=== PATIENT | male | born 1955 | race Caucasian/White ===

== ENCOUNTER 2021-06-04 14:53 | Inpatient (IN) | payer OTHER, SELFPAY ==
[2021-06-04] VITALS (8 sets, daily range): BP systolic 119–149; BP diastolic 90–111; PULSE 93–132; RESP 16–20; O2SAT 96–98; BMI 31.2
--- NOTE | ~2021-06-04 | US_ITS ---
EXAMINATION: US RETROPERITONEAL LIMITED (RENAL ONLY) CLINICAL INFORMATION: CT scan of the chest done without contrast earlier today showed 1.4 cm low-density mass at the superior pole of the left kidney.. COMPARISON: CT of the chest done on 06/04/2021. TECHNIQUE: Real-time imaging of the kidneys. There FINDINGS: RIGHT KIDNEY: 10.7 x 4.9 x 5.6 cm (SAG x AP x TRV). The kidney is normal in size, contour, and echogenicity. Renal cortical thickness is normal. No calculi or focal parenchymal lesions. No hydronephrosis. LEFT KIDNEY: 9.9 x 5.4 x 4.9 cm (SAG x AP x TRV). The kidney is normal in size, contour, and echogenicity. Renal cortical thickness is normal. No calculi . No hydronephrosis. At the midpole, there is an exophytic 1.5 x 1.4 x 1.4 cm simple appearing cyst is seen. At the superior pole, septated avascular hypoechogenicity is present, measures 1.5 x 1.6 x 1.3 cm, most consistent with minimally complicated cyst. US/US renal BI IMPRESSION: 1. Bilateral normal size kidneys. 2. At the superior pole of the left kidney, 1.6 cm maximum dimension septated avascular hypoechogenicity is present, most consistent with minimally complicated cyst.. Follow-up imaging to document stability is recommended. 3. At the midpole of the left kidney, simple appearing 1.5 cm exophytic cyst is noted.
--- NOTE | ~2021-06-04 | CT_ITS ---
EXAMINATION: CT CHEST WITHOUT CONTRAST CLINICAL INFORMATION: Evaluate for mass COMPARISON: Previous chest x-ray and chest CT May 2021 TECHNIQUE: Multidetector volumetric CT imaging of the chest was done. Axial MIP volume rendering provided. Sagittal and coronal reformatted images were obtained. This CT examination was performed using dose optimization techniques as appropriate, variously including the following: *Automated exposure control *Adjustment of mA and/or kV according to patient size (this includes techniques or standardized protocols for targeted exams where dose is matched to indication/reason for exam; i.e. extremities or head) *Use of iterative reconstruction technique DLP: 265 mGy-cm FINDINGS: LUNGS: There is compressive atelectasis of the medial segment of the right middle lobe and right lower lobe. No mass is seen. There is subsegmental atelectasis in the left lower lobe. The lungs are otherwise clear. No endobronchial or endotracheal lesion is seen in MEDIASTINUM: There are small mediastinal lymph nodes. No enlarged lymph nodes are seen. The heart is enlarged. There is severe coronary artery calcification. There is no pericardial effusion. The thoracic aorta is normal in caliber. PLEURA: There is a large right pleural effusion. This does not appear appreciably changed from 06/04/2021 exam. There is a small left pleural effusion. This is slightly decreased in size from recent exam. AXILLA: No lymphadenopathy. UPPER ABDOMEN: There is interval decrease in ascites seen in the upper abdomen. There are 2 low-attenuation left renal lesions that are stable. OSSEOUS STRUCTURES: There are degenerative changes of the spine. CT/CT chest wo con IMPRESSION: Large right pleural effusion which is unchanged. Small left pleural effusion which is decreased in size from recent exam. Compressive atelectasis of the medial segment of the right middle lobe and right lower lobe. Subsegmental atelectasis of the left lower lobe. No mass. Severe coronary artery calcification. Interval decrease in ascites.
--- NOTE | ~2021-06-04 | CT_ITS ---
EXAMINATION: CT CHEST WITHOUT CONTRAST CLINICAL INFORMATION: Evaluate pneumonia. Left-sided consolidation. COMPARISON: Chest x-ray dated 06/04/2021. TECHNIQUE: Multidetector volumetric CT imaging of the chest was obtained noncontrast. Sagittal and coronal reformations were obtained. This CT examination was performed using dose optimization techniques as appropriate, variously including the following: *Automated exposure control *Adjustment of mA and/or kV according to patient size (this includes techniques or standardized protocols for targeted exams where dose is matched to indication/reason for exam; i.e. extremities or head) *Use of iterative reconstruction technique DLP: 484 mGy-cm. FINDINGS: LUNGS: Bilateral posteriorly layering simple fluid attenuation pleural effusions are seen, large on the right side, extending to the lung apex and small on the left side, extending to the level of the aortic arch. No definite pleural thickening or nodularity is appreciated on noncontrast study. There is subjacent volume loss and mild partial atelectasis in the right middle lobe and left lower lobe and near complete atelectasis in the right lower lobe with some aeration remaining in the anterobasal segment of the right lower lobe. There is complete cut off of the right lower lobe bronchus after the takeoff of the anterobasal segment airway, though no definite central mass is appreciated on noncontrast study, the consolidated/atelectatic lung parenchyma. LYMPHOVASCULAR STRUCTURES: Aortic and heart size normal. Severe coronary artery calcifications seen. No pericardial effusion. No mediastinal, hilar or axillary adenopathy or free fluid collection. THYROID GLAND: Diffusely atrophic and otherwise unremarkable. UPPER ABDOMEN: Small volume ascites seen in the abdomen. Included portions of pancreas appear atrophic. Incompletely characterized upper pole left renal approximately 1.4 cm diameter low density mass is seen, possibly an incidental cyst. Additional incompletely included exophytic mid left renal 1 cm mass seen. A few scattered colonic diverticula are included in the left upper quadrant. There is some fullness at the GE junction, likely representing a small hiatal hernia. BONES: Multilevel mild vertebral spondylosis in the cervical, thoracic and upper lumbar spine. No suspicious focal findings. CT/CT chest wo con IMPRESSION: 1. Large right and small left pleural effusion is seen, appearing simple on noncontrast study with subjacent areas of atelectasis and volume loss, most severe in the right lower lobe, where subtotal collapse of the right lower lobe is seen. There is associated complete cut off of the right lower lobe bronchus beyond the takeoff of the anterobasal segment airway, though no definite central mass is appreciated on noncontrast exam. Bronchoscopic evaluation could be considered with CT scan follow-up as clinically appropriate. 2. No adenopathy. 3. Severe coronary artery calcifications. 4. Incompletely characterized left renal masses, possibly cysts. Recommend nonemergent renal ultrasound assessment of the kidneys to exclude solid lesions.
--- NOTE | ~2021-06-04 | XR_ITS ---
EXAMINATION: XR CHEST CLINICAL INFORMATION: Dyspnea COMPARISON: None TECHNIQUE: Frontal view of the chest was obtained. FINDINGS: The lungs are slightly hypoexpanded. There is dense consolidation at the base of the right lung, likely a combination of consolidated lung in a small adjacent effusion. The left lung appears clear. No pneumothorax. XR/XR chest 1V IMPRESSION: Dense consolidation at the base of the right lung concerning for pneumonia and a small adjacent effusion.
--- NOTE | 2021-06-04 15:22 | ECG_ITS ---
Test Reason : DIZZYNESS Blood Pressure : / mmHG Vent. Rate : 117 BPM Atrial Rate : 115 BPM P-R Int : 000 ms QRS Dur : 088 ms QT Int : 388 ms P-R-T Axes : 000 078 -33 degrees QTc Int : 541 ms Atrial fibrillation with rapid ventricular response Nonspecific T wave abnormality Abnormal ECG When compared with ECG of 30-MAY-2008 09:25, Significant changes have occurred Referred By: Stephany Nichols Electronically Signed By:SAMPSON GOOD
--- NOTE | 2021-06-04 15:37 | ED_ITS ---
HPI - SOB/Dyspnea General Chief Complaint: Dizziness Stated Complaint: OFF BALANCE Time Seen by Provider: 06/04/21 15:22 Source: patient and family Mode of arrival: ambulatory Limitations: no limitations History of Present Illness HPI Narrative: 66 yo male with hx of afib on dilt and blood thinners, HTN, depression here with 1 month of worsening edema and shortness of breath, he is not compliant with his medications because he doesn't feel like taking them per his , he denies cp, notes a cough, came today because he wouldn't stop complaining about his breathing. MD elicited complaint: shortness of breath and cough Pertinent past history: other (afib just started on lasix 20mg daily by PCP on 05/26 but he hasn't started it due to pharmacy issues) Onset (ago): week(s) (4) Context: occurred during exertion and medication noncompliance Timing: constant Severity: moderate Exacerbating factors: lying flat, exertion and movement Relieving factors: rest Associated symptoms: cough, orthopnea and other (edema) Treatment prior to arrival: none Related Data Allergies Allergy/AdvReac Type Severity Reaction Status Date / Time No Known Allergies Allergy Verified 06/04/21 15:00 Review of Systems Review of Systems: Constitutional : No Fever, No Chills ENT/Mouth : No sore throat, No Rhinorrhea, No Swallowing Difficulty Eyes: No Eye Pain, No Swelling, No Redness Cardiovascular : No Chest Pain, positive SOB, pos Orthopnea, positive Edema Respiratory : pos Cough, No Sputum, No Wheezing, positive dyspnea Gastrointestinal : No Nausea, No Vomiting, No Diarrhea, No abdominal Pain, No Hematochezia, No Melena Genitourinary : No Dysuria, No Urinary Frequency, No Hematuria Musculoskeletal : No joint pain, No Myalgias Skin : No Skin Lesions, No rash Neuro : No Weakness, No Numbness, No Dizziness, No Headache Psych : No Anxiety/Panic, No Depression Heme/Lymph: No Bruising, No Lymphadenopathy Endocrine : No Polyuria, No Polydipsia All other systems reviewed and are negative [facility] Past Medical History Attestation statement: The following information was validated with the patient. Medical History Afib Diabetes HTN (hypertension) Social History Social History (Updated 06/04/21 @ 16:25 by Stephany Nichols DO) Patient Tobacco Use Status: Never used Tobacco Use of substances other than those prescribed or required for medical reasons: No Advance Directives: No Advance Directives Information Provided: No Physical Exam Vital Signs: Vital Signs: Last Vital Signs Pulse 127 H 06/04/21 17:30 Resp 18 06/04/21 14:55 BP 127/95 H 06/04/21 17:30 Pulse Ox 97 06/04/21 14:55 Body Mass Index 31.2 Appearance: Alert. Oriented X3. No acute distress. Eyes: Pupils equal, round and reactive to light. ENT: Pharynx normal. Neck: Normal inspection. Neck supple. CVS: tachycardic irregular heart rate and rhythm. Pulses normal. Respiratory: No respiratory distress. Breath sounds decreased bases L>R Abdomen: Soft and nontender. Skin: Skin warm and dry. Normal skin color. Normal skin turgor. Extremities: pitting 2+ symmetric lower extremity edema. No calf ttp Neuro: Oriented X 3. No motor deficit. No sensory deficit. Course Course Course Narrative: dense consolidation seen may need CT scan - IV ceftriaxone for possible CAP ordered CT scan looks like fluid - ordered IV diuresis MDM - SOB/Dyspnea MDM Narrative Medical decision making narrative: 66 yo male with DM, HTN, afib not compliant regularly with his home medications comes in c/o dyspnea - he is in rapid afib on arrival will need labs, CXR< IV dilt, IV lasix, likely admission for CHF/ possible pneumonia vs mass Lab Data Result diagrams: 06/04/21 15:58 06/04/21 15:58 Labs: Lab Results 06/04/21 06/04/21 06/04/21 Range/Units 15:58 15:58 15:58 WBC 5.7 (4.8-10.8) X10*3/uL RBC 5.48 (4.60-5.80) X10*6/uL Hgb 15.0 (14.0-18.0) g/dl Hct 46.2 (42-52) % MCV 84.3 (80-98) fL MCH 27.4 (27.0-33.0) pg MCHC 32.5 (31.0-36.0) g/dl RDW 15.3 (11.0-16.0) % Plt Count 230 (160-400) X10*3/uL MPV 10.3 (9.4-12.4) fL Immature Gran % (Auto) 0.4 (0.0-0.4) % Neut % (Auto) 70.8 (45-73) % Lymph % (Auto) 20.2 (20-40) % [place] % (Auto) 7.0 (2-11) % Eos % (Auto) 1.2 (0-4) % Baso % (Auto) 0.4 (0-2) % Lymph # (Auto) 1.2 (1.2-4.9) X10*3/uL [place] # (Auto) 0.4 (0.1-1.2) X10*3/uL Eos # (Auto) 0.1 (0.0-0.4) X10*3/uL Baso # (Auto) 0.0 (0.0-0.2) X10*3/uL Abs Immat Gran (auto) 0.02 (0.00-0.03) X10*3/uL Absolute Neuts (auto) 4.0 (2.0-8.3) X10*3/uL Absolute Nucleated RBC 0.000 (0.0-0.012) X10*3/uL Nucleated RBC % (auto) 0.0 (0.0-0.2) /100WBC PT (9.9-13.0) SEC INR (0.9-1.1) APTT (24.1-38.0) SEC Sodium 136 (135-145) mmol/L Potassium 4.6 (3.3-5.1) mmol/L Chloride 102 (96-108) mmol/L Carbon Dioxide 22 (22-29) mmol/L Anion Gap 17 (12-20) BUN 23 H (9-16) mg/dL Creatinine 1.47 H (0.5-1.4) mg/dL Estim Creat Clear Calc 68.0 Estimated GFR 48 Random Glucose 135 H (60-115) mg/dL Lactic Acid (0.5-2.0) mmol/L Calcium 9.3 (8.4-10.2) mg/dL Magnesium (1.6-2.6) mg/dL Total Bilirubin (0.0-1.0) mg/dL Direct Bilirubin (0.0-0.5) mg/dL AST (5-37) U/L ALT (0-40) U/L Alkaline Phosphatase (39-117) U/L Troponin I High Sens (<3.5-35.0) ng/L B-Natriuretic Peptide 1248 H (<100) pg/mL Total Protein (6.5-8.0) g/dL Albumin (3.5-5.0) g/dL Lipase (8-78) U/L TSH (0.32-4.0) uIU/mL COVID-19 (KARL) (Negative) COVID-19 Clin Com 06/04/21 06/04/21 06/04/21 Range/Units 15:58 15:58 15:59 WBC (4.8-10.8) X10*3/uL RBC (4.60-5.80) X10*6/uL Hgb (14.0-18.0) g/dl Hct (42-52) % MCV (80-98) fL MCH (27.0-33.0) pg MCHC (31.0-36.0) g/dl RDW (11.0-16.0) % Plt Count (160-400) X10*3/uL MPV (9.4-12.4) fL Immature Gran % (Auto) (0.0-0.4) % Neut % (Auto) (45-73) % Lymph % (Auto) (20-40) % [place] % (Auto) (2-11) % Eos % (Auto) (0-4) % Baso % (Auto) (0-2) % Lymph # (Auto) (1.2-4.9) X10*3/uL [place] # (Auto) (0.1-1.2) X10*3/uL Eos # (Auto) (0.0-0.4) X10*3/uL Baso # (Auto) (0.0-0.2) X10*3/uL Abs Immat Gran (auto) (0.00-0.03) X10*3/uL Absolute Neuts (auto) (2.0-8.3) X10*3/uL Absolute Nucleated RBC (0.0-0.012) X10*3/uL Nucleated RBC % (auto) (0.0-0.2) /100WBC PT 15.4 H (9.9-13.0) SEC INR 1.3 H (0.9-1.1) APTT 33.4 (24.1-38.0) SEC Sodium (135-145) mmol/L Potassium (3.3-5.1) mmol/L Chloride (96-108) mmol/L Carbon Dioxide (22-29) mmol/L Anion Gap (12-20) BUN (9-16) mg/dL Creatinine (0.5-1.4) mg/dL Estim Creat Clear Calc Estimated GFR Random Glucose (60-115) mg/dL Lactic Acid (0.5-2.0) mmol/L Calcium (8.4-10.2) mg/dL Magnesium 1.8 (1.6-2.6) mg/dL Total Bilirubin 1.2 H (0.0-1.0) mg/dL Direct Bilirubin 0.6 H (0.0-0.5) mg/dL AST 34 (5-37) U/L ALT 29 (0-40) U/L Alkaline Phosphatase 108 (39-117) U/L Troponin I High Sens (<3.5-35.0) ng/L B-Natriuretic Peptide (<100) pg/mL Total Protein 6.6 (6.5-8.0) g/dL Albumin 3.6 (3.5-5.0) g/dL Lipase 7 L (8-78) U/L TSH 2.43 (0.32-4.0) uIU/mL COVID-19 (KARL) Negative (Negative) COVID-19 Clin Com See Note 06/04/21 06/04/21 Range/Units 15:59 16:37 WBC (4.8-10.8) X10*3/uL RBC (4.60-5.80) X10*6/uL Hgb (14.0-18.0) g/dl Hct (42-52) % MCV (80-98) fL MCH (27.0-33.0) pg MCHC (31.0-36.0) g/dl RDW (11.0-16.0) % Plt Count (160-400) X10*3/uL MPV (9.4-12.4) fL Immature Gran % (Auto) (0.0-0.4) % Neut % (Auto) (45-73) % Lymph % (Auto) (20-40) % [place] % (Auto) (2-11) % Eos % (Auto) (0-4) % Baso % (Auto) (0-2) % Lymph # (Auto) (1.2-4.9) X10*3/uL [place] # (Auto) (0.1-1.2) X10*3/uL Eos # (Auto) (0.0-0.4) X10*3/uL Baso # (Auto) (0.0-0.2) X10*3/uL Abs Immat Gran (auto) (0.00-0.03) X10*3/uL Absolute Neuts (auto) (2.0-8.3) X10*3/uL Absolute Nucleated RBC (0.0-0.012) X10*3/uL Nucleated RBC % (auto) (0.0-0.2) /100WBC PT (9.9-13.0) SEC INR (0.9-1.1) APTT (24.1-38.0) SEC Sodium (135-145) mmol/L Potassium (3.3-5.1) mmol/L Chloride (96-108) mmol/L Carbon Dioxide (22-29) mmol/L Anion Gap (12-20) BUN (9-16) mg/dL Creatinine (0.5-1.4) mg/dL Estim Creat Clear Calc Estimated GFR Random Glucose (60-115) mg/dL Lactic Acid 1.8 (0.5-2.0) mmol/L Calcium (8.4-10.2) mg/dL Magnesium (1.6-2.6) mg/dL Total Bilirubin (0.0-1.0) mg/dL Direct Bilirubin (0.0-0.5) mg/dL AST (5-37) U/L ALT (0-40) U/L Alkaline Phosphatase (39-117) U/L Troponin I High Sens 21.2 (<3.5-35.0) ng/L B-Natriuretic Peptide (<100) pg/mL Total Protein (6.5-8.0) g/dL Albumin (3.5-5.0) g/dL Lipase (8-78) U/L TSH (0.32-4.0) uIU/mL COVID-19 (KAR[facility]) (Negative) COVID-19 Clin Com ECG Data Attestation: I personally reviewed and interpreted this ECG as follows: ECG interpretation date: 06/04/21 ECG interpretation time: 16:30 Interpretation: Rate: 117 Rhythm: afib with RVR [place]:rightwards decreased QRS complex. ST T wave : no FREDDY, nonspecific qTC: prolonged prior studies: changed but no acute ischemia The study has been interpreted contemporaneously by me. . Critical Care Time Critical Care Time Critical Care Time: Yes Total Critical Care Time: 35 Attestation: IVF dilt x 2, IV lasix x 2, tele, CT chest. I attest to this time spent taking care of the patient Discharge Plan Discharge Clinical Impression: Noncompliance with medications Atrial fibrillation Qualifiers: Atrial fibrillation type: longstanding persistent Qualified Code(s): I48.11 - Longstanding persistent atrial fibrillation CHF (congestive heart failure) Qualifiers: Heart failure type: systolic Heart failure chronicity: acute on chronic Qualified Code(s): I50.23 - Acute on chronic systolic (congestive) heart failure Patient Disposition: Admitted As Inpatient
[2021-06-04 16:03] LABS: MANUAL DIFF FLAG NO
[2021-06-04 16:05] LABS: Basophils Percent Auto 0.4 % (0-2); Eosinophils Absolute Auto 0.1 X10*3/uL (0.0-0.4); Eosinophils Percent Auto 1.2 % (0-4); Hematocrit 46.2 % (42-52); Imm Gran Abs Auto 0.02 X10*3/uL (0.00-0.03); Imm Gran Pct Auto 0.4 % (0.0-0.4); Lymphocytes Absolute Auto 1.2 X10*3/uL (1.2-4.9); Lymphocytes Percent Auto 20.2 % (20-40); Mean Corpuscular HGB Conc 32.5 g/dl (31.0-36.0); Mean Corpuscular Hemoglobin 27.4 pg (27.0-33.0); Mean Corpuscular Volume 84.3 fL (80-98); Mean Platelet Volume 10.3 fL (9.4-12.4); Monocytes Absolute Auto 0.4 X10*3/uL (0.1-1.2); Neutrophils Percent Auto 70.8 % (45-73); Platelet Count 230 X10*3/uL (160-400); Red Blood Count 5.48 X10*6/uL (4.60-5.80); Red Cell Distribution Width 15.3 % (11.0-16.0); White Blood Count 5.7 X10*3/uL (4.8-10.8)
[2021-06-04] MEDS: dilTIAZem HCL 50 MG/10 ML VIAL 10 MG IVPUSH (16:05)
[2021-06-04] MEDS: Furosemide 20 MG/2 ML VIAL IVPUSH ×2 (16:06→18:13)
[2021-06-04 16:17] LABS: INTERNATIONAL NORM RATIO 1.3 (0.9-1.1); Prothrombin Time 15.4 SEC (9.9-13.0)
[2021-06-04 16:20] LABS: Partial Thromboplastin Time 33.4 SEC (24.1-38.0)
[2021-06-04 16:24] LABS: Anion Gap 17 (12-20); Blood Urea Nitrogen 23 mg/dL (9-16); Calcium 9.3 mg/dL (8.4-10.2); Carbon Dioxide 22 mmol/L (22-29); Chloride 102 mmol/L (96-108); Estimated Glomerular Filt Rate 48; Glucose Random 135 mg/dL (60-115); Potassium 4.6 mmol/L (3.3-5.1); Sodium 136 mmol/L (135-145)
[2021-06-04 16:25] LABS: COVID-19 Test Negative (Negative); IDNOW Serial# 9DD0AD1C
[2021-06-04 16:27] LABS: Alanine Aminotransferase 29 U/L (0-40); Albumin Level 3.6 g/dL (3.5-5.0); Alkaline Phosphatase 108 U/L (39-117); Aspartate Amino Transferase 34 U/L (5-37); Bilirubin Direct 0.6 mg/dL (0.0-0.5); Bilirubin Total 1.2 mg/dL (0.0-1.0); Lipase 7 U/L (8-78); Magnesium 1.8 mg/dL (1.6-2.6); Total Protein 6.6 g/dL (6.5-8.0)
[2021-06-04 16:30] LABS: B Type Natriuretic Peptide 1248 pg/mL (<100)
[2021-06-04 16:30] LABS: Troponin-I High Sensitivity 21.2 ng/L (<3.5-35.0)
[2021-06-04 16:47] LABS: TSH reflex Free T4 2.43 uIU/mL (0.32-4.0)
[2021-06-04 16:58] LABS: Lactic Acid 1.8 mmol/L (0.5-2.0)
[2021-06-04] MEDS: dilTIAZem HCL 50 MG/10 ML VIAL IVPUSH (17:30)
[2021-06-04] MEDS: cefTRIAXone sodium 1 GM in 0.9 % Sodium Chloride 50 ML IV (17:31)
[2021-06-04 18:08] LABS: Glucose Urine UA NEG (NEG); Leukocyte Esterase Urine NEG (NEG); Nitrite Urine NEG (NEG); Urine Blood NEG (NEG); Urine Ketones NEG (NEG); Urine Protein NEG (NEG-TRACE)
--- NOTE | 2021-06-04 18:15 | P.HPHOSP_ITS ---
History of Present Illness Date of Service: 06/04/21 <Althea Handley NP - Last Filed: 06/04/21 18:40> Chief Complaint: shortness of breath <Althea Handley NP - Last Filed: 06/04/21 18:40> 66-year-old man presented to the ER with complaints of worsening shortness of breath over the last month with increasing edema to his lower extremities. Patient does have a history of diabetes, congestive heart failure, atrial fibrillation however his reports that he has not been compliant with taking his medications every day. Patient reports that he does however he did also say that he felt little more confused more recently. He denied chest pain, nausea, vomiting, diarrhea but reported increased abdominal bloating, shortness of breath especially with activity, belching and flatus. Creatinine was noted to be elevated 1.27, BNP 1248. He was noted to be tachycardic with started on diltiazem drip for atrial fibrillation with rapid ventricular response, blood pressures been stable and he has not been hypoxic. He was also given a dose of Rocephin, Lasix. He will be admitted for further management treatment of acute congestive heart failure, atrial fibrillation with rapid ventricular response and pleural effusion. <Althea Handley NP - Last Filed: 06/04/21 18:40> Review of Systems Review of Systems: Denies any recent fever chills or decrease in appetite respiratory see HPI cardiovascular see HPI gastrointestinal denies any dysphagia abdominal pain nausea vomiting or diarrhea genitourinary denies any dysuria frequency or hematuria musculoskeletal denies any joint pain or swelling neuropsych denies any weakness or seizures all other systems reviewed are negative <Althea Handley NP - Last Filed: 06/04/21 18:40> [facility] Medical History: Medical History (Updated 06/05/21 @ 11:29 by Paxton Polanco MD) Afib CHF (congestive heart failure) Diabetes HTN (hypertension) <Althea Handley NP - Last Filed: 06/04/21 18:40> Family History: Family History (Updated 06/05/21 @ 11:20 by Paxton Polanco MD) Father CAD (coronary artery disease) <Althea Handley NP - Last Filed: 06/04/21 18:40> Pertinent family history: no cardiac disease <Althea Handley NP - Last Filed: 06/04/21 18:40> Social History: Social History (Updated 06/04/21 @ 16:25 by Stephany Nichols DO) Household Members: Spouse Housing: House Alcohol intake: never Patient Tobacco Use Status: Never used Tobacco Current occupational status: employed <Althea Handley NP - Last Filed: 06/04/21 18:40> Meds Allergies/Adverse reactions: Allergies Allergy/AdvReac Type Severity Reaction Status Date / Time No Known Allergies Allergy Verified 06/04/21 15:00 <Althea Handley NP - Last Filed: 06/04/21 18:40> Active Medications: Current Medications Generic Name Dose Route Start Last Admin Trade Name Freq PRN Reason Stop Dose Admin Diltiazem HCl 125 mg/ Sodium 125 mls @ 0 mls/hr 06/04/21 18:00 Chloride IVCONT .Q0M PALMER Protocol Per Protocol <Althea Handley NP - Last Filed: 06/04/21 18:40> Home medications: Home Medications Medication Instructions Recorded Confirmed Last Taken Type allopurinol 1 tab PO DAILY 06/04/21 06/04/21 06/04/21 History apixaban [Eliquis] 1 tab PO BID 06/04/21 06/04/21 06/04/21 History atorvastatin 1 tab PO DAILY 06/04/21 06/04/21 06/04/21 History bupropion HCl 1 tab PO QAM 06/04/21 06/04/21 06/04/21 History diltiazem HCl 1 cap PO DAILY 06/04/21 06/04/21 06/04/21 History escitalopram oxalate 1 tab PO DAILY 06/04/21 06/04/21 06/04/21 History furosemide 1 tab PO DAILY 06/04/21 06/04/21 06/04/21 History glipizide 2 tab PO DAILY 06/04/21 06/04/21 06/04/21 History hydrochlorothiazide 1 tab PO DAILY 06/04/21 06/04/21 06/04/21 History lisinopril 1 tab PO DAILY 06/04/21 06/04/21 06/04/21 History metformin 2 tab PO DAILY 06/04/21 06/04/21 06/04/21 History metoprolol succinate 1 tab PO DAILY 06/04/21 06/04/21 06/04/21 History <Althea Handely NP - Last Filed: 06/04/21 18:40> Physical Exam Vital Signs and Narrative: Vital Signs: Last Vital Signs Pulse 98 06/04/21 17:44 Resp 20 06/04/21 17:44 BP 119/98 H 06/04/21 17:44 Pulse Ox 97 06/04/21 17:44 Body Mass Index 31.2 <Althea Handley NP - Last Filed: 06/04/21 18:40> Appearing in no acute distress head is normocephalic atraumatic eyes pupils are PERRLA sclera is anicteric mouth throat mucous membranes are intact and moist neck is supple no lymphadenopathy, no JVD noted lung sounds diminished heart regular rate rhythm, clear S1, S2 positive bowel sounds, abdomen is soft, nontender, obese neuro patient is alert x3, no focal deficits <Althea Handley NP - Last Filed: 06/04/21 18:40> Results Labs CBC and Chem 7: : 06/05/21 05:53 06/05/21 05:53 <Althea Handley NP - Last Filed: 06/04/21 18:40> Labs: Laboratory Results - last 24 hr 06/04/21 06/04/21 06/04/21 15:58 15:58 15:58 MCV 84.3 MCH 27.4 MCHC 32.5 RDW 15.3 Plt Count 230 MPV 10.3 Immature Gran % (Auto) 0.4 Neut % (Auto) 70.8 Lymph % (Auto) 20.2 [place] % (Auto) 7.0 Eos % (Auto) 1.2 Baso % (Auto) 0.4 Lymph # (Auto) 1.2 [place] # (Auto) 0.4 Eos # (Auto) 0.1 Baso # (Auto) 0.0 Abs Immat Gran (auto) 0.02 Absolute Neuts (auto) 4.0 Absolute Nucleated RBC 0.000 Nucleated RBC % (auto) 0.0 PT INR APTT Anion Gap 17 Estim Creat Clear Calc 68.0 Estimated GFR 48 Random Glucose 135 H Lactic Acid Calcium 9.3 Magnesium Total Bilirubin Direct Bilirubin AST ALT Alkaline Phosphatase Troponin I High Sens B-Natriuretic Peptide 1248 H Total Protein Albumin Lipase TSH COVID-19 ([facility]) COVID-19 Clin Com 06/04/21 06/04/21 06/04/21 15:58 15:58 15:59 MCV MCH MCHC RDW Plt Count MPV Immature Gran % (Auto) Neut % (Auto) Lymph % (Auto) [place] % (Auto) Eos % (Auto) Baso % (Auto) Lymph # (Auto) [place] # (Auto) Eos # (Auto) Baso # (Auto) Abs Immat Gran (auto) Absolute Neuts (auto) Absolute Nucleated RBC Nucleated RBC % (auto) PT 15.4 H INR 1.3 H APTT 33.4 Anion Gap Estim Creat Clear Calc Estimated GFR Random Glucose Lactic Acid Calcium Magnesium 1.8 Total Bilirubin 1.2 H Direct Bilirubin 0.6 H AST 34 ALT 29 Alkaline Phosphatase 108 Troponin I High Sens B-Natriuretic Peptide Total Protein 6.6 Albumin 3.6 Lipase 7 L TSH 2.43 COVID-19 ([facility]) Negative COVID-19 Clin Com See Note 06/04/21 06/04/21 15:59 16:37 MCV MCH MCHC RDW Plt Count MPV Immature Gran % (Auto) Neut % (Auto) Lymph % (Auto) [place] % (Auto) Eos % (Auto) Baso % (Auto) Lymph # (Auto) [place] # (Auto) Eos # (Auto) Baso # (Auto) Abs Immat Gran (auto) Absolute Neuts (auto) Absolute Nucleated RBC Nucleated RBC % (auto) PT INR APTT Anion Gap Estim Creat Clear Calc Estimated GFR Random Glucose Lactic Acid 1.8 Calcium Magnesium Total Bilirubin Direct Bilirubin AST ALT Alkaline Phosphatase Troponin I High Sens 21.2 B-Natriuretic Peptide Total Protein Albumin Lipase TSH COVID-19 (KARL) COVID-19 Clin Com <Althea Handley NP - Last Filed: 06/04/21 18:40> Imaging Radiologist's Impressions: Impressions Chest X-Ray 06/04/21 15:23 IMPRESSION: Dense consolidation at the base of the right lung concerning for pneumonia and a small adjacent effusion. Chest CT 06/04/21 16:46 IMPRESSION: 1. Large right and small left pleural effusion is seen, appearing simple on noncontrast study with subjacent areas of atelectasis and volume loss, most severe in the right lower lobe, where subtotal collapse of the right lower lobe is seen. There is associated complete cut off of the right lower lobe bronchus beyond the takeoff of the anterobasal segment airway, though no definite central mass is appreciated on noncontrast exam. Bronchoscopic evaluation could be considered with CT scan follow-up as clinically appropriate. 2. No adenopathy. 3. Severe coronary artery calcifications. 4. Incompletely characterized left renal masses, possibly cysts. Recommend nonemergent renal ultrasound assessment of the kidneys to exclude solid lesions. <Althea Handley NP - Last Filed: 06/04/21 18:40> Assessment and Plan (1) Atrial fibrillation: Qualifiers: Atrial fibrillation type: longstanding persistent Qualified Code(s): I48.11 - Longstanding persistent atrial fibrillation <Althea Handley NP - Last Filed: 06/04/21 18:40> Status: Acute <Althea Handley NP - Last Filed: 06/04/21 18:40> (2) CHF (congestive heart failure): Qualifiers: Heart failure chronicity: acute on chronic Heart failure type: systolic Qualified Code(s): I50.23 - Acute on chronic systolic (congestive) heart failure <Althea Handley NP - Last Filed: 06/04/21 18:40> Status: Acute <Althea Handley NP - Last Filed: 06/04/21 18:40> 66-year-old man admitted with acute on chronic congestive heart failure unknown type, no recent echocardiogram in the medical record, records requested from [facility]. According to the patient's he has not been compliant with taking his medications as prescribed and may miss doses on a regular basis. Acute on chronic congestive heart failure. On Lasix at home. Likely secondary to noncompliance with medication. BNP 1248 no hypoxia IV Lasix Echocardiogram cardiology consultation Daily weights, monitor intake and output closely WILMER. Likely cardiorenal secondary to acute congestive heart failure Diurese Follow BMP closely, if no improvement consider nephrology consultation Hyperbilirubinemia. Likely secondary to congestive secondary to CHF Diurese Follow LFTs Atrial fibrillation with rapid ventricular response. Likely secondary to heart failure, noncompliance with medication IV Cardizem drip Cardiology following Continue Eliquis Pleural effusion, abnormal CT scan mass vs pulmonary edema Pulmonary consultation, may need bronchoscopy to rule out mass Possible left renal mass Renal ultrasound Hypertension. Stable blood pressure Hold lisinopril and hydrochlorothiazide due to WIMLER Diabetes mellitus Sliding scale, ADA diet Hold metformin due to WILMER Obesity. BMI 31.2 Discussed the importance of weight loss as this may contribute to worsening of other comorbidities. DVT prophylaxis with Sebastian Attending Dr. Magaña Full code <Althea Handley NP - Last Filed: 06/04/21 18:40> Quality Stroke Does the patient have a stroke diagnosis?: No <Althea Handley NP - Last Filed: 06/04/21 18:40> VTE Prior VTE?: No <Althea Handley NP - Last Filed: 06/04/21 18:40> VTE Risk Level:: Medical - moderate - high <Althea Handley NP - Last Filed: 06/04/21 18:40> VTE Device Contraindication: Treatment Not Indicated <Althea Handley NP - Last Filed: 06/04/21 18:40> VTE Drug Contraindication: N/A - Med Ordered <Althea Handley NP - Last Filed: 06/04/21 18:40>
[2021-06-04] MEDS: dilTIAZem HCL 125 MG in 0.9 % Sodium Chloride 100 ML 10 MG IVCONT (18:16)
[2021-06-04 18:23] LABS: Appearance Urine CLEAR; Color Urine YELLOW
--- NOTE | 2021-06-04 23:42 | PC.NURSE ---
pt cardizem drip remains unchanged, hr controlled in the 90's afib.
[2021-06-05] VITALS (12 sets, daily range): BP systolic 128–151; BP diastolic 78–118; PULSE 80–119; RESP 14–20; TEMP 36.1–36.6; O2SAT 92–98
[2021-06-05] MEDS: Furosemide 40 MG/4 ML VIAL IVPUSH ×2 (05:23→18:17)
[2021-06-05 05:59] LABS: MANUAL DIFF FLAG NO
[2021-06-05 06:04] LABS: Basophils Percent Auto 0.4 % (0-2); Eosinophils Absolute Auto 0.1 X10*3/uL (0.0-0.4); Eosinophils Percent Auto 2.3 % (0-4); Hematocrit 44.5 % (42-52); Hemoglobin 14.4 g/dl (14.0-18.0); Imm Gran Abs Auto 0.02 X10*3/uL (0.00-0.03); Imm Gran Pct Auto 0.4 % (0.0-0.4); Lymphocytes Absolute Auto 1.3 X10*3/uL (1.2-4.9); Lymphocytes Percent Auto 24.4 % (20-40); Mean Corpuscular HGB Conc 32.4 g/dl (31.0-36.0); Mean Corpuscular Hemoglobin 27.3 pg (27.0-33.0); Mean Corpuscular Volume 84.4 fL (80-98); Mean Platelet Volume 10.1 fL (9.4-12.4); Monocytes Absolute Auto 0.5 X10*3/uL (0.1-1.2); Monocytes Percent Auto 8.8 % (2-11); Neutrophils Absolute Auto 3.4 X10*3/uL (2.0-8.3); Neutrophils Percent Auto 63.7 % (45-73); Platelet Count 217 X10*3/uL (160-400); Red Blood Count 5.27 X10*6/uL (4.60-5.80); Red Cell Distribution Width 15.2 % (11.0-16.0); White Blood Count 5.3 X10*3/uL (4.8-10.8)
[2021-06-05 06:22] LABS: Anion Gap 15 (12-20); Blood Urea Nitrogen 24 mg/dL (9-16); Calcium 9.6 mg/dL (8.4-10.2); Carbon Dioxide 25 mmol/L (22-29); Chloride 102 mmol/L (96-108); Creatinine Clr Calc Pharmacy 70.4; Estimated Glomerular Filt Rate 50; Glucose Random 127 mg/dL (60-115); Potassium 4.3 mmol/L (3.3-5.1); Sodium 138 mmol/L (135-145)
[2021-06-05] MEDS: dilTIAZem HCL 125 MG in 0.9 % Sodium Chloride 100 ML 10 MG IVCONT (06:30)
[2021-06-05] MEDS: 0.9 % Sodium Chloride Flush 3 ML SYRINGE IVFLUSH (07:35)
--- NOTE | 2021-06-05 08:38 | PM.IMPN ---
Subjective Subjective Date of Service: 06/06/21 Interval History: Follow up sob No sob this morning resting in bed Physical Exam Vital Signs: Vital Signs: Last Vital Signs Temp 97.8 F 06/05/21 05:16 Pulse 108 H 06/05/21 07:25 Resp 16 06/05/21 07:25 BP 129/96 H 06/05/21 07:25 Pulse Ox 94 06/05/21 07:25 Body Mass Index 31.2 Appearing in no acute distress lung sounds are clear to auscultation heart regular rate rhythm, clear S1, S2 positive bowel sounds, abdomen is soft, nontender neuro patient is alert x3, no focal deficits Objective Data Current Medications Generic Name Dose Route Start Last Admin Trade Name Freq PRN Reason Stop Dose Admin Acetaminophen 650 mg 06/04/21 18:13 Acetaminophen 325 Mg Tablet PO Q6H PRN Pain, Mild (Pain Scale 1-3) Furosemide 40 mg 06/05/21 06:00 06/05/21 05:23 Furosemide 40 Mg/4 Ml Vial IVPUSH 40 mg Q12H PALMER Administration Protocol Diltiazem HCl 125 mg/ Sodium 125 mls @ 0 mls/hr 06/04/21 18:00 06/05/21 06:30 Chloride IVCONT 10 mg/hr .Q0M PALMER 10 mls/hr Administration Protocol Per Protocol Ondansetron HCl 4 mg 06/04/21 18:13 Ondansetron Hcl 4 Mg/2 Ml Vial IVPUSH Q8H PRN Nausea and Vomiting Sodium Chloride 3 ml 06/05/21 00:00 06/05/21 07:35 0.9 % Sodium Chloride Flush 3 Ml Syringe IVFLUSH 3 ml QSHIFT [facility] Administration Labs CBC & Chem 7: 06/05/21 05:53 06/06/21 04:19 Labs: Laboratory Results - last 24 hr 06/04/21 06/04/21 06/04/21 15:58 15:58 15:58 MCV 84.3 MCH 27.4 MCHC 32.5 RDW 15.3 Plt Count 230 MPV 10.3 Immature Gran % (Auto) 0.4 Neut % (Auto) 70.8 Lymph % (Auto) 20.2 [place] % (Auto) 7.0 Eos % (Auto) 1.2 Baso % (Auto) 0.4 Lymph # (Auto) 1.2 [place] # (Auto) 0.4 Eos # (Auto) 0.1 Baso # (Auto) 0.0 Abs Immat Gran (auto) 0.02 Absolute Neuts (auto) 4.0 Absolute Nucleated RBC 0.000 Nucleated RBC % (auto) 0.0 PT INR APTT Anion Gap 17 Creatinine 1.47 H Estim Creat Clear Calc 68.0 Estimated GFR 48 Random Glucose 135 H Lactic Acid Calcium 9.3 Magnesium Total Bilirubin Direct Bilirubin AST ALT Alkaline Phosphatase Troponin I High Sens B-Natriuretic Peptide 1248 H Total Protein Albumin Lipase TSH Urine Color Urine Appearance Urine pH Ur Specific [place] Urine Protein Urine Glucose (UA) Urine Ketones Urine Blood Urine Nitrite Ur Leukocyte Esterase COVID-19 (KARL) COVID-19 [facility]Mosa 06/04/21 06/04/21 06/04/21 15:58 15:58 15:59 MCV MCH MCHC RDW Plt Count MPV Immature Gran % (Auto) Neut % (Auto) Lymph % (Auto) [place] % (Auto) Eos % (Auto) Baso % (Auto) Lymph # (Auto) [place] # (Auto) Eos # (Auto) Baso # (Auto) Abs Immat Gran (auto) Absolute Neuts (auto) Absolute Nucleated RBC Nucleated RBC % (auto) PT 15.4 H INR 1.3 H APTT 33.4 Anion Gap Creatinine Estim Creat Clear Calc Estimated GFR Random Glucose Lactic Acid Calcium Magnesium 1.8 Total Bilirubin 1.2 H Direct Bilirubin 0.6 H AST 34 ALT 29 Alkaline Phosphatase 108 Troponin I High Sens B-Natriuretic Peptide Total Protein 6.6 Albumin 3.6 Lipase 7 L TSH 2.43 Urine Color Urine Appearance Urine pH Ur Specific [place] Urine Protein Urine Glucose (UA) Urine Ketones Urine Blood Urine Nitrite Ur Leukocyte Esterase COVID-19 (KARL) Negative COVID-19 [employer] Com See Note 06/04/21 06/04/21 06/04/21 15:59 16:37 17:55 MCV MCH MCHC RDW Plt Count MPV Immature Gran % (Auto) Neut % (Auto) Lymph % (Auto) [place] % (Auto) Eos % (Auto) Baso % (Auto) Lymph # (Auto) [place] # (Auto) Eos # (Auto) Baso # (Auto) Abs Immat Gran (auto) Absolute Neuts (auto) Absolute Nucleated RBC Nucleated RBC % (auto) PT INR APTT Anion Gap Creatinine Estim Creat Clear Calc Estimated GFR Random Glucose Lactic Acid 1.8 Calcium Magnesium Total Bilirubin Direct Bilirubin AST ALT Alkaline Phosphatase Troponin I High Sens 21.2 B-Natriuretic Peptide Total Protein Albumin Lipase TSH Urine Color YELLOW Urine Appearance CLEAR Urine pH 6.0 Ur Specific [place] 1.010 Urine Protein NEG Urine Glucose (UA) NEG Urine Ketones NEG Urine Blood NEG Urine Nitrite NEG Ur Leukocyte Esterase NEG COVID-19 (KARL) COVID-19 Clin Com 06/05/21 06/05/21 05:53 05:53 MCV 84.4 MCH 27.3 MCHC 32.4 RDW 15.2 Plt Count 217 MPV 10.1 Immature Gran % (Auto) 0.4 Neut % (Auto) 63.7 Lymph % (Auto) 24.4 [place] % (Auto) 8.8 Eos % (Auto) 2.3 Baso % (Auto) 0.4 Lymph # (Auto) 1.3 [place] # (Auto) 0.5 Eos # (Auto) 0.1 Baso # (Auto) 0.0 Abs Immat Gran (auto) 0.02 Absolute Neuts (auto) 3.4 Absolute Nucleated RBC 0.000 Nucleated RBC % (auto) 0.0 PT INR APTT Anion Gap 15 Creatinine 1.42 H Estim Creat Clear Calc 70.4 Estimated GFR 50 Random Glucose 127 H Lactic Acid Calcium 9.6 Magnesium Total Bilirubin Direct Bilirubin AST ALT Alkaline Phosphatase Troponin I High Sens B-Natriuretic Peptide Total Protein Albumin Lipase TSH Urine Color Urine Appearance Urine pH Ur Specific [place] Urine Protein Urine Glucose (UA) Urine Ketones Urine Blood Urine Nitrite Ur Leukocyte Esterase COVID-19 (KARL) COVID-19 Clin Com Progress Note: A&P (1) Atrial fibrillation: Status: Acute (2) CHF (congestive heart failure): Status: Acute Assessment and Plan: 66-year-old man admitted with acute on chronic congestive heart failure unknown type, no recent echocardiogram in the medical record, records requested from [facility]. According to the patient's he has not been compliant with taking his medications as prescribed and may miss doses on a regular basis. Atrial fibrillation with rapid ventricular response. Likely secondary to heart failure, noncompliance with medication cardizem drip Cardiology following Continue Eliquis Will likely need EDWINA cardioversion Acute on chronic congestive heart failure. On Lasix at home. Likely secondary to noncompliance with medication. BNP 1248 no hypoxia continue IV Lasix Echocardiogram pending cardiology following Daily weights, monitor intake and output closely Pleural effusion, abnormal CT scan mass vs pulmonary edema Seen and evaluated by pulmonology with recommendation to repeat CT chest after diuresis WILMER. Likely cardiorenal secondary to acute congestive heart failure, has remained the same. Diurese Follow BMP closely, if no improvement consider nephrology consultation Hyperbilirubinemia. Likely secondary to congestive secondary to CHF Diurese Follow LFTs Possible left renal mass renal us showed no mass, simple cyst o/p f/u with pcp Hypertension. Stable blood pressure Hold lisinopril and hydrochlorothiazide due to WILMER Diabetes mellitus Sliding scale, ADA diet Hold metformin due to WILMER Obesity. BMI 31.2 Discussed the importance of weight loss as this may contribute to worsening of other comorbidities. DVT prophylaxis with [facility] Attending Dr. gill Full code Quality Stroke Does the patient have a stroke diagnosis?: No VTE Prior VTE?: No VTE Risk Level:: Medical - moderate - high VTE Device Contraindication: Treatment Not Indicated VTE Drug Contraindication: N/A - Med Ordered
[2021-06-05 09:12] LABS: B Type Natriuretic Peptide 831 pg/mL (<100)
--- NOTE | 2021-06-05 09:39 | PC.NURSE ---
pt a/o x 3 no sob/betzaida noted skin pink warm dry speaks in full sentences. denies any chest pain/dizziness. 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 pt aware of plan of care for admission to hosp.
--- NOTE | 2021-06-05 09:42 | PC.NURSE ---
ble 2+ pitting edema noted. aware.
--- NOTE | 2021-06-05 10:48 | PC.NURSE ---
DR. GOOD (CARDOIOLOGIST) AT BEDSIDE, PT AWARE OF PLAN OF CARE.
--- NOTE | 2021-06-05 11:19 | PM.CNCAR ---
History of Present Illness History of Present Illness Date of Service: 06/05/21 Consult reason: congestive heart failure Chief complaint: CHF Narrative: This is a cardiology consultation regarding congestive heart failure. Patient goes to [facility] but does not know any other nurse practical. It seems that he might be getting treated for atrial fibrillation and congestive heart failure but he does not know much of details. He states that he does miss doses of medications and does not taken regularly as he is advised. For the last few days, he has been having increasing shortness of breath with activity now also increasing leg swelling which led to the ER presentation. He is being treated for acute heart failure and atrial fibrillation with rapid rate. We do not have records from his prior nurse practical for review and will need to request these. Review of Systems Review of Systems: Yes all other systems are reviewed and are negative Cardiovascular: Cardiovascular: Reports as per HPI, Reports no additional cardiovascular complaints, Denies acrocyanosis, Denies cool extremities, Denies painful fingertips, Denies chest pain, Denies chest pain at rest, Denies diaphoresis, Denies syncope, Denies irregular heart rhythm, Denies claudication, Reports leg edema, Denies lightheadedness, Denies palpitations and Reports dyspnea Respiratory: Respiratory: Reports dyspnea Neurologic: Denies syncope Endocrine: Endocrine: Denies palpitations [facility] Past Medical History Medical History (Updated 06/05/21 @ 11:29 by Paxton Polanco MD) Afib CHF (congestive heart failure) Diabetes HTN (hypertension) Family History Family History (Updated 06/05/21 @ 11:20 by Paxton Polanco MD) Father CAD (coronary artery disease) Social History Social History (Updated 06/04/21 @ 16:25 by Stephany Nichols DO) Alcohol intake: never Patient Tobacco Use Status: Never used Tobacco Use of substances other than those prescribed or required for medical reasons: No Advance Directives: No Advance Directives Information Provided: No Meds Allergies Allergy/AdvReac Type Severity Reaction Status Date / Time No Known Allergies Allergy Verified 06/04/21 15:00 Active Medications: Current Medications Generic Name Dose Route Start Last Admin Trade Name Freq PRN Reason Stop Dose Admin Acetaminophen 650 mg 06/04/21 18:13 Acetaminophen 325 Mg Tablet PO Q6H PRN Pain, Mild (Pain Scale 1-3) Furosemide 40 mg 06/05/21 06:00 07/11/21 05:23 Furosemide 40 Mg/4 Ml Vial IVPUSH 40 mg Q12H PALMER Administration Protocol Diltiazem HCl 125 mg/ Sodium 125 mls @ 0 mls/hr 06/04/21 18:00 06/05/21 06:30 Chloride IVCONT 10 mg/hr .Q0M PALMER 10 mls/hr Administration Protocol Per Protocol Ondansetron HCl 4 mg 06/04/21 18:13 Ondansetron Hcl 4 Mg/2 Ml Vial IVPUSH Q8H PRN Nausea and Vomiting Sodium Chloride 3 ml 06/05/21 00:00 06/05/21 07:35 0.9 % Sodium Chloride Flush 3 Ml Syringe IVFLUSH 3 ml QSHIFT [facility] Administration Home Medications Medication Instructions Recorded Confirmed Last Taken Type allopurinol 1 tab PO DAILY 06/04/21 06/04/21 06/04/21 History apixaban [Eliquis] 1 tab PO BID 06/04/21 06/04/21 06/04/21 History atorvastatin 1 tab PO DAILY 06/04/21 06/04/21 06/04/21 History bupropion HCl 1 tab PO QAM 06/04/21 06/04/21 06/04/21 History diltiazem HCl 1 cap PO DAILY 06/04/21 06/04/21 06/04/21 History escitalopram oxalate 1 tab PO DAILY 06/04/21 06/04/21 06/04/21 History furosemide 1 tab PO DAILY 06/04/21 06/04/21 06/04/21 History glipizide 2 tab PO DAILY 06/04/21 06/04/21 06/04/21 History hydrochlorothiazide 1 tab PO DAILY 06/04/21 06/04/21 06/04/21 History lisinopril 1 tab PO DAILY 06/04/21 06/04/21 06/04/21 History metformin 2 tab PO DAILY 06/04/21 06/04/21 06/04/21 History metoprolol succinate 1 tab PO DAILY 06/04/21 06/04/21 06/04/21 History Physical Exam Vital Signs: Vital Signs: Last Vital Signs Temp 97.7 F 06/05/21 09:40 Pulse 103 H 06/05/21 09:40 Resp 19 06/05/21 09:40 BP 139/85 07/11/21 09:40 Pulse Ox 95 06/05/21 09:40 Body Mass Index 31.2 Const: General: cooperative and no acute distress HENMT: Other: Unremarkable Neck: Neck: Yes normal visual inspection Chest: Chest palpation & inspection: normal inspection of the chest Resp: Auscultation: bronchial breath sounds on the right Cardio: Jugular venous distension: no JVD Palpation: normal PMI Heart sounds: S1 normal heart sound present, S2 normal heart sound present, no gallops, no murmurs and no rubs GI: Palpation (GI): Soft to palpation Back/Spine/Pelvis: Other: unremarkable Skin: General skin exam: no rashes or lesions noted Neuro: Cranial nerves: Yes Other cranial nerve findings present Extrem: General: Yes pedal edema (2+) Psych: Mental Status: other Results Labs and Meds Result diagrams: 06/05/21 05:53 06/05/21 05:53 Lab results: Laboratory Results - last 24 hr 06/04/21 06/04/21 06/04/21 15:58 15:58 15:58 WBC 5.7 RBC 5.48 Hgb 15.0 Hct 46.2 MCV 84.3 MCH 27.4 MCHC 32.5 RDW 15.3 Plt Count 230 MPV 10.3 Immature Gran % (Auto) 0.4 Neut % (Auto) 70.8 Lymph % (Auto) 20.2 [place] % (Auto) 7.0 Eos % (Auto) 1.2 Baso % (Auto) 0.4 Lymph # (Auto) 1.2 [place] # (Auto) 0.4 Eos # (Auto) 0.1 Baso # (Auto) 0.0 Abs Immat Gran (auto) 0.02 Absolute Neuts (auto) 4.0 Absolute Nucleated RBC 0.000 Nucleated RBC % (auto) 0.0 PT INR APTT Sodium 136 Potassium 4.6 Chloride 102 Carbon Dioxide 22 Anion Gap 17 BUN 23 H Creatinine 1.47 H Estim Creat Clear Calc 68.0 Estimated GFR 48 Random Glucose 135 H Lactic Acid Calcium 9.3 Magnesium Total Bilirubin Direct Bilirubin AST ALT Alkaline Phosphatase Troponin I High Sens B-Natriuretic Peptide 1248 H Total Protein Albumin Lipase TSH Urine Color Urine Appearance Urine pH Ur Specific [place] Urine Protein Urine Glucose (UA) Urine Ketones Urine Blood Urine Nitrite Ur Leukocyte Esterase COVID-19 (KARL) COVID-19 Clin Com 06/04/21 06/04/21 06/04/21 15:58 15:58 15:59 WBC RBC Hgb Hct MCV MCH MCHC RDW Plt Count MPV Immature Gran % (Auto) Neut % (Auto) Lymph % (Auto) [place] % (Auto) Eos % (Auto) Baso % (Auto) Lymph # (Auto) [place] # (Auto) Eos # (Auto) Baso # (Auto) Abs Immat Gran (auto) Absolute Neuts (auto) Absolute Nucleated RBC Nucleated RBC % (auto) PT 15.4 H INR 1.3 H APTT 33.4 Sodium Potassium Chloride Carbon Dioxide Anion Gap BUN Creatinine Estim Creat Clear Calc Estimated GFR Random Glucose Lactic Acid Calcium Magnesium 1.8 Total Bilirubin 1.2 H Direct Bilirubin 0.6 H AST 34 ALT 29 Alkaline Phosphatase 108 Troponin I High Sens B-Natriuretic Peptide Total Protein 6.6 Albumin 3.6 Lipase 7 L TSH 2.43 Urine Color Urine Appearance Urine pH Ur Specific [place] Urine Protein Urine Glucose (UA) Urine Ketones Urine Blood Urine Nitrite Ur Leukocyte Esterase COVID-19 (KARL) Negative COVID-19 [employer] Com See Note 06/04/21 06/04/21 06/04/21 15:59 16:37 17:55 WBC RBC Hgb Hct MCV MCH MCHC RDW Plt Count MPV Immature Gran % (Auto) Neut % (Auto) Lymph % (Auto) [place] % (Auto) Eos % (Auto) Baso % (Auto) Lymph # (Auto) [place] # (Auto) Eos # (Auto) Baso # (Auto) Abs Immat Gran (auto) Absolute Neuts (auto) Absolute Nucleated RBC Nucleated RBC % (auto) PT INR APTT Sodium Potassium Chloride Carbon Dioxide Anion Gap BUN Creatinine Estim Creat Clear Calc Estimated GFR Random Glucose Lactic Acid 1.8 Calcium Magnesium Total Bilirubin Direct Bilirubin AST ALT Alkaline Phosphatase Troponin I High Sens 21.2 B-Natriuretic Peptide Total Protein Albumin Lipase TSH Urine Color YELLOW Urine Appearance CLEAR Urine pH 6.0 Ur Specific [place] 1.010 Urine Protein NEG Urine Glucose (UA) NEG Urine Ketones NEG Urine Blood NEG Urine Nitrite NEG Ur Leukocyte Esterase NEG COVID-19 (KARL) COVID-19 Clin Com 06/05/21 06/05/21 06/05/21 05:53 05:53 05:53 WBC 5.3 RBC 5.27 Hgb 14.4 Hct 44.5 MCV 84.4 MCH 27.3 MCHC 32.4 RDW 15.2 Plt Count 217 MPV 10.1 Immature Gran % (Auto) 0.4 Neut % (Auto) 63.7 Lymph % (Auto) 24.4 [place] % (Auto) 8.8 Eos % (Auto) 2.3 Baso % (Auto) 0.4 Lymph # (Auto) 1.3 [place] # (Auto) 0.5 Eos # (Auto) 0.1 Baso # (Auto) 0.0 Abs Immat Gran (auto) 0.02 Absolute Neuts (auto) 3.4 Absolute Nucleated RBC 0.000 Nucleated RBC % (auto) 0.0 PT INR APTT Sodium 138 Potassium 4.3 Chloride 102 Carbon Dioxide 25 Anion Gap 15 BUN 24 H Creatinine 1.42 H Estim Creat Clear Calc 70.4 Estimated GFR 50 Random Glucose 127 H Lactic Acid Calcium 9.6 Magnesium Total Bilirubin Direct Bilirubin AST ALT Alkaline Phosphatase Troponin I High Sens B-Natriuretic Peptide 831 H Total Protein Albumin Lipase TSH Urine Color Urine Appearance Urine pH Ur Specific [place] Urine Protein Urine Glucose (UA) Urine Ketones Urine Blood Urine Nitrite Ur Leukocyte Esterase COVID-19 (KARL) COVID-19 Clin Com ECG Attestation: I personally reviewed and interpreted this ECG as follows: Interpretation: EKG with atrial fibrillation at a rate of 117/Min with nonspecific ST-T changes. Imaging Radiologist's impression: Impressions Chest X-Ray 06/04/21 15:23 IMPRESSION: Dense consolidation at the base of the right lung concerning for pneumonia and a small adjacent effusion. Chest CT 06/04/21 16:46 IMPRESSION: 1. Large right and small left pleural effusion is seen, appearing simple on noncontrast study with subjacent areas of atelectasis and volume loss, most severe in the right lower lobe, where subtotal collapse of the right lower lobe is seen. There is associated complete cut off of the right lower lobe bronchus beyond the takeoff of the anterobasal segment airway, though no definite central mass is appreciated on noncontrast exam. Bronchoscopic evaluation could be considered with CT scan follow-up as clinically appropriate. 2. No adenopathy. 3. Severe coronary artery calcifications. 4. Incompletely characterized left renal masses, possibly cysts. Recommend nonemergent renal ultrasound assessment of the kidneys to exclude solid lesions. Renal Ultrasound 06/04/21 18:47 IMPRESSION: 1. Bilateral normal size kidneys. 2. At the superior pole of the left kidney, 1.6 cm maximum dimension septated avascular hypoechogenicity is present, most consistent with minimally complicated cyst.. Follow-up imaging to document stability is recommended. 3. At the midpole of the left kidney, simple appearing 1.5 cm exophytic cyst is noted. Assessment and Plan (1) Atrial fibrillation with rapid ventricular response: Status: Acute (2) Acute congestive heart failure: Qualifiers: Heart failure type: unspecified Qualified Code(s): I50.9 - Heart failure, unspecified Status: Acute Without information about his prior cardiac status, difficult to assess. Will need to contact his nurse practical tomorrow to obtain information about chronicity of atrial fibrillation, prior attempts at restoring sinus rhythm, cardiac function, ischemia workup among others. For now, keep on IV Cardizem drip. Diuresis. Echocardiogram tomorrow. Anticoagulation. Consider pulmonary workup for the CT findings. Labs reviewed. Creatinine is 1.42. BUN is 24. Cardiac BNP 1248 and 831. High sensitivity troponins 21. CT chest findings noted. That also indicates severe coronary artery calcification. Will need to get old records for ischemia workup. Procedures Date of Service Date of Service: 06/05/21
--- NOTE | 2021-06-05 11:57 | PC.NURSE ---
Report given to shayan SANCHES.
[2021-06-05] MEDS: buPROPion HCl XL 300 MG TAB.ER.24H PO (12:33)
--- NOTE | 2021-06-05 13:28 | MHC.CM.PN ---
CM MET WITH PT WHO REPORTS HE LIVES AT HOME WITH HIS AND IS INDEPENDENT WITH SELF CARE AND MOBILITY. PT DENIES USING ANY DME OR SERVICES. PT CONFIRMS HIS PCP IS S[facility]OVAL BE FROM [facility] IN [place]. PT REPORTS HE HAS A HCP COMPLETED NAMING HIS , THELMA, HIS AGENT. CURRENT DC PLAN IS HOME WITH NO SERVICES. TO TRANSPORT
[2021-06-05] MEDS: Apixaban 5 MG TABLET PO (20:33)
[2021-06-05] MEDS: dilTIAZem HCL 125 MG in 0.9 % Sodium Chloride 100 ML IVCONT (20:33)
[2021-06-06] VITALS (9 sets, daily range): BP systolic 128–159; BP diastolic 71–113; PULSE 83–102; RESP 15–18; TEMP 36.4–36.8; O2SAT 93–98
--- NOTE | 2021-06-06 03:31 | PC.NURSE ---
cardizem gtt momentarily paused. IV infiltrated in right AC, attempting to place new IV in left arm
[2021-06-06 05:22] LABS: Anion Gap 16 (12-20); Blood Urea Nitrogen 22 mg/dL (9-16); Calcium 9.7 mg/dL (8.4-10.2); Carbon Dioxide 28 mmol/L (22-29); Chloride 98 mmol/L (96-108); Estimated Glomerular Filt Rate 49; Glucose Random 153 mg/dL (60-115); Potassium 3.9 mmol/L (3.3-5.1); Sodium 138 mmol/L (135-145)
[2021-06-06 05:26] LABS: B Type Natriuretic Peptide 468 pg/mL (<100)
[2021-06-06] MEDS: Furosemide 40 MG/4 ML VIAL IVPUSH ×2 (05:41→18:03)
--- NOTE | 2021-06-06 07:30 | CA_ITS ---
Transthoracic Echocardiogram Patient (Last, First, Middle): Terrence Causey V Gender: Male Date of : 1955 Age: 66 Procedure Date: 06/06/2021 Procedure Type: Transthoracic Echocardiogram Location: [facility] [place] Height: 187.96 cm Weight: 113.4 kg BSA: 2.39 m2 Heart Rate: bpm BP: 159 / 113 mmHg Political Theory Professor: CARLOS ALBERTO Referring MD: Althea Handley NP Symptoms: chf Study Quality: Good Conclusions: - The left ventricular systolic function is severely decreased. The visually estimated ejection fraction is between 15-20%. - There is mild to moderately decreased right ventricular systolic function. - The left atrium is severely dilated. - The right atrium is mildly dilated. - There is moderate mitral valve regurgitation. - There is moderate tricuspid valve regurgitation. Findings Left Ventricle Normal left ventricular cavity size. There is mildly increased left ventricular wall thickness. The left ventricular systolic function is severely decreased. The visually estimated ejection fraction is between 15 20%. There is severe global hypokinesis. Diastolic function is indeterminate on the basis of available data. Right Ventricle Normal right ventricular cavity size. There is mild to moderately decreased right ventricular systolic function. Atria The left atrium is severely dilated. The right atrium is mildly dilated. Aortic Valve There is a normal trileaflet aortic valve. There is no aortic valve stenosis. There is no aortic valve regurgitation. Mitral Valve The mitral valve appears normal. There is moderate mitral valve regurgitation. There is no mitral valve stenosis. Pulmonic Valve Normal pulmonic valve structure and function. There is trace pulmonic valve regurgitation. Tricuspid Valve Normal tricuspid valve structure. There is moderate tricuspid valve regurgitation. Mildly elevated right atrial pressure. There is no evidence of pulmonary hypertension. Great Vessels The pulmonary artery was not well visualized. There is mild dilatation of the ascending aorta. Venous The inferior vena cava is normal in size and collapses less than 50% with inspiration. Pericardium/Pleural There is no evidence of pericardial effusion. Prior Study Comparison No prior study available for comparison. Measurements 2D Linear Measurements IVSd: 1.15 0.6-0.9/0.6-1.0 cm LVIDd: 4.44 3.9-5.3/4.2-5.9 cm LVIDs: 3.68 2.0-3.6 cm LVPWd: 1.13 0.7-1.1 cm Ao Root: 3.68 2.1-3.5 cm LV Mass: 224.31 67-162/88-224 g LVOT Diam: 2.07 3.0+(-)1.3 cm Mitral Valve MR VTI: 1.45 Aortic Valve AoV Pk Radu: 0.92 AoV Mn Radu: 0.68 AoV VTI: 0.14 AoV Pk Grad: 3.36 Aov Mn Grad: 1.97 LVOT LVOT Pk Radu: 0.57 LVOT Mn Radu: 0.42 LVOT VTI: 0.09 LVOT Pk Grad: 1.30 LVOT Mn Grad: 0.78 LVOT Diam: 2.07 LVOT Area: 3.37 Tricuspid Valve TR Pk Radu: 2.66 TR Pk Grad: 28.37 RA Press: 3.00 RVSP: 36.00 Great Vessels Aorta Ao Root-2D: 3.68 2.0-3.7 cm Ao Asc: 3.71 2.1-3.4 cm Ao Arch: 2.82 Updated in Other Vendor System with Status of Final Fritz Kinney MD electronically signed on 06/06/2021 12:09:10 PM with status of Final
[2021-06-06] MEDS: Atorvastatin Calcium 80 MG TABLET PO (08:35)
[2021-06-06] MEDS: buPROPion HCl XL 300 MG TAB.ER.24H PO (08:35)
[2021-06-06] MEDS: Apixaban 5 MG TABLET PO ×2 (08:35→21:17)
[2021-06-06] MEDS: Escitalopram Oxalate 20 MG TABLET PO (08:36)
[2021-06-06] MEDS: 0.9 % Sodium Chloride Flush 3 ML SYRINGE IVFLUSH ×3 (08:36→21:20)
[2021-06-06] MEDS: Metoprolol Succinate ER 25 MG TAB.ER.24H PO (08:36)
[2021-06-06] MEDS: allopurinoL 300 MG TABLET PO (08:36)
--- NOTE | 2021-06-06 09:52 | PM.CNPUL ---
History of Present Illness History of Present Illness Consult date: 06/06/21 Requesting physician: Althea Handley Reason for consult: pleural effusion and abnormal CXR/CT Chief complaint: CHF Narrative: 66-year-old gentleman, nonsmoker, with underlying history of AFib on anticoagulation, CHF, diabetes mellitus, hypertension hospitalized on 06/04/2021 with 1 months history of progressive dyspnea associated with orthopnea and lower extremity edema. Patient has been started on diuretic with significant improvement in his dyspnea. CT chest was obtained and demonstrated bilateral right greater than left pleural effusions with complete atelectasis of right lower lobe. Pulmonary evaluation has been requested. Review of Systems Constitutional: Constitutional: Denies daytime sleepiness, Denies excessive sweating, Denies fatigue, Denies fever(s), Denies lethargy, Denies malaise, Denies night sweats, Denies snoring and Denies weight loss Eyes: Eyes: Denies blurry vision and Denies itchy eyes ENT: Denies nasal congestion, Denies post nasal drip, Denies sinus pain, Denies sinus pressure and Denies other ( Thrush) Cardiovascular: Cardiovascular: Denies chest pain, Reports pedal edema, Reports dyspnea, Reports orthopnea and Denies paroxysmal nocturnal dyspnea Respiratory: Respiratory: Denies cough, Denies hemoptysis, Denies excessive phlegm production, Reports dyspnea, Denies snoring and Denies wheezing Gastrointestinal: Gastrointestinal: Denies abdominal pain and Denies heartburn Musculoskeletal: Musculoskeletal: Denies myalgias, Denies arthralgias and Denies joint swelling Integumentary/Breasts: Skin/Breast: Denies rash Neurologic: Denies memory loss and Denies seizure-like activity Psychiatric: Psychiatric: Denies abnormal sleep pattern, Denies anxiety and Denies memory loss Endocrine: Endocrine: Denies excessive sweating, Denies fatigue and Denies heat intolerance Hematologic/Lymphatic: Hematologic/Lymphatic: Denies easy bruising Allergic/Immunologic: Allergic/Immunologic: Denies itchy eyes, Denies seasonal rhinorrhea and Denies wheezing PMFSH Past Medical History Medical History (Updated 06/06/21 @ 09:55 by Misha Robles MD) Afib CHF (congestive heart failure) Diabetes HTN (hypertension) Family History Family History (Updated 06/05/21 @ 11:20 by Paxton Polanco MD) Father CAD (coronary artery disease) Social History Social History (Updated 06/04/21 @ 16:25 by Stephany Nichols DO) Household Members: Spouse Housing: House Alcohol intake: never Patient Tobacco Use Status: Never used Tobacco Current occupational status: employed Meds Allergies Allergy/AdvReac Type Severity Reaction Status Date / Time No Known Allergies Allergy Verified 06/04/21 15:00 Active Medications: Current Medications Generic Name Dose Route Start Last Admin Trade Name Freq PRN Reason Stop Dose Admin Acetaminophen 650 mg 06/04/21 18:13 Acetaminophen 325 Mg Tablet PO Q6H PRN Pain, Mild (Pain Scale 1-3) Allopurinol 300 mg 06/06/21 09:00 06/06/21 08:36 Allopurinol 300 Mg Tablet PO 300 mg DAILY PALMER Administration Apixaban 5 mg 06/05/21 21:00 06/06/21 08:35 Apixaban 5 Mg Tablet PO 5 mg BID PALMER Administration Atorvastatin Calcium 80 mg 06/06/21 09:00 06/06/21 08:35 Atorvastatin Calcium 80 Mg Tablet PO 80 mg DAILY PALMER Administration Bupropion HCl 300 mg 06/05/21 12:15 06/06/21 08:35 Bupropion Hcl Xl 300 Mg Tab.Er.24h PO 300 mg DAILY PALMER Administration Escitalopram Oxalate 20 mg 06/06/21 09:00 06/06/21 08:36 Escitalopram Oxalate 20 Mg Tablet PO 20 mg DAILY PALMER Administration Furosemide 40 mg 06/05/21 06:00 06/06/21 05:41 Furosemide 40 Mg/4 Ml Vial IVPUSH 40 mg Q12H PALMER Administration Protocol Diltiazem HCl 125 mg/ Sodium 125 mls @ 0 mls/hr 06/04/21 18:00 06/06/21 04:07 Chloride IVCONT 5 mg/hr .Q0M PALMER 5 mls/hr Titration Protocol Per Protocol Insulin Human Lispro 0 unit 06/06/21 11:30 Insulin Lispro 100 Unit/Ml 3 Ml Vial SUBCUT QIDACHS [facility] Protocol Metoprolol Succinate 25 mg 06/06/21 09:00 06/06/21 08:36 Metoprolol Succinate Er 25 Mg Tab.Er.24h PO 25 mg DAILY PALMER Administration Protocol Ondansetron HCl 4 mg 06/04/21 18:13 Ondansetron Hcl 4 Mg/2 Ml Vial IVPUSH Q8H PRN Nausea and Vomiting Sodium Chloride 3 ml 06/05/21 00:00 06/06/21 08:36 0.9 % Sodium Chloride Flush 3 Ml Syringe [facility] Administration Home Medications Medication Instructions Recorded Confirmed Last Taken Type allopurinol 1 tab PO DAILY 06/04/21 06/04/21 06/04/21 History apixaban [Eliquis] 1 tab PO BID 06/04/21 06/04/21 06/04/21 History atorvastatin 1 tab PO DAILY 06/04/21 06/04/21 06/04/21 History bupropion HCl 1 tab PO QAM 06/04/21 06/04/21 06/04/21 History diltiazem HCl 1 cap PO DAILY 06/04/21 06/04/21 06/04/21 History escitalopram oxalate 1 tab PO DAILY 06/04/21 06/04/21 06/04/21 History furosemide 1 tab PO DAILY 06/04/21 06/04/21 06/04/21 History glipizide 2 tab PO DAILY 06/04/21 06/04/21 06/04/21 History hydrochlorothiazide 1 tab PO DAILY 06/04/21 06/04/21 06/04/21 History lisinopril 1 tab PO DAILY 06/04/21 06/04/21 06/04/21 History metformin 2 tab PO DAILY 06/04/21 06/04/21 06/04/21 History metoprolol succinate 1 tab PO DAILY 06/04/21 06/04/21 06/04/21 History Physical Exam Vital Signs: Vital Signs: Last Vital Signs Temp 97.7 F 06/06/21 07:56 Pulse 95 06/06/21 08:36 Resp 18 06/06/21 07:56 BP 151/95 H 06/06/21 08:36 Pulse Ox 96 06/06/21 07:56 Body Mass Index 31.2 Const: General: no acute distress, alert and awake Eyes: Sclerae: sclerae normal EOM: EOMs intact bilaterally Neck: Neck: Yes no lymphadenopathy, Yes trachea midline and Yes supple Resp: Effort & Inspection: normal respiratory effort and no respiratory distress Auscultation: clear to auscultation bilaterally Cardio: Rate: regular rate Rhythm: regular rhythm Heart sounds: no gallops, no murmurs and no rubs GI: Palpation (GI): Soft to palpation and Other GI palpation findings present ( Nontender) Auscultation: normal bowel sounds Extrem: General: No clubbing, No cyanosis and Yes pedal edema (2+ bilateral) Results Laboratory Findings CBC and BMP: 06/05/21 05:53 06/06/21 04:19 ABG, PT/INR, D-dimer: PT/INR, D-dimer PT 15.4 SEC (9.9-13.0) H 06/04/21 15:58 INR 1.3 (0.9-1.1) H 06/04/21 15:58 Abnormal lab findings: Abnormal Labs 06/04/21 06/04/21 06/04/21 15:58 15:58 15:58 PT 15.4 H INR 1.3 H BUN 23 H Creatinine 1.47 H Random Glucose 135 H Total Bilirubin Direct Bilirubin B-Natriuretic Peptide 1248 H Lipase 06/04/21 06/05/21 06/05/21 15:58 05:53 05:53 PT INR BUN 24 H Creatinine 1.42 H Random Glucose 127 H Total Bilirubin 1.2 H Direct Bilirubin 0.6 H B-Natriuretic Peptide 831 H Lipase 7 L 06/06/21 06/06/21 04:19 04:19 PT INR BUN 22 H Creatinine 1.45 H Random Glucose 153 H Total Bilirubin Direct Bilirubin B-Natriuretic Peptide 468 H Lipase Microbiology: Microbiology 06/04/21 17:42 Blood - Venous Blood Culture - Preliminary No growth after 24 hours. 06/04/21 17:27 Blood - Venous Blood Culture - Preliminary No growth after 24 hours. Assessment and Plan (1) Acute congestive heart failure: Qualifiers: Heart failure type: unspecified Qualified Code(s): I50.9 - Heart failure, unspecified Status: Acute Impression: 66-year-old gentleman admitted with acute on chronic congestive heart failure exacerbation and bilateral pleural effusions right greater than left. His pleural effusions are likely related to his underlying heart failure, and atelectasis is most likely related to large right-sided pleural effusion. Recommendation: Agree with aggressive diuresis and repeating CT chest for re-assessment of lung parenchyma after diuresis in 2-3 days. (2) Pleural effusion: Status: Acute (3) Atelectasis of right lung: Status: Acute Procedures Date of Service Date of Service: 06/06/21
[2021-06-06 11:23] LABS: Glucose, Whole Blood 180 mg/dL (60-115)
--- NOTE | 2021-06-06 12:12 | P.PNCA_ITS ---
Subjective Subjective Date of Service: 06/06/21 Interval history: Admitted with congestive heart failure. On IV diuretics on Cardizem drip. Feeling somewhat better than before. Records received from [facility]. He follows up with Dr. Coles. He was last seen in January 2021 when he was noticed to be in atrial fibrillation but denied any symptoms. His Cardizem was increased to 120 mg twice a day and he was continued on his Eliquis as before. His blood pressure was elevated in the office. Subsequent to that he had Holter monitor done which showed an average heart rate of 126 beats per minute in atrial fibrillation. Echocardiography in September 2020 showed normal biventricular function with moderately dilated left atrium. Physical Exam Vital Signs: Last Vital Signs Temp 98.3 F 06/06/21 11:59 Pulse 83 06/06/21 11:59 Resp 18 06/06/21 11:59 BP 130/71 06/06/21 11:59 Pulse Ox 98 06/06/21 11:59 Body Mass Index 31.2 GENERAL APPEARANCE: in no acute distress, pleasant. NECK: no carotid bruit, + jugular venous distention. SKIN: no suspicious lesions, warm and dry. HEART: no murmurs, irregular rate and rhythm. LUNGS: Few crackles at bases. ABDOMEN: soft, nontender. EXTREMITIES: Mild edema. PERIPHERAL PULSES: equal. NEUROLOGIC: No gross deficits, AAO X 3 Results Labs and Meds Result diagrams: 06/05/21 05:53 06/06/21 04:19 Lab results: Laboratory Results - last 24 hr 06/06/21 06/06/21 06/06/21 04:19 04:19 11:19 Sodium 138 Potassium 3.9 Chloride 98 Carbon Dioxide 28 Anion Gap 16 BUN 22 H Creatinine 1.45 H Estim Creat Clear Calc 69.0 Estimated GFR 49 POC Glucose 180 H Random Glucose 153 H Calcium 9.7 B-Natriuretic Peptide 468 H Progress Note: A&P Assessment and plan (1) Acute congestive heart failure: Status: Acute (2) Atrial fibrillation with rapid ventricular response: Status: Acute Assessment and Plan: Pleasant 66 gentleman who is presenting with new onset congestive heart failure. Clinically still volume overloaded. Continue the diuretics. He is on Cardizem drip. His echocardiography is showing severely reduced ejection fraction with EF of 15-20% and right ventricular dysfunction. I think the Cardizem should be discontinued. Please did load him with digoxin 0.25 mg x2. Continue the Toprol-XL at the same dose for now. I think he will need EDWINA cardioversion as he improves further. Continue the Eliquis as before. He is saying that he has missed some doses and with low EF I think we have to do EDWINA cardioversion on him. Changing his lisinopril to losartan 25 mg once a day. As outpatient he should be changed to Entresto. Entresto has interaction with Aleksander inhibitors and can lead to angioedema so would not continue lisinopril. Thank you for allowing me to participate in the care of your patient. Please feel free to contact me if you have any questions. Fall Risk Details Current Medications: Current Medications Generic Name Dose Route Start Last Admin Trade Name Freq PRN Reason Stop Dose Admin Acetaminophen 650 mg 06/04/21 18:13 Acetaminophen 325 Mg Tablet PO Q6H PRN Pain, Mild (Pain Scale 1-3) Allopurinol 300 mg 06/06/21 09:00 06/06/21 08:36 Allopurinol 300 Mg Tablet PO 300 mg DAILY PALMER Administration Apixaban 5 mg 06/05/21 21:00 06/06/21 08:35 Apixaban 5 Mg Tablet PO 5 mg BID PALMER Administration Atorvastatin Calcium 80 mg 06/06/21 09:00 06/06/21 08:35 Atorvastatin Calcium 80 Mg Tablet PO 80 mg DAILY PALMER Administration Bupropion HCl 300 mg 06/05/21 12:15 06/06/21 08:35 Bupropion Hcl Xl 300 Mg Tab.Er.24h PO 300 mg DAILY PALMER Administration Escitalopram Oxalate 20 mg 06/06/21 09:00 06/06/21 08:36 Escitalopram Oxalate 20 Mg Tablet PO 20 mg DAILY PALMER Administration Furosemide 40 mg 06/05/21 06:00 06/06/21 05:41 Furosemide 40 Mg/4 Ml Vial IVPUSH 40 mg Q12H PALMER Administration Protocol Insulin Human Lispro 0 unit 06/06/21 11:30 Insulin Lispro 100 Unit/Ml 3 Ml Vial SUBCUT QIDACHS [facility] Protocol Losartan Potassium 25 mg 06/06/21 12:15 Losartan Potassium 25 Mg Tablet PO DAILY PALMER Protocol Metoprolol Succinate 25 mg 06/06/21 09:00 06/06/21 08:36 Metoprolol Succinate Er 25 Mg Tab.Er.24h PO 25 mg DAILY PALMER Administration Protocol Ondansetron HCl 4 mg 06/04/21 18:13 Ondansetron Hcl 4 Mg/2 Ml Vial IVPUSH Q8H PRN Nausea and Vomiting Sodium Chloride 3 ml 06/05/21 00:00 06/06/21 08:36 0.9 % Sodium Chloride Flush 3 Ml Syringe IVFLUSH 3 ml QSHIFT [facility]MER Administration Time Spent With Patient Time: Total time spent is greater than 50% in coordination of care (as documented) at patient's floor/unit and/or counseling patient: Time with patient: 25 - 35 minutes Progress Note: Quality Stroke Does the patient have a stroke diagnosis?: No Procedures Date of Service Date of Service: 06/06/21
[2021-06-06] MEDS: Digoxin 0.5 MG/2 ML AMPUL 0.25 MG IVPUSH ×2 (12:48→21:18)
[2021-06-06] MEDS: Losartan Potassium 25 MG TABLET PO (12:48)
[2021-06-06] MEDS: Insulin Lispro 100 UNIT/ML 3 ML VIAL SUBCUT ×2 (12:49→21:19)
[2021-06-06 16:06] LABS: Glucose, Whole Blood 143 mg/dL (60-115)
--- NOTE | 2021-06-06 16:20 | P.PNIM_ITS ---
Subjective Subjective Date of Service: 06/06/21 Interval History: Follow up CHF no sob feels better today Physical Exam Vital Signs: Vital Signs: Last Vital Signs Temp 97.8 F 06/06/21 15:18 Pulse 95 06/06/21 15:18 Resp 15 06/06/21 15:18 BP 128/90 H 06/06/21 15:18 Pulse Ox 95 06/06/21 15:18 Body Mass Index 31.2 Appearing in no acute distress lung sounds are clear to auscultation heart regular rate rhythm, clear S1, S2 positive bowel sounds, abdomen is soft, nontender neuro patient is alert x3, no focal deficits Objective Data Current Medications Generic Name Dose Route Start Last Admin Trade Name Freq PRN Reason Stop Dose Admin Acetaminophen 650 mg 06/04/21 18:13 Acetaminophen 325 Mg Tablet PO Q6H PRN Pain, Mild (Pain Scale 1-3) Allopurinol 300 mg 06/06/21 09:00 06/06/21 08:36 Allopurinol 300 Mg Tablet PO 300 mg DAILY PALMER Administration Apixaban 5 mg 06/05/21 21:00 06/06/21 08:35 Apixaban 5 Mg Tablet PO 5 mg BID PALMER Administration Atorvastatin Calcium 80 mg 06/06/21 09:00 06/06/21 08:35 Atorvastatin Calcium 80 Mg Tablet PO 80 mg DAILY PALMER Administration Bupropion HCl 300 mg 06/05/21 12:15 06/06/21 08:35 Bupropion Hcl Xl 300 Mg Tab.Er.24h PO 300 mg DAILY PALMER Administration Digoxin 0.25 mg 06/06/21 13:00 06/06/21 12:48 Digoxin 0.5 Mg/2 Ml Ampul IVPUSH 06/07/21 01:01 0.25 mg Q6H PALMER Administration Escitalopram Oxalate 20 mg 06/06/21 09:00 06/06/21 08:36 Escitalopram Oxalate 20 Mg Tablet PO 20 mg DAILY PALMER Administration Furosemide 40 mg 06/05/21 06:00 06/06/21 05:41 Furosemide 40 Mg/4 Ml Vial IVPUSH 40 mg Q12H PALMER Administration Protocol Insulin Human Lispro 0 unit 06/06/21 11:30 06/06/21 12:49 Insulin Lispro 100 Unit/Ml 3 Ml Vial SUBCUT 2 unit QIDACHS [facility] Administration Protocol Losartan Potassium 25 mg 06/06/21 12:15 06/06/21 12:48 Losartan Potassium 25 Mg Tablet PO 25 mg DAILY [facility] Administration Protocol Metoprolol Succinate 25 mg 06/06/21 09:00 06/06/21 08:36 Metoprolol Succinate Er 25 Mg Tab.Er.24h PO 25 mg DAILY PALMER Administration Protocol Ondansetron HCl 4 mg 06/04/21 18:13 Ondansetron Hcl 4 Mg/2 Ml Vial IVPUSH Q8H PRN Nausea and Vomiting Sodium Chloride 3 ml 06/05/21 00:00 06/06/21 08:36 0.9 % Sodium Chloride Flush 3 Ml Syringe IVFLUSH 3 ml QSHIFT [facility] Administration Labs CBC & Chem 7: 06/05/21 05:53 06/06/21 04:19 Labs: Laboratory Results - last 24 hr 06/06/21 06/06/21 06/06/21 04:19 04:19 11:19 Anion Gap 16 Estim Creat Clear Calc 69.0 Estimated GFR 49 POC Glucose 180 H Random Glucose 153 H Calcium 9.7 B-Natriuretic Peptide 468 H 06/06/21 15:59 Anion Gap Estim Creat Clear Calc Estimated GFR POC Glucose 143 H Random Glucose Calcium B-Natriuretic Peptide Microbiology Microbiology Results: Microbiology 06/04/21 17:42 Blood - Venous Blood Culture - Preliminary No growth after 24 hours. 06/04/21 17:27 Blood - Venous Blood Culture - Preliminary No growth after 24 hours. Progress Note: A&P (1) Pleural effusion: Status: Acute (2) Acute congestive heart failure: Status: Acute Assessment and Plan: 66-year-old man admitted with acute on chronic congestive heart failure unknown type, no recent echocardiogram in the medical record, records [facility] from [facility]. According to the patient's he has not been compliant with taking his medications as prescribed and may miss doses on a regular basis. Atrial fibrillation with rapid ventricular response. Likely secondary to heart failure, noncompliance with medication Stop Cardizem drip, digoxin load Cardiology following Continue Eliquis Heart failure with reduced ejection fraction. On Lasix at home. Likely secondary to noncompliance with medication. BNP 1248 no hypoxia continue IV Lasix cardiology following Daily weights, monitor intake and output closely EDWINA cardioversion shows EF of 15-20%, severely decreased systolic function, severe global hypokinesis will need Entresto as outpatient Pleural effusion, abnormal CT scan mass vs pulmonary edema Seen and evaluated by pulmonology with recommendation to repeat CT chest after diuresis WILMER. Likely cardiorenal secondary to acute congestive heart failure, has remained the same. Diurese Follow BMP closely, if no improvement consider nephrology consultation Hyperbilirubinemia. Likely secondary to congestive secondary to CHF Diurese Follow LFTs Possible left renal mass renal us showed no mass, simple cyst o/p f/u with pcp Hypertension. Stable blood pressure Hold lisinopril and hydrochlorothiazide due to WILMER change lisinopril to losartan Diabetes mellitus Sliding scale, ADA diet Hold metformin due to WILMER Obesity. BMI 31.2 Discussed the importance of weight loss as this may contribute to worsening of other comorbidities. DVT prophylaxis with Sebastian Attending Dr. gill Full code Quality Stroke Does the patient have a stroke diagnosis?: No VTE Prior VTE?: No VTE Risk Level:: Medical - moderate - high VTE Device Contraindication: Treatment Not Indicated VTE Drug Contraindication: N/A - Med Ordered
[2021-06-06 21:10] LABS: Glucose, Whole Blood 159 mg/dL (60-115)
[2021-06-07] VITALS (10 sets, daily range): BP systolic 137–149; BP diastolic 75–92; PULSE 85–109; RESP 18–20; TEMP 36.2–36.8; O2SAT 92–98
[2021-06-07] MEDS: Digoxin 0.5 MG/2 ML AMPUL 0.25 MG IVPUSH (00:41)
[2021-06-07 04:46] LABS: Hematocrit 41.8 % (42-52); Hemoglobin 13.7 g/dl (14.0-18.0); Mean Corpuscular HGB Conc 32.8 g/dl (31.0-36.0); Mean Corpuscular Hemoglobin 27.5 pg (27.0-33.0); Mean Corpuscular Volume 83.8 fL (80-98); Mean Platelet Volume 10.2 fL (9.4-12.4); Platelet Count 201 X10*3/uL (160-400); Red Blood Count 4.99 X10*6/uL (4.60-5.80); Red Cell Distribution Width 14.9 % (11.0-16.0); White Blood Count 5.1 X10*3/uL (4.8-10.8)
[2021-06-07 05:12] LABS: Anion Gap 15 (12-20); Blood Urea Nitrogen 20 mg/dL (9-16); Calcium 9.5 mg/dL (8.4-10.2); Carbon Dioxide 29 mmol/L (22-29); Chloride 98 mmol/L (96-108); Creatinine Clr Calc Pharmacy 80.6; Estimated Glomerular Filt Rate 59; Glucose Random 103 mg/dL (60-115); Potassium 3.6 mmol/L (3.3-5.1); Sodium 138 mmol/L (135-145)
[2021-06-07] MEDS: Furosemide 40 MG/4 ML VIAL IVPUSH (06:25)
[2021-06-07 07:23] LABS: Glucose, Whole Blood 99 mg/dL (60-115)
[2021-06-07] MEDS: Losartan Potassium 25 MG TABLET PO (09:53)
[2021-06-07] MEDS: 0.9 % Sodium Chloride Flush 3 ML SYRINGE IVFLUSH ×3 (09:53→20:47)
[2021-06-07] MEDS: Escitalopram Oxalate 20 MG TABLET PO (09:53)
[2021-06-07] MEDS: Atorvastatin Calcium 80 MG TABLET PO (09:53)
[2021-06-07] MEDS: buPROPion HCl XL 300 MG TAB.ER.24H PO (09:53)
[2021-06-07] MEDS: allopurinoL 300 MG TABLET PO (09:53)
[2021-06-07] MEDS: Apixaban 5 MG TABLET PO ×2 (09:54→20:45)
[2021-06-07] MEDS: Metoprolol Succinate ER 25 MG TAB.ER.24H PO ×2 (09:54→12:18)
[2021-06-07 11:32] LABS: Glucose, Whole Blood 276 mg/dL (60-115)
--- NOTE | 2021-06-07 11:42 | P.PNCA_ITS ---
Subjective Subjective Date of Service: 06/07/21 Interval history: He is saying he is feeling better. Echocardiography showed severely reduced ejection fraction. Echo discussed in detail with the patient. Physical Exam Vital Signs: Last Vital Signs Temp 97.8 F 06/07/21 11:00 Pulse 109 H 06/07/21 11:00 Resp 19 06/07/21 11:00 BP 149/90 H 06/07/21 11:00 Pulse Ox 98 06/07/21 11:00 Body Mass Index 31.2 GENERAL APPEARANCE: in no acute distress, pleasant. NECK: no carotid bruit, no jugular venous distention. SKIN: no suspicious lesions, warm and dry. HEART: no murmurs, irregular rate and rhythm. LUNGS: Few crackles at bases. ABDOMEN: soft, nontender. EXTREMITIES: Mild edema. PERIPHERAL PULSES: equal. NEUROLOGIC: No gross deficits, AAO X 3 Results Labs and Meds Result diagrams: 06/07/21 04:21 06/07/21 04:21 Lab results: Laboratory Results - last 24 hr 06/06/21 06/06/21 06/07/21 15:59 21:05 04:21 WBC 5.1 RBC 4.99 Hgb 13.7 L Hct 41.8 L MCV 83.8 MCH 27.5 MCHC 32.8 RDW 14.9 Plt Count 201 MPV 10.2 Absolute Nucleated RBC 0.000 Nucleated RBC % (auto) 0.0 Sodium Potassium Chloride Carbon Dioxide Anion Gap BUN Creatinine Estim Creat Clear Calc Estimated GFR POC Glucose 143 H 159 H Random Glucose Calcium 06/07/21 06/07/21 06/07/21 04:21 07:19 11:29 WBC RBC Hgb Hct MCV MCH MCHC RDW Plt Count MPV Absolute Nucleated RBC Nucleated RBC % (auto) Sodium 138 Potassium 3.6 Chloride 98 Carbon Dioxide 29 Anion Gap 15 BUN 20 H Creatinine 1.24 Estim Creat Clear Calc 80.6 Estimated GFR 59 POC Glucose 99 276 H Random Glucose 103 Calcium 9.5 Progress Note: A&P Assessment and plan (1) Acute congestive heart failure: Status: Acute (2) Atrial fibrillation: Status: Acute Assessment and Plan: [age] gentleman presenting for history of heart failure. He has AFib with RVR. Echocardiography has shown biventricular failure with EF of 15 20% as well as [id number] RV dysfunction. He was loaded with digoxin and Cardizem was stopped. Heart rate is reasonably controlled. I think the Toprol-XL can be increased to 50 mg once a day. I think we can change him to oral 40 mg p.o. b.i.d. Lasix. I discussed with him about doing EDWINA cardioversion tomorrow and he is agreeable. We will arrange it tomorrow morning. Keep NPO after midnight. Thank you for allowing me to participate in the care of your patient. Please feel free to contact me if you have any questions. Fall Risk Details Current Medications: Current Medications Generic Name Dose Route Start Last Admin Trade Name Freq PRN Reason Stop Dose Admin Acetaminophen 650 mg 06/04/21 18:13 Acetaminophen 325 Mg Tablet PO Q6H PRN Pain, Mild (Pain Scale 1-3) Allopurinol 300 mg 06/06/21 09:00 06/07/21 09:53 Allopurinol 300 Mg Tablet PO 300 mg DAILY [facility] Administration Apixaban 5 mg 06/05/21 21:00 06/07/21 09:54 Apixaban 5 Mg Tablet PO 5 mg BID [facility] Administration Atorvastatin Calcium 80 mg 06/06/21 09:00 06/07/21 09:53 Atorvastatin Calcium 80 Mg Tablet PO 80 mg DAILY [facility] Administration Bupropion HCl 300 mg 06/05/21 12:15 06/07/21 09:53 Bupropion Hcl Xl 300 Mg Tab.Er.24h PO 300 mg DAILY [facility]MER Administration Escitalopram Oxalate 20 mg 06/06/21 09:00 06/07/21 09:53 Escitalopram Oxalate 20 Mg Tablet PO 20 mg DAILY [facility] Administration Furosemide 40 mg 06/05/21 06:00 06/07/21 06:25 Furosemide 40 Mg/4 Ml Vial IVPUSH 40 mg Q12H [facility] Administration Protocol Insulin Human Lispro 0 unit 06/06/21 11:30 06/07/21 09:23 Insulin Lispro 100 Unit/Ml 3 Ml Vial SUBCUT Not Given QIDACHS [facility] Protocol Losartan Potassium 25 mg 06/06/21 12:15 06/07/21 09:53 Losartan Potassium 25 Mg Tablet PO 25 mg DAILY [facility] Administration Protocol Metoprolol Succinate 50 mg 06/08/21 09:00 Metoprolol Succinate Er 50 Mg Tab.Er.24h PO DAILY [facility] Protocol Metoprolol Succinate 25 mg 06/07/21 11:41 Metoprolol Succinate Er 25 Mg Tab.Er.24h PO 06/07/21 11:42 DAILY ONE Protocol Ondansetron HCl 4 mg 06/04/21 18:13 Ondansetron Hcl 4 Mg/2 Ml Vial IVPUSH Q8H PRN Nausea and Vomiting Sodium Chloride 3 ml 06/05/21 00:00 06/07/21 09:53 0.9 % Sodium Chloride Flush 3 Ml Syringe IVFLUSH 3 ml QSHIFT [facility] Administration Time Spent With Patient Time: Total time spent is greater than 50% in coordination of care (as documented) at patient's floor/unit and/or counseling patient: Time with patient: 25 - 35 minutes Progress Note: Quality Stroke Does the patient have a stroke diagnosis?: No Procedures Date of Service Date of Service: 06/07/21
[2021-06-07] MEDS: Insulin Lispro 100 UNIT/ML 3 ML VIAL SUBCUT ×2 (12:17→20:45)
--- NOTE | 2021-06-07 13:01 | PC.NURSE ---
Skin/Wound assessment completed today. Patient has a scabbed abrasion on his left dorsal foot. No other skin issues noted.
--- NOTE | 2021-06-07 14:15 | P.PNIM_ITS ---
Subjective Subjective Date of Service: 06/07/21 Interval History: follow-up heart failure with reduced ejection fraction, atrial fibrillation feeling better, no shortness of breath or chest pain Physical Exam Vital Signs: Vital Signs: Last Vital Signs Temp 97.8 F 06/07/21 11:00 Pulse 109 H 06/07/21 12:18 Resp 19 06/07/21 11:00 BP 149/90 H 06/07/21 12:18 Pulse Ox 98 06/07/21 11:00 Body Mass Index 31.2 Appearing in no acute distress lung sounds are clear to auscultation heart regular rate rhythm, clear S1, S2 positive bowel sounds, abdomen is soft, nontender neuro patient is alert x3, no focal deficits Objective Data Current Medications Generic Name Dose Route Start Last Admin Trade Name Freq PRN Reason Stop Dose Admin Acetaminophen 650 mg 06/04/21 18:13 Acetaminophen 325 Mg Tablet PO Q6H PRN Pain, Mild (Pain Scale 1-3) Allopurinol 300 mg 06/06/21 09:00 06/07/21 09:53 Allopurinol 300 Mg Tablet PO 300 mg DAILY PALMER Administration Apixaban 5 mg 06/05/21 21:00 06/07/21 09:54 Apixaban 5 Mg Tablet PO 5 mg BID [facility] Administration Atorvastatin Calcium 80 mg 06/06/21 09:00 06/07/21 09:53 Atorvastatin Calcium 80 Mg Tablet PO 80 mg DAILY PALMER Administration Bupropion HCl 300 mg 06/05/21 12:15 06/07/21 09:53 Bupropion Hcl Xl 300 Mg Tab.Er.24h PO 300 mg DAILY PALMER Administration Escitalopram Oxalate 20 mg 06/06/21 09:00 06/07/21 09:53 Escitalopram Oxalate 20 Mg Tablet PO 20 mg DAILY PALMER Administration Furosemide 40 mg 06/07/21 18:00 Furosemide 40 Mg Tablet PO BID@0900,1800 [facility] Protocol Insulin Human Lispro 0 unit 06/06/21 11:30 06/07/21 12:17 Insulin Lispro 100 Unit/Ml 3 Ml Vial SUBCUT 6 unit QIDACHS [facility] Administration Protocol Losartan Potassium 25 mg 06/06/21 12:15 06/07/21 09:53 Losartan Potassium 25 Mg Tablet PO 25 mg DAILY [facility]MER Administration Protocol Metoprolol Succinate 50 mg 06/08/21 09:00 Metoprolol Succinate Er 50 Mg Tab.Er.24h PO DAILY [facility] Protocol Ondansetron HCl 4 mg 06/04/21 18:13 Ondansetron Hcl 4 Mg/2 Ml Vial IVPUSH Q8H PRN Nausea and Vomiting Sodium Chloride 3 ml 06/05/21 00:00 06/07/21 09:53 0.9 % Sodium Chloride Flush 3 Ml Syringe IVFLUSH 3 ml QSHIFT [facility] Administration Labs CBC & Chem 7: 06/07/21 04:21 06/07/21 04:21 Labs: Laboratory Results - last 24 hr 06/06/21 06/06/21 06/07/21 15:59 21:05 04:21 MCV 83.8 MCH 27.5 MCHC 32.8 RDW 14.9 Plt Count 201 MPV 10.2 Absolute Nucleated RBC 0.000 Nucleated RBC % (auto) 0.0 Anion Gap Estim Creat Clear Calc Estimated GFR POC Glucose 143 H 159 H Random Glucose Calcium 06/07/21 06/07/21 06/07/21 04:21 07:19 11:29 MCV MCH MCHC RDW Plt Count MPV Absolute Nucleated RBC Nucleated RBC % (auto) Anion Gap 15 Estim Creat Clear Calc 80.6 Estimated GFR 59 POC Glucose 99 276 H Random Glucose 103 Calcium 9.5 Microbiology Microbiology Results: Microbiology 06/04/21 17:42 Blood - Venous Blood Culture - Preliminary No growth after 48 hours. 06/04/21 17:27 Blood - Venous Blood Culture - Preliminary No growth after 48 hours. Progress Note: A&P (1) Acute congestive heart failure: Status: Acute Assessment and Plan: 66-year-old man admitted with acute on chronic congestive heart failure unknown type, no recent echocardiogram in the medical record, records requested from [facility]. According to the patient's he has not been compliant with taking his medications as prescribed and may miss doses on a regular basis. Atrial fibrillation with rapid ventricular response. Likely secondary to heart failure, noncompliance with medication Cardizem drip stopped, digoxin load, increase Toprol to 50 mg daily, continue Eliquis Cardiology following EDWINA cardioversion tomorrow, NPO after midnight Heart failure with reduced ejection fraction. On Lasix at home. Likely secondary to noncompliance with medication. BNP 1248 EF of 15-20%, severely decreased systolic function, severe global hypokinesis no hypoxia Change IV Lasix to Lasix 40 mg b.i.d. Daily weights, monitor intake and output closely will need Entresto as outpatient Pleural effusion, abnormal CT scan mass vs pulmonary edema Seen and evaluated by pulmonology with recommendation to repeat CT chest after diuresis WILMER. Baseline now. Likely cardiorenal secondary to acute congestive heart failure, has remained the same. Diurese Follow BMP closely, if no improvement consider nephrology consultation Hyperbilirubinemia. Likely secondary to congestive secondary to CHF Diurese Follow LFTs Possible left renal mass renal us showed no mass, simple cyst o/p f/u with pcp Hypertension. Stable blood pressure Hold lisinopril and hydrochlorothiazide due to WILMER change lisinopril to losartan Diabetes mellitus Sliding scale, ADA diet Hold metformin due to WILMER Obesity. BMI 31.2 Discussed the importance of weight loss as this may contribute to worsening of other comorbidities. DVT prophylaxis with [facility] Attending Dr. Celestin Full code Quality Stroke Does the patient have a stroke diagnosis?: No VTE Prior VTE?: No VTE Risk Level:: Medical - moderate - high VTE Device Contraindication: Treatment Not Indicated VTE Drug Contraindication: N/A - Med Ordered
[2021-06-07 16:03] LABS: Glucose, Whole Blood 74 mg/dL (60-115)
[2021-06-07 17:20] LABS: Glucose, Whole Blood 181 mg/dL (60-115)
[2021-06-07] MEDS: Furosemide 40 MG TABLET PO (18:17)
[2021-06-07 20:30] LABS: Glucose, Whole Blood 193 mg/dL (60-115)
[2021-06-08] VITALS (14 sets, daily range): BP systolic 101–160; BP diastolic 68–112; PULSE 66–126; RESP 16–20; TEMP 36.4–37; O2SAT 94–98
[2021-06-08 06:57] LABS: Hematocrit 43.5 % (42-52); Hemoglobin 13.8 g/dl (14.0-18.0); Mean Corpuscular HGB Conc 31.7 g/dl (31.0-36.0); Mean Corpuscular Hemoglobin 26.5 pg (27.0-33.0); Mean Corpuscular Volume 83.7 fL (80-98); Mean Platelet Volume 10.6 fL (9.4-12.4); Platelet Count 224 X10*3/uL (160-400); Red Cell Distribution Width 14.7 % (11.0-16.0); White Blood Count 5.7 X10*3/uL (4.8-10.8)
[2021-06-08 07:22] LABS: Anion Gap 14 (12-20); Blood Urea Nitrogen 15 mg/dL (9-16); Calcium 9.2 mg/dL (8.4-10.2); Carbon Dioxide 31 mmol/L (22-29); Chloride 96 mmol/L (96-108); Creatinine Clr Calc Pharmacy 89.3; Estimated Glomerular Filt Rate > 60; Glucose Random 119 mg/dL (60-115); Potassium 3.6 mmol/L (3.3-5.1); Sodium 137 mmol/L (135-145)
[2021-06-08 07:29] LABS: Glucose, Whole Blood 129 mg/dL (60-115)
[2021-06-08] MEDS: 0.9 % Sodium Chloride Flush 3 ML SYRINGE IVFLUSH ×3 (07:39→21:35)
--- NOTE | 2021-06-08 09:21 | PM.PNCARD ---
Subjective Subjective Date of Service: 06/08/21 Interval history: Feeling good For EDWINA cardioversion today Physical Exam Vital Signs: Last Vital Signs Temp 98 F 06/08/21 07:02 Pulse 98 06/08/21 07:02 Resp 19 06/08/21 07:02 BP 160/90 H 06/08/21 07:02 Pulse Ox 96 06/08/21 07:02 Body Mass Index 31.2 GENERAL APPEARANCE: in no acute distress, pleasant. NECK: no carotid bruit, no jugular venous distention. SKIN: no suspicious lesions, warm and dry. HEART: no murmurs, irregular rate and rhythm. LUNGS: Clear to auscultation. ABDOMEN: soft, nontender. EXTREMITIES: Mild edema. PERIPHERAL PULSES: equal. NEUROLOGIC: No gross deficits, AAO X 3 Results Labs and Meds Result diagrams: 06/08/21 05:20 06/08/21 05:20 Lab results: Laboratory Results - last 24 hr 06/07/21 06/07/21 06/07/21 11:29 15:56 17:16 WBC RBC Hgb Hct MCV MCH MCHC RDW Plt Count MPV Absolute Nucleated RBC Nucleated RBC % (auto) Sodium Potassium Chloride Carbon Dioxide Anion Gap BUN Creatinine Estim Creat Clear Calc Estimated GFR POC Glucose 276 H 74 181 H Random Glucose Calcium 06/07/21 06/08/21 06/08/21 20:26 05:20 05:20 WBC 5.7 RBC 5.20 Hgb 13.8 L Hct 43.5 MCV 83.7 MCH 26.5 L MCHC 31.7 RDW 14.7 Plt Count 224 MPV 10.6 Absolute Nucleated RBC 0.000 Nucleated RBC % (auto) 0.0 Sodium 137 Potassium 3.6 Chloride 96 Carbon Dioxide 31 H Anion Gap 14 BUN 15 Creatinine 1.12 Estim Creat Clear Calc 89.3 Estimated GFR > 60 POC Glucose 193 H Random Glucose 119 H Calcium 9.2 06/08/21 06:59 WBC RBC Hgb Hct MCV MCH MCHC RDW Plt Count MPV Absolute Nucleated RBC Nucleated RBC % (auto) Sodium Potassium Chloride Carbon Dioxide Anion Gap BUN Creatinine Estim Creat Clear Calc Estimated GFR POC Glucose 129 H Random Glucose Calcium Progress Note: A&P Assessment and plan (1) Acute congestive heart failure: Status: Acute (2) Atrial fibrillation with rapid ventricular response: Status: Acute Assessment and Plan: [age] gentleman with AFib with RVR and cardiomyopathy. Clinically euvolemic. Plan is to do EDWINA cardioversion today. Continue the Eliquis as before. If it is successful then I will start him on amiodarone and repeat echocardiography in 2-[address] Coles. Plan discussed with the patient and his in great detail at bedside. Thank you for allowing me to participate in the care of your patient. Please feel free to contact me if you have any questions. Fall Risk Details Current Medications: Current Medications Generic Name Dose Route Start Last Admin Trade Name Freq PRN Reason Stop Dose Admin Acetaminophen 650 mg 06/04/21 18:13 Acetaminophen 325 Mg Tablet PO Q6H PRN Pain, Mild (Pain Scale 1-3) Allopurinol 300 mg 06/06/21 09:00 06/07/21 09:53 Allopurinol 300 Mg Tablet PO 300 mg DAILY PALMER Administration Apixaban 5 mg 06/05/21 21:00 06/07/21 20:45 Apixaban 5 Mg Tablet PO 5 mg BID [facility]MER Administration Atorvastatin Calcium 80 mg 06/06/21 09:00 06/07/21 09:53 Atorvastatin Calcium 80 Mg Tablet PO 80 mg DAILY PALMER Administration Bupropion HCl 300 mg 06/05/21 12:15 06/07/21 09:53 Bupropion Hcl Xl 300 Mg Tab.Er.24h PO 300 mg DAILY PALMER Administration Escitalopram Oxalate 20 mg 06/06/21 09:00 06/07/21 09:53 Escitalopram Oxalate 20 Mg Tablet PO 20 mg DAILY PALMER Administration Furosemide 40 mg 06/07/21 18:00 06/07/21 18:17 Furosemide 40 Mg Tablet PO 40 mg BID@0900,1800 PALMER Administration Protocol Insulin Human Lispro 0 unit 06/06/21 11:30 06/08/21 07:30 Insulin Lispro 100 Unit/Ml 3 Ml Vial SUBCUT Not Given QIDACHS [facility] Protocol Losartan Potassium 25 mg 06/06/21 12:15 06/07/21 09:53 Losartan Potassium 25 Mg Tablet PO 25 mg DAILY PALMER Administration Protocol Metoprolol Succinate 50 mg 06/08/21 09:00 Metoprolol Succinate Er 50 Mg Tab.Er.24h PO DAILY PALMER Protocol Ondansetron HCl 4 mg 06/04/21 18:13 Ondansetron Hcl 4 Mg/2 Ml Vial IVPUSH Q8H PRN Nausea and Vomiting Sodium Chloride 3 ml 06/05/21 00:00 06/08/21 07:39 0.9 % Sodium Chloride Flush 3 Ml Syringe IVFLUSH 3 ml QSHIFT PALMER Administration Time Spent With Patient Time: Total time spent is greater than 50% in coordination of care (as documented) at patient's floor/unit and/or counseling patient: Time with patient: 25 - 35 minutes Progress Note: Quality Stroke Does the patient have a stroke diagnosis?: No Procedures Date of Service Date of Service: 06/08/21
[2021-06-08 09:44] LABS: Glucose, Whole Blood 117 mg/dL (60-115)
[2021-06-08] MEDS: Lactated Ringers 1,000 ML 50 ML IVCONT ×2 (09:50→11:42)
--- NOTE | 2021-06-08 09:51 | P.CONAN_ITS ---
FORMERLY [facility], LATER [facility] Active Problems Active Problems: All Active Problems (Updated 06/06/21 @ 09:55 by Misha Robles MD) Atelectasis of right lung (Acute) Pleural effusion (Acute) Acute congestive heart failure (Acute) Atrial fibrillation with rapid ventricular response (Acute) Atrial fibrillation (Acute) CHF (congestive heart failure) (Acute) Noncompliance with medications (Acute) Past Medical History Medical History Afib CHF (congestive heart failure) Diabetes HTN (hypertension) Family History Family History Father CAD (coronary artery disease) Social History Social History Household Members: Spouse Housing: House Alcohol intake: never Patient Tobacco Use Status: Never used Tobacco Current occupational status: employed Meds Allergies Allergy/AdvReac Type Severity Reaction Status Date / Time colchicine Allergy Rash Verified 06/08/21 09:35 Active Medications: Current Medications Generic Name Dose Route Start Last Admin Trade Name Freq PRN Reason Stop Dose Admin Acetaminophen 650 mg 06/04/21 18:13 Acetaminophen 325 Mg Tablet PO Q6H PRN Pain, Mild (Pain Scale 1-3) Allopurinol 300 mg 06/06/21 09:00 06/07/21 09:53 Allopurinol 300 Mg Tablet PO 300 mg DAILY PALMER Administration Apixaban 5 mg 06/05/21 21:00 06/07/21 20:45 Apixaban 5 Mg Tablet PO 5 mg BID PALMER Administration Atorvastatin Calcium 80 mg 06/06/21 09:00 06/07/21 09:53 Atorvastatin Calcium 80 Mg Tablet PO 80 mg DAILY [facility]MER Administration Bupropion HCl 300 mg 06/05/21 12:15 06/07/21 09:53 Bupropion Hcl Xl 300 Mg Tab.Er.24h PO 300 mg DAILY PALMER Administration Escitalopram Oxalate 20 mg 06/06/21 09:00 06/07/21 09:53 Escitalopram Oxalate 20 Mg Tablet PO 20 mg DAILY PALMER Administration Furosemide 40 mg 06/07/21 18:00 06/07/21 18:17 Furosemide 40 Mg Tablet PO 40 mg BID@0900,1800 PALMER Administration Protocol Insulin Human Lispro 0 unit 06/06/21 11:30 06/08/21 07:30 Insulin Lispro 100 Unit/Ml 3 Ml Vial SUBCUT Not Given QIDACHS [facility] Protocol Losartan Potassium 25 mg 06/06/21 12:15 06/07/21 09:53 Losartan Potassium 25 Mg Tablet PO 25 mg DAILY [facility] Administration Protocol Metoprolol Succinate 50 mg 06/08/21 09:00 Metoprolol Succinate Er 50 Mg Tab.Er.24h PO DAILY [facility] Protocol Ondansetron HCl 4 mg 06/04/21 18:13 Ondansetron Hcl 4 Mg/2 Ml Vial IVPUSH Q8H PRN Nausea and Vomiting Sodium Chloride 3 ml 06/05/21 00:00 06/08/21 07:39 0.9 % Sodium Chloride Flush 3 Ml Syringe IVFLUSH 3 ml QSHIFT [facility] Administration Home Medications Medication Instructions Recorded Confirmed Last Taken Type allopurinol 1 tab PO DAILY 06/04/21 06/04/21 06/04/21 History apixaban [Eliquis] 1 tab PO BID 06/04/21 06/04/21 06/04/21 History atorvastatin 1 tab PO DAILY 06/04/21 06/04/21 06/04/21 History bupropion HCl 1 tab PO QAM 06/04/21 06/04/21 06/04/21 History diltiazem HCl 1 cap PO DAILY 06/04/21 06/04/21 06/04/21 History escitalopram oxalate 1 tab PO DAILY 06/04/21 06/04/21 06/04/21 History furosemide 1 tab PO DAILY 06/04/21 06/04/21 06/04/21 History glipizide 2 tab PO DAILY 06/04/21 06/04/21 06/04/21 History hydrochlorothiazide 1 tab PO DAILY 06/04/21 06/04/21 06/04/21 History lisinopril 1 tab PO DAILY 06/04/21 06/04/21 06/04/21 History metformin 2 tab PO DAILY 06/04/21 06/04/21 06/04/21 History metoprolol succinate 1 tab PO DAILY 06/04/21 06/04/21 06/04/21 History Exam Exam Date and Time: June 08, 2021 0951 Height,Weight and Vital Signs: Height 6 ft 3 in Weight 113.398 kg Last Vital Signs Temp 97.9 F 06/08/21 09:48 Pulse 90 06/08/21 09:48 Resp 16 06/08/21 09:48 BP 154/112 H 06/08/21 09:48 Pulse Ox 95 06/08/21 09:48 Pertinent Lab Results Pertinent Lab Results: Laboratory Tests 06/04/21 06/04/21 06/04/21 15:58 15:58 15:58 WBC 5.7 RBC 5.48 Hgb 15.0 Hct 46.2 MCV 84.3 MCH 27.4 MCHC 32.5 RDW 15.3 Plt Count 230 MPV 10.3 Immature Gran % (Auto) 0.4 Neut % (Auto) 70.8 Lymph % (Auto) 20.2 [place] % (Auto) 7.0 Eos % (Auto) 1.2 Baso % (Auto) 0.4 Lymph # (Auto) 1.2 [place] # (Auto) 0.4 Eos # (Auto) 0.1 Baso # (Auto) 0.0 Abs Immat Gran (auto) 0.02 Absolute Neuts (auto) 4.0 Absolute Nucleated RBC 0.000 Nucleated RBC % (auto) 0.0 PT INR APTT Sodium 136 Potassium 4.6 Chloride 102 Carbon Dioxide 22 Anion Gap 17 BUN 23 H Creatinine 1.47 H Estim Creat Clear Calc 68.0 Estimated GFR 48 POC Glucose Random Glucose 135 H Lactic Acid Calcium 9.3 Magnesium Total Bilirubin Direct Bilirubin AST ALT Alkaline Phosphatase Troponin I High Sens B-Natriuretic Peptide 1248 H Total Protein Albumin Lipase TSH Urine Color Urine Appearance Urine pH Ur Specific [place] Urine Protein Urine Glucose (UA) Urine Ketones Urine Blood Urine Nitrite Ur Leukocyte Esterase COVID-19 ([facility]) COVID-19 Clin Com 06/04/21 06/04/21 06/04/21 15:58 15:58 15:59 WBC RBC Hgb Hct MCV MCH MCHC RDW Plt Count MPV Immature Gran % (Auto) Neut % (Auto) Lymph % (Auto) [place] % (Auto) Eos % (Auto) Baso % (Auto) Lymph # (Auto) [place] # (Auto) Eos # (Auto) Baso # (Auto) Abs Immat Gran (auto) Absolute Neuts (auto) Absolute Nucleated RBC Nucleated RBC % (auto) PT 15.4 H INR 1.3 H APTT 33.4 Sodium Potassium Chloride Carbon Dioxide Anion Gap BUN Creatinine Estim Creat Clear Calc Estimated GFR POC Glucose Random Glucose Lactic Acid Calcium Magnesium 1.8 Total Bilirubin 1.2 H Direct Bilirubin 0.6 H AST 34 ALT 29 Alkaline Phosphatase 108 Troponin I High Sens B-Natriuretic Peptide Total Protein 6.6 Albumin 3.6 Lipase 7 L TSH 2.43 Urine Color Urine Appearance Urine pH Ur Specific [place] Urine Protein Urine Glucose (UA) Urine Ketones Urine Blood Urine Nitrite Ur Leukocyte Esterase COVID-19 ([facility]) Negative COVID-19 Clin Com See Note 06/04/21 06/04/21 06/04/21 15:59 16:37 17:55 WBC RBC Hgb Hct MCV MCH MCHC RDW Plt Count MPV Immature Gran % (Auto) Neut % (Auto) Lymph % (Auto) [place] % (Auto) Eos % (Auto) Baso % (Auto) Lymph # (Auto) [place] # (Auto) Eos # (Auto) Baso # (Auto) Abs Immat Gran (auto) Absolute Neuts (auto) Absolute Nucleated RBC Nucleated RBC % (auto) PT INR APTT Sodium Potassium Chloride Carbon Dioxide Anion Gap BUN Creatinine Estim Creat Clear Calc Estimated GFR POC Glucose Random Glucose Lactic Acid 1.8 Calcium Magnesium Total Bilirubin Direct Bilirubin AST ALT Alkaline Phosphatase Troponin I High Sens 21.2 B-Natriuretic Peptide Total Protein Albumin Lipase TSH Urine Color YELLOW Urine Appearance CLEAR Urine pH 6.0 Ur Specific [place] 1.010 Urine Protein NEG Urine Glucose (UA) NEG Urine Ketones NEG Urine Blood NEG Urine Nitrite NEG Ur Leukocyte Esterase NEG COVID-19 ([facility]) COVID-19 Clin Com 06/05/21 06/05/21 06/05/21 05:53 05:53 05:53 WBC 5.3 RBC 5.27 Hgb 14.4 Hct 44.5 MCV 84.4 MCH 27.3 MCHC 32.4 RDW 15.2 Plt Count 217 MPV 10.1 Immature Gran % (Auto) 0.4 Neut % (Auto) 63.7 Lymph % (Auto) 24.4 [place] % (Auto) 8.8 Eos % (Auto) 2.3 Baso % (Auto) 0.4 Lymph # (Auto) 1.3 [place] # (Auto) 0.5 Eos # (Auto) 0.1 Baso # (Auto) 0.0 Abs Immat Gran (auto) 0.02 Absolute Neuts (auto) 3.4 Absolute Nucleated RBC 0.000 Nucleated RBC % (auto) 0.0 PT INR APTT Sodium 138 Potassium 4.3 Chloride 102 Carbon Dioxide 25 Anion Gap 15 BUN 24 H Creatinine 1.42 H Estim Creat Clear Calc 70.4 Estimated GFR 50 POC Glucose Random Glucose 127 H Lactic Acid Calcium 9.6 Magnesium Total Bilirubin Direct Bilirubin AST ALT Alkaline Phosphatase Troponin I High Sens B-Natriuretic Peptide 831 H Total Protein Albumin Lipase TSH Urine Color Urine Appearance Urine pH Ur Specific [place] Urine Protein Urine Glucose (UA) Urine Ketones Urine Blood Urine Nitrite Ur Leukocyte Esterase COVID-19 ([facility]) COVID-19 Clin Com 06/06/21 06/06/21 06/06/21 04:19 04:19 11:19 WBC RBC Hgb Hct MCV MCH MCHC RDW Plt Count MPV Immature Gran % (Auto) Neut % (Auto) Lymph % (Auto) [place] % (Auto) Eos % (Auto) Baso % (Auto) Lymph # (Auto) [place] # (Auto) Eos # (Auto) Baso # (Auto) Abs Immat Gran (auto) Absolute Neuts (auto) Absolute Nucleated RBC Nucleated RBC % (auto) PT INR APTT Sodium 138 Potassium 3.9 Chloride 98 Carbon Dioxide 28 Anion Gap 16 BUN 22 H Creatinine 1.45 H Estim Creat Clear Calc 69.0 Estimated GFR 49 POC Glucose 180 H Random Glucose 153 H Lactic Acid Calcium 9.7 Magnesium Total Bilirubin Direct Bilirubin AST ALT Alkaline Phosphatase Troponin I High Sens B-Natriuretic Peptide 468 H Total Protein Albumin Lipase TSH Urine Color Urine Appearance Urine pH Ur Specific [place] Urine Protein Urine Glucose (UA) Urine Ketones Urine Blood Urine Nitrite Ur Leukocyte Esterase COVID-19 ([facility]) COVID-19 Clin Com 06/06/21 06/06/21 06/07/21 15:59 21:05 04:21 WBC 5.1 RBC 4.99 Hgb 13.7 L Hct 41.8 L MCV 83.8 MCH 27.5 MCHC 32.8 RDW 14.9 Plt Count 201 MPV 10.2 Immature Gran % (Auto) Neut % (Auto) Lymph % (Auto) [place] % (Auto) Eos % (Auto) Baso % (Auto) Lymph # (Auto) [place] # (Auto) Eos # (Auto) Baso # (Auto) Abs Immat Gran (auto) Absolute Neuts (auto) Absolute Nucleated RBC 0.000 Nucleated RBC % (auto) 0.0 PT INR APTT Sodium Potassium Chloride Carbon Dioxide Anion Gap BUN Creatinine Estim Creat Clear Calc Estimated GFR POC Glucose 143 H 159 H Random Glucose Lactic Acid Calcium Magnesium Total Bilirubin Direct Bilirubin AST ALT Alkaline Phosphatase Troponin I High Sens B-Natriuretic Peptide Total Protein Albumin Lipase TSH Urine Color Urine Appearance Urine pH Ur Specific [place] Urine Protein Urine Glucose (UA) Urine Ketones Urine Blood Urine Nitrite Ur Leukocyte Esterase COVID-19 ([facility]ARL) COVID-19 [employer] Com 06/07/21 06/07/21 06/07/21 04:21 07:19 11:29 WBC RBC Hgb Hct MCV MCH MCHC RDW Plt Count MPV Immature Gran % (Auto) Neut % (Auto) Lymph % (Auto) [place] % (Auto) Eos % (Auto) Baso % (Auto) Lymph # (Auto) [place] # (Auto) Eos # (Auto) Baso # (Auto) Abs Immat Gran (auto) Absolute Neuts (auto) Absolute Nucleated RBC Nucleated RBC % (auto) PT INR APTT Sodium 138 Potassium 3.6 Chloride 98 Carbon Dioxide 29 Anion Gap 15 BUN 20 H Creatinine 1.24 Estim Creat Clear Calc 80.6 Estimated GFR 59 POC Glucose 99 276 H Random Glucose 103 Lactic Acid Calcium 9.5 Magnesium Total Bilirubin Direct Bilirubin AST ALT Alkaline Phosphatase Troponin I High Sens B-Natriuretic Peptide Total Protein Albumin Lipase TSH Urine Color Urine Appearance Urine pH Ur Specific [place] Urine Protein Urine Glucose (UA) Urine Ketones Urine Blood Urine Nitrite Ur Leukocyte Esterase COVID-19 (KAR[facility]) COVID-19 [employer] Com 06/07/21 06/07/21 06/07/21 15:56 17:16 20:26 WBC RBC Hgb Hct MCV MCH MCHC RDW Plt Count MPV Immature Gran % (Auto) Neut % (Auto) Lymph % (Auto) [place] % (Auto) Eos % (Auto) Baso % (Auto) Lymph # (Auto) [place] # (Auto) Eos # (Auto) Baso # (Auto) Abs Immat Gran (auto) Absolute Neuts (auto) Absolute Nucleated RBC Nucleated RBC % (auto) PT INR APTT Sodium Potassium Chloride Carbon Dioxide Anion Gap BUN Creatinine Estim Creat Clear Calc Estimated GFR POC Glucose 74 181 H 193 H Random Glucose Lactic Acid Calcium Magnesium Total Bilirubin Direct Bilirubin AST ALT Alkaline Phosphatase Troponin I High Sens B-Natriuretic Peptide Total Protein Albumin Lipase TSH Urine Color Urine Appearance Urine pH Ur Specific [place] Urine Protein Urine Glucose (UA) Urine Ketones Urine Blood Urine Nitrite Ur Leukocyte Esterase COVID-19 ([facility]ARL) COVID-19 [employer] Com 06/08/21 06/08/21 06/08/21 05:20 05:20 06:59 WBC 5.7 RBC 5.20 Hgb 13.8 L Hct 43.5 MCV 83.7 MCH 26.5 L MCHC 31.7 RDW 14.7 Plt Count 224 MPV 10.6 Immature Gran % (Auto) Neut % (Auto) Lymph % (Auto) [place] % (Auto) Eos % (Auto) Baso % (Auto) Lymph # (Auto) [place] # (Auto) Eos # (Auto) Baso # (Auto) Abs Immat Gran (auto) Absolute Neuts (auto) Absolute Nucleated RBC 0.000 Nucleated RBC % (auto) 0.0 PT INR APTT Sodium 137 Potassium 3.6 Chloride 96 Carbon Dioxide 31 H Anion Gap 14 BUN 15 Creatinine 1.12 Estim Creat Clear Calc 89.3 Estimated GFR > 60 POC Glucose 129 H Random Glucose 119 H Lactic Acid Calcium 9.2 Magnesium Total Bilirubin Direct Bilirubin AST ALT Alkaline Phosphatase Troponin I High Sens B-Natriuretic Peptide Total Protein Albumin Lipase TSH Urine Color Urine Appearance Urine pH Ur Specific [place] Urine Protein Urine Glucose (UA) Urine Ketones Urine Blood Urine Nitrite Ur Leukocyte Esterase COVID-19 ([facility]ARL) [employer] 06/08/21 09:40 WBC RBC Hgb Hct MCV MCH MCHC RDW Plt Count MPV Immature Gran % (Auto) Neut % (Auto) Lymph % (Auto) [place] % (Auto) Eos % (Auto) Baso % (Auto) Lymph # (Auto) [place] # (Auto) Eos # (Auto) Baso # (Auto) Abs Immat Gran (auto) Absolute Neuts (auto) Absolute Nucleated RBC Nucleated RBC % (auto) PT INR APTT Sodium Potassium Chloride Carbon Dioxide Anion Gap BUN Creatinine Estim Creat Clear Calc Estimated GFR POC Glucose 117 H Random Glucose Lactic Acid Calcium Magnesium Total Bilirubin Direct Bilirubin AST ALT Alkaline Phosphatase Troponin I High Sens B-Natriuretic Peptide Total Protein Albumin Lipase TSH Urine Color Urine Appearance Urine pH Ur Specific [place] Urine Protein Urine Glucose (UA) Urine Ketones Urine Blood Urine Nitrite Ur Leukocyte Esterase COVID-19 (KARL) [employer] Airway Mallampati Class: III TM Dist: >3cm Neck ROM: Full Loose/Missing/Broken Teeth: No Heart: RRR Lungs: TA Assessment and Plan Assessment Anesthesia Assessment: Anesthesia Plan Discussed and Chart Reviewed Final Anesthetic Review NPO: Yes ASA Class: IV Final Preanesthetic Review: Meds/Allgs Chart Reviewed, Consent Obtained/Reviewed and Anes Risks/Benef Reviewed Patient Risk: High Procedure Risk: Intermediate Anesthetic Plan Anesthetic Plan: MAC: Disposition: Standard PACU
--- NOTE | 2021-06-08 09:59 | MHC.SHP ---
Pre-Procedural Eval Section A Date of Service: 06/08/21 The patient is an INPATIENT: Yes Section B Chief Complaint: CHF Allergies: Allergies Allergy/AdvReac Type Severity Reaction Status Date / Time colchicine Allergy Rash Verified 06/08/21 09:35 Plan Diagnosis/Plan: Unchanged I have reviewed the history and physical and performed a pertinent physical examination on my patient. No changes have occurred unless specified.
--- NOTE | 2021-06-08 10:00 | CA_ITS ---
Transesophageal Echocardiogram Patient (Last, First, Middle): Terrence Causey V Gender: Male Date of : 1955 Age: 66 Procedure Date: 06/08/2021 Procedure Type: Transesophageal Echocardiogram Location: OP Height: 182.88 cm Weight: kg Rating Officer: LAWRENCE Referring MD: Fritz Kinney MD Symptoms: Afib with RVR Conclusion: ??? Normal left ventricular cavity size. The left ventricular systolic function is moderately decreased. The visually estimated ejection fraction is between 30-35%. ??? There is no evidence of a thrombus in the left atrial appendage. Findings Procedure Information Consent was obtained prior to the procedure. The probe was passed with no difficulty. This was a technically good study. Left Ventricle Normal left ventricular cavity size. The left ventricular systolic function is moderately decreased. The visually estimated ejection fraction is between 30-35%. Right Ventricle Normal right ventricular cavity size. There is mildly decreased right ventricular systolic function. Atria There is no evidence of a thrombus in the left atrial appendage. Aortic Valve There is a normal trileaflet aortic valve. Mitral Valve Normal mitral valve structure and function. There is mild mitral valve regurgitation. Pulmonic Valve The pulmonic valve was not well visualized. Tricuspid Valve Normal tricuspid valve structure and function. There is mild tricuspid valve regurgitation. Tricuspid regurgitation envelope is inadequate for calculation of right ventricular systolic pressure. Great Vessels All visible segments of the aorta are normal in size. Pericardium/Pleural There is no evidence of pericardial effusion. Updated by Fritz Kinney on 07:34 PM with Status of Final Fritz Kinney MD electronically signed on 06/11/2021 7:34:39 PM with status of Final
[2021-06-08] MEDS: Apixaban 5 MG TABLET PO ×2 (10:06→21:30)
--- NOTE | 2021-06-08 10:10 | PC.NURSE ---
Patient arrived to pre op. Per JAN, pt did not receive any of his 0900 medications from the floor. This nurse verified with [facility] nurse Yoli over the phone that no 0900 medications were given. BP and pulse elevated in preop, 154/112 and 99. Patient in Afib. Anesthesia Dr. Melchor and Dr. Kinney notified and aware of what 0900 meds were not given yet. Dr. Kinney placed order for one time dose of Eliquis 5mg PO. Per him, other 0900 medications can wait until patient back up on floor. Eliquis administered in preop. Yoli RN from [facility] aware that Eliquis was given in [facility].
--- NOTE | 2021-06-08 11:24 | P.PNCAR_ITS ---
Cardioversion Procedure Note Cardioversion Date of Procedure: 06/08/21 Ordering Provider: Fritz Kinney Performing Provider: Fritz Kinney Indication for Procedure: Afib Pre-Op Diagnosis: Afib Post-Op Diagnosis: Afib Performed with Transesophageal Echo: Yes EDWINA findings (if EDWINA Performed): No DOMITILA clot Consent: Verbal and Written consent was obtained from the patient before starting. The patient was made aware of the risk of stroke. Procedure: After consent obtained, defib pads were attached and the patient was sedated by the anesthesia team. Once adequate sedation achieved, patient was given 3 shocks of 200 J each. He broke out of Afib every time but went back into Afib. Complications: None. Recommendations: Would load him with amiodarone and he will need repeat attempt a cardioversion by his cook short order Dr. Coles at [facility].
[2021-06-08] MEDS: allopurinoL 300 MG TABLET PO (11:35)
[2021-06-08] MEDS: Escitalopram Oxalate 20 MG TABLET PO (11:35)
[2021-06-08] MEDS: Losartan Potassium 25 MG TABLET PO (11:36)
[2021-06-08] MEDS: Atorvastatin Calcium 80 MG TABLET PO (11:37)
[2021-06-08] MEDS: Furosemide 40 MG TABLET PO ×2 (11:37→17:18)
[2021-06-08] MEDS: buPROPion HCl XL 300 MG TAB.ER.24H PO (11:38)
[2021-06-08] MEDS: Metoprolol Succinate ER 50 MG TAB.ER.24H PO (11:38)
--- NOTE | 2021-06-08 12:22 | MHC.CM.PN ---
per multi dis rounds pt will need a vna when dcd ,which is expected in 1 to 2 days
[2021-06-08] MEDS: Insulin Lispro 100 UNIT/ML 3 ML VIAL SUBCUT ×2 (12:31→16:37)
[2021-06-08 12:32] LABS: Glucose, Whole Blood 207 mg/dL (60-115)
[2021-06-08] MEDS: Amiodarone HCL 200 MG TABLET 400 MG PO ×2 (12:32→21:30)
--- NOTE | 2021-06-08 13:42 | HO.PM.IMPN ---
Subjective Subjective Date of Service: 06/08/21 Interval History: seen and examined this afternoon EDWINA cardioversion, which was unsuccessful pt reports hunger, but otherwise no complaints breathing overall improved bedside, updates given ROS General - no fevers or chills Cardiovascular - no chest pain Respiratory - no shortness of breath or cough Abdominal- no abdominal pain, nausea, vomiting, diarrhea Physical Exam Vital Signs: Vital Signs: Last Vital Signs Temp 98.5 F 06/08/21 11:15 Pulse 115 H 06/08/21 12:32 Resp 18 06/08/21 11:15 BP 147/105 H 06/08/21 12:32 Pulse Ox 96 06/08/21 11:15 Body Mass Index 31.2 Const: Other: General - no acute distress, appears comfortable Cardiovascular - IRR Lungs - normal respiratory effort, clear to auscultation bilaterally, no wheezing Abdomen - soft, nontender, no rebound or guarding Extremities - no edema bilaterally Neuro - awake and alert, no focal deficits Objective Data Current Medications Generic Name Dose Route Start Last Admin Trade Name Teraq PRN Reason Stop Dose Admin Acetaminophen 650 mg 06/04/21 18:13 Acetaminophen 325 Mg Tablet PO Q6H PRN Pain, Mild (Pain Scale 1-3) Allopurinol 300 mg 06/06/21 09:00 06/08/21 11:35 Allopurinol 300 Mg Tablet PO 300 mg DAILY [facility] Administration Amiodarone HCl 400 mg 06/08/21 12:00 06/08/21 12:32 Amiodarone Hcl 200 Mg Tablet PO 400 mg BID PALMER Administration Apixaban 5 mg 06/05/21 21:00 06/08/21 10:09 Apixaban 5 Mg Tablet PO Not Given BID PALMER Atorvastatin Calcium 80 mg 06/06/21 09:00 06/08/21 11:37 Atorvastatin Calcium 80 Mg Tablet PO 80 mg DAILY [facility] Administration Bupropion HCl 300 mg 06/05/21 12:15 06/08/21 11:38 Bupropion Hcl Xl 300 Mg Tab.Er.24h PO 300 mg DAILY [facility]MER Administration Escitalopram Oxalate 20 mg 06/06/21 09:00 06/08/21 11:35 Escitalopram Oxalate 20 Mg Tablet PO 20 mg DAILY [facility] Administration Furosemide 40 mg 06/07/21 18:00 06/08/21 11:37 Furosemide 40 Mg Tablet PO 40 mg BID@0900,1800 PALMER Administration Protocol Lactated Ringer's 1,000 mls @ 50 mls/hr 06/08/21 10:30 06/08/21 12:50 Lr IVCONT 0 mls/hr .Q20H PALMER Infusion Insulin Human Lispro 0 unit 06/06/21 11:30 06/08/21 12:31 Insulin Lispro 100 Unit/Ml 3 Ml Vial SUBCUT 4 unit QIDACHS [facility] Administration Protocol Losartan Potassium 25 mg 06/06/21 12:15 06/08/21 11:36 Losartan Potassium 25 Mg Tablet PO 25 mg DAILY [facility] Administration Protocol Metoprolol Succinate 50 mg 06/08/21 09:00 06/08/21 11:38 Metoprolol Succinate Er 50 Mg Tab.Er.24h PO 50 mg DAILY [facility] Administration Protocol Ondansetron HCl 4 mg 06/04/21 18:13 Ondansetron Hcl 4 Mg/2 Ml Vial IVPUSH Q8H PRN Nausea and Vomiting Sodium Chloride 3 ml 06/05/21 00:00 06/08/21 07:39 0.9 % Sodium Chloride Flush 3 Ml Syringe IVFLUSH 3 ml QSHIFT [facility] Administration Labs CBC & Chem 7: 06/08/21 05:20 06/08/21 05:20 Labs: Laboratory Results - last 24 hr 06/07/21 06/07/21 06/07/21 15:56 17:16 20:26 WBC RBC Hgb Hct MCV MCH MCHC RDW Plt Count MPV Absolute Nucleated RBC Nucleated RBC % (auto) Sodium Potassium Chloride Carbon Dioxide Anion Gap BUN Creatinine Estim Creat Clear Calc Estimated GFR POC Glucose 74 181 H 193 H Random Glucose Calcium 06/08/21 06/08/21 06/08/21 05:20 05:20 06:59 WBC 5.7 RBC 5.20 Hgb 13.8 L Hct 43.5 MCV 83.7 MCH 26.5 L MCHC 31.7 RDW 14.7 Plt Count 224 MPV 10.6 Absolute Nucleated RBC 0.000 Nucleated RBC % (auto) 0.0 Sodium 137 Potassium 3.6 Chloride 96 Carbon Dioxide 31 H Anion Gap 14 BUN 15 Creatinine 1.12 Estim Creat Clear Calc 89.3 Estimated GFR > 60 POC Glucose 129 H Random Glucose 119 H Calcium 9.2 06/08/21 06/08/21 09:40 12:27 WBC RBC Hgb Hct MCV MCH MCHC RDW Plt Count MPV Absolute Nucleated RBC Nucleated RBC % (auto) Sodium Potassium Chloride Carbon Dioxide Anion Gap BUN Creatinine Estim Creat Clear Calc Estimated GFR POC Glucose 117 H 207 H Random Glucose Calcium Quality Stroke Does the patient have a stroke diagnosis?: No VTE Prior VTE?: No VTE Risk Level:: Medical - moderate - high VTE Device Contraindication: Treatment Not Indicated VTE Drug Contraindication: N/A - Med Ordered Assessment and Plan (1) Acute congestive heart failure: Status: Acute Assessment and Plan: 66-year-old man admitted with acute on chronic congestive heart failure unknown type, no recent echocardiogram in the medical record, records requested from [facility]. According to the patient's he has not been compliant with taking his medications as prescribed and may miss doses on a regular basis. Atrial fibrillation with rapid ventricular response likely due to non-compliance with meds s/p failed EDWINA cardioversion -- started on amio load @ 400mg bid; will outpatient f/u with this primary venetian blind assembler for attempted cardioversion continue eliquis continue current regime Acute (new-onset) HFrEF Echo with LVEF severely reduced @ 15-20% s/p IV diuretics and on PO lasix today -- will see his urine output on oral lasix Pleural effusion, abnormal CT scan mass vs pulmonary edema will repeat CT scan this afternoon as per pulm recs WILMER baseline unknown, but SCr improved with diuresis -- suggestive of cardiorenal syndrome Possible left renal mass renal us showed no mass, simple cyst o/p f/u with pcp Hypertension metoprolol + lasix + losartan (Changed from his home medS) Diabetes mellitus Sliding scale, ADA diet Hold metformin due to WILMER Obesity. BMI 31.2 Discussed the importance of weight loss as this may contribute to worsening of other comorbidities. Full Code DVT pptx, Eliquis dispo: anticipate d/c home tomorrow if continues to remain stable
[2021-06-08 16:08] LABS: Glucose, Whole Blood 263 mg/dL (60-115)
[2021-06-08 20:10] LABS: Glucose, Whole Blood 107 mg/dL (60-115)
--- NOTE | 2021-06-09 | ECG_ITS ---
Test Reason : CHECK QTC Blood Pressure : / mmHG Vent. Rate : 093 BPM Atrial Rate : 300 BPM P-R Int : 000 ms QRS Dur : 096 ms QT Int : 392 ms P-R-T Axes : 000 059 159 degrees QTc Int : 487 ms Atrial fibrillation Nonspecific T wave abnormality Abnormal ECG When compared with ECG of 04-JUN-2021 16:28, No significant changes seen Referred By: Ambrose Celestin Electronically Signed By:Fritz Kinney
[2021-06-09 03:00] VITALS: BP 128/72; PULSE 95; RESP 18; TEMP 36.8; O2SAT 94
[2021-06-09 07:00] VITALS: BP 148/98; PULSE 84; RESP 20; TEMP 36.4; O2SAT 95
[2021-06-09 07:26] LABS: Glucose, Whole Blood 103 mg/dL (60-115)
[2021-06-09] MEDS: 0.9 % Sodium Chloride Flush 3 ML SYRINGE IVFLUSH (07:49)
[2021-06-09 07:50] VITALS: BP 148/98; PULSE 84
[2021-06-09] MEDS: Escitalopram Oxalate 20 MG TABLET PO (07:50)
[2021-06-09] MEDS: Amiodarone HCL 200 MG TABLET 400 MG PO (07:50)
[2021-06-09] MEDS: Atorvastatin Calcium 80 MG TABLET PO (07:50)
[2021-06-09] MEDS: Losartan Potassium 25 MG TABLET PO (07:50)
[2021-06-09] MEDS: Furosemide 40 MG TABLET PO (07:50)
[2021-06-09 07:51] VITALS: BP 148/98; PULSE 84
[2021-06-09] MEDS: allopurinoL 300 MG TABLET PO (07:51)
[2021-06-09] MEDS: Apixaban 5 MG TABLET PO (07:51)
[2021-06-09] MEDS: Metoprolol Succinate ER 50 MG TAB.ER.24H PO (07:51)
[2021-06-09] MEDS: buPROPion HCl XL 300 MG TAB.ER.24H PO (07:51)
[2021-06-09 11:21] LABS: Glucose, Whole Blood 179 mg/dL (60-115)
--- NOTE | 2021-06-09 11:24 | MHC.CM.PN ---
Addendum entered by Azul Villa 06/09/21 11:31: updated IMM delivered. Pt reports he will self arrange transport Original Note: pt cleared for DC home today with [facility] for CHF management/teaching.
--- NOTE | 2021-06-09 11:34 | PM.DS ---
DS: Providers Provider Date of Service: 06/09/21 Date of admission: 06/04/21 18:10 Primary care physician: Taz Malik MD Consults: 06/04/21 18:13 Consult to Cardiology Routine Consulting Provider: Paxton Polanco Reason for consultation: chf Has provider been notified: No 06/04/21 18:27 Consult to Pulmonology Routine Consulting Provider: Lan Handley Reason for consultation: pleural effusion, ? mass, rll subtotal collapse Has provider been notified: No DS: Diagnosis Discharge Diagnosis (1) Acute HFrEF (heart failure with reduced ejection fraction): Status: Acute (2) Atrial fibrillation with rapid ventricular response: Status: Acute (3) Pleural effusion: Status: Acute (4) WILMER (acute kidney injury): Status: Acute (5) HTN (hypertension): Status: Acute (6) Diabetes: Status: Acute DS: Medications Discharge Medications Home Medications: Home Medications Medication Instructions Recorded Confirmed Eliquis 1 tab PO BID 06/04/21 06/04/21 allopurinol 1 tab PO DAILY 06/04/21 06/04/21 atorvastatin 1 tab PO DAILY 06/04/21 06/04/21 bupropion HCl 1 tab PO QAM 06/04/21 06/04/21 escitalopram oxalate 1 tab PO DAILY 06/04/21 06/04/21 glipizide 2 tab PO DAILY 06/04/21 06/04/21 metformin 2 tab PO DAILY 06/04/21 06/04/21 Previous Rx's Medication Instructions Recorded amiodarone See Rx Instructions .ROUTE 06/09/21 .COMPLEX #90 tab furosemide 40 mg PO BID@0900,1800 #60 tab 06/09/21 losartan 25 mg PO DAILY #30 tab 06/09/21 metoprolol succinate 50 mg PO DAILY #30 tab 06/09/21 DS: Summary Hospital Course Hospital Course: Discharge diagnosis 1. Acute heart failure with reduced ejection fraction exacerbation 2. Atrial fibrillation with rapid ventricular response 3. Wilmer 4. Pleural effusion 5. Hypertension 6. diabetes Patient presented to the hospital with signs and symptoms suggestive of acute heart failure exacerbation along with atrial fibrillation with rapid ventricular response. His heart rate was initially controlled with IV Cardizem drip. He was started on IV diuresis with Lasix. He underwent a 2D echo which showed significantly reduced ejection fraction at 15-20%. As his heart failure improved, the patient underwent EDWINA cardioversion which was unsuccessful. He was subsequently started on amiodarone 400 mg twice daily for total 14 days followed by 200 mg daily. He will be discharged home with follow-up with his outpatient assisted living administrator for a repeat attempt at cardioversion after amiodarone loading. In regards to his rate control drugs, Cardizem was discontinued in light of reduced ejection fraction and his home dose of metoprolol was increased from 25mg to 50mg Patient's hospital course was further complicated by pleural effusion on the right with possibility of an underlying mass. Post diuresis a repeat CT scan showed persistence of his effusion. Pulmonary was involved and he will have a follow-up appointment with Pulmonary on 06/15/2020 at 15:00 at which point further workup will be pursued. Additionally, there was a concern for a possible left renal mass but an ultrasound revealed a minimally complicated cyst. This can be followed up outpatient with his primary care doctor with repeat imaging to ensure stability. Time Spent with Patient Time attestation: Total time spent providing and/or coordinating discharge services: Discharge coordination time: Greater than 30 minutes Quality: Stroke Does the patient have a stroke diagnosis?: No Physical Exam Vital Signs: Vital Signs: Last Vital Signs Temp 97.6 F 06/09/21 07:00 Pulse 84 06/09/21 07:51 Resp 20 06/09/21 07:00 BP 148/98 H 06/09/21 07:51 Pulse Ox 95 06/09/21 07:00 Body Mass Index 31.2 Const: Other: General - no acute distress, appears comfortable Cardiovascular - IRR, trace pedal edema Lungs - no rales, no distress Abdomen - soft, nontender, no rebound or guarding Extremities - trace edema Neuro - awake and alert, no focal deficits DS: Data Data Completed and Pending Labs on day of discharge: Laboratory Results - last 24 hr 06/08/21 06/08/21 06/08/21 12:27 16:05 20:07 POC Glucose 207 H 263 H 107 06/09/21 06/09/21 07:23 11:18 POC Glucose 103 179 H Preliminary micro results at discharge 06/04/21 17:42 Blood Culture - Preliminary Blood - Venous No growth after 48 hours. 06/04/21 17:27 Blood Culture - Preliminary Blood - Venous No growth after 48 hours. Discharge Plan Discharge Patient Disposition: Home Health Service Discharge Diagnosis: CHF, A. Fib Referrals: Dary GROSS [Outside] - 1 Week Taz Malik MD [Primary Care Provider] - 1 Week Misha Robles MD [Physician] - 06/15/21 3:00 pm Discharge Medications: New furosemide 40 mg Tablet 40 mg PO BID@0900,1800 Qty: 60 RF: 0 metoprolol succinate 50 mg Tablet Extended Release 24 Hr 50 mg PO DAILY Qty: 30 RF: 0 losartan 25 mg Tablet 25 mg PO DAILY Qty: 30 RF: 0 amiodarone 200 mg tablet See Rx Instructions .ROUTE .COMPLEX Qty: 90 RF: 0 Continued atorvastatin 80 mg tablet 1 tab PO DAILY RF: 0 glipizide 5 mg tablet extended release 24hr 2 tab PO DAILY RF: 0 allopurinol 300 mg tablet 1 tab PO DAILY RF: 0 metformin 500 mg tablet extended release 24 hr 2 tab PO DAILY RF: 0 escitalopram oxalate 20 mg tablet 1 tab PO DAILY RF: 0 bupropion HCl 300 mg tablet extended release 24 hr 1 tab PO QAM RF: 0 Eliquis 5 mg tablet 1 tab PO BID RF: 0 Discontinued lisinopril 20 mg tablet 1 tab PO DAILY RF: 0 diltiazem HCl 120 mg capsule,extended release 24 hr 1 cap PO DAILY RF: 0 furosemide 20 mg tablet 1 tab PO DAILY RF: 0 metoprolol succinate 25 mg tablet extended release 24 hr 1 tab PO DAILY RF: 0 hydrochlorothiazide 12.5 mg tablet 1 tab PO DAILY RF: 0 Discharge Orders: Discharge Order (Routine); Ordered 06/09/21 Ordered By: Ambrose Celestin Diet: advance to usual diet Activity on Discharge: As tolerated Stand Alone Forms: Patient Portal Discharge page Care Plan Goals: To stay healthy and out of the hospital. Health Concerns: A. Fib CHF Pleural Effusion Plan of Treatment: Please take amiodarone 400 mg twice a day for 14 total days followed by 200 mg daily thereafter. Take your Eliquis and metoprolol. Discontinue Cardizem. Please follow-up with your assisted living administrator for further management Four year pleural effusion, you have a follow-up appointment next Sunday on June [address] Robles at [place] [facility] [place] [facility]. For your CHF your Lasix has been increased to 40 mg twice daily. Please eat a low-salt diet. Assessment: 66 yo M admitted for A. fib and CHF. ALso noted pleural effusion for which he will need f/u next week in pulm clinic.
--- NOTE | 2021-06-09 12:18 | PM.PNCARD ---
Subjective Subjective Date of Service: 06/09/21 Interval history: Doing well. We tried to cardiovert him yesterday but he broke briefly and went back to atrial fibrillation. Physical Exam Vital Signs: Last Vital Signs Temp 97.6 F 06/09/21 07:00 Pulse 84 06/09/21 07:51 Resp 20 06/09/21 07:00 BP 148/98 H 06/09/21 07:51 Pulse Ox 95 06/09/21 07:00 Body Mass Index 31.2 GENERAL APPEARANCE: in no acute distress, pleasant. NECK: no carotid bruit, no jugular venous distention. SKIN: no suspicious lesions, warm and dry. HEART: no murmurs, irregular rate and rhythm. LUNGS: Clear to auscultation. ABDOMEN: soft, nontender. EXTREMITIES: Mild edema. PERIPHERAL PULSES: equal. NEUROLOGIC: No gross deficits, AAO X 3 Results Labs and Meds Result diagrams: 06/08/21 05:20 06/08/21 05:20 Lab results: Laboratory Results - last 24 hr 06/08/21 06/08/21 06/08/21 12:27 16:05 20:07 POC Glucose 207 H 263 H 107 06/09/21 06/09/21 07:23 11:18 POC Glucose 103 179 H Imaging Radiologist's impression: Impressions Chest CT 06/08/21 13:48 IMPRESSION: Large right pleural effusion which is unchanged. Small left pleural effusion which is decreased in size from recent exam. Compressive atelectasis of the medial segment of the right middle lobe and right lower lobe. Subsegmental atelectasis of the left lower lobe. No mass. Severe coronary artery calcification. Interval decrease in ascites. Progress Note: A&P Assessment and plan (1) Acute HFrEF (heart failure with reduced ejection fraction): Status: Acute (2) Atrial fibrillation with rapid ventricular response: Status: Acute Assessment and Plan: 66-year-old gentleman with AFib with RVR and tachycardia induced cardiomyopathy. We attempted cardioversion after EDWINA yesterday. He converted to sinus rhythm for few seconds but then went back into atrial fibrillation. We decided to load him with amiodarone and re-attempt this in few weeks time. Clinically he has has been doing well. He is going to go home and follow up with Dr. Coles at [facility]. He should continue the amiodarone 400 mg twice a day for 10 days and then go to 200 mg once a day. His losartan should be stopped as outpatient and he should be changed to Entresto. Thank you for allowing me to participate in the care of your patient. Please feel free to contact me if you have any questions. Fall Risk Details Current Medications: Current Medications Generic Name Dose Route Start Last Admin Trade Name Maykel PRN Reason Stop Dose Admin Acetaminophen 650 mg 06/04/21 18:13 Acetaminophen 325 Mg Tablet PO Q6H PRN Pain, Mild (Pain Scale 1-3) Allopurinol 300 mg 06/06/21 09:00 06/09/21 07:51 Allopurinol 300 Mg Tablet PO 300 mg DAILY PALMER Administration Amiodarone HCl 400 mg 06/08/21 12:00 06/09/21 07:50 Amiodarone Hcl 200 Mg Tablet PO 400 mg BID PALMER Administration Apixaban 5 mg 06/05/21 21:00 06/09/21 07:51 Apixaban 5 Mg Tablet PO 5 mg BID PALMER Administration Atorvastatin Calcium 80 mg 06/06/21 09:00 06/09/21 07:50 Atorvastatin Calcium 80 Mg Tablet PO 80 mg DAILY PALMER Administration Bupropion HCl 300 mg 06/05/21 12:15 06/09/21 07:51 Bupropion Hcl Xl 300 Mg Tab.Er.24h PO 300 mg DAILY PALMER Administration Escitalopram Oxalate 20 mg 06/06/21 09:00 06/09/21 07:50 Escitalopram Oxalate 20 Mg Tablet PO 20 mg DAILY PALMER Administration Furosemide 40 mg 06/07/21 18:00 06/09/21 07:50 Furosemide 40 Mg Tablet PO 40 mg BID@0900,1800 PALMER Administration Protocol Insulin Human Lispro 0 unit 06/06/21 11:30 06/09/21 07:36 Insulin Lispro 100 Unit/Ml 3 Ml Vial SUBCUT Not Given QIDACHS PALMER Protocol Losartan Potassium 25 mg 06/06/21 12:15 06/09/21 07:50 Losartan Potassium 25 Mg Tablet PO 25 mg DAILY PALMER Administration Protocol Metoprolol Succinate 50 mg 06/08/21 09:00 06/09/21 07:51 Metoprolol Succinate Er 50 Mg Tab.Er.24h PO 50 mg DAILY PAMLER Administration Protocol Ondansetron HCl 4 mg 06/04/21 18:13 Ondansetron Hcl 4 Mg/2 Ml Vial IVPUSH Q8H PRN Nausea and Vomiting Sodium Chloride 3 ml 06/05/21 00:00 06/09/21 07:49 0.9 % Sodium Chloride Flush 3 Ml Syringe IVFLUSH 3 ml QSHIFT PALMER Administration Time Spent With Patient Time: Total time spent is greater than 50% in coordination of care (as documented) at patient's floor/unit and/or counseling patient: Time with patient: 15 - 24 minutes Progress Note: Quality Stroke Does the patient have a stroke diagnosis?: No Procedures Date of Service Date of Service: 06/09/21
[2021-06-09] MEDS: Insulin Lispro 100 UNIT/ML 3 ML VIAL SUBCUT (12:44)
--- NOTE | 2021-06-09 14:11 | HO.POSTANES ---
Post Anesthesia Evaluation Post Anesthesia Evaluation Vital Signs: Vital Signs Temp Pulse Resp BP Pulse Ox 06/09/21 07:51 84 148/98 H 06/09/21 07:50 84 148/98 H 06/09/21 07:00 97.6 F 84 20 148/98 H 95 06/09/21 03:00 98.3 F 95 18 128/72 94 Anesthesia: Monitored Mental Status: Awake Pain Control: Satisfactory Nausea/Vomiting: None Hydration: Adequate Anesthesia-Related Issues: No Anes. Related Issues
--- NOTE | 2021-06-10 08:08 | W.MHC.F2F ---
Service Date Service Date: 06/10/21 Encounter Date of encounter: 06/09/21 Encounter: CHF education Reasons for Services Reason for senior living: medication management and teach disease management MD Overseeing Care: Taz Malik Homebound: Leaving the home is medically contraindicated at this time without the asist of a device and/or another person due th the listed conditions above and below. Reason homebound: weakness related to hospital stay Certification: Based on the above findings, I certify that this patient is confined to the home and needs intermittent senior living care, physical therapy and/or speech therapy, or continues to need occupational therapy. The patient is under my care, and I have initiated the establishment of the plan of care. The patient will be followed by a physician who will periodically review the plan of care.
== END 2021-06-09 13:30 | disposition home health service (06) | DRG 201 ==
LOC: HO.ED 17:12 → HO.EDOVER 18:26 → HO.IMC 06-05 11:34
PROVIDERS: Internal Medicine Cardiovascular Disease; Admitting Provider Nurse Practitioner Acute Care; Emergency Provider Emergency Medicine; PCP Internal Medicine; Visit Provider Family Medicine
PROC: 5A2204Z Restoration of Cardiac Rhythm, Single (ICD-10-PCS; principal; 2021-06-08 10:00)
DX: I48.11 Longstanding persistent atrial fibrillation (principal); I50.21 Acute systolic (congestive) heart failure; N17.9 Acute kidney failure, unspecified; E66.9 Obesity, unspecified; K76.89 Other specified diseases of liver; J98.11 Atelectasis; Z68.31 Body mass index [BMI] 31.0-31.9, adult; E11.9 Type 2 diabetes mellitus without complications; Z91.14 Patient's other noncompliance with medication regimen; Z20.822 Contact with and (suspected) exposure to COVID-19; Z79.01 Long term (current) use of anticoagulants; Z79.84 Long term (current) use of oral hypoglycemic drugs; Z79.899 Other long term (current) drug therapy
CPT/HCPCS: 36415; 71045; 71250; 76775; 80048; 80076; 81003; 82947; 83605; 83690; 83735; 83880; 84443; 84484; 85025; 85027; 85610; 85730; 87040; 87635; 92960; 93005; 93306; 93312; 99285; J0696; J1160; J1940

== ENCOUNTER 2021-06-15 14:45 | Outpatient (REF) | payer MEDICARE, SELFPAY ==
--- NOTE | ~2021-06-15 | XR_ITS ---
EXAMINATION: XR CHEST CLINICAL INFORMATION: Pleural effusion COMPARISON: Previous chest x-ray 06/04/[address] scans most recent 06/08/2021 TECHNIQUE: 2 views of the chest were obtained. FINDINGS: The cardiac and mediastinal contours are stable. There is a moderate size right pleural effusion. This is similar to 06/04/2021 chest x-ray. There may be adjacent atelectasis at the right lung base. The left lung is clear. There is no left pleural effusion. There are degenerative changes of the spine. XR/XR chest 2V IMPRESSION: Moderate-size right pleural effusion similar to previous chest x-ray.
== END 2021-06-15 14:46 | disposition home or self-care (01) ==
LOC: HO.XRAY 14:45
PROVIDERS: PCP Internal Medicine; Visit Provider Internal Medicine Pulmonary Disease
DX: J90 Pleural effusion, not elsewhere classified (principal)
CPT/HCPCS: 71046

== ENCOUNTER 2021-06-21 05:46 | Inpatient (IN) | payer MEDICARE, SELFPAY ==
[2021-06-21] VITALS (11 sets, daily range): BP systolic 135–173; BP diastolic 72–119; PULSE 60–94; RESP 14–18; TEMP 36.6–36.9; O2SAT 94–98; BMI 28.1
--- NOTE | ~2021-06-21 | XR_ITS ---
EXAMINATION: XR CHEST CLINICAL INFORMATION: Follow up effusion COMPARISON: June 22, 2021 and June 21, 2021 TECHNIQUE: 2 views of the chest were obtained. FINDINGS: There are small bilateral pleural effusions with mild increase in haziness right base compared to previous post thoracentesis study from yesterday. No large effusion is identified. Heart normal size. No evidence of pulmonary edema. No pneumothorax. XR/XR chest 2V IMPRESSION: Small bilateral pleural effusions with slight increase in size of right effusion.
--- NOTE | ~2021-06-21 | CT_ITS ---
EXAMINATION: CT HEAD WITHOUT CONTRAST CLINICAL INFORMATION: Dizziness, unsteady gait and fall COMPARISON: Previous head CT May 2018 TECHNIQUE: Contiguous axial imaging was performed from the skull base to vertex without intravenous administration of contrast. This CT examination was performed using dose optimization techniques as appropriate, variously including the following: *Automated exposure control *Adjustment of mA and/or kV according to patient size (this includes techniques or standardized protocols for targeted exams where dose is matched to indication/reason for exam; i.e. extremities or head) *Use of iterative reconstruction technique DLP: 708 mGy-cm FINDINGS: There is no evidence of an extra-axial collection. There is no evidence of intra-axial or extra-axial hemorrhage. The ventricles and extra-axial CSF spaces are slightly prominent suggestive of mild generalized atrophy. There is nonspecific periventricular white matter disease. No mass, mass effect or infarct is seen. There is evidence of atherosclerotic disease. Review of bone windows is normal. No skull fracture is seen. Visualized paranasal sinuses, mastoid air cells and middle ears are clear. CT/CT head/brain wo con IMPRESSION: No acute findings. Mild generalized atrophy and nonspecific periventricular white matter disease.
--- NOTE | ~2021-06-21 | XR_ITS ---
EXAMINATION: XR CHEST CLINICAL INFORMATION: Post right thoracentesis. COMPARISON: Chest x-ray 06/21/2021. TECHNIQUE: Frontal view of the chest was obtained. FINDINGS: Post right thoracentesis there is decrease in the right pleural effusion with adjacent of the lower lobe. There is some residual pleural effusion seen at the lung base but no evidence of pneumothorax. The left lung is expanded and clear. The heart size is borderline enlarged. Pulmonary vascularity is normal. No gross bony abnormality seen. XR/XR chest 1V IMPRESSION: Status post right thoracentesis there is decrease in right pleural effusion with slight expansion of the right lower lobe. No pneumothorax seen.
--- NOTE | ~2021-06-21 | MR_ITS ---
EXAMINATION: MRI OF THE BRAIN WITHOUT CONTRAST CLINICAL INFORMATION: Dizziness and falls. Off blood thinners. COMPARISON: CT scan of the head earlier 06/21/2021. TECHNIQUE: MRI of the brain was obtained using routine sequences without contrast. FINDINGS: No diffusion abnormalities are identified to suggest an acute or subacute infarct. No mass effect or midline shift is seen. There is commensurate prominence of the ventricles and sulci consistent with [id number] diffuse volume loss. There are extensive areas of increased T2 and FLAIR signal in the periventricular and in the subcortical white matter bilaterally, and in the adarsh most consistent with chronic microvascular ischemic changes. There are bilateral basal ganglia lacunar infarcts. No extra-axial fluid collections are seen. The cerebellum appears normal. The cerebellar tonsils have normal position and contour. There are degenerative changes in the cervical spine. No pathologic magnetic susceptibility artifact is identified on the gradient refocused acquisition. The craniovertebral junction, marrow signal, and midline structures are normal; there is a partially empty sella. The major intracranial flow-voids at the level of the [place] are preserved. The supraclinoid right internal carotid artery appears slightly ectatic. No discrete aneurysm is demonstrated. The dural venous sinus flow-voids are maintained. There is trace fluid at the left mastoid tips and there is minimal mucoperiosteal thickening in the inferior maxillary sinuses. MR/MR head/brain wo con IMPRESSION: 1. There are no acute bleeds or territorial infarcts. No masses are demonstrated. 2. There are extensive chronic microvascular ischemic changes and there are lacunar infarcts in the basal ganglia. There is diffuse volume loss. 3. 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
--- NOTE | ~2021-06-21 | US_ITS ---
EXAMINATION: RIGHT THORACENTESIS, ULTRASOUND-GUIDED CLINICAL INFORMATION: Right pleural effusion COMPARISON: X-ray of June 21, 2021 TECHNIQUE: Ultrasound-guided right thoracentesis FINDINGS: Informed consent was obtained from the patient prior to the procedure. During this process, the procedure and potential alternatives were explained, along with the intended outcome and benefits. The risks of the procedure, as well as the risk of not doing the procedure, were discussed. The patient was given the opportunity to ask questions regarding the procedure and appeared competent to make medical decisions. A signed consent form which documents this discussion was placed in the medical record. Using ultrasound guidance and sterile technique a 5 Hebrew Yueh needle was placed from a posterolateral approach into the right pleural space. A total of 1.4 L of clear yellow fluid was then removed. Patient tolerated procedure without difficulty. US/US thoracentesis IMPRESSION: Status post right thoracentesis with removal 1.4 L of clear yellow fluid.
--- NOTE | ~2021-06-21 | XR_ITS ---
EXAMINATION: XR CHEST CLINICAL INFORMATION: Dizziness and fall. COMPARISON: Previous chest x-ray most recent 06/15/[address] 06/08/2021 TECHNIQUE: 2 views of the chest were obtained. FINDINGS: The cardiac silhouette may be slightly enlarged but stable. Hilar and mediastinal contours are unremarkable. There is a moderate to large right pleural effusion. This does not appear appreciably changed from recent exams. There is a adjacent atelectasis or consolidation of the right middle and right lower lobes. Left lung is clear. There is a small left pleural effusion. Bony structures are unremarkable. XR/XR chest 2V IMPRESSION: Enlarged slightly enlarged cardiac silhouette. Moderate to large right pleural effusion and compressive atelectasis or consolidation of the adjacent right lung. Small left pleural effusion. Findings are similar to recent exams.
--- NOTE | 2021-06-21 09:06 | ECG_ITS ---
Test Reason : FALL Blood Pressure : / mmHG Vent. Rate : 060 BPM Atrial Rate : 060 BPM P-R Int : 156 ms QRS Dur : 100 ms QT Int : 494 ms P-R-T Axes : 055 072 112 degrees QTc Int : 494 ms Normal sinus rhythm Nonspecific T wave abnormality Prolonged QT Abnormal ECG When compared with ECG of 09-JUN-2021 11:19, Rhythm change Referred By: Zahra Green Electronically Signed By:SAMPSON GOOD
--- NOTE | 2021-06-21 09:48 | ED_ITS ---
HPI - General Adult General Chief complaint: Fall Stated complaint: disoriented, constantly falling Time Seen by Provider: 06/21/21 08:54 Source: patient and family ( at bedside) Mode of arrival: ambulatory Limitations: other (Patient is a poor historian) History of Present Illness HPI narrative: 66-year-old male with a past medical history of atrial fibrillation on diltiazem and Eliquis, congestive heart failure, diabetes and hypertension presenting to the ED with his at bedside with complaints of increased dizziness over the past 3 days, unsteady on his feet and multiple falls. He reports his recent fall was yesterday where he was on the ground for approximately 1 hour while his was at work. Then his neighbors were able to help him up from the ground. He reports that over the past 3 days when he stands up he feels very dizzy and unsteady on his feet. Patient was recently admitted here on 06/04/2021 and discharged on 06/09/2020 4 acute exacerbation of CHF with reduced ejection fracture; atrial fibrillation with rapid ventricular response; a KI; hypertension and diabetes. believes that it started after he was discharged here from the hospital. also states that the patient has had hallucinations where he is having full-blown conversations with someone who is not there. Patient admits to this he reports he remembers this. 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 Patient has been off of his Eliquis since Sunday due to he had a procedure scheduled today with Cardiology. Patient denies any fevers, headaches, changes in vision, ringing in the ears, nausea/vomiting, paresthesias, chest pain, shortness of breath, dyspnea on exertion, orthopnea, palpitations, abdominal pain, diarrhea, black or bloody stools, dysuria, hematuria or any other symptoms complaints or concerns at this time. MD complaint: Dizziness, unsteady on feet, multiple falls and hallucinations Related Data Home Medications Medication Instructions Recorded Confirmed Eliquis 1 tab PO BID 06/04/21 06/21/21 allopurinol 1 tab PO DAILY 06/04/21 06/21/21 atorvastatin 80 mg PO BEDTIME 06/04/21 06/21/21 bupropion HCl 1 tab PO QAM 06/04/21 06/21/21 escitalopram oxalate 1 tab PO DAILY 06/04/21 06/21/21 glipizide 2 tab PO DAILY 06/04/21 06/21/21 metformin 2 tab PO DAILY 06/04/21 06/21/21 Previous Rx's Medication Instructions Recorded amiodarone See Rx Instructions .ROUTE 06/09/21 .COMPLEX #90 tab furosemide 40 mg PO BID@0900,1800 #60 tab 06/09/21 losartan 25 mg PO DAILY #30 tab 06/09/21 metoprolol succinate 50 mg PO DAILY #30 tab 06/09/21 Allergies Allergy/AdvReac Type Severity Reaction Status Date / Time colchicine Allergy Rash Verified 06/15/21 14:47 Review of Systems Review of Systems: Constitutional : No Weight loss, No Fever, No Chills, No Night Sweats, No Fatigue, No Malaise ENT/Mouth : No Hearing loss, No Ear Pain, No Nasal Congestion, No Sinus Pain, No Hoarseness, No sore throat, No Rhinorrhea, No Swallowing Difficulty Eyes: No Eye Pain, No Swelling, No Redness, No Foreign Body, No Discharge, No Vision Changes Cardiovascular : No Chest Pain, No SOB, No Dyspnea on Exertion, No Orthopnea, No Edema, No Palpitations Respiratory : No Cough, No Sputum, No Wheezing, No Smoke Exposure, No Dyspnea Gastrointestinal : No Nausea, No Vomiting, No Diarrhea, No Constipation, No abdominal Pain, No Hematochezia, No Melena Genitourinary : no irregular bleeding, No Dysuria, No Urinary Frequency, No Hematuria, No Urinary Incontinence, No Urgency, No Flank Pain, No Urinary Flow Changes, No Hesitancy Musculoskeletal : No joint pain, No Myalgias, No Joint Swelling Skin : No Skin Lesions, No rash Neuro : Positive general weakness, Positive dizziness, Positive falls, No Focal Weakness, No Numbness, No Paresthesias, No Loss of Consciousness, No Headache Psych : No Anxiety/Panic, No Depression, No SI/HI/AH/VH, No Social Issues, Heme/Lymph: No Bruising, No Bleeding,No Lymphadenopathy Endocrine : No Polyuria, No Polydipsia, No Temperature Intolerance Yes all other systems are reviewed and are negative [facility] Past Medical History Attestation statement: The following information was validated with the patient. Medical History Afib Atrial fibrillation CHF (congestive heart failure) CHF (congestive heart failure) Diabetes HTN (hypertension) Noncompliance with medications Family History Family History Father CAD (coronary artery disease) Social History Social History Household Members: Spouse Housing: House Alcohol intake: never Patient Tobacco Use Status: Former Tobacco user Use of substances other than those prescribed or required for medical reasons: No Advance Directives: No Advance Directives Information Provided: Yes Current occupational status: employed Physical Exam Vital Signs: Vital Signs: Last Vital Signs Temp 98.1 F 06/21/21 14:47 Pulse 64 06/21/21 14:47 Resp 14 06/21/21 14:47 BP 146/89 H 06/21/21 14:47 Pulse Ox 96 06/21/21 14:47 Body Mass Index 28.1 Vital signs have been reviewed as normal and appeared to be correct. Blood pressure hypertensive 163/72. Heart rate normal. Respiration rate normal. Temperature normal. Oxygen saturation normal. Appearance: Alert. Oriented X3. No acute distress. Head: Normal external exam. Normocephalic. Atraumatic. Able to rotate head bilaterally. Eyes: PERRLA. EOMI. No nystagmus noted. Conjunctiva and sclera normal. Eyelids normal. Corneal reflex normal. ENT: EAC normal. TM's Normal. Hearing normal. Pharynx normal. Uvula midline. tongue midline. Moist mucous membranes. No trismus noted. No drooling noted. No muffled voice noted. No nystagmus noted. Neck: Normal inspection. Neck supple. FROM. No adenopathy. Trachea midline. Thyroid Normal. No meningeal signs. No neck mass noted. CVS: Normal heart rate and rhythm. Heart sound normal. No murmurs noted. Pulses normal throughout. Respiratory: No respiratory distress. Painless inspiration. Breath sounds normal. No wheezes/rales/rhonchi noted. Chest nontender. No accessory muscle usage noted or decreased air movement noted. Abdomen: Soft and nontender. Bowel sounds normal in all 4 quadrants. No distention noted. No organomegaly noted. No visible injury noted. Back: No CVA tenderness. Full range of motion noted. Skin: Skin warm and dry. Normal skin color. Normal skin turgor. No rashes/lesions/lacerations noted. Extremities: No lower extremity edema. Extremities exhibit normal range of motion. Extremities nontender. Able to shrug shoulders bilaterally and keep up against resistance. Neuro: Oriented X 3. No motor deficit. No sensory deficit. Reflexes normal. Moving all extremities. No focal motor deficits. Cranial nerves II-XI intact bilaterally. Facial strength normal. Normal cognition. Speech normal. Strength 5/5 throughout. No pronator drift. No tremor noted. No fasciculations noted. No rigidity noted. Muscle tone normal throughout. No asterixis noted. [id number] test normal. Heel to solis test normal. When I test the patient's gait he has a wide gait is very unsteady on his feet almost falls right over therefore I had him sit back down. Hand drop from overhead Misses face. NIHSS score 2. NIH Stroke Scale Internal: Initial- Upon Arrival Time: 09:06 Level of Consciousness: Alert Level of Consciousness Questions: Answers both questions correctly Level of Consciousness Commands: Performs both tasks correctly Best Gaze: Normal Visual: No visual loss Facial Palsy: Normal Motor Arm (Right): No drift Motor Arm (Left): No drift Motor Leg (Right): No drift Motor Leg (Left): No drift Limb Ataxia: Present in two limbs Sensory: Normal Best Language: No aphasia Dysarthia: Normal Extinction and Inattention: No abnormality Score: 2 Course Course Course Narrative: 9:06am - 66-year-old male presenting to the ED with his at bedside with complaints of increased dizziness over the past 3 days, unsteady on his feet with multiple falls. Patient also noted to have hallucinations. Denies any additional compla ints or concerns at this time. Patient has been off of his Eliquis since Sunday due to he had a procedure scheduled today with Cardiology. On exam patient is alert and oriented x3. Not in any acute distress. Mildly hypertensive otherwise all other vitals are within normal limits. NIH SS score 2 due patient does not have a steady gait. Although patient not a tPA candidate as patient is on blood thinners and his symptoms started approximately 3 days ago. Plan: Labs, CT scan of brain, chest x-ray, orthostatic vitals, EKG, COVID swab and re-evaluate. Reevaluation(s) Reevaluation #1: - labs reviewed and patient with WILMER with a BUN/creatinine of 21/1.74. Random glucose 127. Magnesium 1.5. BNP 1998. Troponin 14.2. - CT scan of brain revealed chronic changes no acute processes were noted. - chest x-ray revealed enlarged slightly enlarged cardiac silhouette with moderate to large right pleural effusion and compressive atelectasis or consolidation of the adjacent right lung. Small left pleural effusion similar compared to prior exams. No acute processes. - therefore at this time patient will receive 60 mg of Lasix and will be admitted for WILMER with acute CHF exacerbation. We cannot explain the nonspecific dizziness with multiple falls therefore will obtain an MRI prior to admission and if MRI is within normal limits Dr. Celestin will admit. Patient and family at bedside understand and agreed this plan. Time: 12:06 Reevaluation #2: - brain MRI revealed chronic changes no acute processes were noted therefore patient will be admitted here with Dr. Celestin as discussed above. Time: 15:10 Medical Decision Making Lab Data Result diagrams: 06/21/21 10:10 06/21/21 10:10 Labs: Lab Results 06/21/21 06/21/21 06/21/21 Range/Units 10:10 10:10 10:10 WBC 7.8 (4.8-10.8) X10*3/uL RBC 5.10 (4.60-5.80) X10*6/uL Hgb 13.7 L (14.0-18.0) g/dl Hct 43.0 (42-52) % MCV 84.3 (80-98) fL MCH 26.9 L (27.0-33.0) pg MCHC 31.9 (31.0-36.0) g/dl RDW 15.3 (11.0-16.0) % Plt Count 225 (160-400) X10*3/uL MPV 10.7 (9.4-12.4) fL Immature Gran % (Auto) 0.3 (0.0-0.4) % Neut % (Auto) 79.3 H (45-73) % Lymph % (Auto) 13.3 L (20-40) % Dare % (Auto) 6.3 (2-11) % Eos % (Auto) 0.5 (0-4) % Baso % (Auto) 0.3 (0-2) % Lymph # (Auto) 1.0 L (1.2-4.9) X10*3/uL Dare # (Auto) 0.5 (0.1-1.2) X10*3/uL Eos # (Auto) 0.0 (0.0-0.4) X10*3/uL Baso # (Auto) 0.0 (0.0-0.2) X10*3/uL Abs Immat Gran (auto) 0.02 (0.00-0.03) X10*3/uL Absolute Neuts (auto) 6.2 (2.0-8.3) X10*3/uL Absolute Nucleated RBC 0.000 (0.0-0.012) X10*3/uL Nucleated RBC % (auto) 0.0 (0.0-0.2) /100WBC PT 13.6 H (9.9-13.0) SEC INR 1.2 H (0.9-1.1) Sodium 139 (135-145) mmol/L Potassium 4.1 (3.3-5.1) mmol/L Chloride 101 (96-108) mmol/L Carbon Dioxide 27 (22-29) mmol/L Anion Gap 15 (12-20) BUN 21 H (9-16) mg/dL Creatinine 1.74 H (0.5-1.4) mg/dL Estim Creat Clear Calc 54.7 Estimated GFR 40 Random Glucose 127 H (60-115) mg/dL Calcium 9.4 (8.4-10.2) mg/dL Magnesium 1.5 L (1.6-2.6) mg/dL Total Bilirubin 1.0 (0.0-1.0) mg/dL AST 24 (5-37) U/L ALT 20 (0-40) U/L Alkaline Phosphatase 113 (39-117) U/L Total Creatine Kinase 172 (38-174) U/L Troponin I High Sens (<3.5-35.0) ng/L B-Natriuretic Peptide (<100) pg/mL Total Protein 6.9 (6.5-8.0) g/dL Albumin 4.1 (3.5-5.0) g/dL Urine Color Urine Appearance Urine pH (5.0-8.0) Ur Specific [place] (1.005-1.025) Urine Protein (NEG-TRACE) MG/DL Urine Glucose (UA) (NEG) MG/DL Urine Ketones (NEG) MG/DL Urine Blood (NEG) Urine Nitrite (NEG) Ur Leukocyte Esterase (NEG) COVID-19 (KARL) (Negative) COVID-19 Clin Com 06/21/21 06/21/21 06/21/21 Range/Units 10:10 10:10 10:34 WBC (4.8-10.8) X10*3/uL RBC (4.60-5.80) X10*6/uL Hgb (14.0-18.0) g/dl Hct (42-52) % MCV (80-98) fL MCH (27.0-33.0) pg MCHC (31.0-36.0) g/dl RDW (11.0-16.0) % Plt Count (160-400) X10*3/uL MPV (9.4-12.4) fL Immature Gran % (Auto) (0.0-0.4) % Neut % (Auto) (45-73) % Lymph % (Auto) (20-40) % Dare % (Auto) (2-11) % Eos % (Auto) (0-4) % Baso % (Auto) (0-2) % Lymph # (Auto) (1.2-4.9) X10*3/uL Dare # (Auto) (0.1-1.2) X10*3/uL Eos # (Auto) (0.0-0.4) X10*3/uL Baso # (Auto) (0.0-0.2) X10*3/uL Abs Immat Gran (auto) (0.00-0.03) X10*3/uL Absolute Neuts (auto) (2.0-8.3) X10*3/uL Absolute Nucleated RBC (0.0-0.012) X10*3/uL Nucleated RBC % (auto) (0.0-0.2) /100WBC PT (9.9-13.0) SEC INR (0.9-1.1) Sodium (135-145) mmol/L Potassium (3.3-5.1) mmol/L Chloride (96-108) mmol/L Carbon Dioxide (22-29) mmol/L Anion Gap (12-20) BUN (9-16) mg/dL Creatinine (0.5-1.4) mg/dL Estim Creat Clear Calc Estimated GFR Random Glucose (60-115) mg/dL Calcium (8.4-10.2) mg/dL Magnesium (1.6-2.6) mg/dL Total Bilirubin (0.0-1.0) mg/dL AST (5-37) U/L ALT (0-40) U/L Alkaline Phosphatase (39-117) U/L Total Creatine Kinase (38-174) U/L Troponin I High Sens 14.2 (<3.5-35.0) ng/L B-Natriuretic Peptide 1998 H (<100) pg/mL Total Protein (6.5-8.0) g/dL Albumin (3.5-5.0) g/dL Urine Color Urine Appearance Urine pH (5.0-8.0) Ur Specific [place] (1.005-1.025) Urine Protein (NEG-TRACE) MG/DL Urine Glucose (UA) (NEG) MG/DL Urine Ketones (NEG) MG/DL Urine Blood (NEG) Urine Nitrite (NEG) Ur Leukocyte Esterase (NEG) COVID-19 (KARL) Negative (Negative) COVID-19 Clin Com See Note 06/21/21 06/21/21 Range/Units 14:10 14:11 WBC (4.8-10.8) X10*3/uL RBC (4.60-5.80) X10*6/uL Hgb (14.0-18.0) g/dl Hct (42-52) % MCV (80-98) fL MCH (27.0-33.0) pg MCHC (31.0-36.0) g/dl RDW (11.0-16.0) % Plt Count (160-400) X10*3/uL MPV (9.4-12.4) fL Immature Gran % (Auto) (0.0-0.4) % Neut % (Auto) (45-73) % Lymph % (Auto) (20-40) % Dare % (Auto) (2-11) % Eos % (Auto) (0-4) % Baso % (Auto) (0-2) % Lymph # (Auto) (1.2-4.9) X10*3/uL Dare # (Auto) (0.1-1.2) X10*3/uL Eos # (Auto) (0.0-0.4) X10*3/uL Baso # (Auto) (0.0-0.2) X10*3/uL Abs Immat Gran (auto) (0.00-0.03) X10*3/uL Absolute Neuts (auto) (2.0-8.3) X10*3/uL Absolute Nucleated RBC (0.0-0.012) X10*3/uL Nucleated RBC % (auto) (0.0-0.2) /100WBC PT (9.9-13.0) SEC INR (0.9-1.1) Sodium (135-145) mmol/L Potassium (3.3-5.1) mmol/L Chloride (96-108) mmol/L Carbon Dioxide (22-29) mmol/L Anion Gap (12-20) BUN (9-16) mg/dL Creatinine (0.5-1.4) mg/dL Estim Creat Clear Calc Estimated GFR Random Glucose (60-115) mg/dL Calcium (8.4-10.2) mg/dL Magnesium (1.6-2.6) mg/dL Total Bilirubin (0.0-1.0) mg/dL AST (5-37) U/L ALT (0-40) U/L Alkaline Phosphatase (39-117) U/L Total Creatine Kinase (38-174) U/L Troponin I High Sens 11.3 (<3.5-35.0) ng/L B-Natriuretic Peptide (<100) pg/mL Total Protein (6.5-8.0) g/dL Albumin (3.5-5.0) g/dL Urine Color YELLOW Urine Appearance CLEAR Urine pH 6.0 (5.0-8.0) Ur Specific [place] 1.015 (1.005-1.025) Urine Protein TRACE (NEG-TRACE) MG/DL Urine Glucose (UA) NEG (NEG) MG/DL Urine Ketones NEG (NEG) MG/DL Urine Blood NEG (NEG) Urine Nitrite NEG (NEG) Ur Leukocyte Esterase NEG (NEG) COVID-19 (KARL) (Negative) COVID-19 Clin Com Imaging Data CT scan of brain: Attestation: I personally reviewed and interpreted this imaging study as follows: Radiologist's impression: FINDINGS: There is no evidence of an extra-axial collection. There is no evidence of intra-axial or extra-axial hemorrhage. The ventricles and extra-axial CSF spaces are slightly prominent suggestive of mild generalized atrophy. There is nonspecific periventricular white matter disease. No mass, mass effect or infarct is seen. There is evidence of atherosclerotic disease. Review of bone windows is normal. No skull fracture is seen. Visualized paranasal sinuses, mastoid air cells and middle ears are clear. CT/CT head/brain wo con IMPRESSION: No acute findings. Mild generalized atrophy and nonspecific periventricular white matter disease. Chest x-ray: Attestation: I personally reviewed and interpreted this imaging study as follows: Radiologist's impression: FINDINGS: The cardiac silhouette may be slightly enlarged but stable. Hilar and mediastinal contours are unremarkable. There is a moderate to large right pleural effusion. This does not appear appreciably changed from recent exams. There is a adjacent atelectasis or consolidation of the right middle and right lower lobes. Left lung is clear. There is a small left pleural effusion. Bony structures are unremarkable. XR/XR chest 2V IMPRESSION: Enlarged slightly enlarged cardiac silhouette. Moderate to large right pleural effusion and compressive atelectasis or consolidation of the adjacent right lung. Small left pleural effusion. Findings are similar to recent exams. ECG Data Attestation: I personally reviewed and interpreted this ECG as follows: Interpretation: Normal sinus rhythm with ventricular rate of 60 with nonspecific T-wave abnormalities with the T-waves are mainly flat and prolonged QT at 494 milliseconds otherwise no acute ischemic changes are noted. Critical Care Time Critical Care Time Critical Care Time: Yes Total Critical Care Time: 60 Attestation: I personally attest to this time spent taking care of the patient Discharge Plan Discharge Clinical Impression: WILMER (acute kidney injury), Acute exacerbation of CHF (congestive heart failure), Dizziness, Multiple falls Patient Disposition: Admitted As Inpatient
[2021-06-21 10:17] LABS: MANUAL DIFF FLAG NO
[2021-06-21 10:19] LABS: Basophils Percent Auto 0.3 % (0-2); Eosinophils Percent Auto 0.5 % (0-4); Hemoglobin 13.7 g/dl (14.0-18.0); Imm Gran Abs Auto 0.02 X10*3/uL (0.00-0.03); Imm Gran Pct Auto 0.3 % (0.0-0.4); Lymphocytes Percent Auto 13.3 % (20-40); Mean Corpuscular HGB Conc 31.9 g/dl (31.0-36.0); Mean Corpuscular Hemoglobin 26.9 pg (27.0-33.0); Mean Corpuscular Volume 84.3 fL (80-98); Mean Platelet Volume 10.7 fL (9.4-12.4); Monocytes Absolute Auto 0.5 X10*3/uL (0.1-1.2); Monocytes Percent Auto 6.3 % (2-11); Neutrophils Absolute Auto 6.2 X10*3/uL (2.0-8.3); Neutrophils Percent Auto 79.3 % (45-73); Platelet Count 225 X10*3/uL (160-400); Red Cell Distribution Width 15.3 % (11.0-16.0); White Blood Count 7.8 X10*3/uL (4.8-10.8)
--- NOTE | 2021-06-21 10:20 | PC.NURSE ---
pt alert and oriented, skin pwd, respirations even and unlabored. pt states that for the last month having difficulty ambulating/feels dizzzy-swaing like motion,feels disoriented while he ambulates and sometimes experiences double vision, having multiple falls a day, ambulation gotten worse in the last three days. also reports pt having visual hallucinations- pt does admit to seeing people and thinking that there are there but they are not.
[2021-06-21 10:27] LABS: INTERNATIONAL NORM RATIO 1.2 (0.9-1.1); Prothrombin Time 13.6 SEC (9.9-13.0)
[2021-06-21 10:46] LABS: Alanine Aminotransferase 20 U/L (0-40); Albumin Level 4.1 g/dL (3.5-5.0); Alkaline Phosphatase 113 U/L (39-117); Anion Gap 15 (12-20); Aspartate Amino Transferase 24 U/L (5-37); Blood Urea Nitrogen 21 mg/dL (9-16); Calcium 9.4 mg/dL (8.4-10.2); Carbon Dioxide 27 mmol/L (22-29); Chloride 101 mmol/L (96-108); Creatinine Clr Calc Pharmacy 54.7; Estimated Glomerular Filt Rate 40; Glucose Random 127 mg/dL (60-115); Magnesium 1.5 mg/dL (1.6-2.6); Potassium 4.1 mmol/L (3.3-5.1); Sodium 139 mmol/L (135-145); Total Protein 6.9 g/dL (6.5-8.0)
[2021-06-21 10:49] LABS: Troponin-I High Sensitivity 14.2 ng/L (<3.5-35.0)
[2021-06-21 10:50] LABS: B Type Natriuretic Peptide 1998 pg/mL (<100)
[2021-06-21 10:54] LABS: COVID-19 Test Negative (Negative); IDNOW Serial# 9DD0AD1C
[2021-06-21] MEDS: Furosemide 100 MG/10 ML VIAL 60 MG IVPUSH (12:28)
[2021-06-21] MEDS: Magnesium Sulfate/H2O 2 GM/50 ML PIGGYBACK IV (12:29)
--- NOTE | 2021-06-21 12:32 | PC.NURSE ---
pt reports like his cat is rubbing against his legs while laying in the stretcher
--- NOTE | 2021-06-21 12:37 | PHA.MEDREC ---
Pharmacy Consult ? Medication Reconciliation Pharmacy has completed the medication reconciliation. Patient has only been getting Amiodarone 200mg BID instead of the 400mg BID for the loading dose
--- NOTE | 2021-06-21 13:18 | PC.NURSE ---
pt of to mri
[2021-06-21 14:26] LABS: Glucose Urine UA NEG (NEG); Leukocyte Esterase Urine NEG (NEG); Nitrite Urine NEG (NEG); Specific Gravity - Urine 1.015 (1.005-1.025); Urine Blood NEG (NEG); Urine Ketones NEG (NEG); Urine Protein TRACE MG/DL (NEG-TRACE)
[2021-06-21 14:29] LABS: Appearance Urine CLEAR; Color Urine YELLOW
[2021-06-21 14:53] LABS: Troponin-I High Sensitivity 11.3 ng/L (<3.5-35.0)
--- NOTE | 2021-06-21 15:15 | P.HPHOSP_ITS ---
History of Present Illness Date of Service: 06/21/21 Chief Complaint: Dizziness, falling This is a 66-year-old male with a past medical history of heart failure with reduced ejection fraction, EF between 15 and 20% on echocardiogram earlier this month, atrial fibrillation, diabetes, hypertension. History is obtained from ED providers and other ancillary staff as the patient is not the greatest of historians. Of note, the patient was admitted from 06/04-06/09 for acute exacerbation of CHF as well as rapid atrial fibrillation. during that admission he failed attempted cardioversion x3 and subsequently was discharged on amiodarone with plans for follow-up with his foreign policy officer. Additionally during that admission he had a moderate sized right-sided pleural effusion for which he was referred to Pulmonary. Patient is seen and examined in the emergency room. He reports that he has had increased dizziness over the last several days and has fell a total of 3 times. Reportedly, the patient had a fall yesterday and was unable to get up until his came back from work and helped him up. The patient denies any chest pain or shortness of breath. He denies any swelling. He endorses being compliant with his medications. Per reports from the ED provider as well as pharmacist who completed the patient's med rec, the patient has been off of his Eliquis since Sunday due to some planned procedure. Additionally the the pharmacy was able to discover that the patient was taking 200 mg of amiodarone twice daily instead of 400 as prescribed. In the emergency room patient's workup revealed a chest x-ray which showed a moderate to large right-sided pleural effusion with compressive atelectasis and /or consolidation. There was a left-sided pleural effusion as well. Patient's BNP which during the last hospitalization was 468 has now increased to 1998. an attempt dose made to ambulate the patient, however he had a significant gait abnormality and an MRI was completed to rule out acute cerebral infarct in light of him being off of Eliquis for few days was negative. He was given IV diuretics but still had persistant symptoms and so admission was requested. Review of Systems Review of Systems: General - denies fevers or chills, +dizziness HEENT -denies blurred vision, denies headache, denies sore throat Cardiovascular - denies chest pain or palpitations, denies edema Respiratory - denies shortness of breath, coughing, wheezing Gastrointestinal - denies abdominal pain, nausea, vomiting, diarrhea - denies flank pain, denies dysuria, denies frequency or urgency Musculoskeletal - denies back pain, denies hip pain, denies knee pain, denies shoulder pain Neurological - denies any focal weakness or numbness Skin, denies any bruising or redness Psychiatric - denies any suicidal ideation, hallucinations, homicidal ideation Endocrinology - denies intolerance to hot / cold temperatures [facility] Medical History Afib Atrial fibrillation CHF (congestive heart failure) CHF (congestive heart failure) Diabetes HTN (hypertension) Noncompliance with medications Family History Father CAD (coronary artery disease) Social History Household Members: Spouse Housing: House Alcohol intake: never Patient Tobacco Use Status: Former Tobacco user Use of substances other than those prescribed or required for medical reasons: No Advance Directives: No Advance Directives Information Provided: Yes Current occupational status: employed Meds Allergies Allergy/AdvReac Type Severity Reaction Status Date / Time colchicine Allergy Rash Verified 06/15/21 14:47 Active Medications: Current Medications Generic Name Dose Route Start Last Admin Trade Name Maykel PRN Reason Stop Dose Admin Acetaminophen 650 mg 06/21/21 15:09 Acetaminophen 325 Mg Tablet PO Q6H PRN Pain, Mild (Pain Scale 1-3) Pharmacy Consult 1 each 06/21/21 11:45 Consult Rx Perform Med Rec MISCELLANE ONCE PRN Consult order Sodium Chloride 3 ml 06/21/21 16:00 0.9 % Sodium Chloride Flush 3 Ml Syringe [facility] Medications Medication Instructions Recorded Confirmed Last Taken Type Eliquis 1 tab PO BID 06/04/21 06/21/21 06/17/21 History allopurinol 1 tab PO DAILY 06/04/21 06/21/21 06/20/21 History atorvastatin 80 mg PO BEDTIME 06/04/21 06/21/21 06/20/21 History bupropion HCl 1 tab PO QAM 06/04/21 06/21/21 06/20/21 History escitalopram oxalate 1 tab PO DAILY 06/04/21 06/21/21 06/20/21 History glipizide 2 tab PO DAILY 06/04/21 06/21/21 06/20/21 History metformin 2 tab PO DAILY 06/04/21 06/21/21 06/20/21 History Physical Exam Vital Signs and Narrative: Vital Signs: Last Vital Signs Temp 98.1 F 06/21/21 14:47 Pulse 64 06/21/21 14:47 Resp 14 06/21/21 14:47 BP 146/89 H 06/21/21 14:47 Pulse Ox 96 06/21/21 14:47 Body Mass Index 28.1 Const: Other: Constitutional - Awake and Alert, No apparent distress Eyes - PERRLA, EOMI Cardiovascular - S1S2, RRR, 2+ pitting edema; +JVD Respiratory - Diminished sounds R>L; mild distress with conversation Gastrointestinal - NT / ND; +BS; No rebound or guarding - No CVA tenderness Extremities - no calf tenderness bilaterally, no swelling Musculoskeletal - Normal inspection, normal ROM Skin - Warm/Dry Neurological - Alert & oriented x3, No focal deficit Psychological - Appropriate affect Results Labs CBC and Chem 7: 06/21/21 10:10 06/21/21 10:10 Labs: Laboratory Results - last 24 hr 06/21/21 06/21/21 06/21/21 10:10 10:10 10:10 MCV 84.3 MCH 26.9 L MCHC 31.9 RDW 15.3 Plt Count 225 MPV 10.7 Immature Gran % (Auto) 0.3 Neut % (Auto) 79.3 H Lymph % (Auto) 13.3 L Stephenson % (Auto) 6.3 Eos % (Auto) 0.5 Baso % (Auto) 0.3 Lymph # (Auto) 1.0 L Stephenson # (Auto) 0.5 Eos # (Auto) 0.0 Baso # (Auto) 0.0 Abs Immat Gran (auto) 0.02 Absolute Neuts (auto) 6.2 Absolute Nucleated RBC 0.000 Nucleated RBC % (auto) 0.0 PT 13.6 H INR 1.2 H Anion Gap 15 Estim Creat Clear Calc 54.7 Estimated GFR 40 Random Glucose 127 H Calcium 9.4 Magnesium 1.5 L Total Bilirubin 1.0 AST 24 ALT 20 Alkaline Phosphatase 113 Total Creatine Kinase 172 Troponin I High Sens B-Natriuretic Peptide Total Protein 6.9 Albumin 4.1 Urine Color Urine Appearance Urine pH Ur Specific Olla Urine Protein Urine Glucose (UA) Urine Ketones Urine Blood Urine Nitrite Ur Leukocyte Esterase COVID-19 ([facility]) COVID-19 Clin Com 06/21/21 06/21/21 06/21/21 10:10 10:10 10:34 MCV MCH MCHC RDW Plt Count MPV Immature Gran % (Auto) Neut % (Auto) Lymph % (Auto) Stephenson % (Auto) Eos % (Auto) Baso % (Auto) Lymph # (Auto) Stephenson # (Auto) Eos # (Auto) Baso # (Auto) Abs Immat Gran (auto) Absolute Neuts (auto) Absolute Nucleated RBC Nucleated RBC % (auto) PT INR Anion Gap Estim Creat Clear Calc Estimated GFR Random Glucose Calcium Magnesium Total Bilirubin AST ALT Alkaline Phosphatase Total Creatine Kinase Troponin I High Sens 14.2 B-Natriuretic Peptide 1998 H Total Protein Albumin Urine Color Urine Appearance Urine pH Ur Specific Olla Urine Protein Urine Glucose (UA) Urine Ketones Urine Blood Urine Nitrite Ur Leukocyte Esterase COVID-19 ([facility]) Negative COVID-19 Clin Com See Note 06/21/21 06/21/21 14:10 14:11 MCV MCH MCHC RDW Plt Count MPV Immature Gran % (Auto) Neut % (Auto) Lymph % (Auto) Stephenson % (Auto) Eos % (Auto) Baso % (Auto) Lymph # (Auto) Stephenson # (Auto) Eos # (Auto) Baso # (Auto) Abs Immat Gran (auto) Absolute Neuts (auto) Absolute Nucleated RBC Nucleated RBC % (auto) PT INR Anion Gap Estim Creat Clear Calc Estimated GFR Random Glucose Calcium Magnesium Total Bilirubin AST ALT Alkaline Phosphatase Total Creatine Kinase Troponin I High Sens 11.3 B-Natriuretic Peptide Total Protein Albumin Urine Color YELLOW Urine Appearance CLEAR Urine pH 6.0 Ur Specific Olla 1.015 Urine Protein TRACE Urine Glucose (UA) NEG Urine Ketones NEG Urine Blood NEG Urine Nitrite NEG Ur Leukocyte Esterase NEG COVID-19 ([facility]) COVID-19 Clin Com Imaging Radiologist's Impressions: Impressions Chest X-Ray 06/21/21 09:14 IMPRESSION: Enlarged slightly enlarged cardiac silhouette. Moderate to large right pleural effusion and compressive atelectasis or consolidation of the adjacent right lung. Small left pleural effusion. Findings are similar to recent exams. Head CT 06/21/21 09:14 IMPRESSION: No acute findings. Mild generalized atrophy and nonspecific periventricular white matter disease. Brain MRI 06/21/21 12:48 IMPRESSION: 1. There are no acute bleeds or territorial infarcts. No masses are demonstrated. 2. There are extensive chronic microvascular ischemic changes and there are lacunar infarcts in the basal ganglia. There is diffuse volume loss. 3. 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 Assessment and Plan (1) Acute exacerbation of CHF (congestive heart failure): Status: Acute This is a 66 yo M who presents to the hospital with complaints of dizziness resulting in falls. His work up in the emergency room is consistent with probable acute CHF exacerbation. Additionally, he has a persistent moderate / L pleural effusion. The cause of his dizziness is not entirely clear this time, but he has been ruled out for a posterior circulation stroke with a negative MRI. 1. Acute HFrEF exacerbation patient has JVD, elevated BNP, effusion on CXR (R effusion is persistent, but L sided is new) will continue IV lasix -- 40mg BID I/O, daily weights Cardiology input 2. Dizziness unclear if the patient has been in Rapid A. Fib or not. EKG upon admission shows Sinus rhythm. Will need to monitor on tele for arrhythmias. Will get PT eval prior to d/c -- he may benefit from a SNF stay. 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 A. Fib, ? paroxysmal in sinus on EKG per reports from family -- patient off Eliquis since Sunday for planned procedure. Not clear what this was. continue amiodarone and BB 4. Persistent R pleural effusion initially felt secondary to CHF. He was diursed last admission and outpatient cxr still showed persistant R effusion. Will schedule for thoracentesis for tomorrow AM. d/w the patients -- she reports that he was scheduled for this tomorrow. 5. Mild WILMER ? cardio-renal will diuresis and re-eval 6. DM hold orals sliding scale Full COde DVT pptx, Mechanical today in prep for thoracentesis tomorrow Quality Stroke Does the patient have a stroke diagnosis?: No VTE Prior VTE?: No VTE Risk Level:: Medical - moderate - high VTE Device Contraindication: N/A - Device Ordered VTE Drug Contraindication: N/A - Med Ordered
--- NOTE | 2021-06-21 15:16 | PC.NURSE ---
pt voided about 800cc of yellow urine resting comfortably at this time, denies pain, vs stable
[2021-06-21] MEDS: buPROPion HCl XL 300 MG TAB.ER.24H PO (16:17)
[2021-06-21] MEDS: Amiodarone HCL 200 MG TABLET PO (16:17)
[2021-06-21] MEDS: 0.9 % Sodium Chloride Flush 3 ML SYRINGE IVFLUSH (16:17)
[2021-06-21 18:12] LABS: Glucose, Whole Blood 144 mg/dL (60-115)
[2021-06-21] MEDS: Furosemide 40 MG/4 ML VIAL IVPUSH (18:47)
--- NOTE | 2021-06-21 19:00 | PC.NURSE ---
REPORT TAKEN FROM NIKIA SANCHES, FIRST CONTACT WITH PT. SITTING UP IN BED A&Ox2 SPEAKING FULL SENTENCES, SKIN PWD RESPIRATIONS EVEN UNLABORED. 1600ML EMPTIED FROM BEDSIDE URINALS. RED SOCKS AND HIGH FALL RISK IDENTIFIERS PLACED ON PATIENT AND ROOM ENTRANCE, LOADER OPERATOR/GROUND LEADER APPLIED. SINUS ARRHYTHMIA ON MONITOR. PT OFFERS NO COMPLAINTS AT THIS TIME. AWAITING BED ASSIGNMENT FOR ADMISSION. AWARE OF PLAN OF CARE.
[2021-06-21 20:44] LABS: Glucose, Whole Blood 139 mg/dL (60-115)
[2021-06-21] MEDS: Atorvastatin Calcium 80 MG TABLET PO (21:16)
--- NOTE | 2021-06-21 22:18 | MHC.CM.PN ---
CM met with admitted very pleasant gentleman, whose bed assignment is pending. IMM reviewed and signed per protocol 06/21/21@5564.Pt is A&Ox3, but is somewhat forgetful with his history.Cannot remember PCP, VNA service and if he has a HCP. Pt requests his , Shira Causey ([phone]) be his HCP. Pt is very concerned about his falling and inability to ambulate well, stating it's getting worse. Pt also has tremors to hands and states having difficulty writing his name. Pt asks that CM speak with his . CM spoke with pt , who confirms that HCP needs to be completed. Also would like to complete a MOLST. CM explained that the hospitalist can complete that with her and her when pt is admitted to the floor. Shira also verifies that [facility] has been providing correction. Shira re-affirms her husbands concerns about his falling, difficulty ambulating and tremors. Also tells CM her has had periods of disorientation and hallucinations. requests STR facilities in [facility], but requests CM not refer to [facility] in [place]. [facility] with 6 facilities left at pt bedside for to review. HCP reviewed and completed per protocol. Copies left at bedside. PCP is Dr. Muir at [facility] in [place]. NA notified in [employer] of pt admission. Pt did have J&J vaccine in February. D/C is pending PT recommendations, probable STR. Transportation, if home by . CM will follow for d/c needs.
[2021-06-22] VITALS (10 sets, daily range): BP systolic 134–172; BP diastolic 74–108; PULSE 72–110; RESP 16–20; TEMP 36–36.9; O2SAT 92–96; BMI 27.0
[2021-06-22] MEDS: 0.9 % Sodium Chloride Flush 3 ML SYRINGE IVFLUSH ×4 (00:21→20:12)
[2021-06-22 07:23] LABS: Hematocrit 39.5 % (42-52); Hemoglobin 13.1 g/dl (14.0-18.0); Mean Corpuscular HGB Conc 33.2 g/dl (31.0-36.0); Mean Corpuscular Hemoglobin 27.2 pg (27.0-33.0); Mean Platelet Volume 10.7 fL (9.4-12.4); Platelet Count 198 X10*3/uL (160-400); Red Blood Count 4.82 X10*6/uL (4.60-5.80); Red Cell Distribution Width 15.3 % (11.0-16.0); White Blood Count 6.7 X10*3/uL (4.8-10.8)
[2021-06-22 07:24] LABS: Glucose, Whole Blood 116 mg/dL (60-115)
[2021-06-22 07:46] LABS: Anion Gap 16 (12-20); Blood Urea Nitrogen 20 mg/dL (9-16); Calcium 9.4 mg/dL (8.4-10.2); Carbon Dioxide 28 mmol/L (22-29); Chloride 97 mmol/L (96-108); Creatinine Clr Calc Pharmacy 63.3; Estimated Glomerular Filt Rate 51; Glucose Random 104 mg/dL (60-115); Potassium 3.4 mmol/L (3.3-5.1); Sodium 138 mmol/L (135-145)
[2021-06-22 07:48] LABS: B Type Natriuretic Peptide 1883 pg/mL (<100)
[2021-06-22 08:01] LABS: Albumin Level 3.8 g/dL (3.5-5.0); Lactate Dehydrogenase 305 U/L (118-273); Magnesium 1.4 mg/dL (1.6-2.6); Total Protein 6.6 g/dL (6.5-8.0)
[2021-06-22] MEDS: Potassium Chloride Packet 20 MEQ PACKET 40 MEQ PO (09:06)
[2021-06-22] MEDS: Amiodarone HCL 200 MG TABLET PO (09:07)
[2021-06-22] MEDS: Escitalopram Oxalate 20 MG TABLET PO (09:07)
[2021-06-22] MEDS: Furosemide 40 MG/4 ML VIAL IVPUSH (09:07)
[2021-06-22] MEDS: Metoprolol Succinate ER 50 MG TAB.ER.24H PO (09:07)
[2021-06-22] MEDS: Magnesium Sulfate/H2O 2 GM/50 ML PIGGYBACK IV (09:08)
[2021-06-22] MEDS: buPROPion HCl XL 300 MG TAB.ER.24H PO (09:08)
--- NOTE | 2021-06-22 09:08 | P.PNIM_ITS ---
Subjective Subjective Date of Service: 06/22/21 Interval History: feels better today denies cp or dizziness at rest Review of Systems General - no fevers or chills Cardiovascular - no chest pain Respiratory - no shortness of breath or cough Abdominal- no abdominal pain, nausea, vomiting, diarrhea Physical Exam Vital Signs: Vital Signs: Last Vital Signs Temp 97 F 06/22/21 07:15 Pulse 83 06/22/21 07:15 Resp 20 06/22/21 07:15 BP 172/90 H 06/22/21 07:15 Pulse Ox 95 06/22/21 07:15 Body Mass Index 27.0 Const: Other: Constitutional - Awake and Alert, No apparent distress Eyes - PERRLA, EOMI Cardiovascular - S1S2, RRR, 1+ pitting edema Respiratory - Dim rounds on R Gastrointestinal - NT / ND; +BS; No rebound or guarding - No CVA tenderness Extremities - no calf tenderness bilaterally, no swelling Musculoskeletal - Normal inspection, normal ROM Skin - Warm/Dry Neurological - Alert & oriented x3, No focal deficit Psychological - Appropriate affect Objective Data Current Medications Generic Name Dose Route Start Last Admin Trade Name Maykel PRN Reason Stop Dose Admin Acetaminophen 650 mg 06/21/21 15:09 Acetaminophen 325 Mg Tablet PO Q6H PRN Pain, Mild (Pain Scale 1-3) Amiodarone HCl 200 mg 06/21/21 16:00 06/21/21 16:17 Amiodarone Hcl 200 Mg Tablet PO 200 mg DAILY [facility] Administration Atorvastatin Calcium 80 mg 06/21/21 21:00 06/21/21 21:16 Atorvastatin Calcium 80 Mg Tablet PO 80 mg BEDTIME [facility] Administration Bupropion HCl 300 mg 06/21/21 15:45 06/21/21 16:17 Bupropion Hcl Xl 300 Mg Tab.Er.24h PO 300 mg DAILY [facility] Administration Escitalopram Oxalate 20 mg 06/22/21 09:00 Escitalopram Oxalate 20 Mg Tablet PO DAILY [facility] Furosemide 40 mg 06/21/21 18:00 06/21/21 18:47 Furosemide 40 Mg/4 Ml Vial IVPUSH 40 mg BID@0900,1800 [facility] Administration Protocol Magnesium Sulfate 2 gm in 50 mls @ 25 mls/hr 06/22/21 08:30 Magnesium Sulfate/H2o IV 06/22/21 10:29 ONCE ONE Insulin Human Lispro 0 unit 06/21/21 16:30 06/22/21 07:29 Insulin Lispro 100 Unit/Ml 3 Ml Vial SUBCUT Not Given QIDACHS [facility] Protocol Metoprolol Succinate 50 mg 06/22/21 09:00 Metoprolol Succinate Er 50 Mg Tab.Er.24h PO DAILY [facility] Protocol Pharmacy Consult 1 each 06/21/21 11:45 Consult Rx Perform Med Rec MISCELLANE ONCE PRN Consult order Sodium Chloride 3 ml 06/21/21 16:00 06/22/21 00:21 0.9 % Sodium Chloride Flush 3 Ml Syringe IVFLUSH 3 ml QSHIFT [facility] Administration Labs CBC & Chem 7: 06/22/21 05:50 06/22/21 05:50 Labs: Laboratory Results - last 24 hr 06/21/21 06/21/21 06/21/21 10:10 10:10 10:10 WBC 7.8 RBC 5.10 Hgb 13.7 L Hct 43.0 MCV 84.3 MCH 26.9 L MCHC 31.9 RDW 15.3 Plt Count 225 MPV 10.7 Immature Gran % (Auto) 0.3 Neut % (Auto) 79.3 H Lymph % (Auto) 13.3 L [place] % (Auto) 6.3 Eos % (Auto) 0.5 Baso % (Auto) 0.3 Lymph # (Auto) 1.0 L [place] # (Auto) 0.5 Eos # (Auto) 0.0 Baso # (Auto) 0.0 Abs Immat Gran (auto) 0.02 Absolute Neuts (auto) 6.2 Absolute Nucleated RBC 0.000 Nucleated RBC % (auto) 0.0 PT 13.6 H INR 1.2 H Sodium 139 Potassium 4.1 Chloride 101 Carbon Dioxide 27 Anion Gap 15 BUN 21 H Creatinine 1.74 H Estim Creat Clear Calc 54.7 Estimated GFR 40 POC Glucose Random Glucose 127 H Calcium 9.4 Magnesium 1.5 L Total Bilirubin 1.0 AST 24 ALT 20 Alkaline Phosphatase 113 Lactate Dehydrogenase Total Creatine Kinase 172 Troponin I High Sens B-Natriuretic Peptide Total Protein 6.9 Albumin 4.1 Urine Color Urine Appearance Urine pH Ur Specific [place] Urine Protein Urine Glucose (UA) Urine Ketones Urine Blood Urine Nitrite Ur Leukocyte Esterase COVID-19 ([facility]) COVID-19 Clin Com 06/21/21 06/21/21 06/21/21 10:10 10:10 10:34 WBC RBC Hgb Hct MCV MCH MCHC RDW Plt Count MPV Immature Gran % (Auto) Neut % (Auto) Lymph % (Auto) [place] % (Auto) Eos % (Auto) Baso % (Auto) Lymph # (Auto) [place] # (Auto) Eos # (Auto) Baso # (Auto) Abs Immat Gran (auto) Absolute Neuts (auto) Absolute Nucleated RBC Nucleated RBC % (auto) PT INR Sodium Potassium Chloride Carbon Dioxide Anion Gap BUN Creatinine Estim Creat Clear Calc Estimated GFR POC Glucose Random Glucose Calcium Magnesium Total Bilirubin AST ALT Alkaline Phosphatase Lactate Dehydrogenase Total Creatine Kinase Troponin I High Sens 14.2 B-Natriuretic Peptide 1998 H Total Protein Albumin Urine Color Urine Appearance Urine pH Ur Specific [place] Urine Protein Urine Glucose (UA) Urine Ketones Urine Blood Urine Nitrite Ur Leukocyte Esterase COVID-19 ([facility]) Negative COVID-19 [employer] Com See Note 06/21/21 06/21/21 06/21/21 14:10 14:11 18:08 WBC RBC Hgb Hct MCV MCH MCHC RDW Plt Count MPV Immature Gran % (Auto) Neut % (Auto) Lymph % (Auto) [place] % (Auto) Eos % (Auto) Baso % (Auto) Lymph # (Auto) [place] # (Auto) Eos # (Auto) Baso # (Auto) Abs Immat Gran (auto) Absolute Neuts (auto) Absolute Nucleated RBC Nucleated RBC % (auto) PT INR Sodium Potassium Chloride Carbon Dioxide Anion Gap BUN Creatinine Estim Creat Clear Calc Estimated GFR POC Glucose 144 H Random Glucose Calcium Magnesium Total Bilirubin AST ALT Alkaline Phosphatase Lactate Dehydrogenase Total Creatine Kinase Troponin I High Sens 11.3 B-Natriuretic Peptide Total Protein Albumin Urine Color YELLOW Urine Appearance CLEAR Urine pH 6.0 Ur Specific [place] 1.015 Urine Protein TRACE Urine Glucose (UA) NEG Urine Ketones NEG Urine Blood NEG Urine Nitrite NEG Ur Leukocyte Esterase NEG COVID-19 ([facility]) COVID-19 [employer] 06/21/21 06/22/21 06/22/21 20:40 05:50 05:50 WBC 6.7 RBC 4.82 Hgb 13.1 L Hct 39.5 L MCV 82.0 MCH 27.2 MCHC 33.2 RDW 15.3 Plt Count 198 MPV 10.7 Immature Gran % (Auto) Neut % (Auto) Lymph % (Auto) [place] % (Auto) Eos % (Auto) Baso % (Auto) Lymph # (Auto) [place] # (Auto) Eos # (Auto) Baso # (Auto) Abs Immat Gran (auto) Absolute Neuts (auto) Absolute Nucleated RBC 0.000 Nucleated RBC % (auto) 0.0 PT INR Sodium 138 Potassium 3.4 Chloride 97 Carbon Dioxide 28 Anion Gap 16 BUN 20 H Creatinine 1.39 Estim Creat Clear Calc 63.3 Estimated GFR 51 POC Glucose 139 H Random Glucose 104 Calcium 9.4 Magnesium Total Bilirubin AST ALT Alkaline Phosphatase Lactate Dehydrogenase Total Creatine Kinase Troponin I High Sens B-Natriuretic Peptide Total Protein Albumin Urine Color Urine Appearance Urine pH Ur Specific [place] Urine Protein Urine Glucose (UA) Urine Ketones Urine Blood Urine Nitrite Ur Leukocyte Esterase COVID-19 ([facility]) COVID-19 [employer] 06/22/21 06/22/21 06/22/21 05:50 05:50 07:15 WBC RBC Hgb Hct MCV MCH MCHC RDW Plt Count MPV Immature Gran % (Auto) Neut % (Auto) Lymph % (Auto) [place] % (Auto) Eos % (Auto) Baso % (Auto) Lymph # (Auto) [place] # (Auto) Eos # (Auto) Baso # (Auto) Abs Immat Gran (auto) Absolute Neuts (auto) Absolute Nucleated RBC Nucleated RBC % (auto) PT INR Sodium Potassium Chloride Carbon Dioxide Anion Gap BUN Creatinine Estim Creat Clear Calc Estimated GFR POC Glucose 116 H Random Glucose Calcium Magnesium 1.4 L* Total Bilirubin AST ALT Alkaline Phosphatase Lactate Dehydrogenase 305 H Total Creatine Kinase Troponin I High Sens B-Natriuretic Peptide 1883 H Total Protein 6.6 Albumin 3.8 Urine Color Urine Appearance Urine pH Ur Specific [place] Urine Protein Urine Glucose (UA) Urine Ketones Urine Blood Urine Nitrite Ur Leukocyte Esterase COVID-19 ([facility]) COVID-19 [employer] Assessment and Plan (1) Acute exacerbation of CHF (congestive heart failure): Status: Acute Assessment and Plan: This is a 66 yo M who presents to the hospital with complaints of dizziness resulting in falls. His work up in the emergency room is consistent with probable acute CHF exacerbation. Additionally, he has a persistent moderate / L pleural effusion. The cause of his dizziness is not entirely clear this time, but he has been ruled out for a posterior circulation stroke with a negative MRI. 1. Acute HFrEF exacerbation slowly improving, negative 3L fluid balance continue IV lasix today cardiology evaluation 2. Dizziness no specific cause identified as of yet will get PT eval prior to d/c 3. PAF was in sinus while in the ED (Per EKG) now back in A. Fib -- controlled this AM off eliquis since Sunday 06/17 for planned outpatient thoracentesis continue Amio (d/w patients , she mistakingly gave him 200mg BID instead of the 400mg BID loading dose he was d/c on) 4. Persistent R pleural effusion initially felt secondary to CHF. He was diursed last admission and outpatient cxr still showed persistant R effusion. Thoracentesis today 5. Mild WILMER suspected cardiorenal improved with diuresis 6. DM hold orals sliding scale Full COde DVT pptx, Mechanical due to planned thoracentesis today Quality Stroke Does the patient have a stroke diagnosis?: No VTE Prior VTE?: No VTE Risk Level:: Medical - moderate - high VTE Device Contraindication: N/A - Device Ordered VTE Drug Contraindication: N/A - Med Ordered
--- NOTE | 2021-06-22 10:13 | MHC.CM.PN ---
met with pt who lives with and is mactive with [facility] cm will follow for possible placement pending pt eval
[2021-06-22 11:13] LABS: Glucose, Whole Blood 133 mg/dL (60-115)
--- NOTE | 2021-06-22 12:06 | PM.CNCAR ---
History of Present Illness History of Present Illness Date of Service: 06/22/21 Consult reason: congestive heart failure Chief complaint: Dizziness Narrative: Patient was recently seen in the hospital for congestive heart failure. He underwent EDWINA and cardioversion but remained in atrial fibrillation and was sent home on amiodarone. It appears that the current admission is for actually dizziness and falls. Patient states that he has been randomly dizzy recently. He also fell a few times. However, from the heart failure standpoint he actually states he really does not have any shortness of breath or leg swelling or angina or in fact any cardiac symptoms at all. From that end, he feels okay. Review of Systems Review of Systems: Yes all other systems are reviewed and are negative Cardiovascular: Cardiovascular: Reports as per HPI, Reports no additional cardiovascular complaints, Denies acrocyanosis, Denies cool extremities, Denies painful fingertips, Denies chest pain, Denies chest pain at rest, Denies diaphoresis, Denies syncope, Denies irregular heart rhythm, Denies claudication, Denies leg edema, Reports lightheadedness, Denies palpitations and Denies dyspnea Respiratory: Respiratory: Denies dyspnea Neurologic: Denies syncope Endocrine: Endocrine: Denies palpitations PMF Past Medical History Medical History Afib Atrial fibrillation CHF (congestive heart failure) CHF (congestive heart failure) Diabetes HTN (hypertension) Noncompliance with medications Family History Family History Father CAD (coronary artery disease) Social History Social History Household Members: Spouse and Other Household Members Other:: and son Housing: House Do you presently have visiting nurse or other home services: Yes Alcohol intake: never Patient Tobacco Use Status: Former Tobacco user Second Hand Smoke Exposure: No Use of substances other than those prescribed or required for medical reasons: No Currently Displaying Signs/Symptoms of Drug Intoxication Withdrawal: No Any prior treatment program specific to substance use: No Have you been hit, kicked, punched, or otherwise hurt by someone within the past year? If so, by whom?: No Do you feel safe in your current relationship?: No Is there a partner from a previous relationship who is making you feel unsafe now?: No Are you made to feel afraid or neglected: No Spiritual Healthcare Practices: none Mosque Healthcare Practices: none Cultural Healthcare Practices: none Advance Directives: No Advance Directives Information Provided: Yes Do you have thoughts of harming others: None Do you have a plan to hurt others: No Plan Recently lost weight without trying: No Nutrition Risks: No Nutritional Risk service: No Current occupational status: retired Meds Allergies Allergy/AdvReac Type Severity Reaction Status Date / Time colchicine Allergy Rash Verified 06/15/21 14:47 Active Medications: Current Medications Generic Name Dose Route Start Last Admin Trade Name Freq PRN Reason Stop Dose Admin Acetaminophen 650 mg 06/21/21 15:09 Acetaminophen 325 Mg Tablet PO Q6H PRN Pain, Mild (Pain Scale 1-3) Amiodarone HCl 200 mg 06/21/21 16:00 06/22/21 09:07 Amiodarone Hcl 200 Mg Tablet PO 200 mg DAILY [facility] Administration Atorvastatin Calcium 80 mg 06/21/21 21:00 06/21/21 21:16 Atorvastatin Calcium 80 Mg Tablet PO 80 mg BEDTIME [facility] Administration Bupropion HCl 300 mg 06/21/21 15:45 06/22/21 09:08 Bupropion Hcl Xl 300 Mg Tab.Er.24h PO 300 mg DAILY [facility] Administration Escitalopram Oxalate 20 mg 06/22/21 09:00 06/22/21 09:07 Escitalopram Oxalate 20 Mg Tablet PO 20 mg DAILY [facility] Administration Furosemide 40 mg 06/21/21 18:00 06/22/21 09:07 Furosemide 40 Mg/4 Ml Vial IVPUSH 40 mg BID@0900,1800 [facility] Administration Protocol Insulin Human Lispro 0 unit 06/21/21 16:30 06/22/21 11:19 Insulin Lispro 100 Unit/Ml 3 Ml Vial SUBCUT Not Given QIDACHS [facility] Protocol Metoprolol Succinate 50 mg 06/22/21 09:00 06/22/21 09:07 Metoprolol Succinate Er 50 Mg Tab.Er.24h PO 50 mg DAILY [facility] Administration Protocol Pharmacy Consult 1 each 06/21/21 11:45 Consult Rx Perform Med Rec MISCELLANE ONCE PRN Consult order Sodium Chloride 3 ml 06/21/21 16:00 06/22/21 09:08 0.9 % Sodium Chloride Flush 3 Ml Syringe IVFLUSH 3 ml QSHIFT [facility] Administration Home Medications Medication Instructions Recorded Confirmed Last Taken Type allopurinol 300 mg tablet 1 tab PO DAILY 06/04/21 06/21/21 06/20/21 History apixaban 5 mg tablet (Eliquis) 1 tab PO BID 06/04/21 06/21/21 06/17/21 History atorvastatin 80 mg tablet 80 mg PO BEDTIME 06/04/21 06/21/21 06/20/21 History bupropion HCl 300 mg 24 hr tablet, 1 tab PO QAM 06/04/21 06/21/21 06/20/21 History extended release escitalopram oxalate 20 mg tablet 1 tab PO DAILY 06/04/21 06/21/21 06/20/21 History glipizide 5 mg tablet, extended 2 tab PO DAILY 06/04/21 06/21/21 06/20/21 History release 24 hr metformin 500 mg tablet,extended 2 tab PO DAILY 06/04/21 06/21/21 06/20/21 History release 24 hr Physical Exam Vital Signs: Vital Signs: Last Vital Signs Temp 97.9 F 06/22/21 10:57 Pulse 72 06/22/21 10:57 Resp 20 06/22/21 10:57 BP 148/74 H 06/22/21 10:57 Pulse Ox 96 06/22/21 10:57 Body Mass Index 27.0 Const: General: cooperative and no acute distress HENMT: Other: Unremarkable Neck: Neck: Yes normal visual inspection Chest: Chest palpation & inspection: normal inspection of the chest Resp: Auscultation: clear to auscultation bilaterally, no crackles and no wheezes Cardio: Jugular venous distension: no JVD Palpation: normal PMI Heart sounds: S1 normal heart sound present, S2 normal heart sound present, no gallops, no murmurs and no rubs GI: Palpation (GI): Soft to palpation Back/Spine/Pelvis: Other: unremarkable Skin: General skin exam: no rashes or lesions noted Neuro: Cranial nerves: Yes Other cranial nerve findings present Extrem: General: Yes no clubbing, cyanosis or edema Psych: Mental Status: other Results Labs and Meds Result diagrams: 06/22/21 05:50 06/22/21 05:50 Lab results: Laboratory Results - last 24 hr 06/21/21 06/21/21 06/21/21 14:10 14:11 18:08 WBC RBC Hgb Hct MCV MCH MCHC RDW Plt Count MPV Absolute Nucleated RBC Nucleated RBC % (auto) Sodium Potassium Chloride Carbon Dioxide Anion Gap BUN Creatinine Estim Creat Clear Calc Estimated GFR POC Glucose 144 H Random Glucose Calcium Magnesium Lactate Dehydrogenase Troponin I High Sens 11.3 B-Natriuretic Peptide Total Protein Albumin Urine Color YELLOW Urine Appearance CLEAR Urine pH 6.0 Ur Specific [place] 1.015 Urine Protein TRACE Urine Glucose (UA) NEG Urine Ketones NEG Urine Blood NEG Urine Nitrite NEG Ur Leukocyte Esterase NEG 06/21/21 06/22/21 06/22/21 20:40 05:50 05:50 WBC 6.7 RBC 4.82 Hgb 13.1 L Hct 39.5 L MCV 82.0 MCH 27.2 MCHC 33.2 RDW 15.3 Plt Count 198 MPV 10.7 Absolute Nucleated RBC 0.000 Nucleated RBC % (auto) 0.0 Sodium 138 Potassium 3.4 Chloride 97 Carbon Dioxide 28 Anion Gap 16 BUN 20 H Creatinine 1.39 Estim Creat Clear Calc 63.3 Estimated GFR 51 POC Glucose 139 H Random Glucose 104 Calcium 9.4 Magnesium Lactate Dehydrogenase Troponin I High Sens B-Natriuretic Peptide Total Protein Albumin Urine Color Urine Appearance Urine pH Ur Specific [place] Urine Protein Urine Glucose (UA) Urine Ketones Urine Blood Urine Nitrite Ur Leukocyte Esterase 06/22/21 06/22/21 06/22/21 05:50 05:50 07:15 WBC RBC Hgb Hct MCV MCH MCHC RDW Plt Count MPV Absolute Nucleated RBC Nucleated RBC % (auto) Sodium Potassium Chloride Carbon Dioxide Anion Gap BUN Creatinine Estim Creat Clear Calc Estimated GFR POC Glucose 116 H Random Glucose Calcium Magnesium 1.4 L* Lactate Dehydrogenase 305 H Troponin I High Sens B-Natriuretic Peptide 1883 H Total Protein 6.6 Albumin 3.8 Urine Color Urine Appearance Urine pH Ur Specific [place] Urine Protein Urine Glucose (UA) Urine Ketones Urine Blood Urine Nitrite Ur Leukocyte Esterase 06/22/21 10:56 WBC RBC Hgb Hct MCV MCH MCHC RDW Plt Count MPV Absolute Nucleated RBC Nucleated RBC % (auto) Sodium Potassium Chloride Carbon Dioxide Anion Gap BUN Creatinine Estim Creat Clear Calc Estimated GFR POC Glucose 133 H Random Glucose Calcium Magnesium Lactate Dehydrogenase Troponin I High Sens B-Natriuretic Peptide Total Protein Albumin Urine Color Urine Appearance Urine pH Ur Specific [place] Urine Protein Urine Glucose (UA) Urine Ketones Urine Blood Urine Nitrite Ur Leukocyte Esterase ECG Interpretation: Admission EKG with sinus rhythm at 60/Min but currently he is in atrial fibrillation. Imaging Radiologist's impression: Impressions Brain MRI 06/21/21 12:48 IMPRESSION: 1. There are no acute bleeds or territorial infarcts. No masses are demonstrated. 2. There are extensive chronic microvascular ischemic changes and there are lacunar infarcts in the basal ganglia. There is diffuse volume loss. 3. 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 Assessment and Plan (1) Acute on chronic systolic (congestive) heart failure: Status: Acute (2) Pleural effusion: Status: Acute (3) Multiple falls: Status: Acute (4) Dizziness: Status: Acute (5) PAF (paroxysmal atrial fibrillation): Status: Acute Data reviewed. Chest x-ray shows moderate to large right pleural effusion and compressive atelectasis of right lung. Small left effusion. Thought to be similar to prior exams. Brain MRI with no acute bleeds or infarcts. Extensive chronic microvascular ischemic changes noted. There were also lacunar infarcts in the basal ganglia. Diffuse volume loss. Labs with hemoglobin 13.1. White cells 6.7. Platelets are 198. Potassium is 3.4. Creatinine is 1.39. Cardiac BNP at 1883. High sensitivity troponins 11.3. Admission EKG with sinus rhythm but telemetry rather shows atrial fibrillation. Clinically, he really does not look volume overloaded at all. No need for aggressive diuresis. Continue beta-blockers and amiodarone. May keep on oral diuretics. Will need oral anticoagulation due to recent cardioversion. Reason for falls not clear. Will follow. Procedures Date of Service Date of Service: 06/22/21
[2021-06-22] MEDS: Lidocaine HCl 1 % MPF 5 ML VIAL 10 ML SUBCUT (14:09)
[2021-06-22 16:31] LABS: Glucose, Whole Blood 102 mg/dL (60-115)
--- NOTE | 2021-06-22 16:50 | PM.NEUROCN ---
History of Present Illness Data of Consult Service Date: 06/22/21 Primary Care Provider: Unknown Physician 66 years old man who was admitted hospital for cardiac issues also complained of being dizzy. This consultation was requested for that. Dizziness for him was in fact unsteadiness and falling and losing balance. This was going on for many months or maybe longer. There was no recent trauma. [facility] Past Medical History Medical History Afib Atrial fibrillation CHF (congestive heart failure) CHF (congestive heart failure) Diabetes HTN (hypertension) Noncompliance with medications Family History Family History Father CAD (coronary artery disease) Social History Social History Household Members: Spouse and Other Household Members Other:: and son Housing: House Do you presently have visiting nurse or other home services: Yes Alcohol intake: never Patient Tobacco Use Status: Former Tobacco user Second Hand Smoke Exposure: No Use of substances other than those prescribed or required for medical reasons: No Currently Displaying Signs/Symptoms of Drug Intoxication Withdrawal: No Any prior treatment program specific to substance use: No Have you been hit, kicked, punched, or otherwise hurt by someone within the past year? If so, by whom?: No Do you feel safe in your current relationship?: No Is there a partner from a previous relationship who is making you feel unsafe now?: No Are you made to feel afraid or neglected: No Spiritual Healthcare Practices: none Orthodox Healthcare Practices: none Cultural Healthcare Practices: none Advance Directives: No Advance Directives Information Provided: Yes Do you have thoughts of harming others: None Do you have a plan to hurt others: No Plan Recently lost weight without trying: No Nutrition Risks: No Nutritional Risk service: No Current occupational status: retired Meds Allergies Allergy/AdvReac Type Severity Reaction Status Date / Time colchicine Allergy Rash Verified 06/15/21 14:47 Active Medications: Current Medications Generic Name Dose Route Start Last Admin Trade Name Freq PRN Reason Stop Dose Admin Acetaminophen 650 mg 06/21/21 15:09 Acetaminophen 325 Mg Tablet PO Q6H PRN Pain, Mild (Pain Scale 1-3) Amiodarone HCl 200 mg 06/21/21 16:00 06/22/21 09:07 Amiodarone Hcl 200 Mg Tablet PO 200 mg DAILY [facility] Administration Atorvastatin Calcium 80 mg 06/21/21 21:00 06/21/21 21:16 Atorvastatin Calcium 80 Mg Tablet PO 80 mg BEDTIME [facility] Administration Bupropion HCl 300 mg 06/21/21 15:45 06/22/21 09:08 Bupropion Hcl Xl 300 Mg Tab.Er.24h PO 300 mg DAILY [facility] Administration Escitalopram Oxalate 20 mg 06/22/21 09:00 06/22/21 09:07 Escitalopram Oxalate 20 Mg Tablet PO 20 mg DAILY [facility] Administration Furosemide 40 mg 06/23/21 09:00 Furosemide 40 Mg Tablet PO BID@0900,1800 [facility] Protocol Insulin Human Lispro 0 unit 06/21/21 16:30 06/22/21 16:34 Insulin Lispro 100 Unit/Ml 3 Ml Vial SUBCUT Not Given QIDACHS [facility] Protocol Metoprolol Succinate 50 mg 06/22/21 09:00 06/22/21 09:07 Metoprolol Succinate Er 50 Mg Tab.Er.24h PO 50 mg DAILY [facility] Administration Protocol Pharmacy Consult 1 each 06/21/21 11:45 Consult Rx Perform Med Rec MISCELLANE ONCE PRN Consult order Sodium Chloride 3 ml 06/21/21 16:00 06/22/21 09:08 0.9 % Sodium Chloride Flush 3 Ml Syringe IVFLUSH 3 ml QSHIFT [facility] Administration Home Medications Medication Instructions Recorded Confirmed Last Taken Type allopurinol 300 mg tablet 1 tab PO DAILY 06/04/21 06/21/21 06/20/21 History apixaban 5 mg tablet (Eliquis) 1 tab PO BID 06/04/21 06/21/21 06/17/21 History atorvastatin 80 mg tablet 80 mg PO BEDTIME 06/04/21 06/21/21 06/20/21 History bupropion HCl 300 mg 24 hr tablet, 1 tab PO QAM 06/04/21 06/21/21 06/20/21 History extended release escitalopram oxalate 20 mg tablet 1 tab PO DAILY 06/04/21 06/21/21 06/20/21 History glipizide 5 mg tablet, extended 2 tab PO DAILY 06/04/21 06/21/21 06/20/21 History release 24 hr metformin 500 mg tablet,extended 2 tab PO DAILY 06/04/21 06/21/2106/20/21 History release 24 hr Physical Exam Vital Signs: Vital Signs: Last Vital Signs Temp 97.2 F 06/22/21 15:08 Pulse 87 06/22/21 15:08 Resp 18 06/22/21 15:08 BP 163/104 H 06/22/21 15:08 Pulse Ox 96 06/22/21 15:08 Body Mass Index 27.0 He was alert and awake with normal spontaneity of speech fluency comprehension and affect. Pupils were round. Visual ramírez are full. Face was symmetrical. There was no pronator drift. Jawdeb-[id number] testing revealed mild ataxia. There was moderate edema in ankles. Hyper flexion deformity of toes and arches was noted in feet. Diffuse muscle atrophy was noted in for legs. Deep tendon reflexes were absent with equivocal plantars. Joint position sensation was absent in toes. Speech was normal. Results Labs CBC & Chem 7: 06/22/21 05:50 06/22/21 05:50 Labs: Short CBC 06/22/21 Range/Units 05:50 WBC 6.7 (4.8-10.8) X10*3/uL Hgb 13.1 L (14.0-18.0) g/dl Hct 39.5 L (42-52) % Plt Count 198 (160-400) X10*3/uL BMP 06/22/21 05:50 Sodium 138 Potassium 3.4 Chloride 97 Carbon Dioxide 28 BUN 20 H Creatinine 1.39 Calcium 9.4 Liver Function 06/22/21 Range/Units 05:50 Albumin 3.8 (3.5-5.0) g/dL His noncontrast MRI of brain revealed mild diffuse cerebral atrophy moderate to severe diffuse chronic microvascular ischemic changes and dolichoectasia of intracranial vasculature Assessment and Plan (1) Multifactorial gait disorder: Status: Acute 66 years old man who has multiple reasons to be unsteady. His fall risk was significantly high. His examination suggested that he had an underlying genetic neuropathy and then on top of that diabetic neuropathy. Precise definition of neuropathy can only be done with EMG nerve conduction study, which can be arranged as an outpatient. It is difficult to say at this time if he has any treatable component to neuropathy or not without EMG nerve conduction study. He also has significant vascular disease that contributed to dizziness and unsteadiness. 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 None of these conditions had significant treatment for improvement. My recommendation is PT OT consultation and recommendations for regular use of a walker. EMG nerve conduction study of legs can be arranged as an outpatient. 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
[2021-06-22 20:03] LABS: Glucose, Whole Blood 304 mg/dL (60-115)
[2021-06-22] MEDS: Insulin Lispro 100 UNIT/ML 3 ML VIAL SUBCUT (20:11)
[2021-06-22] MEDS: Atorvastatin Calcium 80 MG TABLET PO (20:11)
[2021-06-23] VITALS (10 sets, daily range): BP systolic 142–163; BP diastolic 74–100; PULSE 65–107; RESP 16–19; TEMP 36.2–36.9; O2SAT 93–96
--- NOTE | 2021-06-23 02:54 | PC.NURSE ---
Pt 2 assist oob, unsteady on feet. Pt confused at times, trying to get up without assistance. Pt stated I know how to turn off the bed alarm. Pt educated on the need for high fall risk interventions. Encouraged pt to use call lam for assistance. Telesitter in place, bed alarm on. Camera room made aware.
[2021-06-23 07:18] LABS: Glucose, Whole Blood 148 mg/dL (60-115)
[2021-06-23 08:14] LABS: Albumin Pleural Fluid 1.9; Total Protein Pleural Fluid 2.8
[2021-06-23 08:15] LABS: LDH Pleural Fluid 77
[2021-06-23] MEDS: Metoprolol Succinate ER 100 MG TAB.ER.24H PO (08:38)
[2021-06-23] MEDS: Furosemide 40 MG TABLET PO ×2 (08:38→17:16)
[2021-06-23] MEDS: buPROPion HCl XL 300 MG TAB.ER.24H PO (08:38)
[2021-06-23] MEDS: Escitalopram Oxalate 20 MG TABLET PO (08:39)
[2021-06-23] MEDS: Amiodarone HCL 200 MG TABLET PO (08:39)
[2021-06-23] MEDS: 0.9 % Sodium Chloride Flush 3 ML SYRINGE IVFLUSH ×3 (08:39→20:13)
[2021-06-23 09:29] LABS: Anion Gap 16 (12-20); Blood Urea Nitrogen 22 mg/dL (9-16); Calcium 9.8 mg/dL (8.4-10.2); Carbon Dioxide 32 mmol/L (22-29); Chloride 94 mmol/L (96-108); Creatinine Clr Calc Pharmacy 63.3; Estimated Glomerular Filt Rate 51; Glucose Random 163 mg/dL (60-115); Potassium 3.5 mmol/L (3.3-5.1); Sodium 138 mmol/L (135-145)
[2021-06-23 10:20] LABS: MN% 70.8 %; PMN% 29.2 %; WBC Pleural Fluid 0.191 X10*3/uL
[2021-06-23 10:27] LABS: RBC Pleural Fluid < 0.002 X10*3/uL
[2021-06-23 10:46] LABS: BF Shift QC OK YES; Lymphocytes Pleural Fluid 23 %; Monocytes Pleural Fluid 18 %; Neutrophils Pleural Fluid 26 %; Other Cells Plerual Fl 33 %
--- NOTE | 2021-06-23 10:48 | P.PNCA_ITS ---
Subjective Subjective Date of Service: 06/23/21 Interval history: Still weak and 'dizzy'. Review of Systems Review of Systems Yes all other systems are reviewed and are negative Cardiovascular: Reports as per HPI, Reports no additional cardiovascular complaints, Denies acrocyanosis, Denies cool extremities, Denies painful fingertips, Denies chest pain, Denies chest pain at rest, Denies diaphoresis, Denies syncope, Denies irregular heart rhythm, Denies claudication, Denies leg edema, Reports lightheadedness, Denies palpitations and Denies dyspnea Respiratory: Denies dyspnea Denies syncope Endocrine: Denies palpitations Physical Exam Vital Signs: Last Vital Signs Temp 97.1 F 06/23/21 06:54 Pulse 107 H 06/23/21 08:39 Resp 18 06/23/21 06:54 BP 163/100 H 06/23/21 08:39 Pulse Ox 93 06/23/21 06:54 Body Mass Index 27.0 Const General: cooperative and no acute distress HENOH Other: Unremarkable Neck Neck: Yes normal visual inspection Chest Chest palpation & inspection: normal inspection of the chest Resp Auscultation: clear to auscultation bilaterally, no crackles and no wheezes Cardio Jugular venous distension: no JVD Palpation: normal PMI Heart sounds: S1 normal heart sound present, S2 normal heart sound present, no gallops, no murmurs and no rubs GI Palpation (GI): Soft to palpation Back/Spine/Pelvis Other: unremarkable Skin General skin exam: no rashes or lesions noted Neuro Cranial nerves: Yes Other cranial nerve findings present Extrem General: Yes no clubbing, cyanosis or edema Psych Mental Status: other Results Labs and Meds Result diagrams: 06/22/21 05:50 06/23/21 08:41 Lab results: Laboratory Results - last 24 hr 06/22/21 06/22/21 06/22/21 10:56 13:35 16:19 Sodium Potassium Chloride Carbon Dioxide Anion Gap BUN Creatinine Estim Creat Clear Calc Estimated GFR POC Glucose 133 H 102 Random Glucose Calcium Pleural WBC Pleural RBC Pleural Neutrophils Pleural Lymphocytes Pleural Monocytes Pleural Other Cells Pleural Total Protein 2.8 Pleural Albumin 1.9 Pleural LDH 77 06/22/21 06/23/21 06/23/21 19:54 07:15 08:41 Sodium 138 Potassium 3.5 Chloride 94 L Carbon Dioxide 32 H Anion Gap 16 BUN 22 H Creatinine 1.39 Estim Creat Clear Calc 63.3 Estimated GFR 51 POC Glucose 304 H 148 H Random Glucose 163 H D Calcium 9.8 Pleural WBC Pleural RBC Pleural Neutrophils Pleural Lymphocytes Pleural Monocytes Pleural Other Cells Pleural Total Protein Pleural Albumin Pleural LDH 06/23/21 13:35 Sodium Potassium Chloride Carbon Dioxide Anion Gap BUN Creatinine Estim Creat Clear Calc Estimated GFR POC Glucose Random Glucose Calcium Pleural WBC 0.191 Pleural RBC < 0.002 Pleural Neutrophils 26 Pleural Lymphocytes 23 Pleural Monocytes 18 Pleural Other Cells 33 Pleural Total Protein Pleural Albumin Pleural LDH Imaging Radiologist's impression: Impressions Thoracentesis Ultrasound 06/22/21 13:50 IMPRESSION: Status post right thoracentesis with removal 1.4 L of clear yellow fluid. Chest X-Ray 06/22/21 14:35 IMPRESSION: Status post right thoracentesis there is decrease in right pleural effusion with slight expansion of the right lower lobe. No pneumothorax seen. Chest X-Ray 06/23/21 08:00 IMPRESSION: Small bilateral pleural effusions with slight increase in size of right effusion. Progress Note: A&P Assessment and plan (1) Acute on chronic systolic (congestive) heart failure: Status: Acute (2) Pleural effusion: Status: Acute (3) Multiple falls: Status: Acute (4) Dizziness: Status: Acute (5) PAF (paroxysmal atrial fibrillation): Status: Acute Assessment and Plan: Data reviewed. Chest x-ray shows moderate to large right pleural effusion and compressive atelectasis of right lung. Small left effusion. Thought to be similar to prior exams. Brain MRI with no acute bleeds or infarcts. Extensive chronic microvascular ischemic changes noted. There were also lacunar infarcts in the basal ganglia. Diffuse volume loss. Labs with hemoglobin 13.1. White cells 6.7. Platelets are 198. Potassium is 3.4. Creatinine is 1.39. Cardiac BNP at 1883. High sensitivity troponins 11.3. Admission EKG with sinus rhythm but telemetry rather shows atrial fibrillation. Today, back in SR. Clinically, he really does not look volume overloaded at all. No need for aggressive diuresis. Continue beta-blockers and amiodarone. May keep on oral diuretics. Will need oral anticoagulation due to recent cardioversion. BP management. Reason for falls most likely gait related. Doubt cardiac etiology. Thank you. Fall Risk Details Current Medications: Current Medications Generic Name Dose Route Start Last Admin Trade Name Freq PRN Reason Stop Dose Admin Acetaminophen 650 mg 06/21/21 15:09 Acetaminophen 325 Mg Tablet PO Q6H PRN Pain, Mild (Pain Scale 1-3) Amiodarone HCl 200 mg 06/21/21 16:00 06/23/21 08:39 Amiodarone Hcl 200 Mg Tablet PO 200 mg DAILY [facility] Administration Atorvastatin Calcium 80 mg 06/21/21 21:00 06/22/21 20:11 Atorvastatin Calcium 80 Mg Tablet PO 80 mg BEDTIME [facility] Administration Bupropion HCl 300 mg 06/21/21 15:45 06/23/21 08:38 Bupropion Hcl Xl 300 Mg Tab.Er.24h PO 300 mg DAILY [facility] Administration Escitalopram Oxalate 20 mg 06/22/21 09:00 06/23/21 08:39 Escitalopram Oxalate 20 Mg Tablet PO 20 mg DAILY [facility] Administration Furosemide 40 mg 06/23/21 09:00 06/23/21 08:38 Furosemide 40 Mg Tablet PO 40 mg BID@0900,1800 [facility] Administration Protocol Insulin Human Lispro 0 unit 06/21/21 16:30 06/23/21 07:21 Insulin Lispro 100 Unit/Ml 3 Ml Vial SUBCUT Not Given QIDACHS [facility] Protocol Metoprolol Succinate 100 mg 06/23/21 09:00 06/23/21 08:38 Metoprolol Succinate Er 100 Mg Tab.Er.24h PO 100 mg DAILY [facility] Administration Protocol Pharmacy Consult 1 each 06/21/21 11:45 Consult Rx Perform Med Rec MISCELLANE ONCE PRN Consult order Sodium Chloride 3 ml 06/21/21 16:00 06/23/21 08:39 0.9 % Sodium Chloride Flush 3 Ml Syringe IVFLUSH 3 ml QSHIFT [facility] Administration Time Spent With Patient Time: Total time spent is greater than 50% in coordination of care (as documented) at patient's floor/unit and/or counseling patient: Time with patient: less than 15 minutes Progress Note: Quality Stroke Does the patient have a stroke diagnosis?: No Procedures Date of Service Date of Service: 06/23/21
[2021-06-23 11:16] LABS: Glucose, Whole Blood 267 mg/dL (60-115)
[2021-06-23] MEDS: Insulin Lispro 100 UNIT/ML 3 ML VIAL SUBCUT (11:54)
[2021-06-23] MEDS: Losartan Potassium 25 MG TABLET PO (11:55)
--- NOTE | 2021-06-23 12:11 | HO.PM.IMPN ---
Subjective Subjective Date of Service: 06/23/21 Interval History: Seen and examined this morning No specific complaints at this time Reports improvement of dizziness. Denies shortness of breath Review of Systems Review of Systems: Yes all other systems are reviewed and are negative Constitutional Constitutional: Denies chills and Denies fever(s) Cardiovascular Cardiovascular: Denies chest pain Respiratory Respiratory: Denies cough Gastrointestinal Gastrointestinal: Denies abdominal pain Physical Exam Vital Signs: Vital Signs: Last Vital Signs Temp 97.6 F 06/23/21 10:58 Pulse 67 06/23/21 11:55 Resp 18 06/23/21 10:58 BP 147/95 H 06/23/21 11:55 Pulse Ox 94 06/23/21 10:58 Body Mass Index 27.0 Const: General: alert and awake Nutritional Appearance: well nourished HENMT: Head: Yes normocephalic and Yes atraumatic Eyes: Sclerae: sclerae normal Resp: Effort & Inspection: normal respiratory effort and no respiratory distress Cardio: Rate: regular rate Rhythm: regular rhythm GI: Palpation (GI): Soft to palpation and nontender Neuro: Cranial nerves: Yes CN's II-XII intact bilaterally and Yes Bilaterally intact EOM present Objective Data Current Medications Generic Name Dose Route Start Last Admin Trade Name Freq PRN Reason Stop Dose Admin Acetaminophen 650 mg 06/21/21 15:09 Acetaminophen 325 Mg Tablet PO Q6H PRN Pain, Mild (Pain Scale 1-3) Amiodarone HCl 200 mg 06/21/21 16:00 06/23/21 08:39 Amiodarone Hcl 200 Mg Tablet PO 200 mg DAILY [facility] Administration Atorvastatin Calcium 80 mg 06/21/21 21:00 06/22/21 20:11 Atorvastatin Calcium 80 Mg Tablet PO 80 mg BEDTIME [facility] Administration Bupropion HCl 300 mg 06/21/21 15:45 06/23/21 08:38 Bupropion Hcl Xl 300 Mg Tab.Er.24h PO 300 mg DAILY [facility] Administration Escitalopram Oxalate 20 mg 06/22/21 09:00 06/23/21 08:39 Escitalopram Oxalate 20 Mg Tablet PO 20 mg DAILY [facility] Administration Furosemide 40 mg 06/23/21 09:00 06/23/21 08:38 Furosemide 40 Mg Tablet PO 40 mg BID@0900,1800 [facility] Administration Protocol Insulin Human Lispro 0 unit 06/21/21 16:30 06/23/21 11:54 Insulin Lispro 100 Unit/Ml 3 Ml Vial SUBCUT 6 unit QIDACHS [facility] Administration Protocol Losartan Potassium 25 mg 06/23/21 11:20 06/23/21 11:55 Losartan Potassium 25 Mg Tablet PO 25 mg DAILY [facility] Administration Protocol Metoprolol Succinate 100 mg 06/23/21 09:00 06/23/21 08:38 Metoprolol Succinate Er 100 Mg Tab.Er.24h PO 100 mg DAILY [facility] Administration Protocol Pharmacy Consult 1 each 06/21/21 11:45 Consult Rx Perform Med Rec MISCELLANE ONCE PRN Consult order Sodium Chloride 3 ml 06/21/21 16:00 06/23/21 08:39 0.9 % Sodium Chloride Flush 3 Ml Syringe IVFLUSH 3 ml QSHIFT [facility] Administration Labs CBC & Chem 7: 06/22/21 05:50 06/23/21 08:41 Labs: Laboratory Results - last 24 hr 06/22/21 06/22/21 06/22/21 13:35 16:19 19:54 Anion Gap Estim Creat Clear Calc Estimated GFR POC Glucose 102 304 H Random Glucose Calcium Pleural WBC Pleural RBC Pleural Neutrophils Pleural Lymphocytes Pleural Monocytes Pleural Other Cells Pleural Total Protein 2.8 Pleural Albumin 1.9 Pleural LDH 77 06/23/21 06/23/21 06/23/21 07:15 08:41 11:13 Anion Gap 16 Estim Creat Clear Calc 63.3 Estimated GFR 51 POC Glucose 148 H 267 H Random Glucose 163 H D Calcium 9.8 Pleural WBC Pleural RBC Pleural Neutrophils Pleural Lymphocytes Pleural Monocytes Pleural Other Cells Pleural Total Protein Pleural Albumin Pleural LDH 06/23/21 13:35 Anion Gap Estim Creat Clear Calc Estimated GFR POC Glucose Random Glucose Calcium Pleural WBC 0.191 Pleural RBC < 0.002 Pleural Neutrophils 26 Pleural Lymphocytes 23 Pleural Monocytes 18 Pleural Other Cells 33 Pleural Total Protein Pleural Albumin Pleural LDH Microbiology Microbiology Results: Microbiology 06/22/21 13:35 Gram Stain - Final Pleural Fluid Routine Culture - Preliminary No growth to date. Anaerobic Culture - Preliminary No growth to date. Assessment and Plan (1) Afib: Status: Acute (2) Dizziness: Status: Acute (3) Acute on chronic systolic (congestive) heart failure: Status: Acute Assessment and Plan: This is a 66 yo M who presents to the hospital with complaints of dizziness resulting in falls. His work up in the emergency room is consistent with probable acute CHF exacerbation. Additionally, he has a persistent moderate / L pleural effusion. The cause of his dizziness is not entirely clear this time, but he has been ruled out for a posterior circulation stroke with a negative MRI. 1. Acute HFrEF exacerbation Improved. Transition to oral Lasix seen by cardiology 2. Dizziness unsteady gait Related to underlying neuropathy and significant vascular disease Seen by Neurology, can consider outpatient EMG nerve conduction study of legs -PT evaluation 3. PAF was in sinus while in the ED (Per EKG) now back in A. Fib -- controlled this AM off eliquis since Sunday 06/17 for planned outpatient thoracentesis continue Amio (d/w patients , she mistakingly gave him 200mg BID instead of the 400mg BID loading dose he was d/c on) -continue amiodarone, metoprolol -can resume Eliquis 48 hours after thoracentesis 4. Persistent R pleural effusion initially felt secondary to CHF. He was diursed last admission and outpatient cxr still showed persistant R effusion. s/p Thoracentesis 06/23, 1.4 L removed - transudative -follow up cytology 5. Mild WILMER suspected cardiorenal improved with diuresis 6. DM hold orals sliding scale Hyperlipidemia Continue statin Mood Continue bupropion Hypertension Continue losartan, metoprolol Full COde DVT pptx, Mechanical; can resume Eliquis 48 hours after thoracentesis attending: Dr. Celestin Quality Stroke Does the patient have a stroke diagnosis?: No VTE Prior VTE?: No VTE Risk Level:: Medical - moderate - high VTE Device Contraindication: N/A - Device Ordered VTE Drug Contraindication: N/A - Med Ordered
[2021-06-23 14:46] LABS: Magnesium 1.4 mg/dL (1.6-2.6)
--- NOTE | 2021-06-23 15:13 | MHC.CM.PN ---
PT IS BEING OFFERED A BED AT [facility] PENDING INSURANCE AUTH. AUTH HAS BEEN REQUESTED. PT WILL DC TO [facility] PENDING INSURANCE AUTH BLS TO TRANSPORT
[2021-06-23] MEDS: Magnesium Sulfate/H2O 2 GM/50 ML PIGGYBACK IV (15:33)
[2021-06-23 16:10] LABS: Glucose, Whole Blood 85 mg/dL (60-115)
--- NOTE | 2021-06-23 17:00 | PC.NURSE ---
Skin assessment completed today. Patient has a stage 1 pressure injury to coccyx which was present on admission. Epc cream is being applied along with repositioning every 2 hours. Surgical incision on midback, c/d/i.
[2021-06-23 19:57] LABS: Glucose, Whole Blood 144 mg/dL (60-115)
[2021-06-23] MEDS: Atorvastatin Calcium 80 MG TABLET PO (20:09)
[2021-06-23] MEDS: traZODone HCL 25 MG HALFTAB PO (22:52)
[2021-06-24 03:46] VITALS: BP 140/68; PULSE 66; RESP 19; TEMP 37; O2SAT 92
[2021-06-24 07:12] VITALS: BP 159/97; PULSE 59; RESP 18; TEMP 36.2; O2SAT 94
[2021-06-24 07:35] LABS: Glucose, Whole Blood 145 mg/dL (60-115)
[2021-06-24 08:31] VITALS: BP 159/97; PULSE 59
[2021-06-24] MEDS: buPROPion HCl XL 300 MG TAB.ER.24H PO (08:31)
[2021-06-24] MEDS: Amiodarone HCL 200 MG TABLET PO (08:31)
[2021-06-24 08:32] VITALS: BP 159/97; PULSE 62
[2021-06-24] MEDS: 0.9 % Sodium Chloride Flush 3 ML SYRINGE IVFLUSH (08:32)
[2021-06-24] MEDS: Escitalopram Oxalate 20 MG TABLET PO (08:32)
[2021-06-24] MEDS: Furosemide 40 MG TABLET PO (08:32)
[2021-06-24] MEDS: Losartan Potassium 25 MG TABLET PO (08:32)
[2021-06-24] MEDS: Metoprolol Succinate ER 100 MG TAB.ER.24H PO (08:32)
--- NOTE | 2021-06-24 09:24 | PM.DS ---
DS: Providers Provider Date of Service: 06/24/21 Date of admission: 06/21/21 15:10 Primary care physician: Unknown Physician Consults: 06/21/21 15:11 Consult to Cardiology Routine Consulting Provider[place] [facility] [facility] Reason for consultation: Acute CHF 06/22/21 13:24 Consult to Neurology Routine Consulting Provider: Herberth Antoine Reason for consultation: dizziness DS: Diagnosis Discharge Diagnosis (1) Afib: Status: Acute (2) Dizziness: Status: Acute (3) Acute on chronic systolic (congestive) heart failure: Status: Acute DS: Medications Discharge Medications Home Medications: Home Medications Medication Instructions Recorded Confirmed allopurinol 300 mg tablet 1 tab PO DAILY 06/04/21 06/21/21 apixaban 5 mg tablet (Eliquis) 1 tab PO BID 06/04/21 06/21/21 atorvastatin 80 mg tablet 80 mg PO BEDTIME 06/04/21 06/21/21 bupropion HCl 300 mg 24 hr tablet, 1 tab PO QAM 06/04/21 06/21/21 extended release escitalopram oxalate 20 mg tablet 1 tab PO DAILY 06/04/21 06/21/21 glipizide 5 mg tablet, extended 2 tab PO DAILY 06/04/21 06/21/21 release 24 hr metformin 500 mg tablet,extended 2 tab PO DAILY 06/04/21 06/21/21 release 24 hr Previous Rx's Medication Instructions Recorded amiodarone 200 mg tablet See Rx Instructions .ROUTE 06/09/21 .COMPLEX #90 tab furosemide 40 mg tablet 40 mg PO BID@0900,1800 #60 tab 06/09/21 losartan 25 mg tablet 25 mg PO DAILY #30 tab 06/09/21 magnesium oxide 500 mg capsule 500 mg PO DAILY #30 cap 06/24/21 metoprolol succinate 100 mg 100 mg PO DAILY 30 Days #30 tab 06/24/21 tablet,extended release 24 hr DS: Summary Hospital Course Hospital Course: From H&P on day of admission This is a 66-year-old male with a past medical history of heart failure with reduced ejection fraction, EF between 15 and 20% on echocardiogram earlier this month, atrial fibrillation, diabetes, hypertension.? History is obtained from ED providers and other ancillary staff as the patient is not the greatest of historians.? Of note, the patient was admitted from 06/04-06/09? for acute exacerbation of ? CHF as well as rapid atrial fibrillation. 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 Additionally during that admission he had a moderate sized right-sided pleural effusion for which he was referred to Pulmonary. Patient is seen and examined in the emergency room.? He reports that he has had increased dizziness over the last several days and has fell a total of 3 times.? Reportedly, the patient had a fall yesterday and was unable to get up until his came back from work and helped him up.? The patient denies any chest pain or shortness of breath.? He denies any swelling.? He endorses being compliant with his medications.? Per reports from the ED provider as well as pharmacist who? completed the patient's med rec, the patient has been off of his Eliquis since Sunday due to some planned procedure.? Additionally the the pharmacy was able to discover that the patient was taking 200 mg of amiodarone twice daily instead of 400 as prescribed. In the emergency room patient's workup revealed a chest x-ray which showed a moderate to large right-sided pleural effusion with compressive atelectasis and/or consolidation.? There was a left-sided pleural effusion as well.? Patient's BNP which during the last hospitalization was 468 has now increased to 1998. an attempt dose made to ambulate the patient, however he had a significant gait abnormality and an MRI was completed to rule out acute cerebral infarct in light of him being off of Eliquis for few days was negative.? He was given IV diuretics but still had persistent symptoms and so admission was requested. Acute HFrEF exacerbation. patient was diuresed with IV lasix. Leg edema improved, he was transitioned back to oral Lasix He was evaluated by cardiology. Persistent R pleural effusion. He was diursed last admission and outpatient cxr still showed persistant R effusion. He underwent Thoracentesis 06/23, 1.4 L removed. Fluid was transudative and likely related to underlying CHF. Cytology is pending at the time of discharge. PAF. Heart rate remained controlled. Dose of metoprolol was increased due to elevated blood pressure. Amiodarone dose has been changed to 200 mg daily. His Eliquis was held for thoracentesis and has been on hold since. It should be resumed this afternoon. Hypertension. Blood pressure was uncontrolled his dose of metoprolol was increased and his blood pressure has improved. Dizziness/unsteady gait. Brain MRI showed extensive chronic microvascular ischemic changes, lacunar infarcts, diffuse volume loss. No acute bleed or infarct. Patient was evaluated by Neurology who felt that symptoms are likely related to underlying neuropathy and significant vascular disease. Can consider outpatient EMG nerve conduction study of legs. Patient was evaluated by Physical therapy who recommended short-term rehab. Anticipate less than 30 day stay at SNF. Time Spent with Patient Time attestation: Total time spent providing and/or coordinating discharge services: Discharge coordination time: Greater than 30 minutes Quality: Stroke Does the patient have a stroke diagnosis?: No Physical Exam Vital Signs: Vital Signs: Last Vital Signs Temp 97.2 F 06/24/21 07:12 Pulse 62 06/24/21 08:32 Resp 18 06/24/21 07:12 BP 159/97 H 06/24/21 08:32 Pulse Ox 94 06/24/21 07:12 Body Mass Index 27.0 Const: Other: Constitutional - Awake and Alert, No apparent distress Eyes - PERRLA, EOMI Cardiovascular - S1S2, RRR Respiratory - clear to auscultation Gastrointestinal - NT / ND; +BS; No rebound or guarding - No CVA tenderness Extremities - no calf tenderness bilaterally, no swelling Musculoskeletal - Normal inspection, normal ROM Skin - Warm/Dry Neurological - Alert & oriented x3, No focal deficit Psychological - Appropriate affect DS: Data Data Completed and Pending Completed studies during hospitalization [Text1]: Pending at discharge 06/22/21 15:07 Cytology [PTH] Routine Procedures Advent of Cardiac Rhythm, Single (06/04/21) Labs on day of discharge: Laboratory Results - last 24 hr 06/23/21 06/23/21 06/23/21 08:41 11:13 13:35 Sodium 138 Potassium 3.5 Chloride 94 L Carbon Dioxide 32 H Anion Gap 16 BUN 22 H Creatinine 1.39 Estim Creat Clear Calc 63.3 Estimated GFR 51 POC Glucose 267 H Random Glucose 163 H D Calcium 9.8 Magnesium 1.4 L* Pleural WBC 0.191 Pleural RBC < 0.002 Pleural Neutrophils 26 Pleural Lymphocytes 23 Pleural Monocytes 18 Pleural Other Cells 33 06/23/21 06/23/21 06/24/21 15:55 19:52 07:11 Sodium Potassium Chloride Carbon Dioxide Anion Gap BUN Creatinine Estim Creat Clear Calc Estimated GFR POC Glucose 85 144 H 145 H Random Glucose Calcium Magnesium Pleural WBC Pleural RBC Pleural Neutrophils Pleural Lymphocytes Pleural Monocytes Pleural Other Cells Preliminary micro results at discharge 06/22/21 13:35 Routine Culture - Preliminary Pleural Fluid No growth to date. Anaerobic Culture - Preliminary No growth to date. Discharge Plan Discharge Patient Disposition: [facility] Discharge Diagnosis: Acute HFrEF exacerbation Right pleural effusion Dizziness/unsteady gait Paroxysmal atrial fibrillation Hypomagnesemia Referrals: vishal quesada [Other] - 1 Week Physician,Unknown [Primary Care Provider] - 1 Week Discharge Medications: New magnesium oxide 500 mg capsule 500 mg PO DAILY Qty: 30 RF: 0 metoprolol succinate 100 mg Tablet Extended Release 24 Hr 100 mg PO DAILY 30 Days Qty: 30 RF: 0 amiodarone 200 mg tablet 200 mg PO DAILY Qty: 30 RF: 0 Continued atorvastatin 80 mg tablet 80 mg PO BEDTIME RF: 0 glipizide 5 mg tablet extended release 24hr 2 tab PO DAILY RF: 0 allopurinol 300 mg tablet 1 tab PO DAILY RF: 0 metformin 500 mg tablet extended release 24 hr 2 tab PO DAILY RF: 0 escitalopram oxalate 20 mg tablet 1 tab PO DAILY RF: 0 bupropion HCl 300 mg tablet extended release 24 hr 1 tab PO QAM RF: 0 Eliquis 5 mg tablet 1 tab PO BID RF: 0 furosemide 40 mg Tablet 40 mg PO BID@0900,1800 Qty: 60 RF: 0 losartan 25 mg Tablet 25 mg PO DAILY Qty: 30 RF: 0 Discontinued metoprolol succinate 50 mg Tablet Extended Release 24 Hr 50 mg PO DAILY Qty: 30 RF: 0 amiodarone 200 mg tablet See Rx Instructions .ROUTE .COMPLEX Qty: 90 RF: 0 Discharge Orders: Discharge Order (Routine); Ordered 06/24/21 Ordered By: Anna Chaudhary Diet: diabetic diet and low salt diet Activity on Discharge: As tolerated Stand Alone Forms: Patient Portal Discharge page Care Plan Goals: see below Health Concerns: Dizziness/unsteady gait pleural effusion HFrEF Atrial fibrillation Plan of Treatment: Pleural effusion- underwent thoracentesis with removal of 1.4 L of fluid. Likely related to underlying CHF. Cytology pending at time of discharge. Unsteady gait. Discharged to short-term rehab for physical therapy Heart failure. Continue low-sodium diet, monitor weight daily. Outpatient follow-up with Cardiology Atrial fibrillation. Dose of metoprolol was increased. Eliquis has been on hold since thoracentesis, it can be resumed for this afternoon Hypomagnesemia. you have been started on magnesium supplementation Assessment: see discharge summary
--- NOTE | 2021-06-24 09:45 | MHC.CM.PN ---
pt to be dcd to [facility] today at 12:30 via [facility] less than 30 day requeated by
--- NOTE | 2021-06-24 09:49 | MHC.CM.PN ---
pts notified of randall longoria [phone]
[2021-06-24 10:52] LABS: Glucose, Whole Blood 246 mg/dL (60-115)
[2021-06-24] MEDS: Insulin Lispro 100 UNIT/ML 3 ML VIAL SUBCUT (11:32)
[2021-06-24 11:33] VITALS: BP 145/92; PULSE 57; RESP 18; TEMP 36.6; O2SAT 97
[2021-06-24 13:35] LABS: COVID-19 Test Negative (Negative)
== END 2021-06-24 13:54 | disposition skilled nursing facility (03) | DRG 292 ==
LOC: HO.ED 12:06 → HO.EDOVER 15:19 → HO.IMC 23:30
PROVIDERS: Physician Assistant Medical; Radiology Diagnostic Radiology; Admitting Provider Family Medicine; Emergency Provider Emergency Medicine Emergency Medical Services; PCP Internal Medicine; Visit Provider Family Medicine
PROC: 0W993ZZ Drainage of Right Pleural Cavity, Percutaneous Approach (ICD-10-PCS; principal; 2021-06-22 13:00)
DX: I11.0 Hypertensive heart disease with heart failure (principal); N17.9 Acute kidney failure, unspecified; Q74.3 Arthrogryposis multiplex congenita; G45.0 Vertebro-basilar artery syndrome; I50.23 Acute on chronic systolic (congestive) heart failure; Z20.822 Contact with and (suspected) exposure to COVID-19; R29.6 Repeated falls; E11.42 Type 2 diabetes mellitus with diabetic polyneuropathy; I48.0 Paroxysmal atrial fibrillation; Z91.81 History of falling; Z87.891 Personal history of nicotine dependence; Z79.01 Long term (current) use of anticoagulants; Z79.84 Long term (current) use of oral hypoglycemic drugs; Z79.899 Other long term (current) drug therapy
CPT/HCPCS: 32555; 36415; 70450; 70551; 71045; 71046; 80048; 80053; 81003; 82040; 82042; 82550; 82947; 83615; 83735; 83880; 84155; 84157; 84484; 85025; 85027; 85610; 87071; 87073; 87205; 87635; 88112; 89051; 93005; 97163; 99285; J1940; J3475

== ENCOUNTER 2021-07-20 15:45 | Inpatient (IN) | payer MEDICARE, SELFPAY ==
[2021-07-20] VITALS (7 sets, daily range): BP systolic 88–155; BP diastolic 38–79; PULSE 56–66; RESP 16–18; TEMP 36.1–36.7; O2SAT 98–99; BMI 25.0
--- NOTE | ~2021-07-20 | XR_ITS ---
EXAMINATION: XR HIP, LEFT CLINICAL INFORMATION: Fall, pain COMPARISON: None TECHNIQUE: Two views of the left hip. FINDINGS: Negative for acute fracture or dislocation. XR/XR hip LT w [id number] IMPRESSION: No acute fracture or dislocation left hip
--- NOTE | ~2021-07-20 | XR_ITS ---
EXAMINATION: XR CHEST CLINICAL INFORMATION: Syncope COMPARISON: 06/23/2021 TECHNIQUE: Frontal view of the chest was obtained. FINDINGS: No acute finding. No obvious failure or infiltrate. There is no effusion. The lung ramírez are grossly clear. The cardiac contour is comparable to previous. XR/XR chest 1V IMPRESSION: No acute process.
--- NOTE | ~2021-07-20 | CT_ITS ---
EXAMINATION: CT ABDOMEN AND PELVIS WITHOUT CONTRAST CLINICAL INFORMATION: Anemia COMPARISON: None TECHNIQUE: Multidetector volumetric imaging was performed from the superior aspect of the liver through the pubic symphysis. Sagittal and coronal reformatted images were obtained on the technologist's workstation. This CT examination was performed using dose optimization techniques as appropriate, variously including the following: *Automated exposure control *Adjustment of mA and/or kV according to patient size (this includes techniques or standardized protocols for targeted exams where dose is matched to indication/reason for exam; i.e. extremities or head) *Use of iterative reconstruction technique DLP: 660 mGy-cm FINDINGS: LUNG BASES: Coronary calcifications are noted LIVER, GALLBLADDER, AND BILIARY TREE: The liver is normal in size, shape, and attenuation. No focal hepatic lesion or biliary ductal dilatation is present. The gallbladder is unremarkable with no evidence of radiopaque gallstones, gallbladder wall thickening, or obvious pericholecystic inflammatory changes. PANCREAS: Some calcifications associated with the pancreas of uncertain etiology. SPLEEN: Unremarkable. ADRENAL GLANDS: Mildly full appearing adrenal glands. Difficult to exclude some mild nodularity in the right KIDNEYS AND URETERS: No hydronephrosis or stone. Some low-density structures midpole left kidney could represent evolving cysts. Consider ultrasound to confirm BLADDER: Unremarkable. GASTROINTESTINAL TRACT: Mild to moderate rectal stool but there is soft tissue stranding around the area including the presacral region uncertain etiology. Could be inflammatory. Otherwise overall nonobstructing bowel pattern. The appendix is within normal limits. ABDOMINAL WALL: No significant hernia is appreciated. LYMPH NODES: There is no bulky adenopathy felt to be present. VASCULAR: Cannot exclude some aneurysmal change of the internal iliac on the left. PELVIC VISCERA: As described above OSSEOUS STRUCTURES: Unremarkable. CT/CT abdomen pelvis wo con IMPRESSION: The rectum is mild to moderately stool-filled and there is perirectal soft tissue stranding and some layering of density ventral to the sacrum. This could reflect proctitis or colitis. Given history of anemia cannot exclude a small amount of blood here but this is not a large amount. The spleen is normal in size Otherwise there is no suspicious free fluid. Other findings as noted above
--- NOTE | ~2021-07-20 | CT_ITS ---
EXAMINATION: CT HEAD WITHOUT CONTRAST CLINICAL INFORMATION: Trauma COMPARISON: Previous dated 06/21/2021 TECHNIQUE: Contiguous axial imaging was performed from the skull base to vertex without intravenous administration of contrast. This CT examination was performed using dose optimization techniques as appropriate, variously including the following: *Automated exposure control *Adjustment of mA and/or kV according to patient size (this includes techniques or standardized protocols for targeted exams where dose is matched to indication/reason for exam; i.e. extremities or head) *Use of iterative reconstruction technique DLP: 715 mGy-cm FINDINGS: No midline shift. No mass effect. No hemorrhage. The basilar cisterns appear patent. The posterior fossa is grossly within normal limits. There is no extra-axial collection. Vascular calcifications are noted. Moderate to marked white matter skinny change is noted. Partially visualized sinuses are patent. No fracture is seen on the bone windows. CT/CT head/brain wo con IMPRESSION: No acute finding. Moderate to marked white matter ischemic changes noted. No midline shift. No mass effect. No hemorrhage.
--- NOTE | 2021-07-20 16:00 | ECG_ITS ---
Test Reason : DIZINESS Blood Pressure : / mmHG Vent. Rate : 056 BPM Atrial Rate : 056 BPM P-R Int : 150 ms QRS Dur : 098 ms QT Int : 604 ms P-R-T Axes : 032 041 081 degrees QTc Int : 582 ms Sinus bradycardia Prolonged QT Abnormal ECG When compared with ECG of 21-JUN-2021 09:54, Non-specific change in ST segment in Lateral leads Nonspecific T wave abnormality no longer evident in Inferior leads Nonspecific T wave abnormality no longer evident in Lateral leads QT has lengthened Referred By: Generic ED Physician Electronically Signed By:NOY GILMORE
--- NOTE | 2021-07-20 16:52 | ED.GENADULT ---
HPI - General Adult General Chief complaint: Fall Stated complaint: blood pressure low possible broken hip Time Seen by Provider: 07/20/21 16:52 Source: patient Mode of arrival: ambulatory Limitations: no limitations History of Present Illness HPI narrative: 66-year-old male with past medical history of gait disorder, PAF, acute on chronic systolic heart failure, history of multiple falls, diabetes, hypertension, WILMER, pleural effusion is here today for low blood pressure and frequent falls. Patient reports that he went outside today and felt dizzy, denies falling however he reports that he fell yesterday. Denies hitting head. Patient is on Eliquis for PAF. Patient has been cardioverted on June 08. Patient denies any palpitation, irregular heart rate, chest pain, SOB with or without exertion, PND. Reports syncope. Patient denies any other symptoms Related Data Home Medications Medication Instructions Recorded Confirmed allopurinol 300 mg tablet 300 mg PO DAILY 06/04/21 07/20/21 apixaban 5 mg tablet (Eliquis) 5 mg PO BID 06/04/21 07/20/21 atorvastatin 80 mg tablet 80 mg PO BEDTIME 06/04/21 07/20/21 bupropion HCl 300 mg 24 hr tablet, 1 tab PO DAILY 06/04/21 07/20/21 extended release escitalopram oxalate 20 mg tablet 20 mg PO DAILY 06/04/21 07/20/21 hydrochlorothiazide 12.5 mg tablet 12.5 mg PO DAILY 07/20/21 07/20/21 insulin glargine 100 unit/mL (3 15 unit SUBCUT BEDTIME 07/20/21 07/20/21 mL) subcutaneous pen (Lantus Solostar U-100 Insulin) magnesium oxide 400 mg PO DAILY 07/20/21 07/20/21 metformin 500 mg tablet 500 mg PO BID 07/20/21 07/20/21 Previous Rx's Medication Instructions Recorded furosemide 40 mg tablet 40 mg PO BID@0900,1800 #60 tab 06/09/21 losartan 25 mg tablet 25 mg PO DAILY #30 tab 06/09/21 amiodarone 200 mg tablet 200 mg PO DAILY #30 tab 06/24/21 metoprolol succinate 100 mg 100 mg PO DAILY 30 Days #30 tab 06/24/21 tablet,extended release 24 hr Allergies Allergy/AdvReac Type Severity Reaction Status Date / Time colchicine Allergy Rash Verified 07/20/21 15:56 Review of Systems Review of Systems: Constitutional : No Weight loss, No Fever, No Chills, No Night Sweats, No Fatigue, No Malaise ENT/Mouth : No Hearing loss, No Ear Pain, No Nasal Congestion, No Sinus Pain, No Hoarseness, No sore throat, No Rhinorrhea, No Swallowing Difficulty Eyes: No Eye Pain, No Swelling, No Redness, No Foreign Body, No Discharge, No Vision Changes Cardiovascular : No Chest Pain, No SOB, No Dyspnea on Exertion, No Orthopnea, No Edema, No Palpitations Respiratory : No Cough, No Sputum, No Wheezing, No Smoke Exposure, No Dyspnea Gastrointestinal : No Nausea, No Vomiting, No Diarrhea, No Constipation, No abdominal Pain, No Hematochezia, No Melena Genitourinary : no irregular bleeding, No Dysuria, No Urinary Frequency, No Hematuria, No Urinary Incontinence, No Urgency, No Flank Pain, No Urinary Flow Changes, No Hesitancy Musculoskeletal : joint pain, left hip pain, No Myalgias, No Joint Swelling Skin : No Skin Lesions, No rash Neuro : No Weakness, No Numbness, No Paresthesias, No Loss of Consciousness, No Dizziness, No Headache Psych : No Anxiety/Panic, No Depression, No SI/HI/AH/VH, No Social Issues, Heme/Lymph: No Bruising, No Bleeding,No Lymphadenopathy Endocrine : No Polyuria, No Polydipsia, No Temperature Intolerance Yes all other systems are reviewed and are negative [facility] Past Medical History Medical History Afib Atrial fibrillation CHF (congestive heart failure) CHF (congestive heart failure) Diabetes HTN (hypertension) Noncompliance with medications Family History Family History Father CAD (coronary artery disease) Social History Social History Household Members: Spouse and Other Household Members Other:: and son Housing: House Do you presently have visiting nurse or other home services: Yes Alcohol intake: never Patient Tobacco Use Status: Former Tobacco user Second Hand Smoke Exposure: No Advance Directives: No Advance Directives Information Provided: No service: No Current occupational status: retired Physical Exam Vital Signs: Vital Signs: Last Vital Signs Temp 98.1 F 07/20/21 15:56 Pulse 59 07/20/21 18:31 Resp 16 07/20/21 17:46 BP 104/61 07/20/21 18:31 Pulse Ox 98 07/20/21 17:46 Body Mass Index 25.0 Const: General: healthy appearing, no acute distress and well developed Nutritional Appearance: well nourished Orientation/consciousness: patient oriented x3 Neck: Neck: Yes normal visual inspection, Yes full ROM and Yes trachea midline Thyroid: Thyroid normal Resp: Auscultation: clear to auscultation bilaterally Cardio: Rate: regular rate Rhythm: regular rhythm GI: Inspection: Yes normal to inspection and No distended Palpation (GI): No hepatosplenomegaly present Auscultation: normal bowel sounds : General: Yes no CVA tenderness Back/Spine/Pelvis: Back: no CVA tenderness Thoracic/Lumbar Spine: thoracic and lumbar spine normal to inspection Pelvis: no pain with anterior-posterior compression and buttock tenderness (Left) Skin: General skin exam: elasticity normal, turgor normal and dry skin Neuro: General: patient oriented x3 Extrem: Right upper extremity: full ROM Left upper extremity: full ROM Right lower extremity: full ROM and knee Details: abrasion (Old) Left lower extremity: full ROM Course Course Course Narrative: 66-year-old male with past medical history of diabetes, hypertension, WILMER, multiple falls, systolic heart failure, PAF is here today for evaluation of his frequent falls and dizziness. Patient reports that he has been falling in the last few months. He had cardioversion in May. Denies any CP, PND, SOB with or without exertion. Last echo showed 30-35% of EF. No evidence of pericardial effusion. Reports syncopal events. Denies hitting head. Patient denies any injuries. He is on Eliquis Reevaluation(s) Reevaluation #1: H&H low 9.7 and 28.9, which is markedly decreased since June 22. H&H 13.1 and 39.5 month ago. Questioning the source of bleed. is at the bedside. She reports that patient does have a history of early-onset dementia. Will check stool for occult blood. reports that patient was complaining of left hip pain after the fall and that he hit his head in the past when he fell. Last time that he fell was yesterday. Creatinine 4.68, BUN 69. Will order 1 L of fluids. Patient has a history of Congestive heart failure (systolic). Reevaluation #2: Report given to hospitalist. Medical Decision Making Lab Data Result diagrams: 07/20/21 17:20 07/20/21 17:20 Labs: Lab Results 07/20/21 07/20/21 07/20/21 Range/Units 17:20 17:20 17:48 WBC 9.3 (4.8-10.8) X10*3/uL RBC 3.52 L D (4.60-5.80) X10*6/uL Hgb 9.7 L D (14.0-18.0) g/dl Hct 28.9 L D (42-52) % MCV 82.1 (80-98) fL MCH 27.6 (27.0-33.0) pg MCHC 33.6 (31.0-36.0) g/dl RDW 16.5 H (11.0-16.0) % Plt Count 179 (160-400) X10*3/uL MPV 9.5 (9.4-12.4) fL Immature Gran % (Auto) 1.0 H (0.0-0.4) % Neut % (Auto) 79.1 H (45-73) % Lymph % (Auto) 12.5 L (20-40) % [place] % (Auto) 6.3 (2-11) % Eos % (Auto) 0.9 (0-4) % Baso % (Auto) 0.2 (0-2) % Lymph # (Auto) 1.2 (1.2-4.9) X10*3/uL [place] # (Auto) 0.6 (0.1-1.2) X10*3/uL Eos # (Auto) 0.1 (0.0-0.4) X10*3/uL Baso # (Auto) 0.0 (0.0-0.2) X10*3/uL Abs Immat Gran (auto) 0.09 H (0.00-0.03) X10*3/uL Absolute Neuts (auto) 7.4 (2.0-8.3) X10*3/uL Absolute Nucleated RBC 0.000 (0.0-0.012) X10*3/uL Nucleated RBC % (auto) 0.0 (0.0-0.2) /100WBC Sodium 134 L (135-145) mmol/L Potassium 4.1 (3.3-5.1) mmol/L Chloride 93 L (96-108) mmol/L Carbon Dioxide 27 (22-29) mmol/L Anion Gap 18 (12-20) BUN 69 H D (9-16) mg/dL Creatinine 4.68 H* (0.5-1.4) mg/dL Estim Creat Clear Calc 18.8 Estimated GFR 13 Random Glucose 188 H (60-115) mg/dL Calcium 9.2 D (8.4-10.2) mg/dL Stool Occult Blood NEGATIVE (NEGATIVE) COVID-19 ([facility]) (Negative) COVID-19 Clin Com 07/20/21 Range/Units 18:47 WBC (4.8-10.8) X10*3/uL RBC (4.60-5.80) X10*6/uL Hgb (14.0-18.0) g/dl Hct (42-52) % MCV (80-98) fL MCH (27.0-33.0) pg MCHC (31.0-36.0) g/dl RDW (11.0-16.0) % Plt Count (160-400) X10*3/uL MPV (9.4-12.4) fL Immature Gran % (Auto) (0.0-0.4) % Neut % (Auto) (45-73) % Lymph % (Auto) (20-40) % [place] % (Auto) (2-11) % Eos % (Auto) (0-4) % Baso % (Auto) (0-2) % Lymph # (Auto) (1.2-4.9) X10*3/uL [place] # (Auto) (0.1-1.2) X10*3/uL Eos # (Auto) (0.0-0.4) X10*3/uL Baso # (Auto) (0.0-0.2) X10*3/uL Abs Immat Gran (auto) (0.00-0.03) X10*3/uL Absolute Neuts (auto) (2.0-8.3) X10*3/uL Absolute Nucleated RBC (0.0-0.012) X10*3/uL Nucleated RBC % (auto) (0.0-0.2) /100WBC Sodium (135-145) mmol/L Potassium (3.3-5.1) mmol/L Chloride (96-108) mmol/L Carbon Dioxide (22-29) mmol/L Anion Gap (12-20) BUN (9-16) mg/dL Creatinine (0.5-1.4) mg/dL Estim Creat Clear Calc Estimated GFR Random Glucose (60-115) mg/dL Calcium (8.4-10.2) mg/dL Stool Occult Blood (NEGATIVE) COVID-19 ([facility]) Negative (Negative) COVID-19 Clin Com See Note Imaging Data Hip x-ray: Radiologist's impression: FINDINGS: Negative for acute fracture or dislocation. XR/XR hip LT w PEL1V IMPRESSION: No acute fracture or dislocation left hip ? CT scan - head: Radiologist's impression: FINDINGS: No midline shift. No mass effect. No hemorrhage. The basilar cisterns appear patent. The posterior fossa is grossly within normal limits. There is no extra-axial collection. Vascular calcifications are noted. Moderate to marked white matter skinny change is noted. Partially visualized sinuses are patent. No fracture is seen on the bone windows. ? Chest x-ray: Radiologist's impression: FINDINGS: No acute finding. No obvious failure or infiltrate. There is no effusion. The lung ramírez are grossly clear. The cardiac contour is comparable to previous. XR/XR chest 1V IMPRESSION: No acute process. Discharge Plan Discharge Clinical Impression: WILMER (acute kidney injury), Dizziness Anemia Qualifiers: Anemia type: unspecified type Qualified Code(s): D64.9 - Anemia, unspecified Patient Disposition: Admitted As Inpatient
[2021-07-20 17:25] LABS: MANUAL DIFF FLAG NO
[2021-07-20 17:26] LABS: Basophils Percent Auto 0.2 % (0-2); Eosinophils Absolute Auto 0.1 X10*3/uL (0.0-0.4); Eosinophils Percent Auto 0.9 % (0-4); Hematocrit 28.9 % (42-52); Hemoglobin 9.7 g/dl (14.0-18.0); Imm Gran Abs Auto 0.09 X10*3/uL (0.00-0.03); Lymphocytes Absolute Auto 1.2 X10*3/uL (1.2-4.9); Lymphocytes Percent Auto 12.5 % (20-40); Mean Corpuscular HGB Conc 33.6 g/dl (31.0-36.0); Mean Corpuscular Hemoglobin 27.6 pg (27.0-33.0); Mean Corpuscular Volume 82.1 fL (80-98); Mean Platelet Volume 9.5 fL (9.4-12.4); Monocytes Absolute Auto 0.6 X10*3/uL (0.1-1.2); Monocytes Percent Auto 6.3 % (2-11); Neutrophils Absolute Auto 7.4 X10*3/uL (2.0-8.3); Neutrophils Percent Auto 79.1 % (45-73); Platelet Count 179 X10*3/uL (160-400); Red Blood Count 3.52 X10*6/uL (4.60-5.80); Red Cell Distribution Width 16.5 % (11.0-16.0); White Blood Count 9.3 X10*3/uL (4.8-10.8)
[2021-07-20 18:03] LABS: Anion Gap 18 (12-20); Blood Urea Nitrogen 69 mg/dL (9-16); Calcium 9.2 mg/dL (8.4-10.2); Carbon Dioxide 27 mmol/L (22-29); Chloride 93 mmol/L (96-108); Creatinine Clr Calc Pharmacy 18.8; Estimated Glomerular Filt Rate 13; Glucose Random 188 mg/dL (60-115); Potassium 4.1 mmol/L (3.3-5.1); Sodium 134 mmol/L (135-145)
[2021-07-20 18:07] LABS: OBS Int Ctl Valid YES; OBS1 NEGATIVE (NEGATIVE)
[2021-07-20] MEDS: 0.9 % Sodium Chloride 1,000 ML 999 ML IV (18:41)
[2021-07-20 19:09] LABS: COVID-19 Test Negative (Negative); IDNOW Serial# 9DD0AD1C
--- NOTE | 2021-07-20 19:42 | PHA.MEDREC ---
MED REC COMPLETE, No issues Pharmacy Consult ? Medication Reconciliation Pharmacy has completed the medication reconciliation.
--- NOTE | 2021-07-20 21:28 | PM.IMHP ---
History of Present Illness Date of Service: 07/20/21 Chief Complaint: Fall 66-year-old male With a past medical history of hypertension, hyperlipidemia, diabetes, systolic CHF with EF of 30-35%, neuropathy, history of recurrent falls presented to the hospital with a chief complaint of fall. Spoke to the patient's healthcare proxy/patient's Shira. Per patient's patient has probably has at least days of dementia and has been having episodes of confusion/memory impairment which has been more pronounced the past 2 months. Was recently admitted to the hospital for fall. Reported that patient has been complaining his home medications including Lasix, hydrochlorothiazide, metformin, Lantus, Eliquis. Recently had cardioversion done in May of 2021. Patient reported that 2 days ago patient had a significant fall and had head strike. The visiting nurses today mentioned that patient probably had a hip fracture and subsequently passed to take him to the hospital for further evaluation. Patient's reports that patient has been complaining of dizziness and unsteady gait. Had recurrent falls and was evaluated in the past for the same. At the time of my entry patient is lying in the bed comfortably, denies any chest pain palpitations lightheadedness or dizziness. Patient is oriented times 2-3 but intermittently losing the track and will use weak on SIRS. Patient denies any numbness tingling or focal weakness. Denies any abdominal pain or hip pains. Patient does mention that he had history of pleural effusion taken out last month. Denies any fever chills cough. Denies any recent travel or sick contacts. Review of all other systems is negative except mentioned above ER course: Per ER team patient on presentation noted to have some blood pressure with Systolic in 80s; orthostatics positive; given gentle fluids; Non focal; Noted WILMER with Creatinine 4.6; admitted to the hospital for further management ER team also mentioned that patient's stool guaiac was negative [facility] Medical History Afib Atrial fibrillation CHF (congestive heart failure) CHF (congestive heart failure) Diabetes HTN (hypertension) Noncompliance with medications Family History Father CAD (coronary artery disease) Social History Household Members: Spouse and Other Household Members Other:: and son Housing: House Do you presently have visiting nurse or other home services: Yes Alcohol intake: never Patient Tobacco Use Status: Former Tobacco user Second Hand Smoke Exposure: No Advance Directives: No Advance Directives Information Provided: No service: No Current occupational status: retired Meds Allergies Allergy/AdvReac Type Severity Reaction Status Date / Time colchicine Allergy Rash Verified 07/20/21 15:56 Active Medications: Current Medications Generic Name Dose Route Start Last Admin Trade Name Freq PRN Reason Stop Dose Admin Acetaminophen 650 mg 07/20/21 21:19 Acetaminophen 325 Mg Tablet PO Q6H PRN Pain, Mild (Pain Scale 1-3) Dextrose 25 gm 07/20/21 21:25 Dextrose 50 % 25 Gm/50 Ml Vial IVPUSH Q15M PRN per Hypoglycemia Standing Ord. Protocol Docusate Sodium 100 mg 07/21/21 09:00 Docusate Sodium 100 Mg Capsule PO BID [facility] Glucose 15 gm 07/20/21 21:25 Glucose Gel 15 Gm Gel..Gram. PO Q15M PRN per Hypoglycemia Standing Ord. Protocol Sodium Chloride 1,000 mls @ 50 mls/hr 07/20/21 21:30 Ns IVCONT .Q20H [facility] Insulin Human Lispro 0 unit 07/21/21 07:30 Insulin Lispro 100 Unit/Ml 3 Ml Vial SUBCUT QIDACHS [facility] Protocol Melatonin 3 mg 07/20/21 21:19 Melatonin 3 Mg Tablet PO BEDTIME PRN Insomnia Pharmacy Consult 1 each 07/20/21 18:38 Consult Rx Perform Med Rec MISCELLANE ONCE PRN Consult order Senna 17.2 mg 07/20/21 21:19 Sennosides 8.6 Mg Tablet PO BEDTIME PRN Constipation Sodium Chloride 3 ml 07/21/21 00:00 0.9 % Sodium Chloride Flush 3 Ml Syringe IVFLUSH QSHIFT [facility] Home Medications Medication Instructions Recorded Confirmed Last Taken Type allopurinol 300 mg tablet 300 mg PO DAILY 06/04/21 07/20/21 07/20/21 History apixaban 5 mg tablet (Eliquis) 5 mg PO BID 06/04/21 07/20/21 07/20/21 History atorvastatin 80 mg tablet 80 mg PO BEDTIME 06/04/21 07/20/21 07/19/21 History bupropion HCl 300 mg 24 hr tablet, 1 tab PO DAILY 06/04/21 07/20/21 07/20/21 History extended release escitalopram oxalate 20 mg tablet 20 mg PO DAILY 06/04/21 07/20/21 07/20/21 History hydrochlorothiazide 12.5 mg tablet 12.5 mg PO DAILY 07/20/21 07/20/21 07/20/21 History insulin glargine 100 unit/mL (3 15 unit SUBCUT BEDTIME 07/20/21 07/20/21 Unknown History mL) subcutaneous pen (Lantus Solostar U-100 Insulin) magnesium oxide 400 mg PO DAILY 07/20/21 07/20/21 07/20/21 History metformin 500 mg tablet 500 mg PO BID 07/20/21 07/20/21 07/20/21 History Physical Exam Vital Signs and Narrative: Vital Signs: Last Vital Signs Temp 97.7 F 07/20/21 20:34 Pulse 58 07/20/21 20:34 Resp 18 07/20/21 20:34 BP 107/38 L 07/20/21 20:34 Pulse Ox 98 07/20/21 20:34 Body Mass Index 25.0 Gen: Appears be in no acute distress HEENT: NCAT, Moist mucosa. Pulmonary: Vesicular breath sounds, fair air entry CVS: Normal S1-S2 Abdomen: BS+, Soft, Nontender Extremities: Warm well perfused; normal range of motion at the hips and knees Neuro: Alert and awake. Grossly nonfocal; oriented times 2-3 Results Labs CBC and Chem 7: 07/20/21 17:20 07/20/21 17:20 Labs: Laboratory Results - last 24 hr 07/20/21 07/20/21 07/20/21 17:20 17:20 17:48 MCV 82.1 MCH 27.6 MCHC 33.6 RDW 16.5 H Plt Count 179 MPV 9.5 Immature Gran % (Auto) 1.0 H Neut % (Auto) 79.1 H Lymph % (Auto) 12.5 L [place] % (Auto) 6.3 Eos % (Auto) 0.9 Baso % (Auto) 0.2 Lymph # (Auto) 1.2 [place] # (Auto) 0.6 Eos # (Auto) 0.1 Baso # (Auto) 0.0 Abs Immat Gran (auto) 0.09 H Absolute Neuts (auto) 7.4 Absolute Nucleated RBC 0.000 Nucleated RBC % (auto) 0.0 Anion Gap 18 Estim Creat Clear Calc 18.8 Estimated GFR 13 Random Glucose 188 H Calcium 9.2 D Stool Occult Blood NEGATIVE COVID-19 ([facility]) COVID-19 Clin Com 07/20/21 18:47 MCV MCH MCHC RDW Plt Count MPV Immature Gran % (Auto) Neut % (Auto) Lymph % (Auto) [place] % (Auto) Eos % (Auto) Baso % (Auto) Lymph # (Auto) [place] # (Auto) Eos # (Auto) Baso # (Auto) Abs Immat Gran (auto) Absolute Neuts (auto) Absolute Nucleated RBC Nucleated RBC % (auto) Anion Gap Estim Creat Clear Calc Estimated GFR Random Glucose Calcium Stool Occult Blood COVID-19 ([facility]) Negative COVID-19 Clin Com See Note Imaging Radiologist's Impressions: Impressions Hip/Pelvis X-Ray 07/20/21 17:44 IMPRESSION: No acute fracture or dislocation left hip Head CT 07/20/21 17:45 IMPRESSION: No acute finding. Moderate to marked white matter ischemic changes noted. No midline shift. No mass effect. No hemorrhage. Chest X-Ray 07/20/21 18:38 IMPRESSION: No acute process. Abdomen/Pelvis CT 07/20/21 20:06 IMPRESSION: The rectum is mild to moderately stool-filled and there is perirectal soft tissue stranding and some layering of density ventral to the sacrum. This could reflect proctitis or colitis. Given history of anemia cannot exclude a small amount of blood here but this is not a large amount. The spleen is normal in size Otherwise there is no suspicious free fluid. Other findings as noted above Assessment and Plan (1) WILMER (acute kidney injury): Status: Acute 66-year-old male with a past medical history of hypertension, hyperlipidemia, diabetes, systolic CHF with EF of 30-35%, history of recurrent falls, neuropathy, atrial fibrillation on Eliquis, possible dementia, history of recurrent right-sided pleural effusion presented to the hospital with a chief complaint of fall. Recurrent falls: Mechanical in nature. Patient does have history of head strike. CT head showed no acute findings. Did not notice any hip fracture on the CT abdomen. Fall precautions PT/OT. Patient was evaluated by Neurology in May admission for recurrent falls-opined to be secondary to neuropathy and recommended outpatient EMG studies.(conveyed this to the patient's ) Will also obtain folate, B12, TSH, RPR and vitamin-D levels. Orthostatic hypotension: Patient has recent increasing metoprolol from last admission. Also takes losartan, Lasix, hydrochlorothiazide. Head Lasix, losartan, hydrochlorothiazide. Reduce the dose of metoprolol succinate to 12.5 mg daily from 100 mg daily with holding parameters. Will defer to the primary team for medication optimization at the time of discharge. Also consulted Cardiology for further input. Colitis: Will give the patient on ceftriaxone. CT abdomen shows colitis with small amount of blood. Head Eliquis. Gastroenterology consult. Constipation: Bowel regimen WILMER: Multifactorial. Patient is also on Lasix twice daily, hydrochlorothiazide, losartan at home. Will hold all nephrotoxins. Nephrology consult. CT abdomen showed unremarkable bladder and benign findings on that kidneys, renal cysts. Anemia: Stool guaiac was negative. Patient has a drop in hemoglobin from 13.1-9.7 in 1 month.. No obvious signs of bleeding reported in the history. CT abdomen showed no evidence of retroperitoneal bleeds. Will recheck the labs in the morning and if no improvement will defer to the a.m. team to consider hematology consult. History of systolic CHF: Patient has EF of 30-35%. Currently stable. Holding diuretics for now given WILMER. History of recurrent right-sided pleural effusion: Patient currently breathing comfortably. Chest x-ray is clear. Will continue to monitor. History of paroxysmal AFib: Currently rate controlled. hold Eliquis for now given concerns for small amount of blood on CT abdomen. To be resumed on Eliquis once cleared by Gastroenterology. History of diabetes: Per patient's patient is recently stopped on glipizide. He still takes metformin. Also on Lantus. Hold home regimen for now. Insulin sliding scale. DVT prophylaxis: Held Eliquis Code status: Full code-discussed with the patient's /healthcare proxy. Spoke to the patient's in detail about the above plan, who expressed agreement. Quality Stroke Does the patient have a stroke diagnosis?: No VTE Prior VTE?: No VTE Risk Level:: Medical - moderate - high VTE Device Contraindication: Treatment Not Indicated VTE Drug Contraindication: Treatment Not Indicated
[2021-07-20] MEDS: cefTRIAXone sodium 1 GM in 0.9 % Sodium Chloride 50 ML IV (21:39)
[2021-07-20] MEDS: 0.9 % Sodium Chloride 1,000 ML 50 ML IVCONT (22:19)
--- NOTE | 2021-07-20 22:27 | PC.NURSE ---
Report called to 4th floor. Pending transport upstairs.
[2021-07-20 23:09] LABS: Glucose, Whole Blood 164 mg/dL (60-115)
[2021-07-21] VITALS (8 sets, daily range): BP systolic 129–166; BP diastolic 70–83; PULSE 62–72; RESP 16–18; TEMP 36.6–36.9; O2SAT 95–99; BMI 25.3
[2021-07-21 04:29] LABS: MANUAL DIFF FLAG NO
[2021-07-21 04:33] LABS: Basophils Percent Auto 0.1 % (0-2); Eosinophils Absolute Auto 0.1 X10*3/uL (0.0-0.4); Eosinophils Percent Auto 1.6 % (0-4); Hematocrit 26.3 % (42-52); Hemoglobin 8.7 g/dl (14.0-18.0); Imm Gran Abs Auto 0.06 X10*3/uL (0.00-0.03); Imm Gran Pct Auto 0.8 % (0.0-0.4); Lymphocytes Percent Auto 12.8 % (20-40); Mean Corpuscular HGB Conc 33.1 g/dl (31.0-36.0); Mean Corpuscular Hemoglobin 27.2 pg (27.0-33.0); Mean Corpuscular Volume 82.2 fL (80-98); Monocytes Absolute Auto 0.4 X10*3/uL (0.1-1.2); Monocytes Percent Auto 5.6 % (2-11); Neutrophils Absolute Auto 5.9 X10*3/uL (2.0-8.3); Neutrophils Percent Auto 79.1 % (45-73); Platelet Count 158 X10*3/uL (160-400); Red Cell Distribution Width 16.2 % (11.0-16.0); White Blood Count 7.5 X10*3/uL (4.8-10.8)
[2021-07-21 05:05] LABS: Creatinine Clr Calc Pharmacy 20.8; Estimated Glomerular Filt Rate 14
[2021-07-21 05:06] LABS: Anion Gap 14 (12-20); Blood Urea Nitrogen 71 mg/dL (9-16); Calcium 8.5 mg/dL (8.4-10.2); Carbon Dioxide 28 mmol/L (22-29); Chloride 95 mmol/L (96-108); Glucose Random 141 mg/dL (60-115); Potassium 3.8 mmol/L (3.3-5.1); Sodium 133 mmol/L (135-145)
[2021-07-21 05:14] LABS: Thyroid Stimulating Hormone 2.55 uIU/mL (0.32-4.0); Vitamin D 25-OH Total 7.3 ng/mL (>30)
[2021-07-21 05:28] LABS: Folate 7.5 ng/mL (> or = 4.0); Vitamin B12 244 pg/mL (200-900)
[2021-07-21 07:15] LABS: Glucose Urine UA NEG (NEG); Leukocyte Esterase Urine NEG (NEG); Nitrite Urine NEG (NEG); PH 5.5 (5.0-8.0); UACC Culture Trigger NO; Urine Blood TRACE (NEG); Urine Ketones NEG (NEG); Urine Protein NEG (NEG-TRACE)
[2021-07-21 07:19] LABS: Appearance Urine CLEAR; Color Urine YELLOW
[2021-07-21 07:26] LABS: Squamous Epithelial Cell Urine 1+ /LPF; WBC Urine 0-2 /HPF (0-4)
[2021-07-21 07:39] LABS: Glucose, Whole Blood 179 mg/dL (60-115)
[2021-07-21] MEDS: Insulin Lispro 100 UNIT/ML 3 ML VIAL SUBCUT ×2 (08:37→12:10)
[2021-07-21] MEDS: 0.9 % Sodium Chloride Flush 3 ML SYRINGE IVFLUSH (08:37)
[2021-07-21] MEDS: 0.9 % Sodium Chloride 1,000 ML 100 ML IVCONT ×2 (08:38→20:59)
[2021-07-21] MEDS: Docusate Sodium 100 MG CAPSULE PO ×2 (08:38→20:48)
[2021-07-21] MEDS: Metoprolol Succinate ER 12.5 MG HALFTAB.ER.24H PO (08:38)
[2021-07-21] MEDS: buPROPion HCl XL 300 MG TAB.ER.24H PO (08:38)
[2021-07-21] MEDS: Escitalopram Oxalate 20 MG TABLET PO (08:39)
--- NOTE | 2021-07-21 10:17 | MHC.CM.PN ---
IMM 07/21/21 DX S/P Fall He lives with family. He uses a walker or WC. He needs assist and supervision with ADLs. DP resume [facility]. Family will provide transportation. CM will follow to assess for change in needs and discharge plan. PT and OT ordered. Patient may require STR. He has been falling and more forgetful per EMR.
[2021-07-21 11:24] LABS: Glucose, Whole Blood 164 mg/dL (60-115)
[2021-07-21 12:10] LABS: Hematocrit 26.3 % (42-52); Hemoglobin 8.9 g/dl (14.0-18.0)
--- NOTE | 2021-07-21 12:12 | P.CONCA_ITS ---
History of Present Illness History of Present Illness Date of Service: 07/21/21 Requesting physician: Ambrose Celestin Chief complaint: WILMER, dizziness Narrative: Pleasant 66-year-old gentleman who is presenting for dizziness. He has a background history of anemia, gait disorder with instability, paroxysmal atrial fibrillation, multiple falls, diabetes, hypertension and chronic heart failure. His presenting with dizziness. He is saying that when he changes his posture he feels lightheaded and dizzy. He has passed out while trying to change posture. His denying any chest pain or shortness of breath. No orthopnea or PND. He has been taking medications regularly. With these symptoms he presented to us. He has been found to have significant acute kidney injury and is getting IV fluids and his medications have been held. Will also found to be orthostatic. Review of Systems Review of Systems: Dizziness [facility] Past Medical History Medical History Afib Atrial fibrillation CHF (congestive heart failure) CHF (congestive heart failure) Diabetes HTN (hypertension) Noncompliance with medications Family History Family History Father CAD (coronary artery disease) Social History Social History Household Members: Spouse Household Members Other:: and son Housing: House Do you presently have visiting nurse or other home services: Yes Alcohol intake: never Patient Tobacco Use Status: Never used Tobacco Second Hand Smoke Exposure: No Use of substances other than those prescribed or required for medical reasons: No Currently Displaying Signs/Symptoms of Drug Intoxication Withdrawal: No Advance Directives: No Advance Directives Information Provided: No Do you have thoughts of harming others: None Do you have a plan to hurt others: No Plan Recently lost weight without trying: No Poor oral hygiene: No service: No Current occupational status: retired Meds Allergies Allergy/AdvReac Type Severity Reaction Status Date / Time colchicine Allergy Rash Verified 07/20/21 15:56 Active Medications: Current Medications Generic Name Dose Route Start Last Admin Trade Name Freq PRN Reason Stop Dose Admin Acetaminophen 650 mg 07/20/21 21:19 Acetaminophen 325 Mg Tablet PO Q6H PRN Pain, Mild (Pain Scale 1-3) Atorvastatin Calcium 80 mg 07/21/21 21:00 Atorvastatin Calcium 80 Mg Tablet PO BEDTIME PALMER Bupropion HCl 300 mg 07/21/21 09:00 07/21/21 08:38 Bupropion Hcl Xl 300 Mg Tab.Er.24h PO 300 mg DAILY PALMER Administration Dextrose 25 gm 07/20/21 21:25 Dextrose 50 % 25 Gm/50 Ml Vial IVPUSH Q15M PRN per Hypoglycemia Standing Ord. Protocol Docusate Sodium 100 mg 07/21/21 09:00 07/21/21 08:38 Docusate Sodium 100 Mg Capsule PO 100 mg BID PALMER Administration Escitalopram Oxalate 20 mg 07/21/21 09:00 07/21/21 08:39 Escitalopram Oxalate 20 Mg Tablet PO 20 mg DAILY PALMER Administration Glucose 15 gm 07/20/21 21:25 Glucose Gel 15 Gm Gel..Gram. PO Q15M PRN per Hypoglycemia Standing Ord. Protocol Ceftriaxone Sodium 1 gm/ 50 mls @ 100 mls/hr 07/20/21 22:00 07/20/21 22:19 Sodium Chloride IV Infused Q24H PALMER Infusion Sodium Chloride 1,000 mls @ 100 mls/hr 07/21/21 09:00 07/21/21 08:38 Ns IVCONT 07/22/21 04:59 100 mls/hr .Q10H PALMER Administration Insulin Glargine 15 unit 07/21/21 21:00 Insulin Glargine,Hum.Rec.Anlog 100 Unit/Ml 10 Ml Vial SUBCUT BEDTIME PALMER Insulin Human Lispro 0 unit 07/21/21 07:30 07/21/21 12:10 Insulin Lispro 100 Unit/Ml 3 Ml Vial SUBCUT 2 unit QIDACHS PALMER Administration Protocol Melatonin 3 mg 07/20/21 21:19 Melatonin 3 Mg Tablet PO BEDTIME PRN Insomnia Metoprolol Succinate 12.5 mg 07/21/21 09:00 07/21/21 08:38 Metoprolol Succinate Er 12.5 Mg Halftab.Er.24h PO 12.5 mg DAILY PALMER Administration Protocol Pharmacy Consult 1 each 07/20/21 18:38 Consult Rx Perform Med Rec MISCELLANE ONCE PRN Consult order Senna 17.2 mg 07/20/21 21:19 Sennosides 8.6 Mg Tablet PO BEDTIME PRN Constipation Sodium Chloride 3 ml 07/21/21 00:00 07/21/21 08:37 0.9 % Sodium Chloride Flush 3 Ml Syringe IVFLUSH 3 ml [facility] Administration Home Medications Medication Instructions Recorded Confirmed Last Taken Type allopurinol 300 mg tablet 300 mg PO DAILY 06/04/21 07/20/21 07/20/21 History apixaban 5 mg tablet (Eliquis) 5 mg PO BID 06/04/21 07/20/21 07/20/21 History atorvastatin 80 mg tablet 80 mg PO BEDTIME 06/04/21 07/20/21 07/19/21 History bupropion HCl 300 mg 24 hr tablet, 1 tab PO DAILY 06/04/21 07/20/21 07/20/21 History extended release escitalopram oxalate 20 mg tablet 20 mg PO DAILY 06/04/21 07/20/21 07/20/21 History hydrochlorothiazide 12.5 mg tablet 12.5 mg PO DAILY 07/20/21 07/20/21 07/20/21 History insulin glargine 100 unit/mL (3 15 unit SUBCUT BEDTIME 07/20/21 07/20/21 Unknown History mL) subcutaneous pen (Lantus Solostar U-100 Insulin) magnesium oxide 400 mg PO DAILY 07/20/21 07/20/21 07/20/21 History metformin 500 mg tablet 500 mg PO BID 07/20/21 07/20/21 07/20/21 History Physical Exam Vital Signs: Vital Signs: Last Vital Signs Temp 97.9 F 07/21/21 11:00 Pulse 63 07/21/21 11:00 Resp 18 07/21/21 11:00 BP 129/70 07/21/21 11:00 Pulse Ox 97 07/21/21 11:00 Body Mass Index 25.3 GENERAL APPEARANCE: in no acute distress, pleasant. NECK: no carotid bruit, no jugular venous distention. SKIN: no suspicious lesions, warm and dry. HEART: no murmurs, regular rate and rhythm. LUNGS: clear to auscultation bilaterally. ABDOMEN: soft, nontender. EXTREMITIES: no edema. PERIPHERAL PULSES: equal. NEUROLOGIC: No gross deficits, AAO X 3 Results Labs and Meds Result diagrams: 07/21/21 04:16 07/21/21 04:16 Lab results: Laboratory Results - last 24 hr 07/20/21 07/20/21 07/20/21 17:20 17:20 17:48 WBC 9.3 RBC 3.52 L D Hgb 9.7 L D Hct 28.9 L D MCV 82.1 MCH 27.6 MCHC 33.6 RDW 16.5 H Plt Count 179 MPV 9.5 Immature Gran % (Auto) 1.0 H Neut % (Auto) 79.1 H Lymph % (Auto) 12.5 L [place] % (Auto) 6.3 Eos % (Auto) 0.9 Baso % (Auto) 0.2 Lymph # (Auto) 1.2 [place] # (Auto) 0.6 Eos # (Auto) 0.1 Baso # (Auto) 0.0 Abs Immat Gran (auto) 0.09 H Absolute Neuts (auto) 7.4 Absolute Nucleated RBC 0.000 Nucleated RBC % (auto) 0.0 Sodium 134 L Potassium 4.1 Chloride 93 L Carbon Dioxide 27 Anion Gap 18 BUN 69 H D Creatinine 4.68 H* Estim Creat Clear Calc 18.8 Estimated GFR 13 POC Glucose Random Glucose 188 H Calcium 9.2 D Total Creatine Kinase Vitamin B12 25-OH Vitamin D Total Folate TSH Urine Color Urine Appearance Urine pH Ur Specific [place] Urine Protein Urine Glucose (UA) Urine Ketones Urine Blood Urine Nitrite Ur Leukocyte Esterase Urine RBC Urine WBC Ur Squamous Epith Cells Urine Bacteria Stool Occult Blood NEGATIVE COVID-19 ([facility]) COVID-19 Clin Com 07/20/21 07/20/21 07/21/21 18:47 23:06 04:16 WBC 7.5 RBC 3.20 L Hgb 8.7 L Hct 26.3 L MCV 82.2 MCH 27.2 MCHC 33.1 RDW 16.2 H Plt Count 158 L MPV 10.0 Immature Gran % (Auto) 0.8 H Neut % (Auto) 79.1 H Lymph % (Auto) 12.8 L [place] % (Auto) 5.6 Eos % (Auto) 1.6 Baso % (Auto) 0.1 Lymph # (Auto) 1.0 L [place] # (Auto) 0.4 Eos # (Auto) 0.1 Baso # (Auto) 0.0 Abs Immat Gran (auto) 0.06 H Absolute Neuts (auto) 5.9 Absolute Nucleated RBC 0.000 Nucleated RBC % (auto) 0.0 Sodium Potassium Chloride Carbon Dioxide Anion Gap BUN Creatinine Estim Creat Clear Calc Estimated GFR POC Glucose 164 H Random Glucose Calcium Total Creatine Kinase Vitamin B12 25-OH Vitamin D Total Folate TSH Urine Color Urine Appearance Urine pH Ur Specific [place] Urine Protein Urine Glucose (UA) Urine Ketones Urine Blood Urine Nitrite Ur Leukocyte Esterase Urine RBC Urine WBC Ur Squamous Epith Cells Urine Bacteria Stool Occult Blood COVID-19 (KARL) Negative COVID-19 Clin Com See Note 07/21/21 07/21/21 07/21/21 04:16 04:16 04:16 WBC RBC Hgb Hct MCV MCH MCHC RDW Plt Count MPV Immature Gran % (Auto) Neut % (Auto) Lymph % (Auto) [place] % (Auto) Eos % (Auto) Baso % (Auto) Lymph # (Auto) [place] # (Auto) Eos # (Auto) Baso # (Auto) Abs Immat Gran (auto) Absolute Neuts (auto) Absolute Nucleated RBC Nucleated RBC % (auto) Sodium 133 L Potassium 3.8 Chloride 95 L Carbon Dioxide 28 Anion Gap 14 BUN 71 H Creatinine 4.23 H* Estim Creat Clear Calc 20.8 Estimated GFR 14 POC Glucose Random Glucose 141 H Calcium 8.5 D Total Creatine Kinase 224 H Vitamin B12 244 25-OH Vitamin D Total 7.3 Folate 7.5 TSH 2.55 Urine Color Urine Appearance Urine pH Ur Specific [place] Urine Protein Urine Glucose (UA) Urine Ketones Urine Blood Urine Nitrite Ur Leukocyte Esterase Urine RBC Urine WBC Ur Squamous Epith Cells Urine Bacteria Stool Occult Blood COVID-19 ([facility]) COVID-19 Clin Com 07/21/21 07/21/21 07/21/21 06:55 07:33 11:02 WBC RBC Hgb Hct MCV MCH MCHC RDW Plt Count MPV Immature Gran % (Auto) Neut % (Auto) Lymph % (Auto) [place] % (Auto) Eos % (Auto) Baso % (Auto) Lymph # (Auto) [place] # (Auto) Eos # (Auto) Baso # (Auto) Abs Immat Gran (auto) Absolute Neuts (auto) Absolute Nucleated RBC Nucleated RBC % (auto) Sodium Potassium Chloride Carbon Dioxide Anion Gap BUN Creatinine Estim Creat Clear Calc Estimated GFR POC Glucose 179 H 164 H Random Glucose Calcium Total Creatine Kinase Vitamin B12 25-OH Vitamin D Total Folate TSH Urine Color YELLOW Urine Appearance CLEAR Urine pH 5.5 Ur Specific [place] 1.020 Urine Protein NEG Urine Glucose (UA) NEG Urine Ketones NEG Urine Blood TRACE Urine Nitrite NEG Ur Leukocyte Esterase NEG Urine RBC 1-4 Urine WBC 0-2 Ur Squamous Epith Cells 1+ Urine Bacteria NONE Stool Occult Blood COVID-19 (KARL) COVID-19 Clin Com Imaging Radiologist's impression: Impressions Hip/Pelvis X-Ray 07/20/21 17:44 IMPRESSION: No acute fracture or dislocation left hip Head CT 07/20/21 17:45 IMPRESSION: No acute finding. Moderate to marked white matter ischemic changes noted. No midline shift. No mass effect. No hemorrhage. Chest X-Ray 07/20/21 18:38 IMPRESSION: No acute process. Abdomen/Pelvis CT 07/20/21 20:06 IMPRESSION: The rectum is mild to moderately stool-filled and there is perirectal soft tissue stranding and some layering of density ventral to the sacrum. This could reflect proctitis or colitis. Given history of anemia cannot exclude a small amount of blood here but this is not a large amount. The spleen is normal in size Otherwise there is no suspicious free fluid. Other findings as noted above Assessment and Plan (1) Dizziness: Status: Acute (2) HTN (hypertension): Status: Acute (3) WILMER (acute kidney injury): Status: Acute (4) Chronic heart failure: Status: Acute Pleasant 66 gentleman who is presenting for dizziness and acute kidney injury. He is orthostatic. His medications have been held and is getting IV fluids. Clinically not in heart failure. I think the likely cause for the dizziness is orthostasis. Blood pressure currently is stable. We will see how he responds to hydration. We will have to reintroduce his medications slowly to see can tolerate them. He also will require orthostatic vital signs before he goes home. Will follow along with you. Thank you for allowing me to participate in the care of your patient. Please feel free to contact me if you have any questions. Procedures Date of Service Date of Service: 07/21/21
--- NOTE | 2021-07-21 12:44 | P.PNIM_ITS ---
Subjective Subjective Date of Service: 07/21/21 Interval History: Seen and examined this morning Follow-up for WILMER, anemia, orthostatic hypotension, falls Falls chronic, pt reports feeling more light headed Review of Systems Review of Systems: Yes all other systems are reviewed and are negative Constitutional Constitutional: Denies chills and Denies fever(s) Cardiovascular Cardiovascular: Denies chest pain Respiratory Respiratory: Denies cough Gastrointestinal Gastrointestinal: Denies abdominal pain Physical Exam Vital Signs: Vital Signs: Last Vital Signs Temp 97.9 F 07/21/21 11:00 Pulse 63 07/21/21 11:00 Resp 18 07/21/21 11:00 BP 129/70 07/21/21 11:00 Pulse Ox 97 07/21/21 11:00 Body Mass Index 25.3 Const: General: comfortable, no acute distress, alert and awake Nutritional Appearance: well nourished HENMT: Head: Yes normocephalic and Yes atraumatic Eyes: Sclerae: sclerae normal Chest: Chest palpation & inspection: normal inspection of the chest Resp: Effort & Inspection: normal respiratory effort and no respiratory distress Cardio: Rate: regular rate Rhythm: regular rhythm GI: Palpation (GI): Soft to palpation and nontender Neuro: Cranial nerves: Yes CN's II-XII intact bilaterally and Yes Bilaterally intact EOM present Extrem: Other: no edema Objective Data Current Medications Generic Name Dose Route Start Last Admin Trade Name Freq PRN Reason Stop Dose Admin Acetaminophen 650 mg 07/20/21 21:19 Acetaminophen 325 Mg Tablet PO Q6H PRN Pain, Mild (Pain Scale 1-3) Atorvastatin Calcium 80 mg 07/21/21 21:00 Atorvastatin Calcium 80 Mg Tablet PO BEDTIME PALMER Bupropion HCl 300 mg 07/21/21 09:00 07/21/21 08:38 Bupropion Hcl Xl 300 Mg Tab.Er.24h PO 300 mg DAILY PALMER Administration Dextrose 25 gm 07/20/21 21:25 Dextrose 50 % 25 Gm/50 Ml Vial IVPUSH Q15M PRN per Hypoglycemia Standing Ord. Protocol Docusate Sodium 100 mg 07/21/21 09:00 07/21/21 08:38 Docusate Sodium 100 Mg Capsule PO 100 mg BID PALMER Administration Escitalopram Oxalate 20 mg 07/21/21 09:00 07/21/21 08:39 Escitalopram Oxalate 20 Mg Tablet PO 20 mg DAILY PALMER Administration Glucose 15 gm 07/20/21 21:25 Glucose Gel 15 Gm Gel..Gram. PO Q15M PRN per Hypoglycemia Standing Ord. Protocol Ceftriaxone Sodium 1 gm/ 50 mls @ 100 mls/hr 07/20/21 22:00 07/20/21 22:19 Sodium Chloride IV Infused Q24H PALMER Infusion Sodium Chloride 1,000 mls @ 100 mls/hr 07/21/21 09:00 07/21/21 08:38 Ns IVCONT 07/22/21 04:59 100 mls/hr .Q10H PALMER Administration Insulin Glargine 15 unit 07/21/21 21:00 Insulin Glargine,Hum.Rec.Anlog 100 Unit/Ml 10 Ml Vial SUBCUT BEDTIME PALMER Insulin Human Lispro 0 unit 07/21/21 07:30 07/21/21 12:10 Insulin Lispro 100 Unit/Ml 3 Ml Vial SUBCUT 2 unit QIDACHS [facility] Administration Protocol Melatonin 3 mg 07/20/21 21:19 Melatonin 3 Mg Tablet PO BEDTIME PRN Insomnia Metoprolol Succinate 12.5 mg 07/21/21 09:00 07/21/21 08:38 Metoprolol Succinate Er 12.5 Mg Halftab.Er.24h PO 12.5 mg DAILY [facility] Administration Protocol Pharmacy Consult 1 each 07/20/21 18:38 Consult Rx Perform Med Rec MISCELLANE ONCE PRN Consult order Senna 17.2 mg 07/20/21 21:19 Sennosides 8.6 Mg Tablet PO BEDTIME PRN Constipation Sodium Chloride 3 ml 07/21/21 00:00 07/21/21 08:37 0.9 % Sodium Chloride Flush 3 Ml Syringe IVFLUSH 3 ml QSHIFT [facility] Administration Labs CBC & Chem 7: 07/21/21 11:56 07/21/21 04:16 Labs: Laboratory Results - last 24 hr 07/20/21 07/20/21 07/20/21 17:20 17:20 17:48 MCV 82.1 MCH 27.6 MCHC 33.6 RDW 16.5 H Plt Count 179 MPV 9.5 Immature Gran % (Auto) 1.0 H Neut % (Auto) 79.1 H Lymph % (Auto) 12.5 L [place] % (Auto) 6.3 Eos % (Auto) 0.9 Baso % (Auto) 0.2 Lymph # (Auto) 1.2 [place] # (Auto) 0.6 Eos # (Auto) 0.1 Baso # (Auto) 0.0 Abs Immat Gran (auto) 0.09 H Absolute Neuts (auto) 7.4 Absolute Nucleated RBC 0.000 Nucleated RBC % (auto) 0.0 Anion Gap 18 Estim Creat Clear Calc 18.8 Estimated GFR 13 POC Glucose Random Glucose 188 H Calcium 9.2 D Total Creatine Kinase Vitamin B12 25-OH Vitamin D Total Folate TSH Urine Color Urine Appearance Urine pH Ur Specific [place] Urine Protein Urine Glucose (UA) Urine Ketones Urine Blood Urine Nitrite Ur Leukocyte Esterase Urine RBC Urine WBC Ur Squamous Epith Cells Urine Bacteria Stool Occult Blood NEGATIVE COVID-19 ([facility]) COVID-19 Clin Com 07/20/21 07/20/21 07/21/21 18:47 23:06 04:16 MCV 82.2 MCH 27.2 MCHC 33.1 RDW 16.2 H Plt Count 158 L MPV 10.0 Immature Gran % (Auto) 0.8 H Neut % (Auto) 79.1 H Lymph % (Auto) 12.8 L [place] % (Auto) 5.6 Eos % (Auto) 1.6 Baso % (Auto) 0.1 Lymph # (Auto) 1.0 L [place] # (Auto) 0.4 Eos # (Auto) 0.1 Baso # (Auto) 0.0 Abs Immat Gran (auto) 0.06 H Absolute Neuts (auto) 5.9 Absolute Nucleated RBC 0.000 Nucleated RBC % (auto) 0.0 Anion Gap Estim Creat Clear Calc Estimated GFR POC Glucose 164 H Random Glucose Calcium Total Creatine Kinase Vitamin B12 25-OH Vitamin D Total Folate TSH Urine Color Urine Appearance Urine pH Ur Specific [place] Urine Protein Urine Glucose (UA) Urine Ketones Urine Blood Urine Nitrite Ur Leukocyte Esterase Urine RBC Urine WBC Ur Squamous Epith Cells Urine Bacteria Stool Occult Blood COVID-19 ([facility]ARL) Negative COVID-19 Clin Com See Note 07/21/21 07/21/21 07/21/21 04:16 04:16 04:16 MCV MCH MCHC RDW Plt Count MPV Immature Gran % (Auto) Neut % (Auto) Lymph % (Auto) [place] % (Auto) Eos % (Auto) Baso % (Auto) Lymph # (Auto) [place] # (Auto) Eos # (Auto) Baso # (Auto) Abs Immat Gran (auto) Absolute Neuts (auto) Absolute Nucleated RBC Nucleated RBC % (auto) Anion Gap 14 Estim Creat Clear Calc 20.8 Estimated GFR 14 POC Glucose Random Glucose 141 H Calcium 8.5 D Total Creatine Kinase 224 H Vitamin B12 244 25-OH Vitamin D Total 7.3 Folate 7.5 TSH 2.55 Urine Color Urine Appearance Urine pH Ur Specific [place] Urine Protein Urine Glucose (UA) Urine Ketones Urine Blood Urine Nitrite Ur Leukocyte Esterase Urine RBC Urine WBC Ur Squamous Epith Cells Urine Bacteria Stool Occult Blood COVID-19 (KARL) COVID-19 Clin Com 07/21/21 07/21/21 07/21/21 06:55 07:33 11:02 MCV MCH MCHC RDW Plt Count MPV Immature Gran % (Auto) Neut % (Auto) Lymph % (Auto) [place] % (Auto) Eos % (Auto) Baso % (Auto) Lymph # (Auto) [place] # (Auto) Eos # (Auto) Baso # (Auto) Abs Immat Gran (auto) Absolute Neuts (auto) Absolute Nucleated RBC Nucleated RBC % (auto) Anion Gap Estim Creat Clear Calc Estimated GFR POC Glucose 179 H 164 H Random Glucose Calcium Total Creatine Kinase Vitamin B12 25-OH Vitamin D Total Folate TSH Urine Color YELLOW Urine Appearance CLEAR Urine pH 5.5 Ur Specific [place] 1.020 Urine Protein NEG Urine Glucose (UA) NEG Urine Ketones NEG Urine Blood TRACE Urine Nitrite NEG Ur Leukocyte Esterase NEG Urine RBC 1-4 Urine WBC 0-2 Ur Squamous Epith Cells 1+ Urine Bacteria NONE Stool Occult Blood COVID-19 ([facility]) COVID-19 Clin Com Assessment and Plan (1) Anemia: Status: Acute Assessment and Plan: This is a 66-year-old male with history of hypertension, hyperlipidemia, diabetes, systolic CHF with EF of 30-35%, history of recurrent falls, neuropathy, atrial fibrillation on Eliquis, possible dementia, history of recurrent right-sided pleural effusion who presented to the hospital with a chief complaint of fall. Recurrent falls:? evaluated by Neurology in May admission for recurrent falls- thought to be secondary to?neuropathy?and recommended outpatient EMG studies orthostatic hypotension contributing on this admission -PT eval Orthostatic hypotension:? May be secondary to medication metoprolol dose increased on last admission.? Also takes losartan, Lasix, hydrochlorothiazide. -Hold Lasix, losartan, hydrochlorothiazide. -Reduce the dose of metoprolol . -Seen by cardiology, no further workup -repeat orthostatics in a.m. Prolonged QT Likely secondary to amiodarone -hold amiodarone, SSRI -follow EKG ?Colitis on CT Patient abdominal pain or diarrhea -d/c abx -Gastroenterology consult. WILMER:? Multifactorial.? No obstruction seen on CT of abdomen -hold nephrotoxins -Nephrology consult.? Hypertension Blood pressure controlled Hold losartan, hydrochlorothiazide setting WILMER Anemia:? Stool guaiac was negative.? Patient has a drop in hemoglobin from 13.1-9.7 in 1 month..? No obvious signs of bleeding . -follow CBC -GI eval History of systolic CHF:? Patient has EF of 30-35%.? Currently stable.? Holding diuretics for now given WILMER. monitor fluid status closely History of paroxysmal AFib:? Currently rate controlled.? -hold Eliquis for now given concerns for small amount of blood on CT abdomen. History of diabetes:? Per patient's patient is recently stopped on glipizide.? -hold metformin.? -contineu Lantus.? -SSI, POCs Mood Hold SSRI for prolonged Qtc DVT prophylaxis-mechanical devices Attending Dr. Celestin Quality Stroke Does the patient have a stroke diagnosis?: No VTE Prior VTE?: No VTE Risk Level:: Medical - moderate - high VTE Device Contraindication: Treatment Not Indicated VTE Drug Contraindication: Treatment Not Indicated
[2021-07-21 13:33] LABS: Magnesium 2.1 mg/dL (1.6-2.6)
[2021-07-21 16:02] LABS: Glucose, Whole Blood 96 mg/dL (60-115)
[2021-07-21] MEDS: Ergocalciferol (Vitamin D2) 1,250 MCG CAPSULE 1250 MCG PO (17:05)
[2021-07-21 18:43] LABS: Hemoglobin 8.5 g/dl (14.0-18.0)
[2021-07-21 20:24] LABS: Glucose, Whole Blood 150 mg/dL (60-115)
[2021-07-21] MEDS: Atorvastatin Calcium 80 MG TABLET PO (20:48)
[2021-07-21] MEDS: Melatonin 3 MG TABLET PO (20:48)
[2021-07-22] VITALS (9 sets, daily range): BP systolic 108–159; BP diastolic 72–82; PULSE 72–150; RESP 18–22; TEMP 35.3–37.7; O2SAT 96–97
--- NOTE | 2021-07-22 | ECG_ITS ---
Test Reason : RHYTHM CHANGE Blood Pressure : / mmHG Vent. Rate : 119 BPM Atrial Rate : 133 BPM P-R Int : 000 ms QRS Dur : 090 ms QT Int : 362 ms P-R-T Axes : 000 042 095 degrees QTc Int : 509 ms Atrial fibrillation with rapid ventricular response Abnormal ECG When compared with ECG of 20-JUL-2021 16:06, Atrial fibrillation with rapid ventricular response is now Present Referred By: Ambrose Celestin Electronically Signed By:NOY GILMORE
[2021-07-22 04:53] LABS: Syphilis Screen Nonreactive (Nonreactive)
[2021-07-22 06:33] LABS: Hematocrit 23.8 % (42-52); Mean Corpuscular HGB Conc 33.6 g/dl (31.0-36.0); Mean Corpuscular Hemoglobin 27.7 pg (27.0-33.0); Mean Corpuscular Volume 82.4 fL (80-98); Mean Platelet Volume 10.9 fL (9.4-12.4); Platelet Count 161 X10*3/uL (160-400); Red Blood Count 2.89 X10*6/uL (4.60-5.80); Red Cell Distribution Width 16.2 % (11.0-16.0); White Blood Count 7.1 X10*3/uL (4.8-10.8)
[2021-07-22 07:20] LABS: Anion Gap 11 (12-20); Blood Urea Nitrogen 49 mg/dL (9-16); Calcium 8.7 mg/dL (8.4-10.2); Carbon Dioxide 28 mmol/L (22-29); Chloride 100 mmol/L (96-108); Estimated Glomerular Filt Rate 37; Glucose Random 127 mg/dL (60-115); Potassium 4.6 mmol/L (3.3-5.1); Sodium 134 mmol/L (135-145)
[2021-07-22 07:35] LABS: Glucose, Whole Blood 127 mg/dL (60-115)
[2021-07-22] MEDS: Docusate Sodium 100 MG CAPSULE PO (07:51)
[2021-07-22] MEDS: 0.9 % Sodium Chloride Flush 3 ML SYRINGE IVFLUSH ×2 (07:51→13:59)
[2021-07-22] MEDS: buPROPion HCl XL 300 MG TAB.ER.24H PO (07:52)
[2021-07-22] MEDS: Metoprolol Succinate ER 12.5 MG HALFTAB.ER.24H PO (07:52)
[2021-07-22 09:02] LABS: Magnesium 1.9 mg/dL (1.6-2.6)
[2021-07-22] MEDS: LORazepam 2 MG/ML VIAL 0.5 MG IVPUSH (09:02)
[2021-07-22] MEDS: Metoprolol Tartrate 5 MG in 0.9 % Sodium Chloride 50 ML 220 MG IV (10:23)
--- NOTE | 2021-07-22 11:32 | CONS_ITS ---
DATE OF SERVICE: 07/21/2021 REASON FOR CONSULTATION: I was called to see this patient to assist in the management of acute kidney injury. HISTORY OF PRESENT ILLNESS: To summarize, Terrence is a 66-year-old man with a history of hypertension, diabetes mellitus, and congestive heart failure with EF of 30% to 35%. He has a history of chronic kidney disease with a baseline creatinine of around 1.2 to 1.7 mg/dL. Next, back in May, he had sustained acute kidney injury with a creatinine peaking at 1.74. At the time of admission about a month ago, creatinine was 1.39. At the time of admission, creatinine was 4.8 mg/dL. He was being treated with high dose of diuretics for the congestive heart failure. He had significant edema, which was improved and at present, he has no edema. He was also having lightheadedness and episodes of confusion and hence was brought to the hospital. This consultation has been requested for management of PE and acute kidney injury. At home, he was on Lasix and hydrochlorothiazide along with insulin. Ongoing medical problems include history of atrial fibrillation, congestive heart failure, EF of 30% to 35%, chronic kidney disease stage 3, diabetes mellitus, hypertension. FAMILY HISTORY: Significant for coronary artery disease. SOCIAL HISTORY: Lives with his . No history of any smoking, alcohol abuse at present. History of smoking several years ago. ALLERGIES: HE IS ALLERGIC TO COLCHICINE. MEDICATIONS: All the current medications are reviewed. Home medications include: 1. Allopurinol. 2. . 3. Atorvastatin. 4. Citalopram. 5. Hydrochlorothiazide. 6. Insulin. 7. Metformin. REVIEW OF SYSTEMS: Positive for lightheadedness. No shortness of breath. No chest pain, nausea, vomiting. No abdominal pain or constipation. No urinary symptoms. No fever, no rash. He had edema, which is improved and currently has no edema. All other systems were reviewed. PHYSICAL EXAMINATION: GENERAL: Terrence is 66-year-old man, he is awake, comfortable, not in any distress. NECK: Supple. No JVD. LUNGS: Air entry equal. No rales. HEART: S1, S2 heard. No gallop or rub. ABDOMEN: Soft, nontender. EXTREMITIES: No edema. No rash. No clubbing. NEURO: Alert and awake. No asterixis. No focal motor deficits. VITAL SIGNS: Blood pressure today was 141/78, yesterday blood pressure was 104/61, afebrile and temperature 97.8. LABORATORY DATA: Hemoglobin 8.7, platelets 158. Sodium 133, potassium 3.8, BUN 71, creatinine 4.23 as of today. IMPRESSION: A 66-year-old man with acute kidney injury, superimposed on chronic kidney disease in the setting of hypertension, diabetes mellitus and coronary artery disease with congestive heart failure. 1. The acute kidney injury is mostly related to hypoperfusion from aggressive diuresis in the setting of heart failure. The CT scan did not reveal any obstruction. Urine sediments are bland, there is no significant blood or protein in the urine, therefore, glomerular interstitial disease seemed unlikely at this point. 2. He has chronic kidney disease, mostly due to the hypertension, diabetic kidney disease. 3. Mild hyponatremia due to the use of hydrochlorothiazide causing decreased free water clearance. 4. Severe anemia. My recommendation will be to obtain a spot urine for sodium, creatinine, protein. I will hold diuretics for time being and we can cautiously hydrate him with normal saline at 50 mL/hour and avoid rapid hydration in the setting of heart failure. Check iron stores and see if he will require Epogen. The renal function should improve with hydration. No indication for dialysis. Further workup will be based on the outcome of the above investigations. We will follow him along with the team. MD WILI Suarez/SHIKHA / [phone]
--- NOTE | 2021-07-22 12:10 | P.PNCA_ITS ---
Subjective Subjective Date of Service: 07/22/21 Principal diagnosis: Orthostatic hypotension, WILMER, dehydration, afib RVR, Dementia Interval history: Cardiology follow up for orthostatic hypotension, Afib. Seen at 0830. Today he is observed agitated and noncooperative. He has dementia. Unable to obtain accurate subjective exam at present. On Tele monitor he was not ed to go from SR to afib RVR around 0800, there are runs of NSVT, longest 19 beats. Unable to accurately assess for symptoms at present. Review of Systems Review of Systems Yes Unobtainable due to mental condition Reports confusion (easily agitated) Psychiatric: Reports confusion (easily agitated) Physical Exam Vital Signs: Last Vital Signs Temp 97.8 F 07/22/21 07:13 Pulse 122 H 07/22/21 09:30 Resp 19 07/22/21 09:30 BP 108/82 07/22/21 09:30 Pulse Ox 96 07/22/21 07:13 Body Mass Index 25.3 Const General: alert, awake and confusion (easily agitated) Orientation/consciousness: confusion (easily agitated) Limitations: behavioral limitations Neck Neck: Yes no JVD Resp Effort & Inspection: normal respiratory effort Auscultation: clear to auscultation bilaterally, no rales, no rhonchi and no wheezes Cardio Rate: tachycardic Rhythm: abnormal rhythm Heart sounds: no murmurs GI Inspection: Yes normal to inspection Skin Other: warm, not diaphoretic Neuro General: confusion (easily agitated) Extrem Other: moving all 4 extremities General: Yes normal to inspection Results Labs and Meds Result diagrams: 07/22/21 05:27 07/22/21 05:27 Lab results: Laboratory Results - last 24 hr 07/21/21 07/21/21 07/21/21 04:16 04:16 11:56 WBC RBC Hgb 8.9 L Hct 26.3 L MCV MCH MCHC RDW Plt Count MPV Absolute Nucleated RBC Nucleated RBC % (auto) Sodium Potassium Chloride Carbon Dioxide Anion Gap BUN Creatinine Estim Creat Clear Calc Estimated GFR POC Glucose Random Glucose Calcium Magnesium 2.1 Total Creatine Kinase 224 H T.pallidum Ab (EIA) Nonreactive 07/21/21 07/21/21 07/21/21 15:50 18:22 20:20 WBC RBC Hgb 8.5 L Hct 25.0 L MCV MCH MCHC RDW Plt Count MPV Absolute Nucleated RBC Nucleated RBC % (auto) Sodium Potassium Chloride Carbon Dioxide Anion Gap BUN Creatinine Estim Creat Clear Calc Estimated GFR POC Glucose 96 150 H Random Glucose Calcium Magnesium Total Creatine Kinase T.pallidum Ab (EIA) 07/22/21 07/22/21 07/22/21 05:27 05:27 07:15 WBC 7.1 RBC 2.89 L Hgb 8.0 L Hct 23.8 L MCV 82.4 MCH 27.7 MCHC 33.6 RDW 16.2 H Plt Count 161 MPV 10.9 Absolute Nucleated RBC 0.000 Nucleated RBC % (auto) 0.0 Sodium 134 L Potassium 4.6 D Chloride 100 Carbon Dioxide 28 Anion Gap 11 L BUN 49 H Creatinine 1.83 H Estim Creat Clear Calc 48.0 Estimated GFR 37 POC Glucose 127 H Random Glucose 127 H Calcium 8.7 Magnesium 1.9 Total Creatine Kinase T.pallidum Ab (EIA) Progress Note: A&P Assessment and plan (1) PAF (paroxysmal atrial fibrillation): Status: Acute Assessment and Plan: Hx of PAF. He did have a EDWINA CVR on 06/08/21 and has been on Amiodarone and Metoprolol. This admit, initially in SR. His BP was low and amiodarone held and Metoprolol reduced to 12.5mg daily ( from 100mg daily). This am, 0800, his tele shows conversion back to Afib RVR, also having runs of NSVT, longest 19 beats. Pt is restless, agitated which seems to be related to his dementia. Unclear if he is having symptoms related to this rhythm. EDWINA done 06/08/21 shows EF 30-35%. He does not appear to be in acute HF at present but does have a hx of CHF. His home Lasix is on hold due to WILMER, which improved greatly with IV fluids. BP this am 150/75. Mg 1.9, K 4.6. Hospitalist ordered Ativan for him. Will give Metoprolol 5 mg IV to help with heart rate control. Will change scheduled Metoprolol xl 12.5mg - to Metoprolol tartrate 25mg bid. Will restart Amiodarone 200mg daily. Dr Ortegaood informed of change in rhythm. Ongoing tele monitoring as able. - pt is pulling leads off. Off Eliquis at present due to anemia with Hgb 8.0 today, Guiac + stool. GI consult pending. If his afib continues > 48 hr, and still unable to treat with anticoagulation, then may need to stop amiodarone and treat with just rhythm control. We will follow. (2) NSVT (nonsustained ventricular tachycardia): Status: Acute Assessment and Plan: Runs of NSVT this am. Unable to assess for direct symptoms due to confusion. Electrolytes good. Does have reduced EF. Increasing Metoprolol and restarting Amiodarone. (3) WILMER (acute kidney injury): Status: Acute Assessment and Plan: Improving with hold of medication and IV fluids. Cr 1.83 this am, had been up to 4.6 initially. (4) Anemia: Status: Acute Assessment and Plan: Hgb 13 in May. Has been on Eliquis at home. Stool guiac +. No visable signs of bleeding. Eliquis being held and GI has already been consulted. (5) Chronic heart failure: Status: Acute Assessment and Plan: Does not appear to be in acute HF at present. He is at risk for HF with his reduced EF, hx HF and hold of diuretics. Avoid fluid overload. Fall Risk Details Current Medications: Current Medications Generic Name Dose Route Start Last Admin Trade Name Freq PRN Reason Stop Dose Admin Acetaminophen 650 mg 07/20/21 21:19 Acetaminophen 325 Mg Tablet PO Q6H PRN Pain, Mild (Pain Scale 1-3) Atorvastatin Calcium 80 mg 07/21/21 21:00 07/21/21 20:48 Atorvastatin Calcium 80 Mg Tablet PO 80 mg BEDTIME PALMER Administration Bupropion HCl 300 mg 07/21/21 09:00 07/22/21 07:52 Bupropion Hcl Xl 300 Mg Tab.Er.24h PO 300 mg DAILY PALMER Administration Dextrose 25 gm 07/20/21 21:25 Dextrose 50 % 25 Gm/50 Ml Vial IVPUSH Q15M PRN per Hypoglycemia Standing Ord. Protocol Docusate Sodium 100 mg 07/21/21 09:00 07/22/21 07:51 Docusate Sodium 100 Mg Capsule PO 100 mg BID PALMER Administration Ergocalciferol 1,250 mcg 07/21/21 16:15 07/21/21 17:05 Ergocalciferol (Vitamin D2) 1,250 Mcg Capsule PO 1,250 mcg Q7D PALMER Administration Glucose 15 gm 07/20/21 21:25 Glucose Gel 15 Gm Gel..Gram. PO Q15M PRN per Hypoglycemia Standing Ord. Protocol Insulin Human Lispro 0 unit 07/21/21 07:30 07/22/21 07:44 Insulin Lispro 100 Unit/Ml 3 Ml Vial SUBCUT Not Given QIDACHS [facility] Protocol Melatonin 3 mg 07/20/21 21:19 07/21/21 20:48 Melatonin 3 Mg Tablet PO 3 mg BEDTIME PRN Administration Insomnia Metoprolol Succinate 12.5 mg 07/21/21 09:00 07/22/21 07:52 Metoprolol Succinate Er 12.5 Mg Halftab.Er.24h PO 12.5 mg DAILY PALMER Administration Protocol Pharmacy Consult 1 each 07/20/21 18:38 Consult Rx Perform Med Rec MISCELLANE ONCE PRN Consult order Senna 17.2 mg 07/20/21 21:19 Sennosides 8.6 Mg Tablet PO BEDTIME PRN Constipation Sodium Chloride 3 ml 07/21/21 00:00 07/22/21 07:51 0.9 % Sodium Chloride Flush 3 Ml Syringe IVFLUSH 3 ml QSHIFT [facility] Administration Time Spent With Patient Time: Total time spent is greater than 50% in coordination of care (as dean smith) at patient's floor/unit and/or counseling patient: 35 Time with patient: 25 - 35 minutes Progress Note: Quality Stroke Does the patient have a stroke diagnosis?: No Procedures Date of Service Date of Service: 07/22/21
--- NOTE | 2021-07-22 12:38 | P.PNIM_ITS ---
Subjective Subjective Date of Service: 07/22/21 Interval History: Seen and examined this morning Follow-up for WILMER Noted to be hallucinating overnight. This morning confused, hallucinating, agitated Review of Systems Review of Systems: Yes Unobtainable due to mental condition Neurologic Neurologic: Reports confusion Psychiatric Psychiatric: Reports confusion Physical Exam Vital Signs: Vital Signs: Last Vital Signs Temp 97.8 F 07/22/21 07:13 Pulse 122 H 07/22/21 09:30 Resp 19 07/22/21 09:30 BP 108/82 07/22/21 09:30 Pulse Ox 96 07/22/21 07:13 Body Mass Index 25.3 Const: Other: hallucinating, agitated General: awake, combative and confusion Nutritional Appearance: well nourished Orientation/consciousness: confusion HENMT: Head: Yes normocephalic and Yes atraumatic Eyes: Sclerae: sclerae normal Resp: Effort & Inspection: normal respiratory effort and no respiratory distress Cardio: Rate: tachycardic GI: Palpation (GI): Soft to palpation and nontender Skin: Other: bruising to left hip Neuro: General: confusion Objective Data Current Medications Generic Name Dose Route Start Last Admin Trade Name Freq PRN Reason Stop Dose Admin Acetaminophen 650 mg 07/20/21 21:19 Acetaminophen 325 Mg Tablet PO Q6H PRN Pain, Mild (Pain Scale 1-3) Amiodarone HCl 200 mg 07/22/21 12:45 Amiodarone Hcl 200 Mg Tablet PO DAILY PALMER Atorvastatin Calcium 80 mg 07/21/21 21:00 07/21/21 20:48 Atorvastatin Calcium 80 Mg Tablet PO 80 mg BEDTIME PALMER Administration Bupropion HCl 300 mg 07/21/21 09:00 07/22/21 07:52 Bupropion Hcl Xl 300 Mg Tab.Er.24h PO 300 mg DAILY PALMER Administration Dextrose 25 gm 07/20/21 21:25 Dextrose 50 % 25 Gm/50 Ml Vial IVPUSH Q15M PRN per Hypoglycemia Standing Ord. Protocol Docusate Sodium 100 mg 07/21/21 09:00 07/22/21 07:51 Docusate Sodium 100 Mg Capsule PO 100 mg BID PALMER Administration Ergocalciferol 1,250 mcg 07/21/21 16:15 07/21/21 17:05 Ergocalciferol (Vitamin D2) 1,250 Mcg Capsule PO 1,250 mcg Q7D PALMER Administration Glucose 15 gm 07/20/21 21:25 Glucose Gel 15 Gm Gel..Gram. PO Q15M PRN per Hypoglycemia Standing Ord. Protocol Insulin Human Lispro 0 unit 07/21/21 07:30 07/22/21 07:44 Insulin Lispro 100 Unit/Ml 3 Ml Vial SUBCUT Not Given QIDACHS [facility] Protocol Melatonin 3 mg 07/20/21 21:19 07/21/21 20:48 Melatonin 3 Mg Tablet PO 3 mg BEDTIME PRN Administration Insomnia Metoprolol Succinate 12.5 mg 07/21/21 09:00 07/22/21 07:52 Metoprolol Succinate Er 12.5 Mg Halftab.Er.24h PO 12.5 mg DAILY [facility] Administration Protocol Metoprolol Tartrate 25 mg 07/22/21 12:45 Metoprolol Tartrate 25 Mg Tablet PO BID [facility] Protocol Pharmacy Consult 1 each 07/20/21 18:38 Consult Rx Perform Med Rec MISCELLANE ONCE PRN Consult order Senna 17.2 mg 07/20/21 21:19 Sennosides 8.6 Mg Tablet PO BEDTIME PRN Constipation Sodium Chloride 3 ml 07/21/21 00:00 07/22/21 07:51 0.9 % Sodium Chloride Flush 3 Ml Syringe IVFLUSH 3 ml QSHIFT [facility] Administration Labs CBC & Chem 7: 07/22/21 05:27 07/22/21 05:27 Labs: Laboratory Results - last 24 hr 07/21/21 07/21/21 07/21/21 04:16 04:16 15:50 MCV MCH MCHC RDW Plt Count MPV Absolute Nucleated RBC Nucleated RBC % (auto) Anion Gap Estim Creat Clear Calc Estimated GFR POC Glucose 96 Random Glucose Calcium Magnesium 2.1 T.pallidum Ab (EIA) Nonreactive 07/21/21 07/22/21 07/22/21 20:20 05:27 05:27 MCV 82.4 MCH 27.7 MCHC 33.6 RDW 16.2 H Plt Count 161 MPV 10.9 Absolute Nucleated RBC 0.000 Nucleated RBC % (auto) 0.0 Anion Gap 11 L Estim Creat Clear Calc 48.0 Estimated GFR 37 POC Glucose 150 H Random Glucose 127 H Calcium 8.7 Magnesium 1.9 T.pallidum Ab (EIA) 07/22/21 07:15 MCV MCH MCHC RDW Plt Count MPV Absolute Nucleated RBC Nucleated RBC % (auto) Anion Gap Estim Creat Clear Calc Estimated GFR POC Glucose 127 H Random Glucose Calcium Magnesium T.pallidum Ab (EIA) Assessment and Plan (1) NSVT (nonsustained ventricular tachycardia): Status: Acute (2) PAF (paroxysmal atrial fibrillation): Status: Acute (3) Multifactorial gait disorder: Status: Acute Assessment and Plan: This is a 66-year-old male with history of hypertension, hyperlipidemia, diabetes, systolic CHF with EF of 30-35%, history of recurrent falls, neuropathy, atrial fibrillation on Eliquis, possible dementia, history of recurrent right-sided pleural effusion who presented to the hospital with a chief complaint of fall. Hallucinatiions Question related to underlying dementia with behavioral disturbance -psych consult -prn ativan if necessary, unable to use haldol due to prolonged qtc afib with RVR difficult to manage due to patient agitation/unwilling to wear monitor Metoprolol had been decreased due to hypotension on admission. Amiodarone had been held initially due to prolonged QT Seen by Cardiology. Given 1 dose IV metoprolol. Recommend to increase metoprolol to 25 b.i.d., resume amiodarone -Eliquis on hold for small amount of blood on CT abdomen episodes of NSVT h/o HFrEF, LVEF 30-35% -check lytes, replace prn -cardiology following Normocytic anemia heme negative H/H trending down -GI consult pending -follow CBC -Eliquis on hold WILMER:? Multifactorial.? Renal function improving with IV fluid No obstruction seen on CT of abdomen -hold nephrotoxins -Nephrology following? Recurrent falls:? evaluated by Neurology in May admission for recurrent falls- thought to be secondary to?neuropathy?and recommended outpatient EMG studies orthostatic hypotension contributing on this admission -PT eval when medically stable, likely will need d/c to SNF Orthostatic hypotension:? may be r/t medication BP improved. Unable to repeat orthostatics given confusion/agitation metoprolol dose increased on last admission.? Also takes losartan, Lasix, hydrochlorothiazide. -Hold Lasix, losartan, hydrochlorothiazide. Prolonged QT Likely secondary to amiodarone. Improving -resume amiodarone per Cardiology rec -hold SSRI ?Colitis on CT No abdominal pain or diarrhea -d/c abx -Gastroenterology consult pending Hypertension Blood pressure controlled Hold losartan, hydrochlorothiazide setting WILMER History of systolic CHF:? Patient has EF of 30-35%.? Currently stable.? Holding diuretics for now given WILMER. monitor fluid status closely History of diabetes:? Per patient's patient is recently stopped on glipizide.? -hold metformin.? -continue Lantus.? -SSI, POCs Mood Hold SSRI for prolonged Qtc DVT prophylaxis-mechanical devices Attending Dr. Celestin Quality Stroke Does the patient have a stroke diagnosis?: No VTE Prior VTE?: No VTE Risk Level:: Medical - moderate - high VTE Device Contraindication: Treatment Not Indicated VTE Drug Contraindication: Treatment Not Indicated
[2021-07-22] MEDS: Metoprolol Tartrate 25 MG TABLET PO (13:58)
[2021-07-22] MEDS: Amiodarone HCL 200 MG TABLET PO (13:58)
--- NOTE | 2021-07-22 15:41 | PM.PSYCN ---
History of Present Illness Date of Service: 07/22/2021 Chief Complaint: WILMER, dizziness Reason for Consult: hallucinations, agitation, history of dementia Requesting physician: Anna Chaudhary Discussed with referring provider: Yes Sources of Information: patient interviewed and chart reviewed Additional Sources of Information: Patient's RN. Call placed to HCP, Shira, patient's , and son, for collateral information. HPI Narrative: Patient is 66-year-old male with past medical history of hypertension, hyperlipidemia, diabetes, systolic CHF with EF of 30-35%, neuropathy, history of recurrent falls. Presented to ED after a fall. According to initial history and physical, provider had spoken with patient's age CP, Shira. She had reported that patient has had dementia, and has been having episodes of confusion/memory impairment which has been more pronounced within the past 2 months. He had recently been admitted on 06/21/21 to this hospital for a fall. Approximately 4 days ago, patient had a significant fall and had struck his head. Patient had been complaining of dizziness and unsteady gait. Provider and nursing staff report patient has been experiencing visual hallucinations, agitation. I met with patient this afternoon. He was alert to self only. When asked where he was, he stated ?I am in [place], I am home . When asked day of week, he stated that it was Sunday. When asked if he knew why he was in hospital, he stated no, and they don't know either . He was confused during interview, and attempted to get out of bed, with no safety awareness. He was easily redirectable however. He presents with memory impairment. He stated that he wants to go home. Past Psychiatric History: Info obtained from (HCP): Patient has history of depression. No IPLOC. Receives psychiatric medication from PCP office. Medical Evaluation Reviewed: Yes Personal & Social History: Patient . Lives with and adult son, who are his caregivers at present. Review of Systems Review of Systems A full review of systems was completed and was negative with the exception of pertinent positives noted in history of the presenting illness (HPI). 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 Diabetes HTN (hypertension) Noncompliance with medications Peripheral neuropathy Vertebrobasilar dolichoectasia Social History: lives with and son Diagnostics Vital Signs (24Hr): Vital Signs - 24 hr 07/21/21 15:48 07/21/21 19:08 07/21/21 23:25 Temperature 98.3 F 98.2 F 98.2 F Pulse Rate 65 72 66 Respiratory Rate 18 18 18 Blood Pressure 156/76 H 165/82 H 145/73 H Pulse Oximetry 96 95 97 07/22/21 03:58 07/22/21 07:13 07/22/21 07:52 Temperature 97.1 F 97.8 F Pulse Rate 72 75 75 Respiratory Rate 18 18 Blood Pressure 159/78 H 150/75 H 150/75 H Pulse Oximetry 96 96 07/22/21 09:30 07/22/21 13:58 07/22/21 15:08 Temperature 95.6 F L Pulse Rate 122 H 122 H 150 H Respiratory Rate 19 22 H Blood Pressure 108/82 108/82 113/72 Pulse Oximetry 97 Body Mass Index 25.3 Labs Results: 07/22/21 05:27 07/22/21 05:27 Labs: Laboratory Results - last 48 hr 07/20/21 07/20/21 07/20/21 17:20 17:20 17:48 WBC 9.3 RBC 3.52 L D Hgb 9.7 L D Hct 28.9 L D MCV 82.1 MCH 27.6 MCHC 33.6 RDW 16.5 H Plt Count 179 MPV 9.5 Immature Gran % (Auto) 1.0 H Neut % (Auto) 79.1 H Lymph % (Auto) 12.5 L Dickenson % (Auto) 6.3 Eos % (Auto) 0.9 Baso % (Auto) 0.2 Lymph # (Auto) 1.2 Dickenson # (Auto) 0.6 Eos # (Auto) 0.1 Baso # (Auto) 0.0 Abs Immat Gran (auto) 0.09 H Absolute Neuts (auto) 7.4 Absolute Nucleated RBC 0.000 Nucleated RBC % (auto) 0.0 Sodium 134 L Potassium 4.1 Chloride 93 L Carbon Dioxide 27 Anion Gap 18 BUN 69 H D Creatinine 4.68 H* Estim Creat Clear Calc 18.8 Estimated GFR 13 POC Glucose Random Glucose 188 H Calcium 9.2 D Magnesium Total Creatine Kinase Vitamin B12 25-OH Vitamin D Total Folate TSH Urine Color Urine Appearance Urine pH Ur Specific [place] Urine Protein Urine Glucose (UA) Urine Ketones Urine Blood Urine Nitrite Ur Leukocyte Esterase Urine RBC Urine WBC Ur Squamous Epith Cells Urine Bacteria Stool Occult Blood NEGATIVE T.pallidum Ab (EIA) COVID-19 ([facility]) COVID-19 Clin [place] [facility] 07/20/21 07/20/21 07/21/21 18:47 23:06 04:16 WBC 7.5 RBC 3.20 L Hgb 8.7 L Hct 26.3 L MCV 82.2 MCH 27.2 MCHC 33.1 RDW 16.2 H Plt Count 158 L MPV 10.0 Immature Gran % (Auto) 0.8 H Neut % (Auto) 79.1 H Lymph % (Auto) 12.8 L Dickenson % (Auto) 5.6 Eos % (Auto) 1.6 Baso % (Auto) 0.1 Lymph # (Auto) 1.0 L Dickenson # (Auto) 0.4 Eos # (Auto) 0.1 Baso # (Auto) 0.0 Abs Immat Gran (auto) 0.06 H Absolute Neuts (auto) 5.9 Absolute Nucleated RBC 0.000 Nucleated RBC % (auto) 0.0 Sodium Potassium Chloride Carbon Dioxide Anion Gap BUN Creatinine Estim Creat Clear Calc Estimated GFR POC Glucose 164 H Random Glucose Calcium Magnesium Total Creatine Kinase Vitamin B12 25-OH Vitamin D Total Folate TSH Urine Color Urine Appearance Urine pH Ur Specific [place] Urine Protein Urine Glucose (UA) Urine Ketones Urine Blood Urine Nitrite Ur Leukocyte Esterase Urine RBC Urine WBC Ur Squamous Epith Cells Urine Bacteria Stool Occult Blood T.pallidum Ab (EIA) COVID-19 (KAR[facility]) Negative COVID-19 Clin Com See Note 07/21/21 07/21/21 07/21/21 04:16 04:16 04:16 WBC RBC Hgb Hct MCV MCH MCHC RDW Plt Count MPV Immature Gran % (Auto) Neut % (Auto) Lymph % (Auto) Dickenson % (Auto) Eos % (Auto) Baso % (Auto) Lymph # (Auto) Dickenson # (Auto) Eos # (Auto) Baso # (Auto) Abs Immat Gran (auto) Absolute Neuts (auto) Absolute Nucleated RBC Nucleated RBC % (auto) Sodium 133 L Potassium 3.8 Chloride 95 L Carbon Dioxide 28 Anion Gap 14 BUN 71 H Creatinine 4.23 H* Estim Creat Clear Calc 20.8 Estimated GFR 14 POC Glucose Random Glucose 141 H Calcium 8.5 D Magnesium 2.1 Total Creatine Kinase 224 H Vitamin B12 244 25-OH Vitamin D Total 7.3 Folate 7.5 TSH 2.55 Urine Color Urine Appearance Urine pH Ur Specific [place] Urine Protein Urine Glucose (UA) Urine Ketones Urine Blood Urine Nitrite Ur Leukocyte Esterase Urine RBC Urine WBC Ur Squamous Epith Cells Urine Bacteria Stool Occult Blood T.pallidum Ab (EIA) COVID-19 ([facility]AR[facility]) COVID-19 Clin Com 07/21/21 07/21/21 07/21/21 04:16 06:55 07:33 WBC RBC Hgb Hct MCV MCH MCHC RDW Plt Count MPV Immature Gran % (Auto) Neut % (Auto) Lymph % (Auto) Dickenson % (Auto) Eos % (Auto) Baso % (Auto) Lymph # (Auto) Dickenson # (Auto) Eos # (Auto) Baso # (Auto) Abs Immat Gran (auto) Absolute Neuts (auto) Absolute Nucleated RBC Nucleated RBC % (auto) Sodium Potassium Chloride Carbon Dioxide Anion Gap BUN Creatinine Estim Creat Clear Calc Estimated GFR POC Glucose 179 H Random Glucose Calcium Magnesium Total Creatine Kinase Vitamin B12 25-OH Vitamin D Total Folate TSH Urine Color YELLOW Urine Appearance CLEAR Urine pH 5.5 Ur Specific [place] 1.020 Urine Protein NEG Urine Glucose (UA) NEG Urine Ketones NEG Urine Blood TRACE Urine Nitrite NEG Ur Leukocyte Esterase NEG Urine RBC 1-4 Urine WBC 0-2 Ur Squamous Epith Cells 1+ Urine Bacteria NONE Stool Occult Blood T.pallidum Ab (EIA) Nonreactive COVID-19 (KARL) COVID-19 Clin Com 07/21/21 07/21/21 07/21/21 11:02 11:56 15:50 WBC RBC Hgb 8.9 L Hct 26.3 L MCV MCH MCHC RDW Plt Count MPV Immature Gran % (Auto) Neut % (Auto) Lymph % (Auto) Dickenson % (Auto) Eos % (Auto) Baso % (Auto) Lymph # (Auto) Dickenson # (Auto) Eos # (Auto) Baso # (Auto) Abs Immat Gran (auto) Absolute Neuts (auto) Absolute Nucleated RBC Nucleated RBC % (auto) Sodium Potassium Chloride Carbon Dioxide Anion Gap BUN Creatinine Estim Creat Clear Calc Estimated GFR POC Glucose 164 H 96 Random Glucose Calcium Magnesium Total Creatine Kinase Vitamin B12 25-OH Vitamin D Total Folate TSH Urine Color Urine Appearance Urine pH Ur Specific [place] Urine Protein Urine Glucose (UA) Urine Ketones Urine Blood Urine Nitrite Ur Leukocyte Esterase Urine RBC Urine WBC Ur Squamous Epith Cells Urine Bacteria Stool Occult Blood T.pallidum Ab (EIA) COVID-19 ([facility]AR[facility]) COVID-19 Clin Com 07/21/21 07/21/21 07/22/21 18:22 20:20 05:27 WBC RBC Hgb 8.5 L Hct 25.0 L MCV MCH MCHC RDW Plt Count MPV Immature Gran % (Auto) Neut % (Auto) Lymph % (Auto) Dickenson % (Auto) Eos % (Auto) Baso % (Auto) Lymph # (Auto) Dickenson # (Auto) Eos # (Auto) Baso # (Auto) Abs Immat Gran (auto) Absolute Neuts (auto) Absolute Nucleated RBC Nucleated RBC % (auto) Sodium 134 L Potassium 4.6 D Chloride 100 Carbon Dioxide 28 Anion Gap 11 L BUN 49 H Creatinine 1.83 H Estim Creat Clear Calc 48.0 Estimated GFR 37 POC Glucose 150 H Random Glucose 127 H Calcium 8.7 Magnesium 1.9 Total Creatine Kinase Vitamin B12 25-OH Vitamin D Total Folate TSH Urine Color Urine Appearance Urine pH Ur Specific [place] Urine Protein Urine Glucose (UA) Urine Ketones Urine Blood Urine Nitrite Ur Leukocyte Esterase Urine RBC Urine WBC Ur Squamous Epith Cells Urine Bacteria Stool Occult Blood T.pallidum Ab (EIA) COVID-19 (KARL) COVID-19 Clin Com 07/22/21 07/22/21 05:27 07:15 WBC 7.1 RBC 2.89 L Hgb 8.0 L Hct 23.8 L MCV 82.4 MCH 27.7 MCHC 33.6 RDW 16.2 H Plt Count 161 MPV 10.9 Immature Gran % (Auto) Neut % (Auto) Lymph % (Auto) Dickenson % (Auto) Eos % (Auto) Baso % (Auto) Lymph # (Auto) Dickenson # (Auto) Eos # (Auto) Baso # (Auto) Abs Immat Gran (auto) Absolute Neuts (auto) Absolute Nucleated RBC 0.000 Nucleated RBC % (auto) 0.0 Sodium Potassium Chloride Carbon Dioxide Anion Gap BUN Creatinine Estim Creat Clear Calc Estimated GFR POC Glucose 127 H Random Glucose Calcium Magnesium Total Creatine Kinase Vitamin B12 25-OH Vitamin D Total Folate TSH Urine Color Urine Appearance Urine pH Ur Specific [place] Urine Protein Urine Glucose (UA) Urine Ketones Urine Blood Urine Nitrite Ur Leukocyte Esterase Urine RBC Urine WBC Ur Squamous Epith Cells Urine Bacteria Stool Occult Blood T.pallidum Ab (EIA) COVID-19 (KARL) COVID-19 Clin Com Imaging Radiology Impressions: ITS Impressions Hip/Pelvis X-Ray 07/20/21 17:44 IMPRESSION: No acute fracture or dislocation left hip Head CT 07/20/21 17:45 IMPRESSION: No acute finding. Moderate to marked white matter ischemic changes noted. No midline shift. No mass effect. No hemorrhage. Chest X-Ray 07/20/21 18:38 IMPRESSION: No acute process. Abdomen/Pelvis CT 07/20/21 20:06 IMPRESSION: The rectum is mild to moderately stool-filled and there is perirectal soft tissue stranding and some layering of density ventral to the sacrum. This could reflect proctitis or colitis. Given history of anemia cannot exclude a small amount of blood here but this is not a large amount. The spleen is normal in size Otherwise there is no suspicious free fluid. Other findings as noted above Mental Status Exam Mental Status Exam Narrative: Well-developed well-nourished male, resting in bed, no apparent distress. Somewhat disheveled appearance. Alert to self only. Unable to complete full MSE due to AMS. Patient Appearance: Disheveled Patient Orientation: Person Level of Consciousness: Awake Patient Behavior: Good Eye Contact Mood Description: Appropriate Affect Description: Cheerful Patient Cognition Impaired: Yes Ability to Follow Directions: Poor Speech Pattern: Clear Memory Description: Normal for Patient (impaired, family reports dementia, with worsening sx over past several months.) Hallucinations: Auditory and Visual Thought Process: Confusion Thought Content: positive for Disoriented Judgement: Poor Medications Medications Current Medications Generic Name Dose Route Start Last Admin Trade Name Freq PRN Reason Stop Dose Admin Acetaminophen 650 mg 07/20/21 21:19 Acetaminophen 325 Mg Tablet PO Q6H PRN Pain, Mild (Pain Scale 1-3) Amiodarone HCl 200 mg 07/22/21 12:45 07/22/21 13:58 Amiodarone Hcl 200 Mg Tablet PO 200 mg DAILY PALMER Administration Atorvastatin Calcium 80 mg 07/21/21 21:00 07/21/21 20:48 Atorvastatin Calcium 80 Mg Tablet PO 80 mg BEDTIME PALMER Administration Bupropion HCl 300 mg 07/21/21 09:00 07/22/21 07:52 Bupropion Hcl Xl 300 Mg Tab.Er.24h PO 300 mg DAILY PALMER Administration Dextrose 25 gm 07/20/21 21:25 Dextrose 50 % 25 Gm/50 Ml Vial IVPUSH Q15M PRN per Hypoglycemia Standing Ord. Protocol Docusate Sodium 100 mg 07/21/21 09:00 07/22/21 07:51 Docusate Sodium 100 Mg Capsule PO 100 mg BID PALMER Administration Ergocalciferol 1,250 mcg 07/21/21 16:15 07/21/21 17:05 Ergocalciferol (Vitamin D2) 1,250 Mcg Capsule PO 1,250 mcg Q7D PALMER Administration Glucose 15 gm 07/20/21 21:25 Glucose Gel 15 Gm Gel..Gram. PO Q15M PRN per Hypoglycemia Standing Ord. Protocol Insulin Human Lispro 0 unit 07/21/21 07:30 07/22/21 12:44 Insulin Lispro 100 Unit/Ml 3 Ml Vial SUBCUT Not Given QIDACHS [facility] Protocol Melatonin 3 mg 07/20/21 21:19 07/21/21 20:48 Melatonin 3 Mg Tablet PO 3 mg BEDTIME PRN Administration Insomnia Metoprolol Succinate 12.5 mg 07/21/21 09:00 07/22/21 07:52 Metoprolol Succinate Er 12.5 Mg Halftab.Er.24h PO 12.5 mg DAILY PALMER Administration Protocol Metoprolol Tartrate 25 mg 07/22/21 12:45 07/22/21 13:58 Metoprolol Tartrate 25 Mg Tablet PO 25 mg BID [facility] Administration Protocol Pharmacy Consult 1 each 07/20/21 18:38 Consult Rx Perform Med Rec MISCELLANE ONCE PRN Consult order Quetiapine Fumarate 12.5 mg 07/22/21 21:00 Quetiapine Fumarate 25 Mg Tablet PO TID [facility] Senna 17.2 mg 07/20/21 21:19 Sennosides 8.6 Mg Tablet PO BEDTIME PRN Constipation Sodium Chloride 3 ml 07/21/21 00:00 07/22/21 13:59 0.9 % Sodium Chloride Flush 3 Ml Syringe IVFLUSH 3 ml QSHIFT [facility] Administration Trazodone HCl 25 mg 07/22/21 15:33 Trazodone Hcl 25 Mg Halftab PO TID PRN Anxiety Allergies Allergies Allergy/AdvReac Type Severity Reaction Status Date / Time colchicine Allergy Rash Verified 07/20/21 15:56 Assessment & Plan Assessment & Plan (1) Depression: Status: Acute Code(s): F32.9 - Major depressive disorder, single episode, unspecified Assessment and Plan: Family reports longstanding history of depression. Outpatient medications include escitalopram 20 mg daily. Medication was stopped due to prolonged QTC of almost 600 yesterday. QTC appears to be trending down, with today reading 509. Nurse reports profuse sweating, which could possibly be a result of serotonin discontinuation syndrome. Unable to assess patient's level of depression and any possible SI, due to AMS. (2) Dementia with behavioral disturbance: Status: Acute Code(s): F03.91 - Unspecified dementia with behavioral disturbance Assessment and Plan: Psychiatry was asked to meet with patient due to history of dementia, hallucinations, agitation. Spoke with nurse, who reports he displays symptoms of dementia. spoke with and son, who report patient has a long history of treatment noncompliance for medical issues. They state that his dementia symptoms appear to have worsened over the past 2 months, with increased confusion, unsteady gait, and falls. reports he has been taking Wellbutrin 300mg ER daily for approximately four months, which is prescribed by PCP office. Would recommend a rule out for Lewy Body Dementia in outpatient setting, due to patient exhibiting classic characteristics, such as visual hallucintations, parkinsonism with multiple falls, dysautonomia, cognitive fluctuations. Assessment and Plan: 1. Stop Wellbutrin. (contraindicated due to recent fall and hitting head. Also may be contributing to his c/o dizziness. 2. Start seroquel 12.5mg TID scheduled, for hallucinations and agitation. 3. Start prozac 10mg scheduled, to help prevent serotonin discontinuation symptoms. 4. Start trazodone 25mg TID PRN / anxiety. I have shared my thoughts and recommendations with Anna Chaudhary, via [employer] messaging system. Thank you for this consultation. We will continue to follow along with this patient while he is here. If you have any questions or concerns, please do not hesitate to contact Psychiatry Service. Greater than 50% of the session was spent on counseling and/or coordination of care
--- NOTE | 2021-07-22 15:53 | PM.EVENT ---
Event Note Date of Service: 07/22/21 Event Note: GI Consult Pt seen examined yesterday. Consult dictated at that time. CT reviewed. Clinically does not have colitis or gi bleeding and ct picture looks more like obstipation. Pt unsure of last colonoscopy. Can consider colonoscopy +/- egd electively to further evaluate anemia when acute problems are resolved.
[2021-07-22 15:54] LABS: Glucose, Whole Blood 182 mg/dL (60-115)
--- NOTE | 2021-07-22 16:05 | PM.PNNEP ---
Subjective Subjective Date of Service: 07/22/21 Principal diagnosis: Orthostatic hypotension, WILMER, dehydration, afib RVR, Dementia Interval history: More confused and agitated Sitter at bedside REceived Ativan Physical Exam Vital Signs: Vital Signs: Last Vital Signs Temp 95.6 F L 07/22/21 15:08 Pulse 150 H 07/22/21 15:08 Resp 22 H 07/22/21 15:08 BP 113/72 07/22/21 15:08 Pulse Ox 97 07/22/21 15:08 Body Mass Index 25.3 Objective Data Labs CBC & Chem 7: 07/22/21 05:27 07/22/21 05:27 Labs: Laboratory Results - last 24 hr 07/21/21 07/21/21 07/21/21 04:16 18:22 20:20 WBC RBC Hgb 8.5 L Hct 25.0 L MCV MCH MCHC RDW Plt Count MPV Absolute Nucleated RBC Nucleated RBC % (auto) Sodium Potassium Chloride Carbon Dioxide Anion Gap BUN Creatinine Estim Creat Clear Calc Estimated GFR POC Glucose 150 H Random Glucose Calcium Magnesium T.pallidum Ab (EIA) Nonreactive 07/22/21 07/22/21 07/22/21 05:27 05:27 07:15 WBC 7.1 RBC 2.89 L Hgb 8.0 L Hct 23.8 L MCV 82.4 MCH 27.7 MCHC 33.6 RDW 16.2 H Plt Count 161 MPV 10.9 Absolute Nucleated RBC 0.000 Nucleated RBC % (auto) 0.0 Sodium 134 L Potassium 4.6 D Chloride 100 Carbon Dioxide 28 Anion Gap 11 L BUN 49 H Creatinine 1.83 H Estim Creat Clear Calc 48.0 Estimated GFR 37 POC Glucose 127 H Random Glucose 127 H Calcium 8.7 Magnesium 1.9 T.pallidum Ab (EIA) 07/22/21 15:51 WBC RBC Hgb Hct MCV MCH MCHC RDW Plt Count MPV Absolute Nucleated RBC Nucleated RBC % (auto) Sodium Potassium Chloride Carbon Dioxide Anion Gap BUN Creatinine Estim Creat Clear Calc Estimated GFR POC Glucose 182 H Random Glucose Calcium Magnesium T.pallidum Ab (EIA) Procedures Date of Service Date of Service: 07/22/21 Assessment & Plan Assessment and plan (1) WILEMR (acute kidney injury): Status: Acute Assessment and Plan: WILMER due to high dose of diuretics and hypoperfusion Off diuretics Creatinine is improving Assessment and Plan: Hold Diuretics for now and reassess in 24- 48 hrs to restart No need for further IVF in view of h/o CHF Time Spent With Patient Time: Total time spent is greater than 50% in coordination of care (as documented) at patient's floor/unit and/or counseling patient: Time with patient: 15 - 24 minutes Progress Note: Quality Stroke Does the patient have a stroke diagnosis?: No
[2021-07-22 20:30] LABS: Glucose, Whole Blood 153 mg/dL (60-115)
[2021-07-22] MEDS: Haloperidol Lactate 5 MG/ML VIAL 2.5 MG IVPUSH (22:13)
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
[2021-07-23] VITALS (9 sets, daily range): BP systolic 114–154; BP diastolic 58–97; PULSE 67–112; RESP 18–20; TEMP 35.7–36.8; O2SAT 94–99
[2021-07-23 00:32] LABS: Lactic Acid 6.3 mmol/L (0.5-2.0)
--- NOTE | 2021-07-23 00:37 | PM.EVENT ---
Event Note Date of Service: 07/23/21 Event Note: Pt very agitated, not directable, not following commands, unable to keep tele monitor on, but infrequently allows it on for few mins, shows him to be in A fib with RVR. did not respond well to ativan. Given 2.5 haldol with minimal response. Too confused to take PO pills, therefore unable to give po amiodarone or metoprolol. Developed a fever of 100. lab shows a lactic acid of 6.32. unable to assess source. sating 97% on RA with RR of 18. BP of 118/76. given IV lopressor of 5 mg , started on broad spectrum abx. given 30ss/kg IV fluids will obtain UA if possible
[2021-07-23] MEDS: Piperacillin Sodium/Tazobactam 3.375 GM in 0.9 % Sodium Chloride 50 ML IV ×2 (01:34→08:12)
[2021-07-23] MEDS: Lactated Ringers 1,000 ML 80 ML IVCONT (01:36)
[2021-07-23] MEDS: 0.9 % Sodium Chloride Flush 3 ML SYRINGE IVFLUSH ×3 (01:36→17:34)
[2021-07-23] MEDS: Metoprolol Tartrate 5 MG/5 ML VIAL IVPUSH (01:37)
[2021-07-23 02:00] LABS: Reflex Lactate? Lactic Acid Added
[2021-07-23] MEDS: vancomycin HCL 1,500 MG in 0.9 % Sodium Chloride 500 ML 333.33 MG IV (02:16)
--- NOTE | 2021-07-23 03:58 | PC.NURSE ---
pt having episodes of Vtach, runs of 5 to 19 beats. At approx 0346 pt had episode of NSVT. Pt asymptomatic entire time and sleeping. no complaints of dizziness, or shortness of breath. Had patient bear down and his heart rate is now 100-125 afib bp 117/82. notified. no new orders at this time.
[2021-07-23 05:37] LABS: Hematocrit 23.9 % (42-52); Mean Corpuscular HGB Conc 33.5 g/dl (31.0-36.0); Mean Corpuscular Hemoglobin 27.7 pg (27.0-33.0); Mean Corpuscular Volume 82.7 fL (80-98); Mean Platelet Volume 10.2 fL (9.4-12.4); Platelet Count 181 X10*3/uL (160-400); Red Blood Count 2.89 X10*6/uL (4.60-5.80); Red Cell Distribution Width 16.4 % (11.0-16.0); White Blood Count 6.4 X10*3/uL (4.8-10.8)
[2021-07-23 06:11] LABS: Anion Gap 12 (12-20); Blood Urea Nitrogen 38 mg/dL (9-16); Calcium 8.2 mg/dL (8.4-10.2); Carbon Dioxide 24 mmol/L (22-29); Chloride 108 mmol/L (96-108); Creatinine Clr Calc Pharmacy 75.8; Estimated Glomerular Filt Rate > 60; Glucose Random 126 mg/dL (60-115); Magnesium 1.6 mg/dL (1.6-2.6); Potassium 3.7 mmol/L (3.3-5.1); Sodium 140 mmol/L (135-145)
[2021-07-23 07:26] LABS: Glucose, Whole Blood 114 mg/dL (60-115)
[2021-07-23] MEDS: Magnesium Sulfate/H2O 2 GM/50 ML PIGGYBACK IV (08:12)
[2021-07-23] MEDS: Metoprolol Tartrate 25 MG TABLET PO ×2 (08:28→20:58)
[2021-07-23] MEDS: FLUoxetine HCl Oral Solution 20 MG/5 ML SOLUTION 10 MG PO (08:29)
[2021-07-23] MEDS: Metoprolol Succinate ER 12.5 MG HALFTAB.ER.24H PO (08:29)
[2021-07-23] MEDS: QUEtiapine Fumarate 25 MG TABLET 12.5 MG PO (08:29)
[2021-07-23] MEDS: Docusate Sodium 100 MG CAPSULE PO ×2 (08:29→20:57)
[2021-07-23] MEDS: Amiodarone HCL 200 MG TABLET PO (08:29)
[2021-07-23 09:34] LABS: Lactic Acid 1.1 mmol/L (0.5-2.0)
--- NOTE | 2021-07-23 10:22 | HO.PM.IMPN ---
Subjective Subjective Date of Service: 07/23/21 Interval History: seen and examined this morning Follow-up for WILMER, atrial fibrillation, NSVT Continued with aggression and agitation overnight, code assist was called, required dose of Haldol. Patient also had 1 temperature of 100 degrees overnight and has since remained afebrile. Lactic acid was checked and was elevated and therefore he received 30 cc/kg bolus as well as empiric antibiotics. This morning the patient is observed sitting up in bed eating breakfast. Appears more calm at this time. He has no specific complaints this morning. Wants to be left alone to eat his food. Review of Systems Review of Systems: Yes all other systems are reviewed and are negative Constitutional Constitutional: Denies chills and Denies fever(s) Cardiovascular Cardiovascular: Denies chest pain Respiratory Respiratory: Denies cough Gastrointestinal Gastrointestinal: Denies abdominal pain Neurologic Neurologic: Reports confusion Psychiatric Psychiatric: Reports confusion Physical Exam Vital Signs: Vital Signs: Last Vital Signs Temp 96.6 F L 07/23/21 07:37 Pulse 102 H 07/23/21 08:29 Resp 20 07/23/21 07:37 BP 154/97 H 07/23/21 08:29 Pulse Ox 95 07/23/21 07:37 Body Mass Index 25.3 Const: Other: hallucinating, agitated General: comfortable, no acute distress, alert, awake and confusion Nutritional Appearance: well nourished Orientation/consciousness: confusion HENMT: Head: Yes normocephalic and Yes atraumatic Eyes: Sclerae: sclerae normal Chest: Chest palpation & inspection: normal inspection of the chest Resp: Effort & Inspection: normal respiratory effort and no respiratory distress Cardio: Rate: tachycardic Rhythm: regular rhythm GI: Palpation (GI): Soft to palpation and nontender Skin: Other: bruising to left hip Neuro: General: confusion Cranial nerves: Yes CN's II-XII intact bilaterally and Yes Bilaterally intact EOM present Extrem: Other: no edema, ecchymosis to left hip area Objective Data Current Medications Generic Name Dose Route Start Last Admin Trade Name Freq PRN Reason Stop Dose Admin Acetaminophen 650 mg 07/20/21 21:19 Acetaminophen 325 Mg Tablet PO Q6H PRN Pain, Mild (Pain Scale 1-3) Amiodarone HCl 200 mg 07/22/21 12:45 07/23/21 08:29 Amiodarone Hcl 200 Mg Tablet PO 200 mg DAILY [facility] Administration Atorvastatin Calcium 80 mg 07/21/21 21:00 07/22/21 22:20 Atorvastatin Calcium 80 Mg Tablet PO Not Given BEDTIME [facility] Dextrose 25 gm 07/20/21 21:25 Dextrose 50 % 25 Gm/50 Ml Vial IVPUSH Q15M PRN per Hypoglycemia Standing Ord. Protocol Docusate Sodium 100 mg 07/21/21 09:00 07/23/21 08:29 Docusate Sodium 100 Mg Capsule PO 100 mg BID [facility] Administration Ergocalciferol 1,250 mcg 07/21/21 16:15 07/21/21 17:05 Ergocalciferol (Vitamin D2) 1,250 Mcg Capsule PO 1,250 mcg Q7D [facility] Administration Fluoxetine HCl 10 mg 07/23/21 09:00 07/23/21 08:29 Fluoxetine Hcl Oral Solution 20 Mg/5 Ml Solution PO 10 mg DAILY [facility] Administration Glucose 15 gm 07/20/21 21:25 Glucose Gel 15 Gm Gel..Gram. PO Q15M PRN per Hypoglycemia Standing Ord. Protocol Piperacillin Sod/Tazobactam 50 mls @ 100 mls/hr 07/23/21 01:00 07/23/21 09:12 Sod 3.375 gm/ Sodium Chloride IV Infused Q6H [facility] Infusion Vancomycin HCl 750 mg/ Sodium 265 mls @ 265 mls/hr 07/23/21 14:00 Chloride IV Q12H [facility] Insulin Human Lispro 0 unit 07/21/21 07:30 07/23/21 07:52 Insulin Lispro 100 Unit/Ml 3 Ml Vial SUBCUT Not Given QIDACHS [facility] Protocol Melatonin 3 mg 07/20/21 21:19 07/21/21 20:48 Melatonin 3 Mg Tablet PO 3 mg BEDTIME PRN Administration Insomnia Metoprolol Succinate 12.5 mg 07/21/21 09:00 07/23/21 08:29 Metoprolol Succinate Er 12.5 Mg Halftab.Er.24h PO 12.5 mg DAILY [facility] Administration Protocol Metoprolol Tartrate 25 mg 07/22/21 12:45 07/23/21 08:28 Metoprolol Tartrate 25 Mg Tablet PO 25 mg BID [facility] Administration Protocol Pharmacy Consult 1 each 07/20/21 18:38 Consult Rx Perform Med Rec MISCELLANE ONCE PRN Consult order Pharmacy Consult 1 each 07/23/21 00:33 Consult Rx Vancomycin Dosing MISCELLANE DAILY PRN Consult order Quetiapine Fumarate 12.5 mg 07/22/21 21:00 07/23/21 08:29 Quetiapine Fumarate 25 Mg Tablet PO 12.5 mg TID [facility] Administration Senna 17.2 mg 07/20/21 21:19 Sennosides 8.6 Mg Tablet PO BEDTIME PRN Constipation Sodium Chloride 3 ml 07/21/21 00:00 07/23/21 08:13 0.9 % Sodium Chloride Flush 3 Ml Syringe IVFLUSH 3 ml QSHIFT [facility] Administration Trazodone HCl 25 mg 07/22/21 15:33 Trazodone Hcl 25 Mg Halftab PO TID PRN Anxiety Labs CBC & Chem 7: 07/23/21 04:57 07/23/21 04:57 Labs: Laboratory Results - last 24 hr 07/22/21 07/22/21 07/22/21 15:51 20:20 23:45 MCV MCH MCHC RDW Plt Count MPV Absolute Nucleated RBC Nucleated RBC % (auto) Anion Gap Estim Creat Clear Calc Estimated GFR POC Glucose 182 H 153 H Random Glucose Lactic Acid 6.3 H* Lactic Acid Fup @ 2Hr Calcium Magnesium 07/23/21 07/23/21 07/23/21 02:15 04:57 04:57 MCV 82.7 MCH 27.7 MCHC 33.5 RDW 16.4 H Plt Count 181 MPV 10.2 Absolute Nucleated RBC 0.000 Nucleated RBC % (auto) 0.0 Anion Gap 12 Estim Creat Clear Calc 75.8 Estimated GFR > 60 POC Glucose Random Glucose 126 H Lactic Acid Lactic Acid Fup @ 2Hr TNP Calcium 8.2 L Magnesium 1.6 07/23/21 07/23/21 07:22 08:46 MCV MCH MCHC RDW Plt Count MPV Absolute Nucleated RBC Nucleated RBC % (auto) Anion Gap Estim Creat Clear Calc Estimated GFR POC Glucose 114 Random Glucose Lactic Acid 1.1 Lactic Acid Fup @ 2Hr Calcium Magnesium Assessment and Plan (1) Dementia with behavioral disturbance: Status: Acute (2) NSVT (nonsustained ventricular tachycardia): Status: Acute Assessment and Plan: This is a 66-year-old male with history of hypertension, hyperlipidemia, diabetes, systolic CHF with EF of 30-35%, history of recurrent falls, neuropathy, atrial fibrillation on Eliquis, possible dementia, history of recurrent right-sided pleural effusion who presented to the hospital with a chief complaint of fall. Hallucinatiions Initially more calm this morning, but now continues to be agitated Seems most likely r/t underlying dementia, possible Lewy Body Dementia Seen by psych, med adjustments per their recommendation outpatient outpatient eval for LBD -will add neurology consult -will follow up with psych for any further recs -may need p.r.n. medications for agitation for patient's safety Low grade fever overnight given 30cc/kg bolus lactic acid was 6.5, resolved with ivf empiric abx given no obvious source of infection. initially ct abdomen showed ? colitis but there no abdominal pain or diarreha hold of further abx at this time afib with RVR difficult to manage due to patient agitation/unwilling to wear monitor Metoprolol had been decreased due to hypotension on admission. Amiodarone had been held initially due to prolonged QT Seen by Cardiology. Given 1 dose IV metoprolol. Recommend to increase metoprolol to 25 b.i.d., resume amiodarone -Eliquis on hold for small amount of blood on CT abdomen episodes of NSVT h/o HFrEF, LVEF 30-35% -check lytes, replace prn -cardiology following Normocytic anemia heme negative H/H trending down -GI consult pending -follow CBC -Eliquis on hold WILMER:? Multifactorial.? Renal function improving with IV fluid No obstruction seen on CT of abdomen -hold nephrotoxins -Nephrology following? Recurrent falls:? evaluated by Neurology in May admission for recurrent falls- thought to be secondary to?neuropathy?and recommended outpatient EMG studies orthostatic hypotension contributing on this admission -PT eval when medically stable, likely will need d/c to SNF Orthostatic hypotension:? may be r/t medication BP improved. Unable to repeat orthostatics given confusion/agitation metoprolol dose increased on last admission.? Also takes losartan, Lasix, hydrochlorothiazide. -Hold Lasix, losartan, hydrochlorothiazide. Prolonged QT Improving. Seen by Cardiology, QT estimated in the 400s today -resume amiodarone per Cardiology rec -hold SSRI ?Colitis on CT No abdominal pain or diarrhea -d/c abx -Gastroenterology consult pending Hypertension Blood pressure controlled Hold losartan, hydrochlorothiazide setting WILMER History of systolic CHF:? Patient has EF of 30-35%.? Currently stable.? Holding diuretics for now given WILMER. monitor fluid status closely History of diabetes:? Per patient's patient is recently stopped on glipizide.? -hold metformin.? -continue Lantus.? -SSI, POCs Mood SSRI initially held for prolonged qtc, substitution made per psych rec Have attempted to call patient's healthcare proxy, Rosa Maria multiple times between yesterday and today. Have left voicemail. So far calls have gone unanswered. DVT prophylaxis-mechanical devices due to anemia Attending Dr. Martínez Quality Stroke Does the patient have a stroke diagnosis?: No VTE Prior VTE?: No VTE Risk Level:: Medical - moderate - high VTE Device Contraindication: Treatment Not Indicated VTE Drug Contraindication: Treatment Not Indicated
[2021-07-23 10:36] LABS: Glucose, Whole Blood 149 mg/dL (60-115)
[2021-07-23] MEDS: LORazepam 2 MG/ML VIAL 1 MG IVPUSH (10:55)
--- NOTE | 2021-07-23 11:11 | ECG_ITS ---
Test Reason : check qtc Blood Pressure : / mmHG Vent. Rate : 073 BPM Atrial Rate : 073 BPM P-R Int : 116 ms QRS Dur : 096 ms QT Int : 454 ms P-R-T Axes : 017 028 091 degrees QTc Int : 500 ms Normal sinus rhythm Nonspecific T wave abnormality Abnormal ECG When compared with ECG of 22-JUL-2021 11:44, Atrial fibrillation with rapid ventricular response is no longer Present Nonspecific T wave abnormality is now Present Referred By: Anna Chaudhary Electronically Signed By:NOY GILMORE
[2021-07-23] MEDS: LORazepam 2 MG/ML VIAL 0.5 MG IVPUSH (11:24)
--- NOTE | 2021-07-23 11:39 | P.PNCA_ITS ---
Subjective Subjective Date of Service: 07/23/21 Principal diagnosis: Orthostatic hypotension, WILMER, dehydration, afib RVR, Dementia Interval history: Extremely agitated and confused. Telemetry showing AFib with RVR. Physical Exam Vital Signs: Last Vital Signs Temp 96.3 F L 07/23/21 11:26 Pulse 72 07/23/21 11:26 Resp 20 07/23/21 11:26 BP 114/58 L 07/23/21 11:26 Pulse Ox 98 07/23/21 11:26 Body Mass Index 25.3 Very limited examination possible. He is very agitated and thrashing around. Telemetry was reviewed which showed AFib with RVR. Results Labs and Meds Result diagrams: 07/23/21 04:57 07/23/21 04:57 Lab results: Laboratory Results - last 24 hr 07/22/21 07/22/21 07/22/21 15:51 20:20 23:45 WBC RBC Hgb Hct MCV MCH MCHC RDW Plt Count MPV Absolute Nucleated RBC Nucleated RBC % (auto) Sodium Potassium Chloride Carbon Dioxide Anion Gap BUN Creatinine Estim Creat Clear Calc Estimated GFR POC Glucose 182 H 153 H Random Glucose Lactic Acid 6.3 H* Lactic Acid Fup @ 2Hr Calcium Magnesium 07/23/21 07/23/21 07/23/21 02:15 04:57 04:57 WBC 6.4 RBC 2.89 L Hgb 8.0 L Hct 23.9 L MCV 82.7 MCH 27.7 MCHC 33.5 RDW 16.4 H Plt Count 181 MPV 10.2 Absolute Nucleated RBC 0.000 Nucleated RBC % (auto) 0.0 Sodium 140 Potassium 3.7 Chloride 108 Carbon Dioxide 24 Anion Gap 12 BUN 38 H Creatinine 1.16 Estim Creat Clear Calc 75.8 Estimated GFR > 60 POC Glucose Random Glucose 126 H Lactic Acid Lactic Acid Fup @ 2Hr TNP Calcium 8.2 L Magnesium 1.6 07/23/21 07/23/21 07/23/21 07:22 08:46 10:21 WBC RBC Hgb Hct MCV MCH MCHC RDW Plt Count MPV Absolute Nucleated RBC Nucleated RBC % (auto) Sodium Potassium Chloride Carbon Dioxide Anion Gap BUN Creatinine Estim Creat Clear Calc Estimated GFR POC Glucose 114 149 H Random Glucose Lactic Acid 1.1 Lactic Acid Fup @ 2Hr Calcium Magnesium Progress Note: A&P Assessment and plan (1) Dementia with behavioral disturbance: Status: Acute (2) PAF (paroxysmal atrial fibrillation): Status: Acute Assessment and Plan: [age] year gentleman with known cardiomyopathy with previous cardioversion for atrial fibrillation who presented for kidney injury and then developed worsening delirium. He was in AFib with RVR but reverted back to sinus rhythm. His QT interval on telemetry is approximately 430. I think Haldol or Zyprexa can be used for agitation. I would avoid Ativan because he has become more excitable with that. We will follow along with you as he improves. Monitor electrolytes closely. Thank you for allowing me to participate in the care of your patient. Please feel free to contact me if you have any questions. Fall Risk Details Current Medications: Current Medications Generic Name Dose Route Start Last Admin Trade Name Freq PRN Reason Stop Dose Admin Acetaminophen 650 mg 07/20/21 21:19 Acetaminophen 325 Mg Tablet PO Q6H PRN Pain, Mild (Pain Scale 1-3) Amiodarone HCl 200 mg 07/22/21 12:45 07/23/21 08:29 Amiodarone Hcl 200 Mg Tablet PO 200 mg DAILY [facility] Administration Atorvastatin Calcium 80 mg 07/21/21 21:00 07/22/21 22:20 Atorvastatin Calcium 80 Mg Tablet PO Not Given BEDTIME [facility] Dextrose 25 gm 07/20/21 21:25 Dextrose 50 % 25 Gm/50 Ml Vial IVPUSH Q15M PRN per Hypoglycemia Standing Ord. Protocol Docusate Sodium 100 mg 07/21/21 09:00 07/23/21 08:29 Docusate Sodium 100 Mg Capsule PO 100 mg BID [facility] Administration Ergocalciferol 1,250 mcg 07/21/21 16:15 07/21/21 17:05 Ergocalciferol (Vitamin D2) 1,250 Mcg Capsule PO 1,250 mcg Q7D [facility] Administration Fluoxetine HCl 10 mg 07/23/21 09:00 07/23/21 08:29 Fluoxetine Hcl Oral Solution 20 Mg/5 Ml Solution PO 10 mg DAILY [facility] Administration Glucose 15 gm 07/20/21 21:25 Glucose Gel 15 Gm Gel..Gram. PO Q15M PRN per Hypoglycemia Standing Ord. Protocol Insulin Human Lispro 0 unit 07/21/21 07:30 07/23/21 11:14 Insulin Lispro 100 Unit/Ml 3 Ml Vial SUBCUT Not Given QIDACHS [facility] Protocol Melatonin 3 mg 07/20/21 21:19 07/21/21 20:48 Melatonin 3 Mg Tablet PO 3 mg BEDTIME PRN Administration Insomnia Metoprolol Succinate 12.5 mg 07/21/21 09:00 07/23/21 08:29 Metoprolol Succinate Er 12.5 Mg Halftab.Er.24h PO 12.5 mg DAILY [facility] Administration Protocol Metoprolol Tartrate 25 mg 07/22/21 12:45 07/23/21 08:28 Metoprolol Tartrate 25 Mg Tablet PO 25 mg BID [facility] Administration Protocol Pharmacy Consult 1 each 07/20/21 18:38 Consult Rx Perform Med Rec MISCELLANE ONCE PRN Consult order Pharmacy Consult 1 each 07/23/21 00:33 Consult Rx Vancomycin Dosing MISCELLANE DAILY PRN Consult order Quetiapine Fumarate 25 mg 07/23/21 15:00 Quetiapine Fumarate 25 Mg Tablet PO TID [facility] Senna 17.2 mg 07/20/21 21:19 Sennosides 8.6 Mg Tablet PO BEDTIME PRN Constipation Sodium Chloride 3 ml 07/21/21 00:00 07/23/21 08:13 0.9 % Sodium Chloride Flush 3 Ml Syringe IVFLUSH 3 ml QSHIFT [facility] Administration Trazodone HCl 25 mg 07/22/21 15:33 Trazodone Hcl 25 Mg Halftab PO TID PRN Anxiety Time Spent With Patient Time: Total time spent is greater than 50% in coordination of care (as documented) at patient's floor/unit and/or counseling patient: Time with patient: 15 - 24 minutes Progress Note: Quality Stroke Does the patient have a stroke diagnosis?: No Procedures Date of Service Date of Service: 07/23/21
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
[2021-07-23 16:43] LABS: Glucose, Whole Blood 231 mg/dL (60-115)
[2021-07-23] MEDS: Insulin Lispro 100 UNIT/ML 3 ML VIAL SUBCUT (17:33)
[2021-07-23 20:24] LABS: Glucose, Whole Blood 126 mg/dL (60-115)
--- NOTE | 2021-07-23 20:30 | PM.PNNEP ---
Subjective Subjective Date of Service: 07/23/21 Principal diagnosis: Orthostatic hypotension, WILMER, dehydration, afib RVR, Dementia Interval history: s/p ABx and IVF about 30cc/kg Cr improved dramatically doing well resting comfortably this afternoon in bed. Physical Exam Vital Signs: Vital Signs: Last Vital Signs Temp 97.6 F 07/23/21 19:05 Pulse 73 07/23/21 19:05 Resp 19 07/23/21 19:05 BP 126/92 H 07/23/21 19:05 Pulse Ox 94 07/23/21 19:05 Body Mass Index 25.3 Const: General: comfortable, alert and awake Chest: Chest palpation & inspection: normal inspection of the chest Resp: Effort & Inspection: no respiratory distress Auscultation: clear to auscultation bilaterally, no rales, no rhonchi and no wheezes Cardio: Rhythm: regular rhythm Heart sounds: no murmurs GI: Inspection: No distended : General: Yes no CVA tenderness Back/Spine/Pelvis: Back: no CVA tenderness Objective Data Labs CBC & Chem 7: 07/23/21 04:57 07/23/21 04:57 Labs: Laboratory Results - last 24 hr 07/22/21 07/22/21 07/23/21 20:20 23:45 02:15 WBC RBC Hgb Hct MCV MCH MCHC RDW Plt Count MPV Absolute Nucleated RBC Nucleated RBC % (auto) Sodium Potassium Chloride Carbon Dioxide Anion Gap BUN Creatinine Estim Creat Clear Calc Estimated GFR POC Glucose 153 H Random Glucose Lactic Acid 6.3 H* Lactic Acid Fup @ 2Hr TNP Calcium Magnesium 07/23/21 07/23/21 07/23/21 04:57 04:57 07:22 WBC 6.4 RBC 2.89 L Hgb 8.0 L Hct 23.9 L MCV 82.7 MCH 27.7 MCHC 33.5 RDW 16.4 H Plt Count 181 MPV 10.2 Absolute Nucleated RBC 0.000 Nucleated RBC % (auto) 0.0 Sodium 140 Potassium 3.7 Chloride 108 Carbon Dioxide 24 Anion Gap 12 BUN 38 H Creatinine 1.16 Estim Creat Clear Calc 75.8 Estimated GFR > 60 POC Glucose 114 Random Glucose 126 H Lactic Acid Lactic Acid Fup @ 2Hr Calcium 8.2 L Magnesium 1.6 07/23/21 07/23/21 07/23/21 08:46 10:21 16:37 WBC RBC Hgb Hct MCV MCH MCHC RDW Plt Count MPV Absolute Nucleated RBC Nucleated RBC % (auto) Sodium Potassium Chloride Carbon Dioxide Anion Gap BUN Creatinine Estim Creat Clear Calc Estimated GFR POC Glucose 149 H 231 H Random Glucose Lactic Acid 1.1 Lactic Acid Fup @ 2Hr Calcium Magnesium 07/23/21 20:18 WBC RBC Hgb Hct MCV MCH MCHC RDW Plt Count MPV Absolute Nucleated RBC Nucleated RBC % (auto) Sodium Potassium Chloride Carbon Dioxide Anion Gap BUN Creatinine Estim Creat Clear Calc Estimated GFR POC Glucose 126 H Random Glucose Lactic Acid Lactic Acid Fup @ 2Hr Calcium Magnesium Procedures Date of Service Date of Service: 07/23/21 Assessment & Plan Assessment and plan (1) WILMER (acute kidney injury): Status: Acute Assessment and Plan: Mr. Terrence Causye is a 66-year-old male with history of hypertension, hyperlipidemia, diabetes, systolic CHF with EF of 30-35%, history of recurrent falls, neuropathy, atrial fibrillation on Eliquis, possible dementia, history of recurrent right-sided pleural effusion who presented to the hospital with a chief complaint of fall. His course is complicated by WILMER. 1. WILMER BL Cr 1.1-1.3mg/dL Cr peak 4.68mg/dL now improved back to baseline 1.16mg/dl after IVF CT abd no signs of obstruction overall pre-renal disease now resolved Overall patient had orthostasis, NSVT, and hypvolemia PlanL - continue to hold diuretics - He should never be on both HCTZ and Lasix - ok to restart losartan if hypertensive - dose metoprolol for antirrhythmic effect Time Spent With Patient Time: Total time spent is greater than 50% in coordination of care (as documented) at patient's floor/unit and/or counseling patient: Progress Note: Quality Stroke Does the patient have a stroke diagnosis?: No
[2021-07-23] MEDS: Atorvastatin Calcium 80 MG TABLET PO (20:57)
[2021-07-23] MEDS: OLANZapine ODT 10 MG TAB.RAPDIS 5 MG TRANSLINGU (20:58)
[2021-07-24] VITALS (12 sets, daily range): BP systolic 115–165; BP diastolic 62–98; PULSE 56–72; RESP 14–20; TEMP 36.2–37.4; O2SAT 95–99
[2021-07-24] MEDS: Melatonin 3 MG TABLET PO (00:27)
[2021-07-24] MEDS: 0.9 % Sodium Chloride Flush 3 ML SYRINGE IVFLUSH ×4 (00:28→21:38)
[2021-07-24 07:14] LABS: Glucose, Whole Blood 92 mg/dL (60-115)
[2021-07-24] MEDS: Metoprolol Tartrate 25 MG TABLET PO (07:27)
[2021-07-24] MEDS: Docusate Sodium 100 MG CAPSULE PO (07:27)
[2021-07-24] MEDS: Amiodarone HCL 200 MG TABLET PO (07:27)
[2021-07-24] MEDS: FLUoxetine HCl Oral Solution 20 MG/5 ML SOLUTION 10 MG PO (07:27)
[2021-07-24 07:38] LABS: Hematocrit 23.3 % (42-52); Hemoglobin 7.6 g/dl (14.0-18.0); Mean Corpuscular HGB Conc 32.6 g/dl (31.0-36.0); Mean Corpuscular Hemoglobin 27.6 pg (27.0-33.0); Mean Corpuscular Volume 84.7 fL (80-98); Mean Platelet Volume 10.3 fL (9.4-12.4); Platelet Count 188 X10*3/uL (160-400); Red Blood Count 2.75 X10*6/uL (4.60-5.80); Red Cell Distribution Width 16.8 % (11.0-16.0); White Blood Count 6.4 X10*3/uL (4.8-10.8)
[2021-07-24 08:09] LABS: Anion Gap 12 (12-20); Blood Urea Nitrogen 28 mg/dL (9-16); Calcium 8.5 mg/dL (8.4-10.2); Carbon Dioxide 25 mmol/L (22-29); Chloride 107 mmol/L (96-108); Creatinine Clr Calc Pharmacy 90.7; Estimated Glomerular Filt Rate > 60; Glucose Random 90 mg/dL (60-115); Magnesium 1.6 mg/dL (1.6-2.6); Potassium 4.2 mmol/L (3.3-5.1); Sodium 140 mmol/L (135-145)
--- NOTE | 2021-07-24 10:00 | P.CNNE_ITS ---
History of Present Illness Data of Consult Service Date: 07/24/21 Primary Care Provider: Taz Malik MD [facility] Reason for consult: ?parkinsonism 66 years old man with underlying history of hypertension, diabetes, congestive heart failure who I was asked to see for possibility of Parkinson's disease. He said that he came to hospital because of difficulty walking and falling. He denied any pain. When asked when was the last time he was walking fine, initially said few months ago but then said few days ago. There was no history of trauma. There was no loss of bowel bladder difficulties. There was no complaint of any tingling numbness or pain in feet or legs. 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 Diabetes HTN (hypertension) Noncompliance with medications Peripheral neuropathy Vertebrobasilar dolichoectasia Family History Family History Father CAD (coronary artery disease) Social History Social History Household Members: Spouse Household Members Other:: and son Housing: House Do you presently have visiting nurse or other home services: Yes Alcohol intake: never Patient Tobacco Use Status: Never used Tobacco Second Hand Smoke Exposure: No Use of substances other than those prescribed or required for medical reasons: No Currently Displaying Signs/Symptoms of Drug Intoxication Withdrawal: No Advance Directives: No Advance Directives Information Provided: No Do you have thoughts of harming others: None Do you have a plan to hurt others: No Plan Recently lost weight without trying: No Poor oral hygiene: No service: No Current occupational status: retired Meds Allergies Allergy/AdvReac Type Severity Reaction Status Date / Time colchicine Allergy Rash Verified 07/20/21 15:56 Active Medications: Current Medications Generic Name Dose Route Start Last Admin Trade Name Freq PRN Reason Stop Dose Admin Acetaminophen 650 mg 07/20/21 21:19 Acetaminophen 325 Mg Tablet PO Q6H PRN Pain, Mild (Pain Scale 1-3) Amiodarone HCl 200 mg 07/22/21 12:45 07/24/21 07:27 Amiodarone Hcl 200 Mg Tablet PO 200 mg DAILY PALMER Administration Atorvastatin Calcium 80 mg 07/21/21 21:00 07/23/21 20:57 Atorvastatin Calcium 80 Mg Tablet PO 80 mg BEDTIME PALMER Administration Dextrose 25 gm 07/20/21 21:25 Dextrose 50 % 25 Gm/50 Ml Vial IVPUSH Q15M PRN per Hypoglycemia Standing Ord. Protocol Docusate Sodium 100 mg 07/21/21 09:00 07/24/21 07:27 Docusate Sodium 100 Mg Capsule PO 100 mg BID PALMER Administration Ergocalciferol 1,250 mcg 07/21/21 16:15 07/21/21 17:05 Ergocalciferol (Vitamin D2) 1,250 Mcg Capsule PO 1,250 mcg Q7D PALMER Administration Fluoxetine HCl 10 mg 07/23/21 09:00 07/24/21 07:27 Fluoxetine Hcl Oral Solution 20 Mg/5 Ml Solution PO 10 mg DAILY PALMER Administration Glucose 15 gm 07/20/21 21:25 Glucose Gel 15 Gm Gel..Gram. PO Q15M PRN per Hypoglycemia Standing Ord. Protocol Insulin Human Lispro 0 unit 07/21/21 07:30 07/24/21 07:14 Insulin Lispro 100 Unit/Ml 3 Ml Vial SUBCUT Not Given QIDACHS [facility] Protocol Melatonin 3 mg 07/20/21 21:19 07/24/21 00:27 Melatonin 3 Mg Tablet PO 3 mg BEDTIME PRN Administration Insomnia Metoprolol Tartrate 25 mg 07/22/21 12:45 07/24/21 07:27 Metoprolol Tartrate 25 Mg Tablet PO 25 mg BID PALMER Administration Protocol Olanzapine 5 mg 07/23/21 21:00 07/23/21 20:58 Olanzapine Odt 10 Mg Tab.Rapdis TRANSLINGU 5 mg BEDTIME PALMER Administration Pharmacy Consult 1 each 07/20/21 18:38 Consult Rx Perform Med Rec MISCELLANE ONCE PRN Consult order Pharmacy Consult 1 each 07/23/21 00:33 Consult Rx Vancomycin Dosing MISCELLANE DAILY PRN Consult order Sodium Chloride 3 ml 07/21/21 00:00 07/24/21 07:27 0.9 % Sodium Chloride Flush 3 Ml Syringe IVFLUSH 3 ml QSHIFT PALMER Administration Home Medications Medication Instructions Recorded Confirmed Last Taken Type allopurinol 300 mg tablet 300 mg PO DAILY 06/04/21 07/20/21 07/20/21 History apixaban 5 mg tablet (Eliquis) 5 mg PO BID 06/04/21 07/20/21 07/20/21 History atorvastatin 80 mg tablet 80 mg PO BEDTIME 06/04/21 07/20/21 07/19/21 History bupropion HCl 300 mg 24 hr tablet, 1 tab PO DAILY 06/04/21 07/20/21 07/20/21 History extended release escitalopram oxalate 20 mg tablet 20 mg PO DAILY 06/04/21 07/20/21 07/20/21 History hydrochlorothiazide 12.5 mg tablet 12.5 mg PO DAILY 07/20/21 07/20/21 07/20/21 History insulin glargine 100 unit/mL (3 15 unit SUBCUT BEDTIME 07/20/21 07/20/21 Unknown History mL) subcutaneous pen (Lantus Solostar U-100 Insulin) magnesium oxide 400 mg PO DAILY 07/20/21 07/20/21 07/20/21 History metformin 500 mg tablet 500 mg PO BID 07/20/21 07/20/21 07/20/21 History Physical Exam Vital Signs: Vital Signs: Last Vital Signs Temp 97.1 F 07/24/21 07:40 Pulse 61 07/24/21 07:40 Resp 20 07/24/21 07:40 BP 140/72 H 07/24/21 07:40 Pulse Ox 97 07/24/21 07:40 Body Mass Index 25.3 Neuro: Other: He was alert and awake with normal spontaneity of speech fluency comprehension and wake affect. He was following commands. Face was symmetrical. Visual ramírez are full. There was no obvious arm weakness. Hyperflexion deformity of toes with high arches were noted. Mild diffuse muscle atrophy was noted in for legs. Deep tendon reflexes are absent with flexor plantars. He had significant difficulty getting out of bed and was not able to stand on his own. Results Labs CBC & Chem 7: 07/24/21 05:51 07/24/21 05:51 Labs: Short CBC 07/24/21 Range/Units 05:51 WBC 6.4 (4.8-10.8) X10*3/uL Hgb 7.6 L (14.0-18.0) g/dl Hct 23.3 L (42-52) % Plt Count 188 (160-400) X10*3/uL BMP 07/24/21 05:51 Sodium 140 Potassium 4.2 Chloride 107 Carbon Dioxide 25 BUN 28 H Creatinine 0.97 Calcium 8.[address] and brain MRI were reviewed. Moderate to severe diffuse white matter changes were noted suggestive of chronic microvascular disease typically associated with vascular risk factors affecting small blood vessels. Moderate cerebral atrophy was also noted. Microbiology Microbiology Results: Microbiology 07/22/21 23:52 Blood - Venous Blood Culture - Preliminary No growth after 24 hours. 07/22/21 23:45 Blood - Venous Blood Culture - Preliminary No growth after 24 hours. Assessment and Plan (1) Multifactorial gait disorder: Status: Acute 66 years old man who has significant cerebral and cerebellar atrophy, moderate to severe microvascular ischemic changes of brain, and signs of chronic probably severe chronic peripheral neuropathy combination of these factors have affected his walking and balance leading to falling. There was no treatment for the brain conditions. There was a minor possibility that neuropathy might be of a type that 1 could treat. In this regard EMG nerve conduction study of her leg and arm was recommended to rule out that type of neuropathy. Otherwise there was no treatment for this type of neuropathy either and mainstay of management was using a walker and avoiding falls. I did not find features of Parkinson's disease. (2) Multifactorial dementia: Status: Acute This was due to significant atrophy and significant vascular disease. Salvador herrera's like this sometime can manifest symptoms that could suggest mild parkinsonism but they did do not respond to typical anti parkinsonian medicines. Procedures Date of Service Date of Service: 07/24/21
[2021-07-24 11:15] LABS: Iron 86 mcg/dL (45-160); Percent Iron Saturation 43 % (15-50); Total Iron Binding Capacity 200 mcg/dL (228-428); Unsaturated Iron Binding 114 ug/dL
[2021-07-24 11:35] LABS: Ferritin 527 ng/mL (20-250)
[2021-07-24 11:39] LABS: Glucose, Whole Blood 192 mg/dL (60-115)
--- NOTE | 2021-07-24 11:43 | P.PNIM_ITS ---
Subjective Subjective Date of Service: 07/24/21 Interval History: Seen and examined this morning Patient awake, alert and oriented . No agitation at this time Review of Systems Review of Systems: Yes all other systems are reviewed and are negative Constitutional Constitutional: Denies chills and Denies fever(s) Cardiovascular Cardiovascular: Denies chest pain Respiratory Respiratory: Denies cough Gastrointestinal Gastrointestinal: Denies abdominal pain Physical Exam Vital Signs: Vital Signs: Last Vital Signs Temp 97.7 F 07/24/21 11:28 Pulse 63 07/24/21 11:28 Resp 14 07/24/21 11:28 BP 115/70 07/24/21 11:28 Pulse Ox 99 07/24/21 11:00 Body Mass Index 25.3 Const: General: comfortable, no acute distress, alert and awake Nutritional Appearance: well nourished HENMT: Head: Yes normocephalic and Yes atraumatic Eyes: Sclerae: sclerae normal Chest: Chest palpation & inspection: normal inspection of the chest Resp: Effort & Inspection: normal respiratory effort and no respiratory distress Cardio: Rate: tachycardic Rhythm: regular rhythm GI: Palpation (GI): Soft to palpation and nontender Skin: Other: bruising to left hip Neuro: Cranial nerves: Yes CN's II-XII intact bilaterally and Yes Bilaterally intact EOM present Extrem: Other: no edema, ecchymosis to left hip area Objective Data Current Medications Generic Name Dose Route Start Last Admin Trade Name Freq PRN Reason Stop Dose Admin Acetaminophen 650 mg 07/20/21 21:19 Acetaminophen 325 Mg Tablet PO Q6H PRN Pain, Mild (Pain Scale 1-3) Amiodarone HCl 200 mg 07/22/21 12:45 07/24/21 07:27 Amiodarone Hcl 200 Mg Tablet PO 200 mg DAILY PALMER Administration Atorvastatin Calcium 80 mg 07/21/21 21:00 07/23/21 20:57 Atorvastatin Calcium 80 Mg Tablet PO 80 mg BEDTIME PALMER Administration Dextrose 25 gm 07/20/21 21:25 Dextrose 50 % 25 Gm/50 Ml Vial IVPUSH Q15M PRN per Hypoglycemia Standing Ord. Protocol Docusate Sodium 100 mg 07/21/21 09:00 07/24/21 07:27 Docusate Sodium 100 Mg Capsule PO 100 mg BID PALMER Administration Ergocalciferol 1,250 mcg 07/21/21 16:15 07/21/21 17:05 Ergocalciferol (Vitamin D2) 1,250 Mcg Capsule PO 1,250 mcg Q7D PALMER Administration Fluoxetine HCl 10 mg 07/23/21 09:00 07/24/21 07:27 Fluoxetine Hcl Oral Solution 20 Mg/5 Ml Solution PO 10 mg DAILY PALMER Administration Glucose 15 gm 07/20/21 21:25 Glucose Gel 15 Gm Gel..Gram. PO Q15M PRN per Hypoglycemia Standing Ord. Protocol Insulin Human Lispro 0 unit 07/21/21 07:30 07/24/21 07:14 Insulin Lispro 100 Unit/Ml 3 Ml Vial SUBCUT Not Given QIDACHS [facility] Protocol Melatonin 3 mg 07/20/21 21:19 07/24/21 00:27 Melatonin 3 Mg Tablet PO 3 mg BEDTIME PRN Administration Insomnia Metoprolol Tartrate 25 mg 07/22/21 12:45 07/24/21 07:27 Metoprolol Tartrate 25 Mg Tablet PO 25 mg BID PALMER Administration Protocol Olanzapine 5 mg 07/23/21 21:00 07/23/21 20:58 Olanzapine Odt 10 Mg Tab.Rapdis TRANSLINGU 5 mg BEDTIME PALMER Administration Pharmacy Consult 1 each 07/20/21 18:38 Consult Rx Perform Med Rec MISCELLANE ONCE PRN Consult order Pharmacy Consult 1 each 07/23/21 00:33 Consult Rx Vancomycin Dosing MISCELLANE DAILY PRN Consult order Sodium Chloride 3 ml 07/21/21 00:00 07/24/21 07:27 0.9 % Sodium Chloride Flush 3 Ml Syringe IVFLUSH 3 ml QSHIFT [facility] Administration Labs CBC & Chem 7: 07/24/21 05:51 07/24/21 05:51 Labs: Laboratory Results - last 24 hr 07/23/21 07/23/21 07/24/21 16:37 20:18 05:51 MCV 84.7 MCH 27.6 MCHC 32.6 RDW 16.8 H Plt Count 188 MPV 10.3 Absolute Nucleated RBC 0.000 Nucleated RBC % (auto) 0.0 Anion Gap Estim Creat Clear Calc Estimated GFR POC Glucose 231 H 126 H Random Glucose Calcium Magnesium Iron TIBC % Saturation Unsat Iron Binding Ferritin Blood Type Antibody Screen Crossmatch 07/24/21 07/24/21 07/24/21 05:51 07:10 09:09 MCV MCH MCHC RDW Plt Count MPV Absolute Nucleated RBC Nucleated RBC % (auto) Anion Gap 12 Estim Creat Clear Calc 90.7 Estimated GFR > 60 POC Glucose 92 Random Glucose 90 Calcium 8.5 Magnesium 1.6 Iron 86 TIBC 200 L % Saturation 43 Unsat Iron Binding 114 Ferritin 527 H Blood Type O Positive Antibody Screen NEGATIVE Crossmatch See Detail 07/24/21 11:35 MCV MCH MCHC RDW Plt Count MPV Absolute Nucleated RBC Nucleated RBC % (auto) Anion Gap Estim Creat Clear Calc Estimated GFR POC Glucose 192 H Random Glucose Calcium Magnesium Iron TIBC % Saturation Unsat Iron Binding Ferritin Blood Type Antibody Screen Crossmatch Microbiology Microbiology Results: Microbiology 07/22/21 23:52 Blood Culture - Preliminary Blood - Venous No growth after 24 hours. 07/22/21 23:45 Blood Culture - Preliminary Blood - Venous No growth after 24 hours. Assessment and Plan (1) Dementia with behavioral disturbance: Status: Acute (2) NSVT (nonsustained ventricular tachycardia): Status: Acute (3) Multifactorial gait disorder: Status: Acute Assessment and Plan: This is a 66-year-old male with history of hypertension, hyperlipidemia, diabetes, systolic CHF with EF of 30-35%, history of recurrent falls, neuropathy, atrial fibrillation on Eliquis, possible dementia, history of recurrent right-sided pleural effusion who presented to the hospital with a chief complaint of fall. Hallucinatiions/agitation Improved this morning Seems most likely r/t underlying dementia, possible Lewy Body Dementia. Brain imaging showing significant cerebral and cerebellar atrophy, moderate to severe microvascular ischemic changes. Seen by psych, med adjustments per their recommendation Consider outpatient eval for LBD -seen by Neurology -continue Zyprexa Fever Low grade fever 07/22, no recurrent fevers s/p 30cc/kg bolus lactic acid was 6.5, resolved with ivf empiric abx given no obvious source of infection. hold of further abx at this time Blood cultures negative afib with RVR Converted back to NSR yesterday afternoon Continue amiodarone, Lopressor -Eliquis on hold for anemia episodes of NSVT h/o HFrEF, LVEF 30-35% -check lytes, replace prn -cardiology following Normocytic anemia heme negative H/H trending down, will transfuse 1 u rbc -seen by GI, can consider colonoscopy/egd to evaluate anemia when acute problems are resolved -follow CBC -Eliquis on hold WILMER:?Resolved SCr 0.97 down from 4.68 on admission Multifactorial.? No obstruction seen on CT of abdomen -hold nephrotoxins -Nephrology following? Recurrent falls:? evaluated by Neurology in May admission for recurrent falls- thought to be secondary to?neuropathy?and recommended outpatient EMG studies orthostatic hypotension contributing on this admission -PT eval when medically stable, likely will need d/c to SNF Orthostatic hypotension:? may be r/t medication BP improved. -Hold Lasix, losartan, hydrochlorothiazide. Prolonged QT Improving. Seen by Cardiology, QT estimated in the 400s today -resume amiodarone per Cardiology rec -SSRI changed to prozac per psych rec to avoid qtc prolongation ?Colitis on CT No abdominal pain or diarrhea No indication for antibiotics -seen by GI, no evidence of colitis Hypertension Blood pressure controlled Hold losartan, hydrochlorothiazide setting WILMER History of systolic CHF:? Patient has EF of 30-35%.? Currently stable.? Holding diuretics for now given WILMER on admission monitor fluid status closel, appears euvolemic History of diabetes:? -no longer on glipizide? -hold metformin.? -continue Lantus.? -SSI, POCs Mood SSRI initially held for prolonged qtc, substitution made per psych rec Have attempted to call patient's healthcare proxy, Rosa Maria multiple times. Have left voicemail. So far calls have gone unanswered. DVT prophylaxis-mechanical devices due to anemia Attending Dr. Martínez Dispo: will likely need STR due to multiple falls, pt eval Quality Stroke Does the patient have a stroke diagnosis?: No VTE Prior VTE?: No VTE Risk Level:: Medical - moderate - high VTE Device Contraindication: Treatment Not Indicated VTE Drug Contraindication: Treatment Not Indicated
--- NOTE | 2021-07-24 15:38 | ECG_ITS ---
Test Reason : prolonged qt Blood Pressure : / mmHG Vent. Rate : 059 BPM Atrial Rate : 059 BPM P-R Int : 146 ms QRS Dur : 098 ms QT Int : 490 ms P-R-T Axes : 057 050 072 degrees QTc Int : 485 ms Sinus bradycardia Prolonged QT Abnormal ECG When compared with ECG of 23-JUL-2021 17:19, Nonspecific T wave abnormality is no longer Present Referred By: Fritz Kinney Electronically Signed By:NOY GILMORE
[2021-07-24 16:04] LABS: Glucose, Whole Blood 135 mg/dL (60-115)
--- NOTE | 2021-07-24 16:32 | P.PNNP_ITS ---
Subjective Subjective Date of Service: 07/24/21 Principal diagnosis: Orthostatic hypotension, WILMER, dehydration, afib RVR, Dementia Interval history: WILMER resolved Physical Exam Vital Signs: Vital Signs: Last Vital Signs Temp 97.5 F 07/24/21 15:01 Pulse 57 07/24/21 15:01 Resp 15 07/24/21 15:01 BP 157/86 H 07/24/21 15:01 Pulse Ox 99 07/24/21 15:02 Body Mass Index 25.3 Const: General: comfortable, alert and awake Chest: Chest palpation & inspection: normal inspection of the chest Resp: Effort & Inspection: no respiratory distress Auscultation: clear to auscultation bilaterally, no rales, no rhonchi and no wheezes Cardio: Rhythm: regular rhythm Heart sounds: no murmurs GI: Inspection: No distended : General: Yes no CVA tenderness Back/Spine/Pelvis: Back: no CVA tenderness Objective Data Labs CBC & Chem 7: 07/24/21 05:51 07/24/21 05:51 Labs: Laboratory Results - last 24 hr 07/23/21 07/23/21 07/24/21 16:37 20:18 05:51 WBC 6.4 RBC 2.75 L Hgb 7.6 L Hct 23.3 L MCV 84.7 MCH 27.6 MCHC 32.6 RDW 16.8 H Plt Count 188 MPV 10.3 Absolute Nucleated RBC 0.000 Nucleated RBC % (auto) 0.0 Sodium Potassium Chloride Carbon Dioxide Anion Gap BUN Creatinine Estim Creat Clear Calc Estimated GFR POC Glucose 231 H 126 H Random Glucose Calcium Magnesium Iron TIBC % Saturation Unsat Iron Binding Ferritin Vancomycin Trough Blood Type Antibody Screen Crossmatch 07/24/21 07/24/21 07/24/21 05:51 07:10 09:09 WBC RBC Hgb Hct MCV MCH MCHC RDW Plt Count MPV Absolute Nucleated RBC Nucleated RBC % (auto) Sodium 140 Potassium 4.2 Chloride 107 Carbon Dioxide 25 Anion Gap 12 BUN 28 H Creatinine 0.97 Estim Creat Clear Calc 90.7 Estimated GFR > 60 POC Glucose 92 Random Glucose 90 Calcium 8.5 Magnesium 1.6 Iron 86 TIBC 200 L % Saturation 43 Unsat Iron Binding 114 Ferritin 527 H Vancomycin Trough Blood Type O Positive Antibody Screen NEGATIVE Crossmatch See Detail 07/24/21 07/24/21 07/24/21 11:35 13:00 15:59 WBC RBC Hgb Hct MCV MCH MCHC RDW Plt Count MPV Absolute Nucleated RBC Nucleated RBC % (auto) Sodium Potassium Chloride Carbon Dioxide Anion Gap BUN Creatinine Estim Creat Clear Calc Estimated GFR POC Glucose 192 H 135 H Random Glucose Calcium Magnesium Iron TIBC % Saturation Unsat Iron Binding Ferritin Vancomycin Trough 5.0 L Blood Type Antibody Screen Crossmatch Microbiology Microbiology Results: Microbiology 07/22/21 23:52 Blood - Venous Blood Culture - Preliminary No growth after 24 hours. 07/22/21 23:45 Blood - Venous Blood Culture - Preliminary No growth after 24 hours. Procedures Date of Service Date of Service: 07/24/21 Assessment & Plan Assessment and plan (1) WILMER (acute kidney injury): Status: Acute Assessment and Plan: Mr. Terrence Causey is a 66-year-old male with history of hypertension, hyperlipidemia, diabetes, systolic CHF with EF of 30-35%, history of recurrent falls, neuropathy, atrial fibrillation on Eliquis, possible dementia, history of recurrent right-sided pleural effusion who presented to the hospital with a chi ef complaint of fall. His course is complicated by WILMER. 1. WILMER BL Cr 1.1mg/dL Cr peak 4.68mg/dL now improved back to baseline 1.16mg/dl after IVF CT abd no signs of obstruction overall pre-renal disease now resolved Overall patient had orthostasis, NSVT, and hypvolemia PlanL - tomorrow ok to restart home dose lasix - He should never be on both HCTZ and Lasix, so DC HCTZ permanently. - ok to restart losartan if hypertensive - dose metoprolol for antiarrhythmics effect Time Spent With Patient Time: Total time spent is greater than 50% in coordination of care (as documented) at patient's floor/unit and/or counseling patient: Progress Note: Quality Stroke Does the patient have a stroke diagnosis?: No
[2021-07-24 17:30] LABS: Glucose Urine UA 250 MG/DL (NEG); Leukocyte Esterase Urine NEG (NEG); Nitrite Urine NEG (NEG); Urine Blood NEG (NEG); Urine Ketones NEG (NEG); Urine Protein NEG (NEG-TRACE)
[2021-07-24 17:41] LABS: Appearance Urine CLEAR; Color Urine YELLOW
[2021-07-24 20:26] LABS: Glucose, Whole Blood 216 mg/dL (60-115)
[2021-07-24] MEDS: OLANZapine ODT 10 MG TAB.RAPDIS 5 MG TRANSLINGU (21:29)
[2021-07-24] MEDS: Insulin Lispro 100 UNIT/ML 3 ML VIAL SUBCUT (21:36)
[2021-07-25] VITALS (10 sets, daily range): BP systolic 124–153; BP diastolic 78–97; PULSE 59–125; RESP 17–19; TEMP 36.2–37.1; O2SAT 96–99
--- NOTE | 2021-07-25 04:12 | PC.NURSE ---
Pt noted to have converted back into AFIB, HR 102-108. Pt asymptomatic and sleeping. Will continue to monitor.
[2021-07-25 06:17] LABS: Hematocrit 28.3 % (42-52); Hemoglobin 9.4 g/dl (14.0-18.0); Mean Corpuscular HGB Conc 33.2 g/dl (31.0-36.0); Mean Corpuscular Volume 84.2 fL (80-98); Mean Platelet Volume 9.6 fL (9.4-12.4); Platelet Count 208 X10*3/uL (160-400); Red Blood Count 3.36 X10*6/uL (4.60-5.80); Red Cell Distribution Width 16.4 % (11.0-16.0); White Blood Count 5.4 X10*3/uL (4.8-10.8)
[2021-07-25 06:39] LABS: Anion Gap 12 (12-20); Blood Urea Nitrogen 18 mg/dL (9-16); Calcium 8.5 mg/dL (8.4-10.2); Carbon Dioxide 26 mmol/L (22-29); Chloride 107 mmol/L (96-108); Creatinine Clr Calc Pharmacy 102.3; Estimated Glomerular Filt Rate > 60; Glucose Random 86 mg/dL (60-115); Potassium 3.8 mmol/L (3.3-5.1); Sodium 141 mmol/L (135-145)
[2021-07-25 07:54] LABS: Glucose, Whole Blood 98 mg/dL (60-115)
[2021-07-25] MEDS: Amiodarone HCL 200 MG TABLET PO (08:18)
[2021-07-25] MEDS: Metoprolol Tartrate 25 MG TABLET PO ×4 (08:18→21:26)
[2021-07-25] MEDS: Docusate Sodium 100 MG CAPSULE PO (08:18)
[2021-07-25] MEDS: 0.9 % Sodium Chloride Flush 3 ML SYRINGE IVFLUSH ×3 (08:19→21:26)
[2021-07-25] MEDS: FLUoxetine HCl Oral Solution 20 MG/5 ML SOLUTION 10 MG PO (08:19)
--- NOTE | 2021-07-25 09:15 | PM.PNCARD ---
Subjective Subjective Date of Service: 07/25/21 <MELITON Quiros - Last Filed: 07/25/21 11:40> 07/25/21 <Gurdeep Kumar MD - Last Filed: 07/25/21 16:00> Principal diagnosis: Orthostatic hypotension, WILMER, dehydration, afib RVR, Dementia, anemia <MELITON Quiros - Last Filed: 07/25/21 11:40> Interval history: Cardiology follow up for PAF. Seen at 829. Today he reports feeling well overall. He is alert and oriented X3 at this time. He denies any chest pains, heart palpitation, sob. No signs of active bleeding. No edema. Slept well and has eaten breakfast. <MELITON Quiros - Last Filed: 07/25/21 11:40> Review of Systems Review of Systems as above <MELITON Quiros - Last Filed: 07/25/21 11:40> Yes all other systems are reviewed and are negative <MELITON Quiros - Last Filed: 07/25/21 11:40> Physical Exam Vital Signs: Last Vital Signs Temp 97.6 F 07/25/21 07:28 Pulse 125 H 07/25/21 08:18 Resp 18 07/25/21 07:28 BP 153/90 H 07/25/21 08:18 Pulse Ox 97 07/25/21 07:28 Body Mass Index 25.3 <MELITON Quiros - Last Filed: 07/25/21 11:40> Const General: cooperative, no acute distress, alert and awake <MELITON Quiros - Last Filed: 07/25/21 11:40> Orientation/consciousness: patient oriented x3 <MELITON Quiros - Last Filed: 07/25/21 11:40> HENMT Head: Yes normal to inspection <MELITON Quiros Last Filed: 07/25/21 11:40> Neck Neck: Yes normal visual inspection and Yes no JVD <MELITON Quiros - Last Filed: 07/25/21 11:40> Carotids: carotid upstroke abnormal <MELITON Quiros Last Filed: 07/25/21 11:40> Resp Effort & Inspection: normal respiratory effort, able to speak in complete sentences and not labored <ANAND QuirosC - Last Filed: 07/25/21 11:40> Auscultation: clear to auscultation bilaterally, no crackles, no rales, no rhonchi and no wheezes <ANAND QuirosC - Last Filed: 07/25/21 11:40> Cardio Rate: tachycardic <Kailee Weiner NPC - Last Filed: 07/25/21 11:40> Rhythm: abnormal rhythm <Kailee Weiner NPC - Last Filed: 07/25/21 11:40> Heart sounds: S1 normal heart sound present and S2 normal heart sound present <ANAND QuirosC - Last Filed: 07/25/21 11:40> Peripheral pulses: Peripheral pulses 2+ throughout <ANAND QuirosC - Last Filed: 07/25/21 11:40> GI Inspection: Yes normal to inspection <Kailee Weiner NP-C - Last Filed: 07/25/21 11:40> Skin General skin exam: no rashes or lesions noted <ANAND QuirosC - Last Filed: 07/25/21 11:40> Neuro General: patient oriented x3 <ANAND QuirosC - Last Filed: 07/25/21 11:40> Extrem General: Yes normal to inspection and No edema <Kailee Weiner ANANDC - Last Filed: 07/25/21 11:40> Results Labs and Meds Result diagrams: : 07/25/21 05:29 07/25/21 05:29 <Kailee Weiner REPAIRER GENERALC - Last Filed: 07/25/21 11:40> Lab results: Laboratory Results - last 24 hr 07/24/21 07/24/21 07/24/21 05:51 09:09 11:35 WBC RBC Hgb Hct MCV MCH MCHC RDW Plt Count MPV Absolute Nucleated RBC Nucleated RBC % (auto) Sodium Potassium Chloride Carbon Dioxide Anion Gap BUN Creatinine Estim Creat Clear Calc Estimated GFR POC Glucose 192 H Random Glucose Calcium Iron 86 TIBC 200 L % Saturation 43 Unsat Iron Binding 114 Ferritin 527 H Urine Color Urine Appearance Urine pH Ur Specific [place] Urine Protein Urine Glucose (UA) Urine Ketones Urine Blood Urine Nitrite Ur Leukocyte Esterase Vancomycin Trough Blood Type O Positive Antibody Screen NEGATIVE Crossmatch See Detail 07/24/21 07/24/21 07/24/21 13:00 15:59 20:21 WBC RBC Hgb Hct MCV MCH MCHC RDW Plt Count MPV Absolute Nucleated RBC Nucleated RBC % (auto) Sodium Potassium Chloride Carbon Dioxide Anion Gap BUN Creatinine Estim Creat Clear Calc Estimated GFR POC Glucose 135 H 216 H Random Glucose Calcium Iron TIBC % Saturation Unsat Iron Binding Ferritin Urine Color Urine Appearance Urine pH Ur Specific [place] Urine Protein Urine Glucose (UA) Urine Ketones Urine Blood Urine Nitrite Ur Leukocyte Esterase Vancomycin Trough 5.0 L Blood Type Antibody Screen Crossmatch 07/24/21 07/25/21 07/25/21 Unknown 05:29 05:29 WBC 5.4 RBC 3.36 L D Hgb 9.4 L D Hct 28.3 L D MCV 84.2 MCH 28.0 MCHC 33.2 RDW 16.4 H Plt Count 208 MPV 9.6 Absolute Nucleated RBC 0.000 Nucleated RBC % (auto) 0.0 Sodium 141 Potassium 3.8 Chloride 107 Carbon Dioxide 26 Anion Gap 12 BUN 18 H Creatinine 0.86 Estim Creat Clear Calc 102.3 Estimated GFR > 60 POC Glucose Random Glucose 86 Calcium 8.5 Iron TIBC % Saturation Unsat Iron Binding Ferritin Urine Color YELLOW Urine Appearance CLEAR Urine pH 6.0 Ur Specific [place] 1.010 Urine Protein NEG Urine Glucose (UA) 250 H Urine Ketones NEG Urine Blood NEG Urine Nitrite NEG Ur Leukocyte Esterase NEG Vancomycin Trough Blood Type Antibody Screen Crossmatch 07/25/21 07:30 WBC RBC Hgb Hct MCV MCH MCHC RDW Plt Count MPV Absolute Nucleated RBC Nucleated RBC % (auto) Sodium Potassium Chloride Carbon Dioxide Anion Gap BUN Creatinine Estim Creat Clear Calc Estimated GFR POC Glucose 98 Random Glucose Calcium Iron TIBC % Saturation Unsat Iron Binding Ferritin Urine Color Urine Appearance Urine pH Ur Specific [place] Urine Protein Urine Glucose (UA) Urine Ketones Urine Blood Urine Nitrite Ur Leukocyte Esterase Vancomycin Trough Blood Type Antibody Screen Crossmatch <MELITON Quiros - Last Filed: 07/25/21 11:40> Progress Note: A&P Assessment and plan (1) PAF (paroxysmal atrial fibrillation): Status: Acute <ANAND QuirosC - Last Filed: 07/25/21 11:40> Assessment and Plan: Hx PAF, had CVR 06/08/21. Initially SR this admit and went into AF 3 days ago. Metoprolol dose increased and Amiodarone restarted. (metoprolol dose had been initially reduced due to low BP, and Amio was held). He did go back in to SR then this am again has Afib RVR. Tele currently showing Afib rates 110- 120. Pt denies sob or palpitation. BP 153/90. Will increase Metoprolol to 25mg q 6 hr. Will treat with rate control. Will stop Amiodarone. Remains off Eliquis due to anemia on admit. Hgb 9.4 currently, was transfused yesterday. Unknown cause of anemia, needs further evaluation. Has been seen by GI. Continue to hold Eliquis until clear by GI to restart. Pt informed of stroke risk while off anticoagulation. Ongoing tele monitoring. <ANAND QuirosC - Last Filed: 07/25/21 11:40> Hx PAF, had CVR 06/08/21. Initially SR this admit and went into AF 3 days ago. Metoprolol dose increased and Amiodarone restarted. (metoprolol dose had been initially reduced due to low BP, and Amio was held). He did go back in to SR then this am again has Afib RVR. Tele currently showing Afib rates 110- 120. Pt denies sob or palpitation. BP 153/90. Will increase Metoprolol to 25mg q 6 hr. Will treat with rate control. Will stop Amiodarone. Remains off Eliquis due to anemia on admit. Hgb 9.4 currently, was transfused yesterday. Unknown cause of anemia, needs further evaluation. Has been seen by GI. Continue to hold Eliquis until clear by GI to restart. Pt informed of stroke risk while off anticoagulation. Ongoing tele monitoring. Patient now recurrent atrial fibrillation with borderline rate control. No symptoms associated with persistent atrial fibrillation at this time. Patient seen and case discussed with Kailee. Will continue rate control for now. Discontinue amiodarone therapy. Increase metoprolol to 25 mg q.6 hour. Oral anticoagulation was stopped due to severe anemia. Pursue workup from cardiac perspective to assess for GI cause of blood loss. Once no obvious source is found and hematocrit has improved can restart oral anticoagulant therapy after GI approval. Restart low-dose Lasix therapy at 20 mg. Follow-up for signs of heart failure. Will continue to follow with you <Gurdeep Kumar MD - Last Filed: 07/25/21 16:00> (2) Anemia: Status: Acute <MELITON Quiros - Last Filed: 07/25/21 11:40> Assessment and Plan: as above <MELITON Quiros - Last Filed: 07/25/21 11:40> (3) Chronic heart failure: Status: Acute <MELITON Quiros - Last Filed: 07/25/21 11:40> Assessment and Plan: When admitted last May had issues with right pleural effusion. Echo showed EF 15-20%, EDWINA showed EF 30-35%. CXR 07/20 shows no acute process. His diuretics have been held this admit due to WILMER on admit. Creatinine now normal at 0.86. Per nephrology note can restart home lasix. Keep off of HCTZ. On exam today he does not appear fluid overloaded. Fluid balance this admit +3600cc. Home lasix was 40mg bid. Will restart Lasix at 20mg po daily. <MELITON Quiros - Last Filed: 07/25/21 11:40> (4) WILMER (acute kidney injury): Status: Acute <MELITON Quiros - Last Filed: 07/25/21 11:40> Assessment and Plan: Resolved. Followed by nephrology <MELITON Quiros - Last Filed: 07/25/21 11:40> Fall Risk Details Current Medications: Current Medications Generic Name Dose Route Start Last Admin Trade Name Freq PRN Reason Stop Dose Admin Acetaminophen 650 mg 07/20/21 21:19 Acetaminophen 325 Mg Tablet PO Q6H PRN Pain, Mild (Pain Scale 1-3) Amiodarone HCl 200 mg 07/22/21 12:45 07/25/21 08:18 Amiodarone Hcl 200 Mg Tablet PO 200 mg DAILY PALMER Administration Atorvastatin Calcium 80 mg 07/21/21 21:00 07/24/21 21:32 Atorvastatin Calcium 80 Mg Tablet PO Not Given BEDTIME PALMER Dextrose 25 gm 07/20/21 21:25 Dextrose 50 % 25 Gm/50 Ml Vial IVPUSH Q15M PRN per Hypoglycemia Standing Ord. Protocol Docusate Sodium 100 mg 07/21/21 09:00 07/25/21 08:18 Docusate Sodium 100 Mg Capsule PO 100 mg BID PALMER Administration Ergocalciferol 1,250 mcg 07/21/21 16:15 07/21/21 17:05 Ergocalciferol (Vitamin D2) 1,250 Mcg Capsule PO 1,250 mcg Q7D PALMER Administration Fluoxetine HCl 10 mg 07/23/21 09:00 07/25/21 08:19 Fluoxetine Hcl Oral Solution 20 Mg/5 Ml Solution PO 10 mg DAILY PALMER Administration Glucose 15 gm 07/20/21 21:25 Glucose Gel 15 Gm Gel..Gram. PO Q15M PRN per Hypoglycemia Standing Ord. Protocol Insulin Human Lispro 0 unit 07/21/21 07:30 07/25/21 08:08 Insulin Lispro 100 Unit/Ml 3 Ml Vial SUBCUT Not Given QIDACHS [facility] Protocol Melatonin 3 mg 07/20/21 21:19 07/24/21 00:27 Melatonin 3 Mg Tablet PO 3 mg BEDTIME PRN Administration Insomnia Metoprolol Tartrate 25 mg 07/22/21 12:45 07/25/21 08:18 Metoprolol Tartrate 25 Mg Tablet PO 25 mg BID PALMER Administration Protocol Olanzapine 5 mg 07/23/21 21:00 07/24/21 21:29 Olanzapine Odt 10 Mg Tab.Rapdis TRANSLINGU 5 mg BEDTIME PALMER Administration Pharmacy Consult 1 each 07/20/21 18:38 Consult Rx Perform Med Rec MISCELLANE ONCE PRN Consult order Pharmacy Consult 1 each 07/23/21 00:33 Consult Rx Vancomycin Dosing MISCELLANE DAILY PRN Consult order Sodium Chloride 3 ml 07/21/21 00:00 07/25/21 08:19 0.9 % Sodium Chloride Flush 3 Ml Syringe IVFLUSH 3 ml QSHIFT PALMER Administration <MELITON Quiros - Last Filed: 07/25/21 11:40> Time Spent With Patient Time: Total time spent is greater than 50% in coordination of care (as documented) at patient's floor/unit and/or counseling patient: 30 <MELITON Quiros - Last Filed: 07/25/21 11:40> Time with patient: 25 - 35 minutes <MELTION Quiros - Last Filed: 07/25/21 11:40> Progress Note: Quality Stroke Does the patient have a stroke diagnosis?: No <MELITON Quiros - Last Filed: 07/25/21 11:40> Procedures Date of Service Date of Service: 07/25/21 <MELITON Quiros - Last Filed: 07/25/21 11:40>
--- NOTE | 2021-07-25 11:19 | PM.PNNEP ---
Subjective Subjective Date of Service: 07/27/21 Principal diagnosis: Orthostatic hypotension, WILMER, dehydration, afib RVR, Dementia, anemia Interval history: WILMER resolved Physical Exam Vital Signs: Vital Signs: Last Vital Signs Temp 97.6 F 07/25/21 07:28 Pulse 125 H 07/25/21 08:18 Resp 18 07/25/21 07:28 BP 153/90 H 07/25/21 08:18 Pulse Ox 97 07/25/21 07:28 Body Mass Index 25.3 Const: General: comfortable, alert and awake Chest: Chest palpation & inspection: normal inspection of the chest Resp: Effort & Inspection: no respiratory distress Auscultation: clear to auscultation bilaterally, no rales, no rhonchi and no wheezes Cardio: Rhythm: regular rhythm Heart sounds: no murmurs GI: Inspection: No distended : General: Yes no CVA tenderness Back/Spine/Pelvis: Back: no CVA tenderness Objective Data Labs CBC & Chem 7: 07/26/21 05:33 07/26/21 05:33 Labs: Laboratory Results - last 24 hr 07/24/21 07/24/21 07/24/21 05:51 09:09 11:35 WBC RBC Hgb Hct MCV MCH MCHC RDW Plt Count MPV Absolute Nucleated RBC Nucleated RBC % (auto) Sodium Potassium Chloride Carbon Dioxide Anion Gap BUN Creatinine Estim Creat Clear Calc Estimated GFR POC Glucose 192 H Random Glucose Calcium Ferritin 527 H Urine Color Urine Appearance Urine pH Ur Specific [place] Urine Protein Urine Glucose (UA) Urine Ketones Urine Blood Urine Nitrite Ur Leukocyte Esterase Vancomycin Trough Crossmatch See Detail 07/24/21 07/24/21 07/24/21 13:00 15:59 20:21 WBC RBC Hgb Hct MCV MCH MCHC RDW Plt Count MPV Absolute Nucleated RBC Nucleated RBC % (auto) Sodium Potassium Chloride Carbon Dioxide Anion Gap BUN Creatinine Estim Creat Clear Calc Estimated GFR POC Glucose 135 H 216 H Random Glucose Calcium Ferritin Urine Color Urine Appearance Urine pH Ur Specific [place] Urine Protein Urine Glucose (UA) Urine Ketones Urine Blood Urine Nitrite Ur Leukocyte Esterase Vancomycin Trough 5.0 L Crossmatch 07/24/21 07/25/21 07/25/21 Unknown 05:29 05:29 WBC 5.4 RBC 3.36 L D Hgb 9.4 L D Hct 28.3 L D MCV 84.2 MCH 28.0 MCHC 33.2 RDW 16.4 H Plt Count 208 MPV 9.6 Absolute Nucleated RBC 0.000 Nucleated RBC % (auto) 0.0 Sodium 141 Potassium 3.8 Chloride 107 Carbon Dioxide 26 Anion Gap 12 BUN 18 H Creatinine 0.86 Estim Creat Clear Calc 102.3 Estimated GFR > 60 POC Glucose Random Glucose 86 Calcium 8.5 Ferritin Urine Color YELLOW Urine Appearance CLEAR Urine pH 6.0 Ur Specific [place] 1.010 Urine Protein NEG Urine Glucose (UA) 250 H Urine Ketones NEG Urine Blood NEG Urine Nitrite NEG Ur Leukocyte Esterase NEG Vancomycin Trough Crossmatch 07/25/21 07:30 WBC RBC Hgb Hct MCV MCH MCHC RDW Plt Count MPV Absolute Nucleated RBC Nucleated RBC % (auto) Sodium Potassium Chloride Carbon Dioxide Anion Gap BUN Creatinine Estim Creat Clear Calc Estimated GFR POC Glucose 98 Random Glucose Calcium Ferritin Urine Color Urine Appearance Urine pH Ur Specific [place] Urine Protein Urine Glucose (UA) Urine Ketones Urine Blood Urine Nitrite Ur Leukocyte Esterase Vancomycin Trough Crossmatch Microbiology Microbiology Results: Microbiology 07/22/21 23:52 Blood - Venous Blood Culture - Preliminary No growth after 48 hours. 07/22/21 23:45 Blood - Venous Blood Culture - Preliminary No growth after 48 hours. Procedures Date of Service Date of Service: 07/25/21 Assessment & Plan Assessment and plan (1) WILMER (acute kidney injury): Status: Acute Assessment and Plan: Mr. Terrence Causey is a 66-year-old male with history of hypertension, hyperlipidemia, diabetes, systolic CHF with EF of 30-35%, history of recurrent falls, neuropathy, atrial fibrillation on Eliquis, possible dementia, history of recurrent right-sided pleural effusion who presented to the hospital with a chief complaint of fall. His course is complicated by WILMER. 1. WILMER BL Cr 1.1mg/dL Cr peak 4.68mg/dL now improved back to baseline 0.8mg/dl after IVF CT abd no signs of obstruction overall pre-renal disease now resolved Overall patient had orthostasis, NSVT, and hypvolemia PlanL ok to restart home dose lasix - He should never be on both HCTZ and Lasix, so DC HCTZ permanently. - ok to restart Losartan if hypertensive - dose metoprolol for antiarrhythmics effect Time Spent With Patient Time: Total time spent is greater than 50% in coordination of care (as documented) at patient's floor/unit and/or counseling patient: Progress Note: Quality Stroke Does the patient have a stroke diagnosis?: No
[2021-07-25 12:04] LABS: Glucose, Whole Blood 212 mg/dL (60-115)
[2021-07-25] MEDS: Insulin Lispro 100 UNIT/ML 3 ML VIAL SUBCUT (12:38)
[2021-07-25] MEDS: Furosemide 20 MG TABLET PO (12:38)
--- NOTE | 2021-07-25 13:18 | P.PNIM_ITS ---
Progress Note: A&P (1) Multifactorial dementia: Status: Acute Assessment and Plan: This is a 66-year-old male with history of hypertension, hyperlipidemia, diabetes, systolic CHF with EF of 30-35%, history of recurrent falls, neuropathy, atrial fibrillation on Eliquis, possible dementia, history of recurrent right-sided pleural effusion who presented to the hospital with a c hief complaint of fall. Normocytic anemia heme negative H/H trending down, will transfuse 1 u rbc seen by GI, can consider colonoscopy/egd to evaluate anemia when acute problems are resolved follow CBC Eliquis on hold Hypertension Blood pressure controlled will restart Lostartan stop HCTZ and do not restart as per nephro Hallucinations/agitation Improved this morning Seems most likely r/t underlying dementia, possible Lewy Body Dementia.? Brain imaging showing significant cerebral and cerebellar atrophy, moderate to severe microvascular ischemic changes. Seen by psych, med adjustments per their recommendation Consider outpatient eval for LBD -seen by Neurology -continue Zyprexa Fever Low grade fever 07/22, no recurrent fevers s/p 30cc/kg bolus lactic acid was 6.5, resolved with ivf empiric abx given no obvious source of infection. hold of further abx at this time Blood cultures negative afib with RVR Converted back to NSR yesterday afternoon Continue amiodarone, Lopressor -Eliquis on hold for anemia episodes of NSVT h/o HFrEF, LVEF 30-35% -check lytes, replace prn -cardiology following WILMER Resolved SCr 0.97 down from 4.68 on admission Multifactorial.? No obstruction seen on CT of abdomen -hold nephrotoxins -Nephrology following? Recurrent falls evaluated by Neurology in May admission for recurrent falls- thought to be secondary to?neuropathy?and recommended outpatient EMG studies orthostatic hypotension contributing on this admission -PT eval when medically stable, likely will need d/c to SNF Orthostatic hypotension. resolved may be r/t medication BP improved. -Hold Lasix, hydrochlorothiazide. Prolonged QT Improving. Seen by Cardiology, QT estimated in the 400s today -resume amiodarone per Cardiology rec -SSRI changed to prozac per psych rec to avoid qtc prolongation ?Colitis on CT No abdominal pain or diarrhea No indication for antibiotics -seen by GI, no evidence of colitis History of systolic CHF:? Patient has EF of 30-35%.? Currently stable.? Holding diuretics for now given WILMER on admission consider restarting lasix now that WILMER has resolved. monitor fluid status closely appears euvolemic History of diabetes:? -no longer on glipizide? -hold metformin.? -continue Lantus.? -SSI, POCs Mood SSRI initially held for prolonged qtc, substitution made per psych rec DISPO: Spoke with patients , patient will go home with services when medically stable DVT prophylaxis-mechanical devices due to anemia Subjective Subjective Date of Service: 07/25/21 Review of Systems Follow up anemia tired today no pain Physical Exam Vital Signs: Vital Signs: Last Vital Signs Temp 97.1 F 07/25/21 11:58 Pulse 104 H 07/25/21 12:39 Resp 18 07/25/21 11:58 BP 124/85 07/25/21 12:39 Pulse Ox 98 07/25/21 11:58 Body Mass Index 25.3 Appearing in no acute distress lung sounds are clear to auscultation heart regular rate rhythm, clear S1, S2 positive bowel sounds, abdomen is soft, nontender neuro patient is alert x3, no focal deficits Objective Data Current Medications Generic Name Dose Route Start Last Admin Trade Name Freq PRN Reason Stop Dose Admin Acetaminophen 650 mg 07/20/21 21:19 Acetaminophen 325 Mg Tablet PO Q6H PRN Pain, Mild (Pain Scale 1-3) Atorvastatin Calcium 80 mg 07/21/21 21:00 07/24/21 21:32 Atorvastatin Calcium 80 Mg Tablet PO Not Given BEDTIME PALMER Dextrose 25 gm 07/20/21 21:25 Dextrose 50 % 25 Gm/50 Ml Vial IVPUSH Q15M PRN per Hypoglycemia Standing Ord. Protocol Docusate Sodium 100 mg 07/21/21 09:00 07/25/21 08:18 Docusate Sodium 100 Mg Capsule PO 100 mg BID PALMER Administration Ergocalciferol 1,250 mcg 07/21/21 16:15 07/21/21 17:05 Ergocalciferol (Vitamin D2) 1,250 Mcg Capsule PO 1,250 mcg Q7D PALMER Administration Fluoxetine HCl 10 mg 07/23/21 09:00 07/25/21 08:19 Fluoxetine Hcl Oral Solution 20 Mg/5 Ml Solution PO 10 mg DAILY PALMER Administration Furosemide 20 mg 07/25/21 12:00 07/25/21 12:38 Furosemide 20 Mg Tablet PO 20 mg DAILY PALMER Administration Protocol Glucose 15 gm 07/20/21 21:25 Glucose Gel 15 Gm Gel..Gram. PO Q15M PRN per Hypoglycemia Standing Ord. Protocol Insulin Human Lispro 0 unit 07/21/21 07:30 07/25/21 12:38 Insulin Lispro 100 Unit/Ml 3 Ml Vial SUBCUT 4 unit QIDACHS [facility] Administration Protocol Melatonin 3 mg 07/20/21 21:19 07/24/21 00:27 Melatonin 3 Mg Tablet PO 3 mg BEDTIME PRN Administration Insomnia Metoprolol Tartrate 25 mg 07/25/21 13:00 07/25/21 12:39 Metoprolol Tartrate 25 Mg Tablet PO 25 mg QID [facility] Administration Protocol Olanzapine 5 mg 07/23/21 21:00 07/24/21 21:29 Olanzapine Odt 10 Mg Tab.Rapdis TRANSLINGU 5 mg BEDTIME PALMER Administration Pharmacy Consult 1 each 07/20/21 18:38 Consult Rx Perform Med Rec MISCELLANE ONCE PRN Consult order Pharmacy Consult 1 each 07/23/21 00:33 Consult Rx Vancomycin Dosing MISCELLANE DAILY PRN Consult order Sodium Chloride 3 ml 07/21/21 00:00 07/25/21 08:19 0.9 % Sodium Chloride Flush 3 Ml Syringe IVFLUSH 3 ml QSHIFT [facility] Administration Labs CBC & Chem 7: 07/25/21 05:29 07/25/21 05:29 Labs: Laboratory Results - last 24 hr 07/24/21 07/24/21 07/24/21 09:09 13:00 15:59 MCV MCH MCHC RDW Plt Count MPV Absolute Nucleated RBC Nucleated RBC % (auto) Anion Gap Estim Creat Clear Calc Estimated GFR POC Glucose 135 H Random Glucose Calcium Urine Color Urine Appearance Urine pH Ur Specific [place] Urine Protein Urine Glucose (UA) Urine Ketones Urine Blood Urine Nitrite Ur Leukocyte Esterase Vancomycin Trough 5.0 L Crossmatch See Detail 07/24/21 07/24/21 07/25/21 20:21 Unknown 05:29 MCV 84.2 MCH 28.0 MCHC 33.2 RDW 16.4 H Plt Count 208 MPV 9.6 Absolute Nucleated RBC 0.000 Nucleated RBC % (auto) 0.0 Anion Gap Estim Creat Clear Calc Estimated GFR POC Glucose 216 H Random Glucose Calcium Urine Color YELLOW Urine Appearance CLEAR Urine pH 6.0 Ur Specific [place] 1.010 Urine Protein NEG Urine Glucose (UA) 250 H Urine Ketones NEG Urine Blood NEG Urine Nitrite NEG Ur Leukocyte Esterase NEG Vancomycin Trough Crossmatch 07/25/21 07/25/21 07/25/21 05:29 07:30 12:00 MCV MCH MCHC RDW Plt Count MPV Absolute Nucleated RBC Nucleated RBC % (auto) Anion Gap 12 Estim Creat Clear Calc 102.3 Estimated GFR > 60 POC Glucose 98 212 H Random Glucose 86 Calcium 8.5 Urine Color Urine Appearance Urine pH Ur Specific [place] Urine Protein Urine Glucose (UA) Urine Ketones Urine Blood Urine Nitrite Ur Leukocyte Esterase Vancomycin Trough Crossmatch Microbiology Microbiology Results: Microbiology 07/22/21 23:52 Blood - Venous Blood Culture - Preliminary No growth after 48 hours. 07/22/21 23:45 Blood - Venous Blood Culture - Preliminary No growth after 48 hours. Quality Stroke Does the patient have a stroke diagnosis?: No VTE Prior VTE?: No VTE Risk Level:: Medical - moderate - high VTE Device Contraindication: Treatment Not Indicated VTE Drug Contraindication: Treatment Not Indicated
--- NOTE | 2021-07-25 14:35 | PM.EVENT ---
Event Note Date of Service: 07/25/21 Event Note: GI f/u s/ no complaints no bleeding received 1 unit of prbcs o/ vss abd soft nontender labs reviewed, cbc stable a/p no sign of active bleeding, but given significant decrease in hematocrit over a month, need to restart anticoagulation and no prior endoscopic evaluation, he should have EGD and colonoscopy while inpatient now that mental status and renal function issues are back to baseline. Spoke with pt and left msg for . 07/21 consult redictated, was cut off mid dictation per HIM.
--- NOTE | 2021-07-25 14:45 | MHC.SHP ---
Pre-Procedural Eval Section A Date of Service: 07/25/21 The patient is an INPATIENT: Yes Changes since office visit: No Cold of Flu in the past 2 weeks, No New Medical Problems, No Changes in Medication and No Patient answered all questions The History & Physical has been completed within 30 days and I have reviewed it.: Yes Section B Chief Complaint: WILMER, dizziness Allergies: Allergies Allergy/AdvReac Type Severity Reaction Status Date / Time colchicine Allergy Rash Verified 07/20/21 15:56 Plan I have reviewed the history and physical and performed a pertinent physical examination on my patient. No changes have occurred unless specified.
--- NOTE | 2021-07-25 15:12 | MHC.CM.PN ---
per rounds gi to see pt for his anemia mayelin baron
[2021-07-25 16:00] LABS: Glucose, Whole Blood 116 mg/dL (60-115)
[2021-07-25] MEDS: PEG 3350/Na Sulf,Bicarb,Cl/KCL 4,000 ML SOLN.RECON 4000 ML PO (17:25)
[2021-07-25 20:07] LABS: Glucose, Whole Blood 157 mg/dL (60-115)
--- NOTE | 2021-07-25 20:52 | CONS_ITS ---
DATE OF SERVICE: 07/21/2021 REFERRING PHYSICIAN: Ian Earl MD REASON FOR CONSULTATION: Anemia. HISTORY OF PRESENT ILLNESS: The patient is a pleasant 66-year-old man, who was admitted to the hospital on July 20 after presenting to the emergency room with a fall. The patient denies any symptoms at this point, but does have a history of dementia. He was noted to be anemic on admission with a hematocrit of 28.9, which was down significantly from a hematocrit of 39.5 approximately 1 month ago. There was no reported GI bleeding and stools were found to be Hemoccult negative on admission. The patient denies any symptoms including upper and lower GI symptoms. Additional history obtained, indicates that he had been scheduled for colonoscopy twice as an outpatient, but had not kept the appointments and he has not undergone colonoscopy in the past. He has been taking Eliquis because of a history of atrial fibrillation and this is currently being held. PAST MEDICAL HISTORY: 1. Acute kidney injury with creatinine of 4.6 on this admission. 2. Atrial fibrillation. 3. Congestive heart failure. 4. Diabetes. 5. Hypertension. 6. Falls. 7. Neuropathy. 8. Hyperlipidemia. CURRENT MEDICATIONS: Current medication list is reviewed in the chart. ALLERGIES: COLCHICINE. FAMILY HISTORY: This is reviewed with the electronic record and is noncontributory. SOCIAL HISTORY: There is no reported substance abuse. REVIEW OF SYSTEMS: This is not reliably obtainable. PHYSICAL EXAMINATION: GENERAL: Shows a pleasant male, who was lying in bed. VITAL SIGNS: Stable. SKIN: Anicteric. HEENT: Shows no scleral icterus. NECK: Without lymphadenopathy or thyromegaly. LUNGS: Clear. HEART: Shows a regular rate and rhythm. S1, S2. No murmur. ABDOMEN: Soft without focal masses or tenderness. Bowel sounds are present. No organomegaly is noted. EXTREMITIES: Show some edema. LABORATORY DATA: Remarkable for a BUN of 69 with a creatinine of 4.68. Hematocrit 28.9, which dropped to 26.3 this morning without any signs of bleeding. He did receive some IV fluids. Imaging studies obtained include CT scanning of the abdomen and pelvis, which is reviewed. This shows stool-filled rectum with some soft tissue stranding and layering of density ventral to the sacrum. This was thought to reflect proctitis or colitis, but I reviewed the films with Dr. Alana and this appears to be a nonspecific finding. He has no clinical evidence of colitis. IMPRESSION: Anemia with abnormal CT scan as above. At this time, he shows no signs of GI bleeding and he is being treated for his acute kidney injury. Consideration could be given to upper GI endoscopy and colonoscopy prior to restarting Eliquis to make sure this is safe as he has never had any endoscopic imaging and to seek further information on why his hematocrit is down from his last hematocrit. He would need to be off Eliquis for a period of at least 48 to 72 hours given his renal insufficiency. Thanks for asking me to see him. I will follow him in the hospital with you. MD MANJULA Iniguez/SHIKHA / [id number] MTDD
[2021-07-25] MEDS: OLANZapine ODT 10 MG TAB.RAPDIS 5 MG TRANSLINGU (21:25)
[2021-07-25] MEDS: Atorvastatin Calcium 80 MG TABLET PO (21:25)
[2021-07-26] VITALS (12 sets, daily range): BP systolic 121–173; BP diastolic 68–94; PULSE 53–103; RESP 14–20; TEMP 36.2–37; O2SAT 97–100
--- NOTE | 2021-07-26 05:24 | PC.NURSE ---
Patient refusing bed alarm at this time. Agrees he will use call lam for assistance. Camera in place and VMT aware that pt does not have bed alarm on.
[2021-07-26 06:17] LABS: Hematocrit 28.3 % (42-52); Hemoglobin 9.3 g/dl (14.0-18.0); Mean Corpuscular HGB Conc 32.9 g/dl (31.0-36.0); Mean Corpuscular Hemoglobin 28.1 pg (27.0-33.0); Mean Corpuscular Volume 85.5 fL (80-98); Mean Platelet Volume 9.6 fL (9.4-12.4); Platelet Count 240 X10*3/uL (160-400); Red Blood Count 3.31 X10*6/uL (4.60-5.80); Red Cell Distribution Width 17.6 % (11.0-16.0); White Blood Count 5.4 X10*3/uL (4.8-10.8)
[2021-07-26 06:25] LABS: Anion Gap 9 (12-20); Blood Urea Nitrogen 16 mg/dL (9-16); Calcium 8.4 mg/dL (8.4-10.2); Carbon Dioxide 28 mmol/L (22-29); Chloride 105 mmol/L (96-108); Estimated Glomerular Filt Rate > 60; Glucose Random 104 mg/dL (60-115); Potassium 3.8 mmol/L (3.3-5.1); Sodium 138 mmol/L (135-145)
[2021-07-26 07:14] LABS: Glucose, Whole Blood 115 mg/dL (60-115)
[2021-07-26] MEDS: 0.9 % Sodium Chloride Flush 3 ML SYRINGE IVFLUSH ×2 (07:49→20:42)
--- NOTE | 2021-07-26 08:33 | PM.PNNEP ---
Subjective Subjective Date of Service: 07/27/21 Principal diagnosis: Orthostatic hypotension, WILMER, dehydration, afib RVR, Dementia, anemia Interval history: WILMER resolved Physical Exam Vital Signs: Vital Signs: Last Vital Signs Temp 97.2 F 07/26/21 07:04 Pulse 81 07/26/21 07:04 Resp 18 07/26/21 07:04 BP 121/68 07/26/21 07:04 Pulse Ox 97 07/26/21 07:04 Body Mass Index 25.3 Const: General: comfortable, alert and awake Chest: Chest palpation & inspection: normal inspection of the chest Resp: Effort & Inspection: no respiratory distress Auscultation: clear to auscultation bilaterally, no rales, no rhonchi and no wheezes Cardio: Rhythm: regular rhythm Heart sounds: no murmurs GI: Inspection: No distended : General: Yes no CVA tenderness Back/Spine/Pelvis: Back: no CVA tenderness Objective Data Labs CBC & Chem 7: 07/26/21 05:33 07/26/21 05:33 Labs: Laboratory Results - last 24 hr 07/25/21 07/25/21 07/25/21 12:00 15:57 20:03 WBC RBC Hgb Hct MCV MCH MCHC RDW Plt Count MPV Absolute Nucleated RBC Nucleated RBC % (auto) Sodium Potassium Chloride Carbon Dioxide Anion Gap BUN Creatinine Estim Creat Clear Calc Estimated GFR POC Glucose 212 H 116 H 157 H Random Glucose Calcium 07/26/21 07/26/21 07/26/21 05:33 05:33 07:06 WBC 5.4 RBC 3.31 L Hgb 9.3 L Hct 28.3 L MCV 85.5 MCH 28.1 MCHC 32.9 RDW 17.6 H Plt Count 240 MPV 9.6 Absolute Nucleated RBC 0.000 Nucleated RBC % (auto) 0.0 Sodium 138 Potassium 3.8 Chloride 105 Carbon Dioxide 28 Anion Gap 9 L BUN 16 Creatinine 0.83 Estim Creat Clear Calc 106.0 Estimated GFR > 60 POC Glucose 115 Random Glucose 104 Calcium 8.4 Microbiology Microbiology Results: Microbiology 07/22/21 23:52 Blood - Venous Blood Culture - Preliminary No growth after 48 hours. 07/22/21 23:45 Blood - Venous Blood Culture - Preliminary No growth after 48 hours. Procedures Date of Service Date of Service: 08/31/21 Assessment & Plan Assessment and plan (1) WILMER (acute kidney injury): Status: Acute Assessment and Plan: Mr. Terrence Causey is a 66-year-old male with history of hypertension, hyperlipidemia, diabetes, systolic CHF with EF of 30-35%, history of recurrent falls, neuropathy, atrial fibrillation on Eliquis, possible dementia, history of recurrent right-sided pleural effusion who presented to the hospital with a chief complaint of fall. His course is complicated by WILMER. 1. WILMER BL Cr 1.1mg/dL Cr peak 4.68mg/dL now improved back to baseline 0.8mg/dl after IVF CT abd no signs of obstruction overall pre-renal disease now resolved Overall patient had orthostasis, NSVT, and hypvolemia Plan Tolerating LAsix/Losartan - Shall watch Bp and creatinine - He should never be on both HCTZ and Lasix, so DC HCTZ permanently. - dose metoprolol for antiarrhythmics effect DC planning Time Spent With Patient Time: Total time spent is greater than 50% in coordination of care (as documented) at patient's floor/unit and/or counseling patient: Progress Note: Quality Stroke Does the patient have a stroke diagnosis?: No
--- NOTE | 2021-07-26 10:31 | P.PNCA_ITS ---
Subjective Subjective Date of Service: 07/26/21 Principal diagnosis: Atrial fibrillation Interval history: Patient heart rate is better controlled. Denies any cardiac complaints. Review of Systems Constitutional: Reports no additional constitutional complaints Cardiovascular: Reports no additional cardiovascular complaints Respiratory: Reports no additional respiratory complaints Gastrointestinal: Reports no additional gastrointestinal complaints Genitourinary: Reports no additional male genitourinary complaints Musculoskeletal: Reports no additional musculoskeletal complaints Skin/Breast: Reports system reviewed and no additional complaints, except as docu Reports system reviewed and no additional complaints, except as documented Physical Exam Vital Signs: Last Vital Signs Temp 97.2 F 07/26/21 07:04 Pulse 81 07/26/21 08:34 Resp 18 07/26/21 07:04 BP 121/68 07/26/21 08:34 Pulse Ox 97 07/26/21 08:34 Body Mass Index 25.3 Const General: cooperative, comfortable and no acute distress Nutritional Appearance: average body habitus Neck Neck: Yes trachea midline, Yes supple and Yes no JVD Resp Effort & Inspection: normal respiratory effort Auscultation: clear to auscultation bilaterally Cardio Jugular venous distension: no JVD Rhythm: abnormal rhythm irregularly irregular Heart sounds: S1 normal heart sound present, S2 normal heart sound present, no click, no gallops and no murmurs GI Auscultation: normal bowel sounds Neuro General: no focal motor deficits Results Labs and Meds Result diagrams: 07/26/21 05:33 07/26/21 05:33 Lab results: Laboratory Results - last 24 hr 07/25/21 07/25/21 07/25/21 12:00 15:57 20:03 WBC RBC Hgb Hct MCV MCH MCHC RDW Plt Count MPV Absolute Nucleated RBC Nucleated RBC % (auto) Sodium Potassium Chloride Carbon Dioxide Anion Gap BUN Creatinine Estim Creat Clear Calc Estimated GFR POC Glucose 212 H 116 H 157 H Random Glucose Calcium 07/26/21 07/26/21 07/26/21 05:33 05:33 07:06 WBC 5.4 RBC 3.31 L Hgb 9.3 L Hct 28.3 L MCV 85.5 MCH 28.1 MCHC 32.9 RDW 17.6 H Plt Count 240 MPV 9.6 Absolute Nucleated RBC 0.000 Nucleated RBC % (auto) 0.0 Sodium 138 Potassium 3.8 Chloride 105 Carbon Dioxide 28 Anion Gap 9 L BUN 16 Creatinine 0.83 Estim Creat Clear Calc 106.0 Estimated GFR > 60 POC Glucose 115 Random Glucose 104 Calcium 8.4 Progress Note: A&P Assessment and plan (1) Atrial fibrillation: Status: Acute Assessment and Plan: Atrial fibrillation with better rate control. Persistent atrial fibrillation. Rate is better controlled however not adequately. Increase metoprolol to 50 mg 3 times a day. Discontinue amiodarone. Continue full disclosure cardiac monitoring. Oral anticoagulation being held due to severe anemia and possible GI workup. As high likelihood of GI blood loss. There is slightly high risk of stroke however this is super seated by his significant anemia. (2) Chronic heart failure: Status: Acute Assessment and Plan: Chronic heart failure, clinically euvolemic and well compensated. Continue low- dose Lasix therapy. Watch closely for heart failure. Continue aggressive rate control as above. Strict intake and output chart. Low-salt diet. Will sign of the case. Feel free to contact us. Fall Risk Details Current Medications: Current Medications Generic Name Dose Route Start Last Admin Trade Name Freq PRN Reason Stop Dose Admin Acetaminophen 650 mg 07/20/21 21:19 Acetaminophen 325 Mg Tablet PO Q6H PRN Pain, Mild (Pain Scale 1-3) Atorvastatin Calcium 80 mg 07/21/21 21:00 07/25/21 21:25 Atorvastatin Calcium 80 Mg Tablet PO 80 mg BEDTIME PALMER Administration Dextrose 25 gm 07/20/21 21:25 Dextrose 50 % 25 Gm/50 Ml Vial IVPUSH Q15M PRN per Hypoglycemia Standing Ord. Protocol Docusate Sodium 100 mg 07/21/21 09:00 07/25/21 21:28 Docusate Sodium 100 Mg Capsule PO Not Given BID PALMER Ergocalciferol 1,250 mcg 07/21/21 16:15 07/21/21 17:05 Ergocalciferol (Vitamin D2) 1,250 Mcg Capsule PO 1,250 mcg Q7D PALMER Administration Fluoxetine HCl 10 mg 07/23/21 09:00 07/25/21 08:19 Fluoxetine Hcl Oral Solution 20 Mg/5 Ml Solution PO 10 mg DAILY PALMER Administration Furosemide 20 mg 07/25/21 12:00 07/25/21 12:38 Furosemide 20 Mg Tablet PO 20 mg DAILY PALMER Administration Protocol Glucose 15 gm 07/20/21 21:25 Glucose Gel 15 Gm Gel..Gram. PO Q15M PRN per Hypoglycemia Standing Ord. Protocol Insulin Human Lispro 0 unit 07/21/21 07:30 07/26/21 07:39 Insulin Lispro 100 Unit/Ml 3 Ml Vial SUBCUT Not Given QIDACHS [facility] Protocol Losartan Potassium 25 mg 07/26/21 09:00 Losartan Potassium 25 Mg Tablet PO DAILY PALEMR Protocol Melatonin 3 mg 07/20/21 21:19 07/24/21 00:27 Melatonin 3 Mg Tablet PO 3 mg BEDTIME PRN Administration Insomnia Metoprolol Tartrate 25 mg 07/25/21 13:00 07/25/21 21:26 Metoprolol Tartrate 25 Mg Tablet PO 25 mg QID PALMER Administration Protocol Olanzapine 5 mg 07/23/21 21:00 07/25/21 21:25 Olanzapine Odt 10 Mg Tab.Rapdis TRANSLINGU 5 mg BEDTIME PALMER Administration Pharmacy Consult 1 each 07/20/21 18:38 Consult Rx Perform Med Rec MISCELLANE ONCE PRN Consult order Pharmacy Consult 1 each 07/23/21 00:33 Consult Rx Vancomycin Dosing MISCELLANE DAILY PRN Consult order Sodium Chloride 3 ml 07/21/21 00:00 07/26/21 07:49 0.9 % Sodium Chloride Flush 3 Ml Syringe IVFLUSH 3 ml QSHIFT PALMER Administration Time Spent With Patient Time: Total time spent is greater than 50% in coordination of care (as documented) at patient's floor/unit and/or counseling patient: Time with patient: 15 - 24 minutes Progress Note: Quality Stroke Does the patient have a stroke diagnosis?: No Procedures Date of Service Date of Service: 07/26/21
[2021-07-26] MEDS: Losartan Potassium 25 MG TABLET PO (10:44)
[2021-07-26] MEDS: FLUoxetine HCl Oral Solution 20 MG/5 ML SOLUTION 10 MG PO (10:45)
[2021-07-26] MEDS: Furosemide 20 MG TABLET PO (10:45)
[2021-07-26] MEDS: Metoprolol Tartrate 25 MG TABLET PO ×4 (10:45→20:39)
[2021-07-26 10:53] LABS: Glucose, Whole Blood 105 mg/dL (60-115)
--- NOTE | 2021-07-26 11:32 | PC.NURSE ---
pt had completed his bowel prep and was having liquid stools. He was ready for procedure, he told the PRINTING WORKER SUPERVISOR on the floor his procedure was cancelled and asked for food and coffee. He was given those items. Pt was approached and reminded that he is NPO for his proceedure which is now delayed due to oral intake.
[2021-07-26 11:46] LABS: Transferrin 154 mg/dL (188-341)
--- NOTE | 2021-07-26 11:49 | PM.IMPN ---
Progress Note: A&P (1) Anemia: Status: Acute Assessment and Plan: This is a 66-year-old male with history of hypertension, hyperlipidemia, diabetes, systolic CHF with EF of 30-35%, history of recurrent falls, neuropathy, atrial fibrillation on Eliquis, possible dementia, history of recurrent right-sided pleural effusion who presented to the hospital with a chief complaint of fall. Normocytic anemia heme negative H/H trending down, will transfuse 1 u prbc seen by nupur VARNER tomorrow NPO after midnight Eliquis on hold Hypertension Blood pressure controlled will restart Lostartan stop HCTZ and do not restart as per nephro Hallucinations/agitation Improved this morning Seems most likely r/t underlying dementia, possible Lewy Body Dementia.? Brain imaging showing significant cerebral and cerebellar atrophy, moderate to severe microvascular ischemic changes. Seen by psych, med adjustments per their recommendation Consider outpatient eval for LBD -seen by Neurology -continue Zyprexa Fever Low grade fever 07/22, no recurrent fevers s/p 30cc/kg bolus lactic acid was 6.5, resolved with ivf empiric abx given no obvious source of infection. hold of further abx at this time Blood cultures negative afib with RVR Converted back to NSR yesterday afternoon Continue amiodarone, Lopressor -Eliquis on hold for anemia episodes of NSVT h/o HFrEF, LVEF 30-35% -check lytes, replace prn -cardiology following WILMER Resolved SCr 0.97 down from 4.68 on admission Multifactorial.? No obstruction seen on CT of abdomen -hold nephrotoxins -Nephrology following? Recurrent falls evaluated by Neurology in May admission for recurrent falls- thought to be secondary to?neuropathy?and recommended outpatient EMG studies orthostatic hypotension contributing on this admission -PT eval when medically stable, likely will need d/c to SNF Orthostatic hypotension. resolved may be r/t medication BP improved. stop hydrochlorothiazide. Prolonged QT Improving. Seen by Cardiology, QT estimated in the 400s today -resume amiodarone per Cardiology rec -SSRI changed to prozac per psych rec to avoid qtc prolongation ?Colitis on CT No abdominal pain or diarrhea No indication for antibiotics -seen by GI, no evidence of colitis History of systolic CHF:? Patient has EF of 30-35%.? Currently stable.? Holding diuretics for now given WILMER on admission consider restarting lasix now that WILMER has resolved. monitor fluid status closely appears euvolemic History of diabetes:? -no longer on glipizide? -hold metformin.? -continue Lantus.? -SSI, POCs Mood SSRI initially held for prolonged qtc, substitution made per psych rec DISPO: Spoke with patients , patient will go home with services when medically stable DVT prophylaxis-mechanical devices due to anemia Subjective Subjective Date of Service: 07/26/21 Review of Systems Follow up anemia, GI bleed scheduled for colonoscopy today Physical Exam Vital Signs: Vital Signs: Last Vital Signs Temp 97.8 F 07/26/21 11:02 Pulse 103 H 07/26/21 11:02 Resp 18 07/26/21 11:02 BP 144/87 H 07/26/21 11:02 Pulse Ox 99 07/26/21 11:02 Body Mass Index 25.3 Appearing in no acute distress lung sounds are clear to auscultation heart regular rate rhythm, clear S1, S2 positive bowel sounds, abdomen is soft, nontender neuro patient is alert x3, no focal deficits Objective Data Current Medications Generic Name Dose Route Start Last Admin Trade Name Freq PRN Reason Stop Dose Admin Acetaminophen 650 mg 07/20/21 21:19 Acetaminophen 325 Mg Tablet PO Q6H PRN Pain, Mild (Pain Scale 1-3) Atorvastatin Calcium 80 mg 07/21/21 21:00 07/25/21 21:25 Atorvastatin Calcium 80 Mg Tablet PO 80 mg BEDTIME PALMER Administration Dextrose 25 gm 07/20/21 21:25 Dextrose 50 % 25 Gm/50 Ml Vial IVPUSH Q15M PRN per Hypoglycemia Standing Ord. Protocol Docusate Sodium 100 mg 07/21/21 09:00 07/26/21 10:42 Docusate Sodium 100 Mg Capsule PO Not Given BID PALMER Ergocalciferol 1,250 mcg 07/21/21 16:15 07/21/21 17:05 Ergocalciferol (Vitamin D2) 1,250 Mcg Capsule PO 1,250 mcg Q7D PALMER Administration Fluoxetine HCl 10 mg 07/23/21 09:00 07/26/21 10:45 Fluoxetine Hcl Oral Solution 20 Mg/5 Ml Solution PO 10 mg DAILY PALMER Administration Furosemide 20 mg 07/25/21 12:00 07/26/21 10:45 Furosemide 20 Mg Tablet PO 20 mg DAILY PALMER Administration Protocol Glucose 15 gm 07/20/21 21:25 Glucose Gel 15 Gm Gel..Gram. PO Q15M PRN per Hypoglycemia Standing Ord. Protocol Insulin Human Lispro 0 unit 07/21/21 07:30 07/26/21 07:39 Insulin Lispro 100 Unit/Ml 3 Ml Vial SUBCUT Not Given QIDACHS [facility] Protocol Losartan Potassium 25 mg 07/26/21 09:00 07/26/21 10:44 Losartan Potassium 25 Mg Tablet PO 25 mg DAILY PALMER Administration Protocol Melatonin 3 mg 07/20/21 21:19 07/24/21 00:27 Melatonin 3 Mg Tablet PO 3 mg BEDTIME PRN Administration Insomnia Metoprolol Tartrate 25 mg 07/25/21 13:00 07/26/21 10:45 Metoprolol Tartrate 25 Mg Tablet PO 25 mg QID PALMER Administration Protocol Olanzapine 5 mg 07/23/21 21:00 07/25/21 21:25 Olanzapine Odt 10 Mg Tab.Rapdis TRANSLINGU 5 mg BEDTIME PALMER Administration Pharmacy Consult 1 each 07/20/21 18:38 Consult Rx Perform Med Rec MISCELLANE ONCE PRN Consult order Pharmacy Consult 1 each 07/23/21 00:33 Consult Rx Vancomycin Dosing MISCELLANE DAILY PRN Consult order Sodium Chloride 3 ml 07/21/21 00:00 07/26/21 07:49 0.9 % Sodium Chloride Flush 3 Ml Syringe IVFLUSH 3 ml QSHIFT [facility] Administration Labs CBC & Chem 7: 07/26/21 05:33 07/26/21 05:33 Labs: Laboratory Results - last 24 hr 07/24/21 07/25/21 07/25/21 05:51 12:00 15:57 MCV MCH MCHC RDW Plt Count MPV Absolute Nucleated RBC Nucleated RBC % (auto) Anion Gap Estim Creat Clear Calc Estimated GFR POC Glucose 212 H 116 H Random Glucose Calcium Transferrin 154 L 07/25/21 07/26/21 07/26/21 20:03 05:33 05:33 MCV 85.5 MCH 28.1 MCHC 32.9 RDW 17.6 H Plt Count 240 MPV 9.6 Absolute Nucleated RBC 0.000 Nucleated RBC % (auto) 0.0 Anion Gap 9 L Estim Creat Clear Calc 106.0 Estimated GFR > 60 POC Glucose 157 H Random Glucose 104 Calcium 8.4 Transferrin 07/26/21 07/26/21 07:06 10:49 MCV MCH MCHC RDW Plt Count MPV Absolute Nucleated RBC Nucleated RBC % (auto) Anion Gap Estim Creat Clear Calc Estimated GFR POC Glucose 115 105 Random Glucose Calcium Transferrin Microbiology Microbiology Results: Microbiology 07/22/21 23:52 Blood - Venous Blood Culture - Preliminary No growth after 48 hours. 07/22/21 23:45 Blood - Venous Blood Culture - Preliminary No growth after 48 hours. Quality Stroke Does the patient have a stroke diagnosis?: No VTE Prior VTE?: No VTE Risk Level:: Medical - moderate - high VTE Device Contraindication: Treatment Not Indicated VTE Drug Contraindication: Treatment Not Indicated
[2021-07-26] MEDS: Lactated Ringers 1,000 ML 50 ML IVCONT (14:13)
--- NOTE | 2021-07-26 15:57 | PM.EVENT ---
Event Note Date of Service: 07/26/21 Event Note: GI s/ no pain states he took bowel prep had coffee and toast late this am procedure cancelled, r/s to tomorrow o/ vss abd soft nontender hematocrit stable a/p EGD and colonoscopy rescheduled to 07/27 nursing aware clear liquids today the NPO after midnight.
[2021-07-26 16:26] LABS: Glucose, Whole Blood 144 mg/dL (60-115)
[2021-07-26 20:23] LABS: Glucose, Whole Blood 121 mg/dL (60-115)
[2021-07-26] MEDS: Atorvastatin Calcium 80 MG TABLET PO (20:40)
[2021-07-26] MEDS: OLANZapine ODT 10 MG TAB.RAPDIS 5 MG TRANSLINGU (20:41)
--- NOTE | 2021-07-26 22:36 | PC.NURSE ---
Patient refusing bed alarm. Says it sounds like a truck backing up and he needs to move his car. Pt educated that the alarm is for his safety so that we want to make sure he is safe during his stay. Camera in place, will stat if pt attempts to get out of bed.
[2021-07-27] VITALS (8 sets, daily range): BP systolic 137–177; BP diastolic 76–88; PULSE 51–87; RESP 18–20; TEMP 36.8–37; O2SAT 97–100
[2021-07-27 07:12] LABS: Glucose, Whole Blood 87 mg/dL (60-115)
[2021-07-27] MEDS: Losartan Potassium 25 MG TABLET PO (07:54)
[2021-07-27] MEDS: Furosemide 20 MG TABLET PO (07:54)
[2021-07-27] MEDS: Docusate Sodium 100 MG CAPSULE PO (07:55)
[2021-07-27] MEDS: FLUoxetine HCl Oral Solution 20 MG/5 ML SOLUTION 10 MG PO (07:55)
[2021-07-27] MEDS: 0.9 % Sodium Chloride Flush 3 ML SYRINGE IVFLUSH (07:56)
[2021-07-27] MEDS: Metoprolol Tartrate 25 MG TABLET PO (07:56)
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
[2021-07-27] MEDS: Haloperidol Lactate 5 MG/ML VIAL 2.5 MG IVPUSH (10:46)
[2021-07-27] MEDS: QUEtiapine Fumarate 50 MG TABLET PO (10:46)
--- NOTE | 2021-07-27 10:54 | PM.PNNEP ---
Subjective Subjective Date of Service: 08/16/21 Principal diagnosis: Atrial fibrillation Interval history: WILMER resolved Physical Exam Vital Signs: Vital Signs: Last Vital Signs Temp 98.4 F 07/27/21 10:50 Pulse 54 07/27/21 10:50 Resp 20 07/27/21 10:50 BP 161/76 H 07/27/21 10:50 Pulse Ox 98 07/27/21 10:50 Body Mass Index 25.3 Const: General: comfortable, alert and awake Chest: Chest palpation & inspection: normal inspection of the chest Resp: Effort & Inspection: no respiratory distress Auscultation: clear to auscultation bilaterally, no rales, no rhonchi and no wheezes Cardio: Rhythm: regular rhythm Heart sounds: no murmurs GI: Inspection: No distended : General: Yes no CVA tenderness Back/Spine/Pelvis: Back: no CVA tenderness Objective Data Labs CBC & Chem 7: 07/26/21 05:33 07/26/21 05:33 Labs: Laboratory Results - last 24 hr 07/24/21 07/26/21 07/26/21 05:51 16:20 20:16 POC Glucose 144 H 121 H Transferrin 154 L 07/27/21 07:02 POC Glucose 87 Transferrin Microbiology Microbiology Results: Microbiology 07/22/21 23:52 Blood - Venous Blood Culture - Preliminary No growth after 48 hours. 07/22/21 23:45 Blood - Venous Blood Culture - Preliminary No growth after 48 hours. Procedures Date of Service Date of Service: 07/27/21 Assessment & Plan Assessment and plan (1) WILMER (acute kidney injury): Status: Resolved Assessment and Plan: Mr. Terrence Causey is a 66-year-old male with history of hypertension, hyperlipidemia, diabetes, systolic CHF with EF of 30-35%, history of recurrent falls, neuropathy, atrial fibrillation on Eliquis, possible dementia, history of recurrent right-sided pleural effusion who presented to the hospital with a chief complaint of fall. His course is complicated by WILMER. 1. WILMER BL Cr 1.1mg/dL Cr peak 4.68mg/dL now improved back to baseline 0.8mg/dl after IVF CT abd no signs of obstruction overall pre-renal disease now resolved Overall patient had orthostasis, NSVT, and hypvolemia PlanL keep lasix and Losartan - He should never be on both HCTZ and Lasix, so DC HCTZ permanently. - dose metoprolol for antiarrhythmics effect Check Labs prn Time Spent With Patient Time: Total time spent is greater than 50% in coordination of care (as documented) at patient's floor/unit and/or counseling patient: Time with patient: 15 - 24 minutes Progress Note: Quality Stroke Does the patient have a stroke diagnosis?: No
[2021-07-27 11:05] LABS: Glucose, Whole Blood 140 mg/dL (60-115)
--- NOTE | 2021-07-27 12:34 | PC.NURSE ---
Skin assessment completed today. Patient has healing abrasions to dorsal of bilateral feet. Couldn't assess any further skin due to patient being agitated and aggressive.
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
--- NOTE | 2021-07-27 14:26 | MHC.CM.PN ---
IMM Male 66 DX WILMER DIZZINESS Is discharged to home today with his . She is providing transportation to home @4pm today. [facility] will resume services. They have been notified of DC today.
[2021-07-27] MEDS: QUEtiapine Fumarate 25 MG TABLET 12.5 MG PO (15:49)
[2021-07-27 15:51] LABS: Glucose, Whole Blood 127 mg/dL (60-115)
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
== END 2021-07-27 17:06 | disposition home or self-care (01) | DRG 683 ==
LOC: HO.ED 20:17 → HO.EDOVER 21:43 → HO.IMC 22:17
PROVIDERS: Family Medicine; Internal Medicine; Nurse Practitioner Acute Care; Nurse Practitioner Family; Physician Assistant Medical; Admitting Provider Hospitalist; Emergency Provider Internal Medicine; PCP Internal Medicine; Visit Provider Internal Medicine
DX: N17.9 Acute kidney failure, unspecified (principal); I50.22 Chronic systolic (congestive) heart failure; I47.1 Supraventricular tachycardia; F03.91 Unspecified dementia, unspecified severity, with behavioral disturbance; I95.1 Orthostatic hypotension; I48.0 Paroxysmal atrial fibrillation; E86.0 Dehydration; F32.9 Major depressive disorder, single episode, unspecified; R29.6 Repeated falls; Z91.81 History of falling; D64.9 Anemia, unspecified; K59.00 Constipation, unspecified; E11.42 Type 2 diabetes mellitus with diabetic polyneuropathy; I11.0 Hypertensive heart disease with heart failure; T50.1X5A Adverse effect of loop [high-ceiling] diuretics, initial encounter; T50.2X5A Adverse effect of carbonic-anhydrase inhibitors, benzothiadiazides and other diuretics, initial encounter; T46.5X5A Adverse effect of other antihypertensive drugs, initial encounter; Y92.9 Unspecified place or not applicable; Z20.822 Contact with and (suspected) exposure to COVID-19; Z79.4 Long term (current) use of insulin; Z79.01 Long term (current) use of anticoagulants; Z79.899 Other long term (current) drug therapy
CPT/HCPCS: 36415; 70450; 71045; 73502; 74176; 80048; 80202; 81001; 81003; 82272; 82306; 82550; 82607; 82728; 82746; 82947; 83540; 83605; 83735; 84443; 84466; 85014; 85018; 85025; 85027; 86780; 86850; 86900; 86901; 86923; 87040; 87635; 93005; 96360; 97110; 97112; 97116; 97162; 97166; 97530; 97535; 99285; J0696; J2060; J2543; J3370; J3475; P9016

== ENCOUNTER 2021-09-20 16:24 | Inpatient (IN) | payer MEDICARE, SELFPAY ==
--- NOTE | ~2021-09-20 | XR_ITS ---
EXAMINATION: XR FOOT, LEFT CLINICAL INFORMATION: Osteomyelitis. COMPARISON: None TECHNIQUE: AP, lateral, and oblique views of the left foot. FINDINGS: The bones and soft tissues are normal. No fracture. Alignment is anatomic. Joint spaces are maintained. There is a spur at the posterior calcaneus at the insertion of the Achilles tendon. The toes are held in flexion at the metatarsal phalangeal joint XR/XR foot LT min 3V IMPRESSION: Normal left foot.
[2021-09-20 16:39] VITALS: BP 131/69; PULSE 56; RESP 16; TEMP 36.9; O2SAT 100; BMI 25.0
[2021-09-20 17:07] VITALS: BP 130/60; PULSE 59; RESP 18; TEMP 36.7; O2SAT 98
--- NOTE | 2021-09-20 17:35 | ED.LOWEXIN ---
HPI - Extremity Injury (Lower) General Chief Complaint: Extremity Injury, Lower Stated Complaint: foot infection Time Seen by Provider: 09/20/21 16:58 History of Present Illness HPI Narrative: Patient is a 66-year-old male presents today with complaint of left foot pain. There is redness over the foot. There is no loss of consciousness. No nausea no vomiting. No fever no chills. No change in mental status. Incidence been ongoing for approximately a week. Has a history of congestive heart failure history of diabetes. History of AFib baseline on Eliquis. Complaining of swelling and pain to the left foot. The redness is most pronounced over the 2nd 3rd 4th digit. There is redness over the metatarsal area. Patient denies any systemic fever. There was no coughing or congestion or upper respiratory symptoms. He is able to ambulate. He has a 24 hour aide at home. Patient's family wanted him to go home if possible. Related Data Home Medications Medication Instructions Recorded Confirmed allopurinol 300 mg tablet 300 mg PO DAILY 06/04/21 07/20/21 apixaban 5 mg tablet (Eliquis) 5 mg PO BID 06/04/21 07/20/21 atorvastatin 80 mg tablet 80 mg PO BEDTIME 06/04/21 07/20/21 bupropion HCl 300 mg 24 hr tablet, 1 tab PO DAILY 06/04/21 07/20/21 extended release escitalopram oxalate 20 mg tablet 20 mg PO DAILY 06/04/21 07/20/21 hydrochlorothiazide 12.5 mg tablet 12.5 mg PO DAILY 07/20/21 07/20/21 insulin glargine 100 unit/mL (3 15 unit SUBCUT BEDTIME 07/20/21 07/20/21 mL) subcutaneous pen (Lantus Solostar U-100 Insulin) magnesium oxide 400 mg PO DAILY 07/20/21 07/20/21 metformin 500 mg tablet 500 mg PO BID 07/20/21 07/20/21 sacubitril 24 mg-valsartan 26 mg 1 tab PO BID 09/20/21 tablet (Entresto) Previous Rx's Medication Instructions Recorded furosemide 40 mg tablet 40 mg PO BID@0900,1800 #60 tab 06/09/21 losartan 25 mg tablet 25 mg PO DAILY #30 tab 06/09/21 amiodarone 200 mg tablet 200 mg PO DAILY #30 tab 06/24/21 metoprolol succinate 100 mg 100 mg PO DAILY 30 Days #30 tab 06/24/21 tablet,extended release 24 hr fluoxetine 10 mg capsule (Prozac) 10 mg PO DAILY #30 cap 07/27/21 quetiapine 25 mg tablet 12.5 mg PO TID #90 tab 07/27/21 trazodone 50 mg tablet 25 mg PO TID PRN #90 tab 07/27/21 Allergies Allergy/AdvReac Type Severity Reaction Status Date / Time colchicine Allergy Rash Verified 07/20/21 15:56 Review of Systems Review of Systems: No fever no chills no chest pain or shortness of breath no nausea no vomiting Yes all other systems are reviewed and are negative [facility] Past Medical History Attestation statement: The following information was validated with the patient. 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 Noncompliance with medications NSVT (nonsustained ventricular tachycardia) PAF (paroxysmal atrial fibrillation) Peripheral neuropathy Vertebrobasilar dolichoectasia Family History Family History Father CAD (coronary artery disease) Social History Social History Household Members: Spouse Household Members Other:: and son Housing: House Do you presently have visiting nurse or other home services: Yes Alcohol intake: never Patient Tobacco Use Status: Never used Tobacco Second Hand Smoke Exposure: No Use of substances other than those prescribed or required for medical reasons: No Advance Directives: Yes Advance Directives Information Provided: Yes Advance Directives on File: Yes Advance Directives Date on File: 06/21/21 service: No Current occupational status: retired Physical Exam Vital Signs: Vital Signs: Last Vital Signs Temp 97.9 F 09/20/21 18:35 Pulse 84 09/20/21 19:12 Resp 18 09/20/21 19:12 BP 135/70 09/20/21 19:12 Pulse Ox 97 09/20/21 19:12 Body Mass Index 25.0 Appearance: Alert. Oriented X3. No acute distress. Eyes: Pupils equal, round and reactive to light. ENT: Pharynx normal. Neck: Normal inspection. Neck supple. No lymph nodes noted. No crepitus CVS: Normal heart rate and rhythm. Pulses normal. Normal S1 and S2 Respiratory: No respiratory distress. Breath sounds normal. No Wheezing. No rales Abdomen: Soft and nontender. No rigidity. No distention. good BS x4 Skin: Skin warm and dry. Normal skin color. Normal skin turgor. Extremities: Positive swelling to the left foot. Slightly warm to touch. The redness is most pronounced over the 2nd 3rd 4th toe. Also over the metatarsal area. There is good pulses at dorsalis pedis. Sensation intact. There is no gross purulent discharge noted. There is a wound over the dorsum of the 2nd toe. It is approximately 2 cm x 2 cm in size. Clotted over. With surrounding area of erythema. Neuro: Oriented X 3. No motor deficit. No sensory deficit. Moving all extermities. No slurred speech MDM - Extremity Injury (Lower) MDM Narrative Medical decision making narrative: Patient had elevated sed rate and CRP consistent with having osteomyelitis. X-ray did not show any fracture. No overt signs of osteo myelitis. Patient is electrolytes otherwise unremarkable. But given patient's history redness cellulitis. Will admit for IV antibiotics. Patient's case discussed with the hospitalist team. Agree with plan. In stable condition. Medical Records Attestation: I reviewed the patient's medical records. Lab Data Attestation: I reviewed the patient's lab results. Result diagrams: 09/20/21 17:39 09/20/21 17:39 Labs: Lab Results 09/20/21 09/20/21 09/20/21 Range/Units 17:39 17:39 17:39 WBC 7.0 (4.8-10.8) X10*3/uL RBC 3.30 L (4.60-5.80) X10*6/uL Hgb 10.0 L (14.0-18.0) g/dl Hct 30.6 L (42-52) % MCV 92.7 (80-98) fL MCH 30.3 (27.0-33.0) pg MCHC 32.7 (31.0-36.0) g/dl RDW 15.6 (11.0-16.0) % Plt Count 279 (160-400) X10*3/uL MPV 9.2 L (9.4-12.4) fL Immature Gran % (Auto) 0.4 (0.0-0.4) % Neut % (Auto) 80.8 H (45-73) % Lymph % (Auto) 10.9 L (20-40) % Clare % (Auto) 6.4 (2-11) % Eos % (Auto) 1.4 (0-4) % Baso % (Auto) 0.1 (0-2) % Lymph # (Auto) 0.8 L (1.2-4.9) X10*3/uL Clare # (Auto) 0.5 (0.1-1.2) X10*3/uL Eos # (Auto) 0.1 (0.0-0.4) X10*3/uL Baso # (Auto) 0.0 (0.0-0.2) X10*3/uL Abs Immat Gran (auto) 0.03 (0.00-0.03) X10*3/uL Absolute Neuts (auto) 5.7 (2.0-8.3) X10*3/uL Absolute Nucleated RBC 0.000 (0.0-0.012) X10*3/uL Nucleated RBC % (auto) 0.0 (0.0-0.2) /100WBC ESR 79 H (0-15) MM/HR Sodium 138 (135-145) mmol/L Potassium 3.3 (3.3-5.1) mmol/L Chloride 98 (96-108) mmol/L Carbon Dioxide 31 H (22-29) mmol/L Anion Gap 12 (12-20) BUN 32 H D (9-16) mg/dL Creatinine 1.55 H (0.5-1.4) mg/dL Estim Creat Clear Calc 58.3 Estimated GFR 45 Random Glucose 207 H D (60-115) mg/dL Lactic Acid (0.5-2.0) mmol/L Calcium 9.2 D (8.4-10.2) mg/dL C-Reactive Protein 4.24 H (< or = 0.50) mg/dL COVID-19 ([facility]) (Negative) COVID-19 Clin Com 09/20/21 09/20/21 Range/Units 17:39 19:11 WBC (4.8-10.8) X10*3/uL RBC (4.60-5.80) X10*6/uL Hgb (14.0-18.0) g/dl Hct (42-52) % MCV (80-98) fL MCH (27.0-33.0) pg MCHC (31.0-36.0) g/dl RDW (11.0-16.0) % Plt Count (160-400) X10*3/uL MPV (9.4-12.4) fL Immature Gran % (Auto) (0.0-0.4) % Neut % (Auto) (45-73) % Lymph % (Auto) (20-40) % Clare % (Auto) (2-11) % Eos % (Auto) (0-4) % Baso % (Auto) (0-2) % Lymph # (Auto) (1.2-4.9) X10*3/uL Clare # (Auto) (0.1-1.2) X10*3/uL Eos # (Auto) (0.0-0.4) X10*3/uL Baso # (Auto) (0.0-0.2) X10*3/uL Abs Immat Gran (auto) (0.00-0.03) X10*3/uL Absolute Neuts (auto) (2.0-8.3) X10*3/uL Absolute Nucleated RBC (0.0-0.012) X10*3/uL Nucleated RBC % (auto) (0.0-0.2) /100WBC ESR (0-15) MM/HR Sodium (135-145) mmol/L Potassium (3.3-5.1) mmol/L Chloride (96-108) mmol/L Carbon Dioxide (22-29) mmol/L Anion Gap (12-20) BUN (9-16) mg/dL Creatinine (0.5-1.4) mg/dL Estim Creat Clear Calc Estimated GFR Random Glucose (60-115) mg/dL Lactic Acid 1.1 (0.5-2.0) mmol/L Calcium (8.4-10.2) mg/dL C-Reactive Protein (< or = 0.50) mg/dL COVID-19 ([facility]) Negative (Negative) COVID-19 Clin Com See Note Discharge Plan Discharge Clinical Impression: Cellulitis, Osteomyelitis Patient Disposition: Admitted As Inpatient Prescriptions: No Action atorvastatin 80 mg tablet 80 mg PO BEDTIME RF: 0 allopurinol 300 mg tablet 300 mg PO DAILY RF: 0 escitalopram oxalate 20 mg tablet 20 mg PO DAILY RF: 0 bupropion HCl 300 mg tablet extended release 24 hr 1 tab PO DAILY RF: 0 Eliquis 5 mg tablet 5 mg PO BID RF: 0 furosemide 40 mg Tablet 40 mg PO BID@0900,1800 Qty: 60 RF: 0 losartan 25 mg Tablet 25 mg PO DAILY Qty: 30 RF: 0 metoprolol succinate 100 mg Tablet Extended Release 24 Hr 100 mg PO DAILY 30 Days Qty: 30 RF: 0 amiodarone 200 mg tablet 200 mg PO DAILY Qty: 30 RF: 0 metformin 500 mg Tablet 500 mg PO BID RF: 0 magnesium oxide 400 mg magnesium Tablet 400 mg PO DAILY RF: 0 Lantus Solostar U-100 Insulin 100 unit/mL (3 mL) Insulin Pen 15 unit SUBCUT BEDTIME RF: 0 hydrochlorothiazide 12.5 mg Tablet 12.5 mg PO DAILY RF: 0 quetiapine 25 mg Tablet 12.5 mg PO TID Qty: 90 RF: 0 trazodone 50 mg tablet 25 mg PO TID PRN (Reason: agitation) Qty: 90 RF: 0 fluoxetine [Prozac] 10 mg capsule 10 mg PO DAILY Qty: 30 RF: 0 Entresto 24-26 mg tablet 1 tab PO BID RF: 0
[2021-09-20 17:46] LABS: MANUAL DIFF FLAG NO
[2021-09-20 17:47] LABS: Basophils Percent Auto 0.1 % (0-2); Eosinophils Absolute Auto 0.1 X10*3/uL (0.0-0.4); Eosinophils Percent Auto 1.4 % (0-4); Hematocrit 30.6 % (42-52); Imm Gran Abs Auto 0.03 X10*3/uL (0.00-0.03); Imm Gran Pct Auto 0.4 % (0.0-0.4); Lymphocytes Absolute Auto 0.8 X10*3/uL (1.2-4.9); Lymphocytes Percent Auto 10.9 % (20-40); Mean Corpuscular HGB Conc 32.7 g/dl (31.0-36.0); Mean Corpuscular Hemoglobin 30.3 pg (27.0-33.0); Mean Corpuscular Volume 92.7 fL (80-98); Mean Platelet Volume 9.2 fL (9.4-12.4); Monocytes Absolute Auto 0.5 X10*3/uL (0.1-1.2); Monocytes Percent Auto 6.4 % (2-11); Neutrophils Absolute Auto 5.7 X10*3/uL (2.0-8.3); Neutrophils Percent Auto 80.8 % (45-73); Platelet Count 279 X10*3/uL (160-400); Red Cell Distribution Width 15.6 % (11.0-16.0)
[2021-09-20 17:59] LABS: Lactic Acid 1.1 mmol/L (0.5-2.0)
[2021-09-20 18:06] LABS: Anion Gap 12 (12-20); Blood Urea Nitrogen 32 mg/dL (9-16); C Reactive Protein 4.24 mg/dL (< or = 0.50); Calcium 9.2 mg/dL (8.4-10.2); Carbon Dioxide 31 mmol/L (22-29); Chloride 98 mmol/L (96-108); Creatinine Clr Calc Pharmacy 58.3; Estimated Glomerular Filt Rate 45; Glucose Random 207 mg/dL (60-115); Potassium 3.3 mmol/L (3.3-5.1); Sodium 138 mmol/L (135-145)
[2021-09-20 18:30] LABS: Erythrocyte Sedimentation Rate 79 MM/HR (0-15)
[2021-09-20 18:35] VITALS: BP 135/70; PULSE 54; RESP 16; TEMP 36.6; O2SAT 97
[2021-09-20] MEDS: cefTRIAXone sodium 1 GM in 0.9 % Sodium Chloride 50 ML IV (19:08)
[2021-09-20 19:12] VITALS: BP 135/70; PULSE 84; RESP 18; O2SAT 97
[2021-09-20 19:34] LABS: COVID-19 Test Negative (Negative); IDNOW Serial# 08D9AD1C
--- NOTE | 2021-09-20 20:06 | PHA.MEDREC ---
Pharmacy Consult ? Medication Reconciliation Pharmacy has completed the medication reconciliation. reports that he is taking medication that have not been filled recently; allopurinol, atorvastatin, bupropion, apixaban, escitalopram, and HCTZ. If patient is in and out of hospitals and facilities it is possible he is adherent. organzes all medication for patient. Ana Umana, PharmD
--- NOTE | 2021-09-20 20:10 | P.HPHOSP_ITS ---
History of Present Illness Date of Service: 09/20/21 Chief Complaint: Left foot pain redness and swelling 66-year-old male with a past medical history of hypertension, hyperlipidemia, diabetes, CHF, AFib on Eliquis, anxiety, depression, history of gout; history of Lewy body dementia, history of recurrent falls, presented to the hospital with a chief complaint of left foot middle toes pain redness and swelling. Also reports that he has noticed small ulcer. Denies any discharge. Denies any discoloration. Mentioned that symptoms have been going on over the past few days. Patient's family at the bedside mentioned that patient has been having falls lately and has multiple scabs on his upper and lower extremities; right foot has been warm swollen and right foot 2nd toe has a scab; it has not been improving hence decided to go to the PCP who evaluated the patient was to go to the hospital for IV antibiotics. Denies any fevers and chills at home. Denies any cough or sputum production. Denies any shortness of breath. Reports that he has been complaint with his home medications. Denies any nausea vomiting or diarrhea. Review of all other systems is negative except mentioned above ER course: Per ER team patient noted to have ulcer and redness around the 2nd 3rd and 4th toes of the left foot; x-ray showed no evidence of osteomyelitis but noted to have elevated ESR and CRP. Patient was given IV antibiotics. Admitted to the hospital for further management. 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 Noncompliance with medications NSVT (nonsustained ventricular tachycardia) PAF (paroxysmal atrial fibrillation) Peripheral neuropathy Vertebrobasilar dolichoectasia Family History Father CAD (coronary artery disease) Pertinent family history: as above Social History Household Members: Spouse Household Members Other:: and son Housing: House Do you presently have visiting nurse or other home services: Yes Alcohol intake: never Patient Tobacco Use Status: Never used Tobacco Second Hand Smoke Exposure: No Use of substances other than those prescribed or required for medical reasons: No Advance Directives: Yes Advance Directives Information Provided: Yes Advance Directives on File: Yes Advance Directives Date on File: 06/21/21 service: No Current occupational status: retired Meds Allergies Allergy/AdvReac Type Severity Reaction Status Date / Time colchicine Allergy Rash Verified 07/20/21 15:56 Active Medications: Current Medications Acetaminophen (Acetaminophen 325 Mg Tablet) 650 mg PO Q6H PRN PRN Reason: Pain, Mild (Pain Scale 1-3) Allopurinol (Allopurinol 300 Mg Tablet) 300 mg PO DAILY [facility] Amiodarone HCl (Amiodarone Hcl 200 Mg Tablet) 200 mg PO DAILY [facility] Apixaban (Apixaban 5 Mg Tablet) 5 mg PO BID [facility] Atorvastatin Calcium (Atorvastatin Calcium 80 Mg Tablet) 80 mg PO BEDTIME [facility] Bupropion HCl (Bupropion Hcl Xl 300 Mg Tab.Er.24h) 300 mg PO DAILY [facility] Dextrose (Dextrose 50 % 25 Gm/50 Ml Vial) 25 gm IVPUSH Q15M PRN; Protocol PRN Reason: per Hypoglycemia Standing Ord. Escitalopram Oxalate (Escitalopram Oxalate 20 Mg Tablet) 20 mg PO DAILY [facility] Glucose (Glucose Gel 15 Gm Gel..Gram.) 15 gm PO Q15M PRN; Protocol PRN Reason: per Hypoglycemia Standing Ord. Vancomycin HCl 1,500 mg/ (Sodium Chloride) 500 mls @ 333.333 mls/hr IV ONCE ONE Stop: 09/20/21 20:29 Insulin Human Lispro (Insulin Lispro 100 Unit/Ml 3 Ml Vial) 0 unit SUBCUT QIDACHS [facility]; Protocol Melatonin (Melatonin 3 Mg Tablet) 6 mg PO BEDTIME PRN PRN Reason: Insomnia Metoprolol Succinate (Metoprolol Succinate Er 100 Mg Tab.Er.24h) 100 mg PO DAILY [facility]; Protocol Pharmacy Consult (Consult Rx Vancomycin Dosing) 1 each MISCELLANE DAILY PRN PRN Reason: Consult order Pharmacy Consult (Consult Rx Perform Med Rec) 1 each MISCELLANE ONCE PRN PRN Reason: Consult order Quetiapine Fumarate (Quetiapine Fumarate 25 Mg Tablet) 25 mg PO TID [facility] Senna (Sennosides 8.6 Mg Tablet) 17.2 mg PO BEDTIME PRN PRN Reason: Constipation Sodium Chloride (0.9 % Sodium Chloride Flush 3 Ml Syringe) 3 ml IVFLUSH QSHIFT [facility] Trazodone HCl (Trazodone Hcl 25 Mg Halftab) 25 mg PO TID PRN PRN Reason: agitation Home Medications Medication Instructions Recorded Confirmed Last Taken Type allopurinol 300 mg tablet 300 mg PO DAILY 06/04/21 09/20/21 09/20/21 History apixaban 5 mg tablet (Eliquis) 5 mg PO BID 06/04/21 09/20/21 09/20/21 History atorvastatin 80 mg tablet 80 mg PO BEDTIME 06/04/21 09/20/21 09/19/21 History bupropion HCl 300 mg 24 hr tablet, 1 tab PO DAILY 06/04/21 09/20/21 09/20/21 History extended release escitalopram oxalate 20 mg tablet 20 mg PO DAILY 06/04/21 09/20/21 09/20/21 History hydrochlorothiazide 12.5 mg tablet 12.5 mg PO DAILY 07/20/21 09/20/21 09/20/21 History magnesium oxide 400 mg PO DAILY 07/20/21 09/20/21 09/20/21 History metformin 500 mg tablet 500 mg PO BID 07/20/21 09/20/21 09/20/21 History quetiapine 25 mg tablet 25 mg PO TID 09/20/21 09/20/21 09/20/21 History sacubitril 24 mg-valsartan 26 mg 1 tab PO BID 09/20/21 09/20/21 09/20/21 History tablet (Entresto) Physical Exam Vital Signs and Narrative: Vital Signs: Last Vital Signs Temp 97.9 F 09/20/21 18:35 Pulse 84 09/20/21 19:12 Resp 18 09/20/21 19:12 BP 135/70 09/20/21 19:12 Pulse Ox 97 09/20/21 19:12 Body Mass Index 25.0 Gen: Appears be in no acute distress HEENT: NCAT, Moist mucosa. Pulmonary: Vesicular breath sounds, fair air entry CVS: Normal S1-S2 Abdomen: BS+, Soft, Nontender Extremities: Warm well perfused; right foot has pitting edema; right foot 2nd 3rd 4th toes warm tender erythematous; right 2nd toe dorsum has a healing granulation tissue. Right knee has abrasions with healing granulation tissue; also noted a few scabs on upper and lower extremities. Neuro: Alert and awake. Results Labs CBC and Chem 7: 09/20/21 17:39 09/20/21 17:39 Labs: Laboratory Results - last 24 hr 09/20/21 09/20/21 09/20/21 17:39 17:39 17:39 MCV 92.7 MCH 30.3 MCHC 32.7 RDW 15.6 Plt Count 279 MPV 9.2 L Immature Gran % (Auto) 0.4 Neut % (Auto) 80.8 H Lymph % (Auto) 10.9 L [place] % (Auto) 6.4 Eos % (Auto) 1.4 Baso % (Auto) 0.1 Lymph # (Auto) 0.8 L [place] # (Auto) 0.5 Eos # (Auto) 0.1 Baso # (Auto) 0.0 Abs Immat Gran (auto) 0.03 Absolute Neuts (auto) 5.7 Absolute Nucleated RBC 0.000 Nucleated RBC % (auto) 0.0 ESR 79 H Anion Gap 12 Estim Creat Clear Calc 58.3 Estimated GFR 45 Random Glucose 207 H D Lactic Acid Calcium 9.2 D C-Reactive Protein 4.24 H COVID-19 ([facility]) COVID-19 Clin Com 09/20/21 09/20/21 17:39 19:11 MCV MCH MCHC RDW Plt Count MPV Immature Gran % (Auto) Neut % (Auto) Lymph % (Auto) [place] % (Auto) Eos % (Auto) Baso % (Auto) Lymph # (Auto) [place] # (Auto) Eos # (Auto) Baso # (Auto) Abs Immat Gran (auto) Absolute Neuts (auto) Absolute Nucleated RBC Nucleated RBC % (auto) ESR Anion Gap Estim Creat Clear Calc Estimated GFR Random Glucose Lactic Acid 1.1 Calcium C-Reactive Protein COVID-19 ([facility]) Negative COVID-19 Clin Com See Note Imaging Radiologist's Impressions: Impressions Foot X-Ray 09/20/21 17:16 IMPRESSION: Normal left foot. Assessment and Plan (1) Cellulitis: Status: Acute (2) Diabetes: Status: Acute (3) WILMER (acute kidney injury): Status: Acute 66-year-old male with a past medical history of hypertension, hyperlipidemia, diabetes, CHF, AFib on Eliquis, anxiety, depression, history of gout; presented to the hospital with a chief complaint of left foot middle toes pain redness and swelling. Left foot diabetic foot ulcer/cellulitis: Continue IV vancomycin and Zosyn. Patient has elevated ESR and CRP. Id consult for further recommendations. Diabetes: Insulin sliding scale. Hold metformin. WILMER: Hold home Lasix, Entresto, hydrochlorothiazide for now. Monitor renal function. History of CHF: Not in fluid overload. To be resumed on Lasix, Entresto once renal function improves. History of AFib: Rate controlled. Continue home Eliquis and amiodarone. History of anxiety/depression: Continue home escitalopram, bupropion History of hypertension/hyperlipidemia: Continue home metoprolol, statin. DVT prophylaxis: Patient on Eliquis Code status: Full code Quality Stroke Does the patient have a stroke diagnosis?: No VTE Prior VTE?: No VTE Risk Level:: Medical - moderate - high VTE Device Contraindication: Treatment Not Indicated VTE Drug Contraindication: N/A - Med Ordered
[2021-09-20] MEDS: vancomycin HCL 1,500 MG in 0.9 % Sodium Chloride 500 ML 333.33 MG IV (20:28)
--- NOTE | 2021-09-20 21:27 | PC.NURSE ---
Pt alert and oriented, confused at times hx of dementia. Pt high safe fall risk, pt OOB to commode with aid 1 assist tolerated well. Pt denies pain. Left foot noted to be red and swollen at this time. IV intact infusing Vanco at this time. Vitals stable, 98.7 oral temp, HR 55, Respirations 18, 99% room air, BP 140/74. Pt aware of being admitted. Report given to kaye.
[2021-09-20 21:39] VITALS: BP 170/81; PULSE 54; RESP 16; TEMP 36; O2SAT 96
[2021-09-20 22:03] LABS: Glucose, Whole Blood 182 mg/dL (60-115)
[2021-09-20] MEDS: Insulin Lispro 100 UNIT/ML 3 ML VIAL SUBCUT (22:03)
[2021-09-20] MEDS: Atorvastatin Calcium 80 MG TABLET PO (22:03)
[2021-09-20] MEDS: QUEtiapine Fumarate 25 MG TABLET PO (22:03)
[2021-09-20] MEDS: Apixaban 5 MG TABLET PO (22:03)
[2021-09-20] MEDS: Piperacillin Sodium/Tazobactam 2.25 GM in 0.9 % Sodium Chloride 50 ML IV (22:04)
[2021-09-20] MEDS: 0.9 % Sodium Chloride Flush 3 ML SYRINGE IVFLUSH (22:04)
[2021-09-21] VITALS (7 sets, daily range): BP systolic 127–165; BP diastolic 67–87; PULSE 52–77; RESP 16–18; TEMP 36.1–36.6; O2SAT 97–100
[2021-09-21] MEDS: Piperacillin Sodium/Tazobactam 2.25 GM in 0.9 % Sodium Chloride 50 ML IV ×4 (03:58→22:37)
[2021-09-21 05:33] LABS: MANUAL DIFF FLAG NO
[2021-09-21 05:43] LABS: Basophils Percent Auto 0.1 % (0-2); Eosinophils Absolute Auto 0.2 X10*3/uL (0.0-0.4); Eosinophils Percent Auto 2.7 % (0-4); Hematocrit 26.4 % (42-52); Hemoglobin 8.7 g/dl (14.0-18.0); Imm Gran Abs Auto 0.02 X10*3/uL (0.00-0.03); Imm Gran Pct Auto 0.3 % (0.0-0.4); Lymphocytes Absolute Auto 0.8 X10*3/uL (1.2-4.9); Lymphocytes Percent Auto 10.9 % (20-40); Mean Corpuscular Hemoglobin 30.4 pg (27.0-33.0); Mean Corpuscular Volume 92.3 fL (80-98); Mean Platelet Volume 9.4 fL (9.4-12.4); Monocytes Absolute Auto 0.5 X10*3/uL (0.1-1.2); Monocytes Percent Auto 7.6 % (2-11); Neutrophils Absolute Auto 5.5 X10*3/uL (2.0-8.3); Neutrophils Percent Auto 78.4 % (45-73); Platelet Count 267 X10*3/uL (160-400); Red Blood Count 2.86 X10*6/uL (4.60-5.80); Red Cell Distribution Width 15.3 % (11.0-16.0)
[2021-09-21 06:01] LABS: Anion Gap 10 (12-20); Blood Urea Nitrogen 30 mg/dL (9-16); Calcium 8.5 mg/dL (8.4-10.2); Carbon Dioxide 31 mmol/L (22-29); Chloride 100 mmol/L (96-108); Creatinine Clr Calc Pharmacy 63.6; Estimated Glomerular Filt Rate 50; Glucose Random 174 mg/dL (60-115); Potassium 3.1 mmol/L (3.3-5.1); Sodium 138 mmol/L (135-145)
[2021-09-21 07:24] LABS: Glucose, Whole Blood 131 mg/dL (60-115)
[2021-09-21] MEDS: 0.9 % Sodium Chloride Flush 3 ML SYRINGE IVFLUSH ×2 (08:26→17:38)
[2021-09-21] MEDS: Metoprolol Succinate ER 100 MG TAB.ER.24H PO (08:26)
[2021-09-21] MEDS: buPROPion HCl XL 300 MG TAB.ER.24H PO (08:26)
[2021-09-21] MEDS: Apixaban 5 MG TABLET PO ×2 (08:26→21:36)
[2021-09-21] MEDS: allopurinoL 300 MG TABLET PO (08:27)
[2021-09-21] MEDS: QUEtiapine Fumarate 25 MG TABLET PO ×3 (08:27→21:36)
[2021-09-21] MEDS: Escitalopram Oxalate 20 MG TABLET PO (08:27)
[2021-09-21] MEDS: Amiodarone HCL 200 MG TABLET PO (08:27)
[2021-09-21] MEDS: Potassium Chloride ER 20 MEQ TAB.ER.PRT 40 MEQ PO (10:17)
--- NOTE | 2021-09-21 10:19 | MHC.CM.PN ---
CM MET WITH PT WHO REPORTS HE LIVES AT HOME WITH HIS AND IS INDEPENDENT WITH ADLS PT REPORTS HE USES A CANE BUT REPORTS HE ALSO HAS A WALKER AND WHEELCHAIR AT HOME PT HAS A HCP ON FILE NAMING HIS , THELMA, HIS AGENT PT HAS BEEN ACTIVE WITH [facility] IN THE PAST BUT REPORTS THEY DISCHARGED HIM A FEW WEEKS AGO IMM DELIVERED CURRENT DC PLAN IS HOME WITH VS WITHOUT [facility] TO TRANSPORT
[2021-09-21 11:36] LABS: Glucose, Whole Blood 299 mg/dL (60-115)
[2021-09-21] MEDS: Insulin Lispro 100 UNIT/ML 3 ML VIAL SUBCUT ×2 (12:24→21:35)
--- NOTE | 2021-09-21 13:28 | PC.NURSE ---
Skin/wound assessment completed. Patient has abrasions to left knee and lower leg and to right knee. Also has scabbed diabetic ulcers to left 2nd toe and right 4th toe. Triad applied to all wounds, the left toes were covered with gauze and roll gauze and the left knee/lower leg covered with foam dressing. No other skin issues noted at this time.
--- NOTE | 2021-09-21 14:20 | HO.PM.IMPN ---
Subjective Subjective Date of Service: 09/21/21 Interval History: Patient being followed for left foot cellulitis, patient is dementia unable to give detail history, denies pain admits that he falls a lot due to loss of balance, also complain of lightheadedness. Review of Systems Unable to obtain detailed review of system due to underlying dementia. 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 Neck supple, no JVD. CVS regular rate rhythm, Respiratory lungs clear to auscultation, no respiratory distress, no wheeze, no rhonchi. Gastrointestinal abdomen soft, nontender, bowel sounds audible, no guarding , no rigidity. Extremities right lower extremity no edema, left foot swelling warmth and hyperemia dorsum of foot, flexion deformity of toes, dry scabs on 2nd, 3rd and 4th toes, no drainage Neuro nonfocal, patient moving all 4 extremity, speech clear. Skin no rash Objective Data Active Medications Acetaminophen (Acetaminophen 325 Mg Tablet) 650 mg PO Q6H PRN PRN Reason: Pain, Mild (Pain Scale 1-3) Allopurinol (Allopurinol 300 Mg Tablet) 300 mg PO DAILY [facility] Last Admin: 09/21/21 08:27 Dose: 300 mg Documented by: NARAYAN Amiodarone HCl (Amiodarone Hcl 200 Mg Tablet) 200 mg PO DAILY [facility] Last Admin: 09/21/21 08:27 Dose: 200 mg Documented by: NARAYAN Apixaban (Apixaban 5 Mg Tablet) 5 mg PO BID [facility] Last Admin: 09/21/21 08:26 Dose: 5 mg Documented by: NARAYAN Atorvastatin Calcium (Atorvastatin Calcium 80 Mg Tablet) 80 mg PO BEDTIME [facility] Last Admin: 09/20/21 22:03 Dose: 80 mg Documented by: FER Bupropion HCl (Bupropion Hcl Xl 300 Mg Tab.Er.24h) 300 mg PO DAILY [facility] Last Admin: 09/21/21 08:26 Dose: 300 mg Documented by: NARAYAN Dextrose (Dextrose 50 % 25 Gm/50 Ml Vial) 25 gm IVPUSH Q15M PRN; Protocol PRN Reason: per Hypoglycemia Standing Ord. Escitalopram Oxalate (Escitalopram Oxalate 20 Mg Tablet) 20 mg PO DAILY [facility] Last Admin: 09/21/21 08:27 Dose: 20 mg Documented by: NARAYAN Glucose (Glucose Gel 15 Gm Gel..Gram.) 15 gm PO Q15M PRN; Protocol PRN Reason: per Hypoglycemia Standing Ord. Piperacillin Sod/Tazobactam (Sod 2.25 gm/ Sodium Chloride) 50 mls @ 100 mls/hr IV Q6H [facility] Last Infusion: 09/21/21 11:00 Dose: 0 mls/hr Documented by: NARAYAN Vancomycin HCl 1,500 mg/ (Sodium Chloride) 500 mls @ 333.333 mls/hr IV Q24H [facility] Insulin Human Lispro (Insulin Lispro 100 Unit/Ml 3 Ml Vial) 0 unit SUBCUT QIDACHS [facility]; Protocol Last Admin: 09/21/21 12:24 Dose: 6 unit Documented by: NARAYAN Melatonin (Melatonin 3 Mg Tablet) 6 mg PO BEDTIME PRN PRN Reason: Insomnia Metoprolol Succinate (Metoprolol Succinate Er 100 Mg Tab.Er.24h) 100 mg PO DAILY [facility]; Protocol Last Admin: 09/21/21 08:26 Dose: 100 mg Documented by: NARAYAN Pharmacy Consult (Consult Rx Vancomycin Dosing) 1 each MISCELLANE DAILY PRN PRN Reason: Consult order Pharmacy Consult (Consult Rx Perform Med Rec) 1 each MISCELLANE ONCE PRN PRN Reason: Consult order Pharmacy Consult (Consult Rx Vancomycin Dosing) 1 each MISCELLANE DAILY PRN PRN Reason: Consult order Quetiapine Fumarate (Quetiapine Fumarate 25 Mg Tablet) 25 mg PO TID [facility] Last Admin: 09/21/21 08:27 Dose: 25 mg Documented by: NARAYAN Senna (Sennosides 8.6 Mg Tablet) 17.2 mg PO BEDTIME PRN PRN Reason: Constipation Sodium Chloride (0.9 % Sodium Chloride Flush 3 Ml Syringe) 3 ml IVFLUSH QSHIFT [facility] Last Admin: 09/21/21 08:26 Dose: 3 ml Documented by: NARAYAN Trazodone HCl (Trazodone Hcl 25 Mg Halftab) 25 mg PO TID PRN PRN Reason: agitation Labs CBC & Chem 7: 09/21/21 05:27 09/21/21 05:27 Labs: Laboratory Results - last 24 hr 09/20/21 09/20/21 09/20/21 17:39 17:39 17:39 MCV 92.7 MCH 30.3 MCHC 32.7 RDW 15.6 Plt Count 279 MPV 9.2 L Immature Gran % (Auto) 0.4 Neut % (Auto) 80.8 H Lymph % (Auto) 10.9 L [place] % (Auto) 6.4 Eos % (Auto) 1.4 Baso % (Auto) 0.1 Lymph # (Auto) 0.8 L [place] # (Auto) 0.5 Eos # (Auto) 0.1 Baso # (Auto) 0.0 Abs Immat Gran (auto) 0.03 Absolute Neuts (auto) 5.7 Absolute Nucleated RBC 0.000 Nucleated RBC % (auto) 0.0 ESR 79 H Anion Gap 12 Estim Creat Clear Calc 58.3 Estimated GFR 45 POC Glucose Random Glucose 207 H D Lactic Acid Calcium 9.2 D C-Reactive Protein 4.24 H COVID-19 ([facility]) COVID-19 Clin Com 09/20/21 09/20/21 09/20/21 17:39 19:11 21:59 MCV MCH MCHC RDW Plt Count MPV Immature Gran % (Auto) Neut % (Auto) Lymph % (Auto) [place] % (Auto) Eos % (Auto) Baso % (Auto) Lymph # (Auto) [place] # (Auto) Eos # (Auto) Baso # (Auto) Abs Immat Gran (auto) Absolute Neuts (auto) Absolute Nucleated RBC Nucleated RBC % (auto) ESR Anion Gap Estim Creat Clear Calc Estimated GFR POC Glucose 182 H Random Glucose Lactic Acid 1.1 Calcium C-Reactive Protein COVID-19 ([facility]) Negative COVID-19 Clin Com See Note 09/21/21 09/21/21 09/21/21 05:27 05:27 07:12 MCV 92.3 MCH 30.4 MCHC 33.0 RDW 15.3 Plt Count 267 MPV 9.4 Immature Gran % (Auto) 0.3 Neut % (Auto) 78.4 H Lymph % (Auto) 10.9 L [place] % (Auto) 7.6 Eos % (Auto) 2.7 Baso % (Auto) 0.1 Lymph # (Auto) 0.8 L [place] # (Auto) 0.5 Eos # (Auto) 0.2 Baso # (Auto) 0.0 Abs Immat Gran (auto) 0.02 Absolute Neuts (auto) 5.5 Absolute Nucleated RBC 0.000 Nucleated RBC % (auto) 0.0 ESR Anion Gap 10 L Estim Creat Clear Calc 63.6 Estimated GFR 50 POC Glucose 131 H Random Glucose 174 H Lactic Acid Calcium 8.5 D C-Reactive Protein COVID-19 ([facility]) COVID-19 Clin Com 09/21/21 11:02 MCV MCH MCHC RDW Plt Count MPV Immature Gran % (Auto) Neut % (Auto) Lymph % (Auto) [place] % (Auto) Eos % (Auto) Baso % (Auto) Lymph # (Auto) [place] # (Auto) Eos # (Auto) Baso # (Auto) Abs Immat Gran (auto) Absolute Neuts (auto) Absolute Nucleated RBC Nucleated RBC % (auto) ESR Anion Gap Estim Creat Clear Calc Estimated GFR POC Glucose 299 H Random Glucose Lactic Acid Calcium C-Reactive Protein COVID-19 ([facility]) COVID-19 Clin Com Microbiology Microbiology Results: Microbiology 09/20/21 17:41 Gram Stain - Final Foot - Anterior Routine Culture - Preliminary Culture in progress. Assessment and Plan (1) Cellulitis: Status: Acute (2) Diabetes: Status: Acute (3) WILMER (acute kidney injury): Status: Acute (4) Multiple falls: Status: Acute Assessment and Plan: 66-year-old male with a past medical history of hypertension, hyperlipidemia, diabetes, CHF, AFib on Eliquis, anxiety, depression, history of gout; presented to the hospital with a chief complaint of left foot middle toes pain redness and swelling. Left foot diabetic foot ulcer/cellulitis: No pain, no fevers Continue IV vancomycin and Zosyn day 2 elevated ESR and CRP. Foot x-ray showed no osteo. Blood cultures x2 pending. Await ID input . Will likely DC vancomycin with no prior history of MRSA Diabetes type 2 Elevated blood sugars continue Insulin sliding scale, adjust dosage and continue diabetic diet, Hold metformin due to WILMER. WILMER:? During last hospitalization hydrochlorothiazide were discontinued However patient on Lasix, Entresto, and hydrochlorothiazide at home.? Will hold all nephrotoxic medications, Monitor renal function. History of CHF with reduced EF No acute exacerbation, hold diuretics due to WILMER follow clinical course History of AFib:? Rate controlled.? Continue home Eliquis and amiodarone. Check EKG History of anxiety/depression:? Continue home escitalopram, Seroquel and bupropion History of hypertension/hyperlipidemia:? Continue home metoprolol, and statin. Stable BP Unsteady gait and fall Obtain PT eval Patient on multiple medications that can contribute to dizziness, low blood pressure including Seroquel , Wellbutrin, Lexapro and Lipitor Will check lipid profile and adjust dose of Lipitor, recommend outpatient psych medication adjustment. Evaluated during last hospitalization by Neurology and diagnosed to have severe chronic peripheral neuropathy unspecified. 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 Patient on Eliquis. Code status:? Full code Quality Stroke Does the patient have a stroke diagnosis?: No VTE Prior VTE?: No VTE Risk Level:: Medical - moderate - high VTE Device Contraindication: Treatment Not Indicated VTE Drug Contraindication: N/A - Med Ordered
[2021-09-21 16:20] LABS: Glucose, Whole Blood 82 mg/dL (60-115)
[2021-09-21 20:34] LABS: Glucose, Whole Blood 188 mg/dL (60-115)
--- NOTE | 2021-09-21 20:51 | W.PM.IDCN ---
History of Present Illness Data of Consult Service Date: 09/21/21 Requesting physician: Devon Magaña Primary Care Provider: Taz Malik MD [facility] Reason for consult: left foot infection He presents with left foot 2,3,4th redness and swelling for a day. He has no fever or chills. He has XRay foot with no osteomyelitis. He has ESR of 79. 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 Dementia with behavioral disturbance Depression Diabetes History of congestive heart failure HTN (hypertension) 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 Noncompliance with medications NSVT (nonsustained ventricular tachycardia) PAF (paroxysmal atrial fibrillation) Paroxysmal atrial fibrillation Peripheral neuropathy Toe ulcer Vertebrobasilar dolichoectasia Family History Family History Father CAD (coronary artery disease) Family history: reviewed and not pertinent Social History Social History Household Members: Spouse Household Members Other:: and son Housing: House Alcohol intake: never Patient Tobacco Use Status: Never used Tobacco Second Hand Smoke Exposure: No Advance Directives Date on File: 06/21/21 service: No Current occupational status: retired Meds Allergies Allergy/AdvReac Type Severity Reaction Status Date / Time colchicine Allergy Rash Verified 10/10/21 15:33 lorazepam [From Ativan] AdvReac Severe paradoxical Verified 10/10/21 15:33 reaction; severe agitation Active Medications: Current Medications Acetaminophen (Acetaminophen 325 Mg Tablet) 650 mg PO Q6H PRN PRN Reason: Pain, Mild (Pain Scale 1-3) Allopurinol (Allopurinol 300 Mg Tablet) 300 mg PO DAILY [facility] Last Admin: 09/21/21 08:27 Dose: 300 mg Documented by: Amiodarone HCl (Amiodarone Hcl 200 Mg Tablet) 200 mg PO DAILY [facility] Last Admin: 09/21/21 08:27 Dose: 200 mg Documented by: Apixaban (Apixaban 5 Mg Tablet) 5 mg PO BID [facility] Last Admin: 09/21/21 08:26 Dose: 5 mg Documented by: Atorvastatin Calcium (Atorvastatin Calcium 80 Mg Tablet) 80 mg PO BEDTIME [facility] Last Admin: 09/20/21 22:03 Dose: 80 mg Documented by: Bupropion HCl (Bupropion Hcl Xl 300 Mg Tab.Er.24h) 300 mg PO DAILY [facility] Last Admin: 09/21/21 08:26 Dose: 300 mg Documented by: Dextrose (Dextrose 50 % 25 Gm/50 Ml Vial) 25 gm IVPUSH Q15M PRN; Protocol PRN Reason: per Hypoglycemia Standing Ord. Escitalopram Oxalate (Escitalopram Oxalate 20 Mg Tablet) 20 mg PO DAILY [facility] Last Admin: 09/21/21 08:27 Dose: 20 mg Documented by: Glucose (Glucose Gel 15 Gm Gel..Gram.) 15 gm PO Q15M PRN; Protocol PRN Reason: per Hypoglycemia Standing Ord. Piperacillin Sod/Tazobactam (Sod 2.25 gm/ Sodium Chloride) 50 mls @ 100 mls/hr IV Q6H [facility] Last Infusion: 09/21/21 18:19 Dose: Infused Documented by: Insulin Human Lispro (Insulin Lispro 100 Unit/Ml 3 Ml Vial) 0 unit SUBCUT QIDACHS [facility]; Protocol Last Admin: 09/21/21 17:32 Dose: Not Given Documented by: Melatonin (Melatonin 3 Mg Tablet) 6 mg PO BEDTIME PRN PRN Reason: Insomnia Metoprolol Succinate (Metoprolol Succinate Er 100 Mg Tab.Er.24h) 100 mg PO DAILY [facility]; Protocol Last Admin: 09/21/21 08:26 Dose: 100 mg Documented by: Pharmacy Consult (Consult Rx Vancomycin Dosing) 1 each MISCELLANE DAILY PRN PRN Reason: Consult order Pharmacy Consult (Consult Rx Perform Med Rec) 1 each MISCELLANE ONCE PRN PRN Reason: Consult order Pharmacy Consult (Consult Rx Vancomycin Dosing) 1 each MISCELLANE DAILY PRN PRN Reason: Consult order Quetiapine Fumarate (Quetiapine Fumarate 25 Mg Tablet) 25 mg PO TID [facility] Last Admin: 09/21/21 17:39 Dose: 25 mg Documented by: Senna (Sennosides 8.6 Mg Tablet) 17.2 mg PO BEDTIME PRN PRN Reason: Constipation Sodium Chloride (0.9 % Sodium Chloride Flush 3 Ml Syringe) 3 ml IVFLUSH QSHIFT [facility] Last Admin: 09/21/21 17:38 Dose: 3 ml Documented by: Trazodone HCl (Trazodone Hcl 25 Mg Halftab) 25 mg PO TID PRN PRN Reason: agitation Home Medications Medication Instructions Recorded Confirmed Last Taken Type allopurinol 300 mg tablet 300 mg PO DAILY 06/04/21 10/17/21 09/27/21 History magnesium oxide 400 mg PO DAILY 07/20/21 10/17/21 09/27/21 History metformin 500 mg tablet 500 mg PO BID 07/20/21 10/17/21 09/27/21 History quetiapine 25 mg tablet 25 mg PO TID 09/20/21 10/17/21 09/27/21 History losartan 25 mg tablet 1 tab PO DAILY 10/10/21 10/17/21 Unknown History sacubitril 24 mg-valsartan 26 mg 1 tab PO BID 10/10/21 10/17/21 Unknown History tablet (Entresto) Physical Exam Vital Signs: Vital Signs: Last Vital Signs Temp 97.7 F 09/21/21 19:46 Pulse 60 09/21/21 19:46 Resp 17 09/21/21 19:46 BP 151/76 H 09/21/21 19:46 Pulse Ox 99 09/21/21 19:46 Body Mass Index 25.0 Const: General: cooperative Eyes: General: appearance normal, both eyes and all related structures Resp: Effort & Inspection: normal respiratory effort Cardio: Rate: regular rate Rhythm: regular rhythm GI: Palpation (GI): Soft to palpation and nontender : General: Yes no CVA tenderness Back/Spine/Pelvis: Back: no CVA tenderness Neuro: Other: neuropathy Extrem: Other: left foot erythema 2,3,4 toe,pain on movement Results Labs CBC & Chem 7: 09/21/21 05:27 09/25/21 05:45 Labs: Short CBC 09/21/21 Range/Units 05:27 WBC 7.0 (4.8-10.8) X10*3/uL Hgb 8.7 L (14.0-18.0) g/dl Hct 26.4 L (42-52) % Plt Count 267 (160-400) X10*3/uL BMP 09/21/21 05:27 Sodium 138 Potassium 3.1 L Chloride 100 Carbon Dioxide 31 H BUN 30 H Creatinine 1.42 H Calcium 8.5 D Microbiology Microbiology Results: Microbiology 09/20/21 17:39 Blood - Venous Blood Culture - Preliminary No growth after 24 hours. 09/20/21 17:39 Blood - Venous Blood Culture - Preliminary No growth after 24 hours. 09/20/21 17:41 Foot - Anterior Gram Stain - Final 09/20/21 17:41 Foot - Anterior Routine Culture - Preliminary Culture in progress. Assessment and Plan (1) Cellulitis: Status: Resolved There doesnt appear to be osteomyelitis on XRay However ESR elevated may indicate osteomyelitis. He has neuropathy making this somewhat likely He has gram negative,gram positive Would continue Piperacillin/Tazobactam as long as no MRSA found. Would check MRI of foot if not improving quickly.
[2021-09-21] MEDS: Atorvastatin Calcium 80 MG TABLET PO (21:36)
[2021-09-22] VITALS (7 sets, daily range): BP systolic 136–173; BP diastolic 68–90; PULSE 52–68; RESP 18; TEMP 36–37; O2SAT 96–99
[2021-09-22] MEDS: 0.9 % Sodium Chloride Flush 3 ML SYRINGE IVFLUSH ×2 (00:05→18:29)
[2021-09-22] MEDS: Piperacillin Sodium/Tazobactam 2.25 GM in 0.9 % Sodium Chloride 50 ML IV ×4 (04:06→21:57)
[2021-09-22 05:46] LABS: Anion Gap 11 (12-20); Blood Urea Nitrogen 24 mg/dL (9-16); Calcium 8.8 mg/dL (8.4-10.2); Carbon Dioxide 30 mmol/L (22-29); Chloride 100 mmol/L (96-108); Creatinine Clr Calc Pharmacy 78.6; Estimated Glomerular Filt Rate > 60; Glucose Random 136 mg/dL (60-115); Potassium 3.9 mmol/L (3.3-5.1); Sodium 137 mmol/L (135-145)
[2021-09-22 07:49] LABS: Glucose, Whole Blood 143 mg/dL (60-115)
[2021-09-22] MEDS: buPROPion HCl XL 300 MG TAB.ER.24H PO (09:25)
[2021-09-22] MEDS: allopurinoL 300 MG TABLET PO (09:25)
[2021-09-22] MEDS: Metoprolol Succinate ER 100 MG TAB.ER.24H PO (09:25)
[2021-09-22] MEDS: QUEtiapine Fumarate 25 MG TABLET PO ×3 (09:25→20:28)
[2021-09-22] MEDS: Apixaban 5 MG TABLET PO ×2 (09:25→20:28)
[2021-09-22] MEDS: Amiodarone HCL 200 MG TABLET PO (09:25)
[2021-09-22] MEDS: Escitalopram Oxalate 20 MG TABLET PO (09:25)
[2021-09-22] MEDS: Sacubitril/Valsartan 24/26 1 TAB TABLET PO ×2 (10:43→20:28)
[2021-09-22 11:08] LABS: Cholesterol 98 mg/dL; HDL Cholesterol 37 mg/dL; LDL Cholesterol Calculated 45 mg/dl; Triglycerides 84 mg/dL
--- NOTE | 2021-09-22 11:40 | P.CONGS_ITS ---
History of Present Illness Consult details Consult date: 09/22/21 Requesting physician: Devon Magaña Narrative: This is a 66-year-old gentleman with a history of memory impairment secondary to Lewy body dementia, atrial fibrillation chronically anticoagulated on Eliquis and diabetes mellitus who reports that he injured his left foot a few months ago when he was playing basketball and bumped his foot into some chairs. Recently, he developed increasing redness and swelling of the 2nd through 4th toes and presented for evaluation of this a couple of days ago. He denies pain in the left foot. He has a chronic wound on the dorsum of the left 2nd toe that he states has been present since the time of the injury. He is unable to say whether he was receiving any type of care for it. He reports that there has been drainage but is unable to characterize it. He does not report fever or chills. X-rays of the left foot did not demonstrate any evidence of osteomyelitis. Sedimentation rate is 79 and CRP 4.24 raising concern for possible occult osteomyelitis. MRI of the left foot is pending. Review of Systems Review of Systems: Review of systems unreliable due to mental status, dementia. He does not give a history of fever, chills, shakes. He does not report shortness of breath cough or wheezing. No chest pain or palpitations. He reports frequent superficial injuries. Chronically anticoagulated-history of atrial fibrillation. 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 Noncompliance with medications NSVT (nonsustained ventricular tachycardia) PAF (paroxysmal atrial fibrillation) Peripheral neuropathy Vertebrobasilar dolichoectasia Family History Family History Father CAD (coronary artery disease) Family history: reviewed and not pertinent Social History Social History Household Members: Spouse Household Members Other:: and son Housing: House Do you presently have visiting nurse or other home services: No Alcohol intake: never Patient Tobacco Use Status: Never used Tobacco Second Hand Smoke Exposure: No Use of substances other than those prescribed or required for medical reasons: No Currently Displaying Signs/Symptoms of Drug Intoxication Withdrawal: No Have you been hit, kicked, punched, or otherwise hurt by someone within the past year? If so, by whom?: No Do you feel safe in your current relationship?: Yes Is there a partner from a previous relationship who is making you feel unsafe now?: No Are you made to feel afraid or neglected: No Advance Directives: Yes Advance Directives Information Provided: Yes Advance Directives on File: Yes Advance Directives Date on File: 06/21/21 Do you have thoughts of harming others: None Do you have a plan to hurt others: No Plan Recently lost weight without trying: No service: No Current occupational status: retired [employer] Allergies Allergy/AdvReac Type Severity Reaction Status Date / Time colchicine Allergy Rash Verified 07/20/21 15:56 Active Medications: Current Medications Acetaminophen (Acetaminophen 325 Mg Tablet) 650 mg PO Q6H PRN PRN Reason: Pain, Mild (Pain Scale 1-3) Allopurinol (Allopurinol 300 Mg Tablet) 300 mg PO DAILY [facility] Last Admin: 09/22/21 09:25 Dose: 300 mg Documented by: Amiodarone HCl (Amiodarone Hcl 200 Mg Tablet) 200 mg PO DAILY [facility] Last Admin: 09/22/21 09:25 Dose: 200 mg Documented by: Apixaban (Apixaban 5 Mg Tablet) 5 mg PO BID [facility] Last Admin: 09/22/21 09:25 Dose: 5 mg Documented by: Atorvastatin Calcium (Atorvastatin Calcium 80 Mg Tablet) 80 mg PO BEDTIME [facility] Last Admin: 09/21/21 21:36 Dose: 80 mg Documented by: Bupropion HCl (Bupropion Hcl Xl 300 Mg Tab.Er.24h) 300 mg PO DAILY [facility] Last Admin: 09/22/21 09:25 Dose: 300 mg Documented by: Dextrose (Dextrose 50 % 25 Gm/50 Ml Vial) 25 gm IVPUSH Q15M PRN; Protocol PRN Reason: per Hypoglycemia Standing Ord. Escitalopram Oxalate (Escitalopram Oxalate 20 Mg Tablet) 20 mg PO DAILY [facility] Last Admin: 09/22/21 09:25 Dose: 20 mg Documented by: Glucose (Glucose Gel 15 Gm Gel..Gram.) 15 gm PO Q15M PRN; Protocol PRN Reason: per Hypoglycemia Standing Ord. Piperacillin Sod/Tazobactam (Sod 2.25 gm/ Sodium Chloride) 50 mls @ 100 mls/hr IV Q6H [facility] Last Admin: 09/22/21 10:43 Dose: 100 mls/hr Documented by: Insulin Human Lispro (Insulin Lispro 100 Unit/Ml 3 Ml Vial) 0 unit SUBCUT QIDACHS [facility]; Protocol Last Admin: 09/22/21 08:48 Dose: Not Given Documented by: Melatonin (Melatonin 3 Mg Tablet) 6 mg PO BEDTIME PRN PRN Reason: Insomnia Metoprolol Succinate (Metoprolol Succinate Er 100 Mg Tab.Er.24h) 100 mg PO KARMA LY [facility]; Protocol Last Admin: 09/22/21 09:25 Dose: 100 mg Documented by: Pharmacy Consult (Consult Rx Vancomycin Dosing) 1 each MISCELLANE DAILY PRN PRN Reason: Consult order Pharmacy Consult (Consult Rx Perform Med Rec) 1 each MISCELLANE ONCE PRN PRN Reason: Consult order Pharmacy Consult (Consult Rx Vancomycin Dosing) 1 each MISCELLANE DAILY PRN PRN Reason: Consult order Quetiapine Fumarate (Quetiapine Fumarate 25 Mg Tablet) 25 mg PO TID [facility] Last Admin: 09/22/21 09:25 Dose: 25 mg Documented by: Sacubitril/Valsartan (Sacubitril/Valsartan 1 Tab Tablet) 1 tab PO BID [facility]; Protocol Last Admin: 09/22/21 10:43 Dose: 1 tab Documented by: Senna (Sennosides 8.6 Mg Tablet) 17.2 mg PO BEDTIME PRN PRN Reason: Constipation Sodium Chloride (0.9 % Sodium Chloride Flush 3 Ml Syringe) 3 ml IVFLUSH QSHIFT [facility] Last Admin: 09/22/21 08:49 Dose: Not Given Documented by: Trazodone HCl (Trazodone Hcl 25 Mg Halftab) 25 mg PO TID PRN PRN Reason: agitation Home Medications Medication Instructions Recorded Confirmed Last Taken Type allopurinol 300 mg tablet 300 mg PO DAILY 06/04/21 09/20/21 09/20/21 History apixaban 5 mg tablet (Eliquis) 5 mg PO BID 06/04/21 09/20/21 09/20/21 History atorvastatin 80 mg tablet 80 mg PO BEDTIME 06/04/21 09/20/21 09/19/21 History bupropion HCl 300 mg 24 hr tablet, 1 tab PO DAILY 06/04/21 09/20/21 09/20/21 History extended release escitalopram oxalate 20 mg tablet 20 mg PO DAILY 06/04/21 09/20/21 09/20/21 History hydrochlorothiazide 12.5 mg tablet 12.5 mg PO DAILY 07/20/21 09/20/21 09/20/21 History magnesium oxide 400 mg PO DAILY 07/20/21 09/20/21 09/20/21 History metformin 500 mg tablet 500 mg PO BID 07/20/21 09/20/21 09/20/21 History quetiapine 25 mg tablet 25 mg PO TID 09/20/21 09/20/21 09/20/21 History sacubitril 24 mg-valsartan 26 mg 1 tab PO BID 09/20/21 09/20/21 09/20/21 History tablet (Entresto) Physical Exam Vital Signs: Vital Signs: Last Vital Signs Temp 97.5 F 09/22/21 07:19 Pulse 54 09/22/21 09:26 Resp 18 09/22/21 07:19 BP 173/83 H 09/22/21 09:26 Pulse Ox 98 09/22/21 09:26 Body Mass Index 25.0 Const: Other: Alert, pleasant, in no apparent distress, cooperative, mildly restless HENMT: Head: Yes normocephalic and Yes atraumatic Neck: Neck: Yes trachea midline and Yes supple Chest: Chest palpation & inspection: normal inspection of the chest Resp: Effort & Inspection: normal respiratory effort Auscultation: clear to auscultation bilaterally Cardio: Rate: regular rate Rhythm: regular rhythm GI: Other: Soft, nondistended Extrem: Other: Multiple superficial abrasions left lower extremity greater than right. Moderate erythema left 2nd toe with a 1.1 cm wound over the dorsum of the PIP joint with exuberant granulation tissue present. Dorsalis pedis and posterior tibial pulses are not palpable on the left. There is a strong up popliteal pulse on the left. The left foot is warm. Capillary refill is normal. Right foot-2+ dorsalis pedis and posterior tibial pulses, no open wounds. Claw toe deformities present bilaterally 2nd through 5th toes. Bilateral varus deformity foot and ankle Results Labs Result diagrams: 09/21/21 05:27 09/22/21 05:09 Labs: Abnormal lab results 09/21/21 09/22/21 09/22/21 Range/Units 20:27 05:09 07:18 Carbon Dioxide 30 H (22-29) mmol/L Anion Gap 11 L (12-20) BUN 24 H (9-16) mg/dL POC Glucose 188 H 143 H (60-115) mg/dL Random Glucose 136 H (60-115) mg/dL [facility] 09/22/21 05:09 Sodium 137 Potassium 3.9 D Chloride 100 Carbon Dioxide 30 H BUN 24 H Creatinine 1.15 Calcium 8.8 All other labs normal. Assessment and Plan (1) Cellulitis: Status: Acute (2) Diabetes: Status: Acute 66-year-old male with history of dementia, diabetes mellitus and multiple falls presenting with cellulitis of the left 2nd through 4th toes. The 3rd and 4th toes appear improved. There is an open wound on the dorsum of the left 2nd toe and mild to moderate persistent erythema and edema consistent with cellulitis. Findings are concerning for the presence of osteomyelitis. Await further evaluation with MRI, continue antibiotics, wound care left second toe- DSD currently. If no evidence of osteomyelitis, would benefit from debridement of exuberant granulation tissue. General surgery will follow along. Procedures Date of Service Date of Service: 09/22/21
[2021-09-22 11:58] LABS: Glucose, Whole Blood 242 mg/dL (60-115)
[2021-09-22] MEDS: Insulin Lispro 100 UNIT/ML 3 ML VIAL SUBCUT ×2 (12:22→21:57)
--- NOTE | 2021-09-22 14:35 | P.PNIM_ITS ---
Subjective Subjective Date of Service: 09/22/21 Interval History: Being followed for left foot cellulitis and toe wounds, due to underlying dementia patient is unable to provide detail history denies foot pain, follow simple commands, offers no acute complaints. Review of Systems Unable to obtain detailed review of system due to underlying dementia. [employer] denies headache, no dizziness CVS no chest pain, no palpitation Respiratory no cough, no shortness of breath. no dysuria Physical Exam Vital Signs: Vital Signs: Last Vital Signs Temp 98.6 F 09/22/21 11:59 Pulse 58 09/22/21 11:59 Resp 18 09/22/21 11:59 BP 172/90 H 09/22/21 11:59 Pulse Ox 99 09/22/21 11:59 Body Mass Index 25.0 General awake alert,no acute distress.? Neck supple, no JVD. CVS? regular rate rhythm, Respiratory lungs clear to auscultation, no respiratory distress, no wheeze, no rhonchi. Gastrointestinal abdomen soft, nontender, bowel sounds audible, no guarding , no rigidity. Extremities right lower extremity no edema, left foot swelling warmth and hyperemia dorsum of foot, flexion deformity of toes, 2nd, 3rd toe superficial abrasion, 4th toes wound with serosang drainage Neuro nonfocal, patient moving all 4 extremity, speech clear. Skin no rash Psych poor insight Objective Data Active Medications Acetaminophen (Acetaminophen 325 Mg Tablet) 650 mg PO Q6H PRN PRN Reason: Pain, Mild (Pain Scale 1-3) Allopurinol (Allopurinol 300 Mg Tablet) 300 mg PO DAILY [facility] Last Admin: 09/22/21 09:25 Dose: 300 mg Documented by: ARABELLA Amiodarone HCl (Amiodarone Hcl 200 Mg Tablet) 200 mg PO DAILY [facility] Last Admin: 09/22/21 09:25 Dose: 200 mg Documented by: ARABELLA Apixaban (Apixaban 5 Mg Tablet) 5 mg PO BID [facility] Last Admin: 09/22/21 09:25 Dose: 5 mg Documented by: ARABELLA Atorvastatin Calcium (Atorvastatin Calcium 80 Mg Tablet) 80 mg PO BEDTIME [facility] Last Admin: 09/21/21 21:36 Dose: 80 mg Documented by: HOLLIS Bupropion HCl (Bupropion Hcl Xl 300 Mg Tab.Er.24h) 300 mg PO DAILY [facility] Last Admin: 09/22/21 09:25 Dose: 300 mg Documented by: ARABELLA Dextrose (Dextrose 50 % 25 Gm/50 Ml Vial) 25 gm IVPUSH Q15M PRN; Protocol PRN Reason: per Hypoglycemia Standing Ord. Escitalopram Oxalate (Escitalopram Oxalate 20 Mg Tablet) 20 mg PO DAILY [facility] Last Admin: 09/22/21 09:25 Dose: 20 mg Documented by: ARABELLA Glucose (Glucose Gel 15 Gm Gel..Gram.) 15 gm PO Q15M PRN; Protocol PRN Reason: per Hypoglycemia Standing Ord. Piperacillin Sod/Tazobactam (Sod 2.25 gm/ Sodium Chloride) 50 mls @ 100 mls/hr IV Q6H [facility] Last Infusion: 09/22/21 11:53 Dose: 0 mls/hr Documented by: ARABELLA Insulin Human Lispro (Insulin Lispro 100 Unit/Ml 3 Ml Vial) 0 unit SUBCUT QIDACHS [facility]; Protocol Last Admin: 09/22/21 12:22 Dose: 4 unit Documented by: ARABELLA Melatonin (Melatonin 3 Mg Tablet) 6 mg PO BEDTIME PRN PRN Reason: Insomnia Metoprolol Succinate (Metoprolol Succinate Er 100 Mg Tab.Er.24h) 100 mg PO DAILY [facility]; Protocol Last Admin: 09/22/21 09:25 Dose: 100 mg Documented by: ARABELLA Pharmacy Consult (Consult Rx Vancomycin Dosing) 1 each MISCELLANE DAILY PRN PRN Reason: Consult order Pharmacy Consult (Consult Rx Perform Med Rec) 1 each MISCELLANE ONCE PRN PRN Reason: Consult order Pharmacy Consult (Consult Rx Vancomycin Dosing) 1 each MISCELLANE DAILY PRN PRN Reason: Consult order Quetiapine Fumarate (Quetiapine Fumarate 25 Mg Tablet) 25 mg PO TID [facility] Last Admin: 09/22/21 09:25 Dose: 25 mg Documented by: ARABELLA Sacubitril/Valsartan (Sacubitril/Valsartan 1 Tab Tablet) 1 tab PO BID [facility]; Protocol Last Admin: 09/22/21 10:43 Dose: 1 tab Documented by: ARABELLA Senna (Sennosides 8.6 Mg Tablet) 17.2 mg PO BEDTIME PRN PRN Reason: Constipation Sodium Chloride (0.9 % Sodium Chloride Flush 3 Ml Syringe) 3 ml IVFLUSH QSHIFT [facility] Last Admin: 09/22/21 08:49 Dose: Not Given Documented by: ARABELLA Non-Admin Reason: No Access Trazodone HCl (Trazodone Hcl 25 Mg Halftab) 25 mg PO TID PRN PRN Reason: agitation Labs CBC & Chem 7: 09/21/21 05:27 09/22/21 05:09 Labs: Laboratory Results - last 24 hr 09/21/21 09/21/21 09/22/21 16:12 20:27 05:09 Anion Gap 11 L Estim Creat Clear Calc 78.6 Estimated GFR > 60 POC Glucose 82 188 H Random Glucose 136 H Calcium 8.8 Triglycerides 84 Cholesterol 98 LDL Cholesterol, Calc 45 HDL Cholesterol 37 09/22/21 09/22/21 07:18 11:41 Anion Gap Estim Creat Clear Calc Estimated GFR POC Glucose 143 H 242 H Random Glucose Calcium Triglycerides Cholesterol LDL Cholesterol, Calc HDL Cholesterol Microbiology Microbiology Results: Microbiology 09/20/21 17:41 Gram Stain - Final Foot - Anterior Routine Culture - Preliminary Staphylococcus aureus 09/20/21 17:39 Blood Culture - Preliminary Blood - Venous No growth after 24 hours. 09/20/21 17:39 Blood Culture - Preliminary Blood - Venous No growth after 24 hours. Assessment and Plan (1) WILMER (acute kidney injury): Status: Acute (2) Cellulitis: Status: Acute (3) Acute on chronic systolic (congestive) heart failure: Status: Acute (4) Multiple falls: Status: Acute (5) Diabetes: Status: Acute Assessment and Plan: 66-year-old male with a past medical history of hypertension, hyperlipidemia, diabetes, CHF, AFib on Eliquis, anxiety, depression, history of gout; presented to the hospital with a chief complaint of left foot middle toes pain redness and swelling. Left foot diabetic foot ulcer/cellulitis: No pain, no fevers Continue IV Zosyn day 3 status post IV vanco x2 days elevated ESR and CRP.? Foot x-ray showed no osteo.? Blood cultures x2 negative so far Seen by Dr. Griffith she recommend MRI foot Obtain surgical consult due to 2nd to wound, Dr. Almendarez also recommend MRI foot therefore will order MRI today Diabetes type 2 Blood sugars fluctuating, continue Insulin sliding scale, and continue diabetic diet, Hold metformin due to WILMER. WILMER:? Creatinine normalized During last hospitalization hydrochlorothiazide were discontinued,However noted hydrochlorothiazide on patient med list, also on Lasix, and Entresto Will resume Entresto, continue to hold Lasix and hydrochlorothiazide. History of CHF with reduced EF No acute exacerbation, hold diuretics due to WILMER follow clinical course. History of AFib:? Rate controlled.? Continue home Eliquis and amiodarone.? History of anxiety/depression:? Continue home escitalopram, Seroquel and bupropion, no behavioral issues History of hypertension/hyperlipidemia:? Continue home metoprolol, and statin.? Noted to have elevated blood pressure therefore will resume Entresto. Unsteady gait and fall Seen by PT they recommend short-term rehab Patient on multiple medications that can contribute to dizziness, and low blood pressure including Seroquel , Wellbutrin, Lexapro and Lipitor lipid profile showed LDL 45 total cholesterol 98, will lower dose of Lipitor to 40, recommend outpatient psych medication adjustment. Evaluated during last hospitalization by Neurology and diagnosed to have severe chronic peripheral neuropathy unspecified. 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 Patient on Eliquis. Code status:? Full code Quality Stroke Does the patient have a stroke diagnosis?: No VTE Prior VTE?: No VTE Risk Level:: Medical - moderate - high VTE Device Contraindication: Treatment Not Indicated VTE Drug Contraindication: N/A - Med Ordered
[2021-09-22 16:47] LABS: Glucose, Whole Blood 98 mg/dL (60-115)
[2021-09-22] MEDS: Sodium Chloride 0.45 % 1,000 ML 100 ML IVCONT (18:29)
[2021-09-22] MEDS: Atorvastatin Calcium 40 MG TABLET PO (20:28)
[2021-09-22] MEDS: traZODone HCL 25 MG HALFTAB PO (20:28)
[2021-09-22 21:31] LABS: Glucose, Whole Blood 196 mg/dL (60-115)
[2021-09-22 21:40] LABS: Cholesterol 98 mg/dL; HDL Cholesterol 36 mg/dL; LDL Cholesterol Calculated 50 mg/dl; Triglycerides 63 mg/dL
[2021-09-22 22:11] LABS: Vancomycin Trough < 3.0 mcg/mL (10.0-20.0)
[2021-09-23] VITALS (7 sets, daily range): BP systolic 127–167; BP diastolic 72–79; PULSE 56–76; RESP 14–18; TEMP 36.3–37.2; O2SAT 96–98
[2021-09-23] MEDS: Piperacillin Sodium/Tazobactam 2.25 GM in 0.9 % Sodium Chloride 50 ML IV ×2 (04:23→10:40)
[2021-09-23] MEDS: Metoprolol Succinate ER 100 MG TAB.ER.24H PO (07:56)
[2021-09-23] MEDS: Sacubitril/Valsartan 24/26 1 TAB TABLET PO ×2 (07:56→20:40)
[2021-09-23] MEDS: allopurinoL 300 MG TABLET PO (07:56)
[2021-09-23] MEDS: QUEtiapine Fumarate 25 MG TABLET PO ×3 (07:56→20:41)
[2021-09-23] MEDS: Amiodarone HCL 200 MG TABLET PO (07:56)
[2021-09-23] MEDS: buPROPion HCl XL 300 MG TAB.ER.24H PO (07:56)
[2021-09-23] MEDS: Escitalopram Oxalate 20 MG TABLET PO (07:56)
[2021-09-23] MEDS: Apixaban 5 MG TABLET PO ×2 (07:56→20:40)
[2021-09-23] MEDS: Insulin Lispro 100 UNIT/ML 3 ML VIAL SUBCUT (07:57)
[2021-09-23] MEDS: 0.9 % Sodium Chloride Flush 3 ML SYRINGE IVFLUSH (07:57)
[2021-09-23 08:02] LABS: Glucose, Whole Blood 165 mg/dL (60-115)
[2021-09-23 11:43] LABS: Glucose, Whole Blood 100 mg/dL (60-115)
--- NOTE | 2021-09-23 11:49 | MHC.CM.PN ---
PER MULTIDISCIPLINARY ROUNDS PT UNABLE TO HOLD STILL FOR MRI YESTERDAY, PLAN TO REATTEMPT TODAY, NO PLAN FOR D/C TODAY, PER SURGICAL THERE IS CONCERN FOR OSTEOMYELITIS, [facility] IS FOLLOWING PT, PT MAY NEED HI FOR IV ABX HOWEVER MRI PENDING. CM WILL CONT TO FOLLOW D/C NEEDS.
[2021-09-23] MEDS: LORazepam 2 MG/ML VIAL 0.5 MG IVPUSH (13:57)
--- NOTE | 2021-09-23 14:57 | HO.PM.IMPN ---
Subjective Subjective Date of Service: 09/23/21 Interval History: Being followed for left foot cellulitis and toe wound, due to underlying dementia patient is unable to provide detail history denies foot pain, attempted MRI twice patient unable to stay still, therefore unable to do MRI Patient offers no acute complaints, has a sitter due to impulsivity out of bed and walking with recurrent fall. Review of Systems Unable to obtain detailed review of system due to underlying dementia. 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 no dysuria Review of Systems: Yes all other systems are reviewed and are negative Physical Exam Vital Signs: Vital Signs: Last Vital Signs Temp 98.9 F 09/23/21 11:14 Pulse 56 09/23/21 11:14 Resp 14 09/23/21 11:14 BP 145/79 H 09/23/21 11:14 Pulse Ox 96 09/23/21 11:14 Body Mass Index 25.0 General awake aler t,no acute distres s.? Neck supple, n o JVD. CVS? regula r rate rhythm, Res piratory lungs negar ar to auscultation , no respiratory d istress, no wheeze , no rhonchi. Price rointestinal abdom en soft, nontender , bowel sounds aud ible, no guarding , no rigidity. Ext remities right low er extremity no ed jose de jesus, left foot swe lling warmth and h yperemia dorsum of foot significantl y improved, flexio n deformity of toe s,? 2nd, 3rd toe s uperficial abrasio n, 4th toes protub erant wound with s erosang drainage N euro nonfocal, pat ient moving all 4 extremity, speech clear. Skin no franklin h Psych poor insig ht Objective Data Active Medications Acetaminophen (Acetaminophen 325 Mg Tablet) 650 mg PO Q6H PRN PRN Reason: Pain, Mild (Pain Scale 1-3) Allopurinol (Allopurinol 300 Mg Tablet) 300 mg PO DAILY [facility] Last Admin: 09/23/21 07:56 Dose: 300 mg Documented by: ORLANDO Amiodarone HCl (Amiodarone Hcl 200 Mg Tablet) 200 mg PO DAILY COUNT [facility]CLUD[facility] Last Admin: 09/23/21 07:56 Dose: 200 mg Documented by: ORLANDO Apixaban (Apixaban 5 Mg Tablet) 5 mg PO BID COUNT [facility]CLUDES [facility] Last Admin: 09/23/21 07:56 Dose: 5 mg Documented by: ORLANDO Atorvastatin Calcium (Atorvastatin Calcium 40 Mg Tablet) 40 mg PO BEDTIME COUNT [facility]CLUDES [facility] Last Admin: 09/22/21 20:28 Dose: 40 mg Documented by: BETHANIE Bupropion HCl (Bupropion Hcl Xl 300 Mg Tab.Er.24h) 300 mg PO DAILY COUNT [facility] Last Admin: 09/23/21 07:56 Dose: 300 mg Documented by: ORLANDO Dextrose (Dextrose 50 % 25 Gm/50 Ml Vial) 25 gm IVPUSH Q15M PRN; Protocol PRN Reason: per Hypoglycemia Standing Ord. Escitalopram Oxalate (Escitalopram Oxalate 20 Mg Tablet) 20 mg PO DAILY COUNT [facility]CLUDES [facility] Last Admin: 09/23/21 07:56 Dose: 20 mg Documented by: ORLANDO Glucose (Glucose Gel 15 Gm Gel..Gram.) 15 gm PO Q15M PRN; Protocol PRN Reason: per Hypoglycemia Standing Ord. Piperacillin Sod/Tazobactam (Sod 2.25 gm/ Sodium Chloride) 50 mls @ 100 mls/hr IV Q6H COUNT [facility]CLUDES [facility] Last Infusion: 09/23/21 11:23 Dose: 100 mls/hr Documented by: DASHAWN Insulin Human Lispro (Insulin Lispro 100 Unit/Ml 3 Ml Vial) 0 unit SUBCUT QIDACHS COUNT INCLUDES [facility]; Protocol Last Admin: 09/23/21 11:58 Dose: Not Given Documented by: DASHAWN Non-Admin Reason: No Insulin Coverage Melatonin (Melatonin 3 Mg Tablet) 6 mg PO BEDTIME PRN PRN Reason: Insomnia Metoprolol Succinate (Metoprolol Succinate Er 100 Mg Tab.Er.24h) 100 mg PO DAILY COUNT [facility]CLUD[facility]; Protocol Last Admin: 09/23/21 07:56 Dose: 100 mg Documented by: ORLANDO Pharmacy Consult (Consult Rx Vancomycin Dosing) 1 each MISCELLANE DAILY PRN PRN Reason: Consult order Pharmacy Consult (Consult Rx Perform Med Rec) 1 each MISCELLANE ONCE PRN PRN Reason: Consult order Pharmacy Consult (Consult Rx Vancomycin Dosing) 1 each MISCELLANE DAILY PRN PRN Reason: Consult order Quetiapine Fumarate (Quetiapine Fumarate 25 Mg Tablet) 25 mg PO TID COUNT [facility]CLUD[facility] Last Admin: 09/23/21 13:57 Dose: 25 mg Documented by: DASHAWN Sacubitril/Valsartan (Sacubitril/Valsartan 1 Tab Tablet) 1 tab PO BID COUNT [facility]CLUD[facility]; Protocol Last Admin: 09/23/21 07:56 Dose: 1 tab Documented by: ORLANDO Senna (Sennosides 8.6 Mg Tablet) 17.2 mg PO BEDTIME PRN PRN Reason: Constipation Sodium Chloride (0.9 % Sodium Chloride Flush 3 Ml Syringe) 3 ml IVFLUSH QSHIFT [facility] Last Admin: 09/23/21 07:57 Dose: 3 ml Documented by: ORLANDO Trazodone HCl (Trazodone Hcl 25 Mg Halftab) 25 mg PO TID PRN PRN Reason: agitation Last Admin: 09/22/21 20:28 Dose: 25 mg Documented by: BETHANIE Labs CBC & Chem 7: 09/21/21 05:27 09/22/21 05:09 Labs: Laboratory Results - last 24 hr 09/22/21 09/22/21 09/22/21 16:27 20:44 20:59 POC Glucose 98 196 H Triglycerides Cholesterol LDL Cholesterol, Calc HDL Cholesterol Vancomycin Trough < 3.0 L 09/22/21 09/23/21 09/23/21 20:59 07:35 11:18 POC Glucose 165 H 100 Triglycerides 63 Cholesterol 98 LDL Cholesterol, Calc 50 HDL Cholesterol 36 Vancomycin Trough Microbiology Microbiology Results: Microbiology 09/20/21 17:41 Gram Stain - Final Foot - Anterior Routine Culture - Final Staphylococcus aureus 09/20/21 17:39 Blood Culture - Preliminary Blood - Venous No growth after 48 hours. 09/20/21 17:39 Blood Culture - Preliminary Blood - Venous No growth after 48 hours. Assessment and Plan (1) Cellulitis: Status: Acute (2) Osteomyelitis: Status: Acute (3) Acute on chronic systolic (congestive) heart failure: Status: Acute (4) Multiple falls: Status: Acute (5) Diabetes: Status: Acute (6) WILMER (acute kidney injury): Status: Acute Assessment and Plan: 66-year-old male with a past medical history of hypertension, hyperlipidemia, diabetes, CHF, AFib on Eliquis, anxiety, depression, history of gout; presented to the hospital with a chief complaint of left foot middle toes pain redness and swelling. Left foot diabetic foot ulcer/cellulitis: No pain, no fevers on IV Zosyn day 4 status post IV vanco x2 days elevated ESR and CRP.? Foot x-ray showed no osteo.? Blood cultures x2 negative so far Patient unable to tolerate MRI foot despite 2 attempts, therefore case discussed with GI Dr. Griffith since patient is a poor candidate for IV antibiotic due to significant impulsivity high likelihood that he will pull the PICC line She recommend by mouth Augmentin for 1 week and by mouth doxycycline for 6 weeks Sent message to General surgery for debridement Diabetes type 2 Blood sugars stable today, continue Insulin sliding scale, and continue diabetic diet, Hold metformin due to WILMER. WILMER:? Creatinine normalized During last hospitalization hydrochlorothiazide were discontinued,However noted hydrochlorothiazide on patient med list, also on Lasix, and Entresto Continue Entresto, continue to hold Lasix and hydrochlorothiazide. History of CHF with reduced EF No acute exacerbation, hold diuretics since appears euvolemic will resume Lasix upon discharge. History of AFib:? Rate controlled.? Continue home Eliquis and amiodarone.? History of anxiety/depression:? Continue home escitalopram, Seroquel and bupropion, noted to be very impulsive therefore placed sitter at room ,since patient tries to walk and fall. History of hypertension/hyperlipidemia:? Continue home metoprolol, Entresto and statin.? BP stable Unsteady gait and fall Seen by PT they recommend short-term rehab, called and left message to discuss discharge plan Patient on multiple medications that can contribute to dizziness, and low blood pressure including Seroquel , Wellbutrin, Lexapro and Lipitor lipid profile showed LDL 45 total cholesterol 98, dose of Lipitor lowered to 40, recommend outpatient psych medication adjustment. Evaluated during last hospitalization by Neurology and diagnosed to have severe chronic peripheral neuropathy unspecified. 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 Patient on Eliquis. Code status:? Full code Quality Stroke Does the patient have a stroke diagnosis?: No VTE Prior VTE?: No VTE Risk Level:: Medical - moderate - high VTE Device Contraindication: Treatment Not Indicated VTE Drug Contraindication: N/A - Med Ordered
[2021-09-23] MEDS: traZODone HCL 25 MG HALFTAB PO (15:01)
[2021-09-23] MEDS: Haloperidol Lactate 5 MG/ML VIAL 2 MG IM (16:24)
[2021-09-23] MEDS: hydrOXYzine HCL 50 MG/ML VIAL 25 MG IM (16:24)
[2021-09-23 16:47] LABS: Glucose, Whole Blood 165 mg/dL (60-115)
--- NOTE | 2021-09-23 18:01 | P.EN_ITS ---
Event Note Date of Service: 09/23/21 Event Note: Patient noted to be agitated and combative toward staff and halluc inating, unable to be redirected Received IM Haldol 2 mg and IM hydroxyzine 25 mg Re-evaluated patient in an hour patient noted to be more calm but still agitated, patient awake, alert and breathing easy.
--- NOTE | 2021-09-23 18:42 | PM.PNGS ---
Subjective Subjective Date of Service: 09/23/21 Interval history: Awake but does not seem to be oriented Answers questions but not reliable Physical Exam Vital Signs: Vital Signs: Last Vital Signs Temp 97.4 F 09/23/21 16:00 Pulse 76 09/23/21 16:00 Resp 18 09/23/21 16:00 BP 167/72 H 09/23/21 16:00 Pulse Ox 98 09/23/21 16:00 Body Mass Index 25.0 Const: Other: Chemistry 09/21/21 09/22/21 05:27 05:09 Sodium 138 137 Potassium 3.1 L 3.9 D Carbon Dioxide 31 H 30 H BUN 30 H 24 H Creatinine 1.42 H 1.15 Calcium 8.5 D 8.8 Hematology 09/21/21 05:27 WBC 7.0 Hgb 8.7 L Plt Count 267 General: comfortable and no acute distress Resp: Effort & Inspection: normal respiratory effort Cardio: Rate: regular rate Extrem: Other: Ulcer, 2nd toe, left with hypergranulation tissue Procedures Date of Service Date of Service: 09/23/21 Progress Note: A&P Assessment and plan (1) Osteomyelitis: Status: Acute Assessment and Plan: Ulcer with osteomyelitis, 2nd toe Plan is long-term antibiotics Because patient is unreliable, likely to pull out PICC line, will be on oral antibiotics Most likely to require amputation down the line Will discuss with healthcare proxy Fall Risk Details Current Medications: Current Medications Acetaminophen (Acetaminophen 325 Mg Tablet) 650 mg PO Q6H PRN PRN Reason: Pain, Mild (Pain Scale 1-3) Allopurinol (Allopurinol 300 Mg Tablet) 300 mg PO DAILY [facility] Last Admin: 09/23/21 07:56 Dose: 300 mg Documented by: Amiodarone HCl (Amiodarone Hcl 200 Mg Tablet) 200 mg PO DAILY [facility] Last Admin: 09/23/21 07:56 Dose: 200 mg Documented by: Amoxicillin/Clavulanate Potassium (Amoxicillin/Potassium Clav 875 Mg Tablet) 875 mg PO Q12H [facility] Last Admin: 09/23/21 16:25 Dose: Not Given Documented by: Apixaban (Apixaban 5 Mg Tablet) 5 mg PO BID [facility] Last Admin: 09/23/21 07:56 Dose: 5 mg Documented by: Atorvastatin Calcium (Atorvastatin Calcium 40 Mg Tablet) 40 mg PO BEDTIME [facility] Last Admin: 09/22/21 20:28 Dose: 40 mg Documented by: Bupropion HCl (Bupropion Hcl Xl 300 Mg Tab.Er.24h) 300 mg PO DAILY [facility] Last Admin: 09/23/21 07:56 Dose: 300 mg Documented by: Dextrose (Dextrose 50 % 25 Gm/50 Ml Vial) 25 gm IVPUSH Q15M PRN; Protocol PRN Reason: per Hypoglycemia Standing Ord. Doxycycline Hyclate (Doxycycline Hyclate 100 Mg Tablet) 100 mg PO Q12H [facility] Last Admin: 09/23/21 16:26 Dose: Not Given Documented by: Escitalopram Oxalate (Escitalopram Oxalate 20 Mg Tablet) 20 mg PO DAILY [facility] Last Admin: 09/23/21 07:56 Dose: 20 mg Documented by: Glucose (Glucose Gel 15 Gm Gel..Gram.) 15 gm PO Q15M PRN; Protocol PRN Reason: per Hypoglycemia Standing Ord. Insulin Human Lispro (Insulin Lispro 100 Unit/Ml 3 Ml Vial) 0 unit SUBCUT QIDACHS [facility]; Protocol Last Admin: 09/23/21 16:58 Dose: Not Given Documented by: Melatonin (Melatonin 3 Mg Tablet) 6 mg PO BEDTIME PRN PRN Reason: Insomnia Metoprolol Succinate (Metoprolol Succinate Er 100 Mg Tab.Er.24h) 100 mg PO DAILY [facility]; Protocol Last Admin: 09/23/21 07:56 Dose: 100 mg Documented by: Pharmacy Consult (Consult Rx Vancomycin Dosing) 1 each MISCELLANE DAILY PRN PRN Reason: Consult order Pharmacy Consult (Consult Rx Perform Med Rec) 1 each MISCELLANE ONCE PRN PRN Reason: Consult order Pharmacy Consult (Consult Rx Vancomycin Dosing) 1 each MISCELLANE DAILY PRN PRN Reason: Consult order Quetiapine Fumarate (Quetiapine Fumarate 25 Mg Tablet) 25 mg PO TID [facility] Last Admin: 09/23/21 13:57 Dose: 25 mg Documented by: Sacubitril/Valsartan (Sacubitril/Valsartan 1 Tab Tablet) 1 tab PO BID [facility]; Protocol Last Admin: 09/23/21 07:56 Dose: 1 tab Documented by: Senna (Sennosides 8.6 Mg Tablet) 17.2 mg PO BEDTIME PRN PRN Reason: Constipation Sodium Chloride (0.9 % Sodium Chloride Flush 3 Ml Syringe) 3 ml IVFLUSH QSHIFT [facility] Last Admin: 09/23/21 16:32 Dose: Not Given Documented by: Trazodone HCl (Trazodone Hcl 25 Mg Halftab) 25 mg PO TID PRN PRN Reason: agitation Last Admin: 09/23/21 15:01 Dose: 25 mg Documented by: Time Spent With Patient Time: Total time spent is greater than 50% in coordination of care (as documented) at patient's floor/unit and/or counseling patient: Time with patient: 15 - 24 minutes Quality Stroke Does the patient have a stroke diagnosis?: No VTE Prior VTE?: No VTE Risk Level:: Medical - moderate - high VTE Device Contraindication: Treatment Not Indicated VTE Drug Contraindication: N/A - Med Ordered
[2021-09-23 20:32] LABS: Glucose, Whole Blood 140 mg/dL (60-115)
[2021-09-23] MEDS: Atorvastatin Calcium 40 MG TABLET PO (20:41)
--- NOTE | 2021-09-24 | ECG_ITS ---
Test Reason : qtc Blood Pressure : / mmHG Vent. Rate : 064 BPM Atrial Rate : 064 BPM P-R Int : 142 ms QRS Dur : 096 ms QT Int : 512 ms P-R-T Axes : 037 035 044 degrees QTc Int : 528 ms Normal sinus rhythm Prolonged QT Nonspecific T wave abnormality Abnormal ECG When compared with ECG of 24-JUL-2021 15:49, PREVIOUS ECG IS PRESENT T wave amplitude has decreased in Inferior leads Referred By: Devon Magaña Electronically Signed By:CHI MARTINS MD
[2021-09-24] MEDS: Amoxicillin/Potassium Clav 875 MG TABLET PO (02:35)
[2021-09-24 07:38] VITALS: BP 170/89; PULSE 64; RESP 18; TEMP 36.3; O2SAT 98
[2021-09-24] MEDS: Metoprolol Succinate ER 100 MG TAB.ER.24H PO (08:06)
[2021-09-24] MEDS: Amiodarone HCL 200 MG TABLET PO (08:07)
[2021-09-24] MEDS: traZODone HCL 25 MG HALFTAB PO (08:07)
[2021-09-24] MEDS: QUEtiapine Fumarate 25 MG TABLET PO ×3 (08:07→20:04)
[2021-09-24] MEDS: Escitalopram Oxalate 20 MG TABLET PO (08:07)
[2021-09-24] MEDS: buPROPion HCl XL 300 MG TAB.ER.24H PO (08:07)
[2021-09-24] MEDS: Sacubitril/Valsartan 24/26 1 TAB TABLET PO ×2 (08:07→20:04)
[2021-09-24] MEDS: Apixaban 5 MG TABLET PO ×2 (08:07→20:04)
[2021-09-24] MEDS: allopurinoL 300 MG TABLET PO (08:07)
[2021-09-24 08:28] LABS: Glucose, Whole Blood 129 mg/dL (60-115)
--- NOTE | 2021-09-24 10:53 | PM.PNGS ---
Subjective Subjective Date of Service: 09/24/21 Interval history: Awake but not communicative Confused Requiring sitter 18/06 Physical Exam Vital Signs: Vital Signs: Last Vital Signs Temp 97.3 F 09/24/21 07:38 Pulse 64 09/24/21 07:38 Resp 18 09/24/21 07:38 BP 170/89 H 09/24/21 07:38 Pulse Ox 98 09/24/21 07:38 Body Mass Index 25.0 Const: Other: Confused, restless General: comfortable and no acute distress Resp: Effort & Inspection: normal respiratory effort Cardio: Rate: regular rate GI: Palpation (GI): Soft to palpation and not firm Extrem: Other: Ulcer with thick hard eschar, 2nd toe left at the dorsum at 1.3 cm in diameter Procedures Date of Service Date of Service: 08/25/21 Progress Note: A&P Assessment and plan (1) Osteomyelitis: Status: Acute Assessment and Plan: I sharply debrided the ulcer at bedside using scissors to remove all nonviable tissue The base appears to have exposed bone of the phalanx No pus seen I applied dry dressings and wrapped the foot with Cj roll Will need daily dressings, okay to try silver alginate Clinically with osteomyelitis but could not have an MRI To be placed on oral antibiotics as per hospitalist May need to have toe amputation down the line Fall Risk Details Current Medications: Current Medications Acetaminophen (Acetaminophen 325 Mg Tablet) 650 mg PO Q6H PRN PRN Reason: Pain, Mild (Pain Scale 1-3) Allopurinol (Allopurinol 300 Mg Tablet) 300 mg PO DAILY [facility] Last Admin: 09/24/21 08:07 Dose: 300 mg Documented by: Amiodarone HCl (Amiodarone Hcl 200 Mg Tablet) 200 mg PO DAILY [facility] Last Admin: 09/24/21 08:07 Dose: 200 mg Documented by: Amoxicillin/Clavulanate Potassium (Amoxicillin/Potassium Clav 875 Mg Tablet) 875 mg PO Q12H [facility] Last Admin: 09/24/21 02:35 Dose: 875 mg Documented by: Apixaban (Apixaban 5 Mg Tablet) 5 mg PO BID [facility] Last Admin: 09/24/21 08:07 Dose: 5 mg Documented by: Atorvastatin Calcium (Atorvastatin Calcium 40 Mg Tablet) 40 mg PO BEDTIME [facility] Last Admin: 09/23/21 20:41 Dose: 40 mg Documented by: Bupropion HCl (Bupropion Hcl Xl 300 Mg Tab.Er.24h) 300 mg PO DAILY [facility] Last Admin: 09/24/21 08:07 Dose: 300 mg Documented by: Dextrose (Dextrose 50 % 25 Gm/50 Ml Vial) 25 gm IVPUSH Q15M PRN; Protocol PRN Reason: per Hypoglycemia Standing Ord. Doxycycline Hyclate (Doxycycline Hyclate 100 Mg Tablet) 100 mg PO Q12H [facility] Last Admin: 09/24/21 02:35 Dose: 100 mg Documented by: Escitalopram Oxalate (Escitalopram Oxalate 20 Mg Tablet) 20 mg PO DAILY [facility] Last Admin: 09/24/21 08:07 Dose: 20 mg Documented by: Glucose (Glucose Gel 15 Gm Gel..Gram.) 15 gm PO Q15M PRN; Protocol PRN Reason: per Hypoglycemia Standing Ord. Insulin Human Lispro (Insulin Lispro 100 Unit/Ml 3 Ml Vial) 0 unit SUBCUT QIDACHS [facility]; Protocol Last Admin: 09/24/21 08:07 Dose: Not Given Documented by: Melatonin (Melatonin 3 Mg Tablet) 6 mg PO BEDTIME PRN PRN Reason: Insomnia Metoprolol Succinate (Metoprolol Succinate Er 100 Mg Tab.Er.24h) 100 mg PO DAILY [facility]; Protocol Last Admin: 09/24/21 08:06 Dose: 100 mg Documented by: Pharmacy Consult (Consult Rx Vancomycin Dosing) 1 each MISCELLANE DAILY PRN PRN Reason: Consult order Pharmacy Consult (Consult Rx Perform Med Rec) 1 each MISCELLANE ONCE PRN PRN Reason: Consult order Pharmacy Consult (Consult Rx Vancomycin Dosing) 1 each MISCELLANE DAILY PRN PRN Reason: Consult order Quetiapine Fumarate (Quetiapine Fumarate 25 Mg Tablet) 25 mg PO TID [facility] Last Admin: 09/24/21 08:07 Dose: 25 mg Documented by: Sacubitril/Valsartan (Sacubitril/Valsartan 1 Tab Tablet) 1 tab PO BID [facility]; Protocol Last Admin: 09/24/21 08:07 Dose: 1 tab Documented by: Senna (Sennosides 8.6 Mg Tablet) 17.2 mg PO BEDTIME PRN PRN Reason: Constipation Sodium Chloride (0.9 % Sodium Chloride Flush 3 Ml Syringe) 3 ml IVFLUSH QSHIFT [facility] Last Admin: 09/24/21 08:07 Dose: Not Given Documented by: Trazodone HCl (Trazodone Hcl 25 Mg Halftab) 25 mg PO TID PRN PRN Reason: agitation Last Admin: 09/24/21 08:07 Dose: 25 mg Documented by: Time Spent With Patient Time: Total time spent is greater than 50% in coordination of care (as documented) at patient's floor/unit and/or counseling patient: Time with patient: 15 - 24 minutes Quality Stroke Does the patient have a stroke diagnosis?: No VTE Prior VTE?: No VTE Risk Level:: Medical - moderate - high VTE Device Contraindication: Treatment Not Indicated VTE Drug Contraindication: N/A - Med Ordered
--- NOTE | 2021-09-24 10:57 | W.PM.OPN ---
Operative Note Operative Note Date of Service: 09/24/21 Narrative: Preop diagnosis: left 2nd toe ulcer with eschar Postop diagnosis: The same Procedure: Excisional debridement of left 2nd toe ulcer at bedside Surgeon: Dr. Artem Almendarez The 2nd toe was prepped and draped using Betadine. I proceeded to sharply excise the thick eschar using fine scissors. I debrided all nonviable tissue. The wound diameter is about 1.3 cm. There appeared to be exposed phalanx. There was no pus. Applied dry dressings wrapped the foot with Cj roll. Patient tolerated the procedure well. There was no blood loss.
[2021-09-24 11:11] VITALS: BP 140/81; PULSE 61; RESP 18; TEMP 36; O2SAT 96
[2021-09-24] MEDS: Insulin Lispro 100 UNIT/ML 3 ML VIAL SUBCUT (11:14)
[2021-09-24 12:23] LABS: Glucose, Whole Blood 160 mg/dL (60-115)
[2021-09-24] MEDS: Haloperidol Lactate 5 MG/ML VIAL 2.5 MG IM (12:33)
[2021-09-24] MEDS: hydrOXYzine HCL 50 MG/ML VIAL IM (12:33)
[2021-09-24 15:33] VITALS: BP 135/74; PULSE 65; RESP 16; TEMP 36.5; O2SAT 95
[2021-09-24] MEDS: hydrOXYzine HCL 50 MG TABLET PO (15:48)
--- NOTE | 2021-09-24 16:16 | MHC.CM.PN ---
received call from dr gill pt to be dcd today with daily dsg which did not have to start till mon ,family can learn per md..imm updatedhvns had been given referral notified them of dc will check in the am their response
--- NOTE | 2021-09-24 16:29 | PC.NURSE ---
Attempted to place pt on cardiac rn however pt removes immediately, uncooperative. Pt restless and difficult to redirect. Dr Magaña aware
--- NOTE | 2021-09-24 16:29 | PM.EVENT ---
Event Note Date of Service: 09/24/21 Event Note: Event Note: Patient noted to be agitated and combative toward staff this morning was unable to redirect patient he was trying to climb out of bed therefore treated with Received IM Haldol 2.5 mg and IM hydroxyzine 50 mg Re-evaluated patient in an hour patient he was noted to be more calm but still agitated, patient awake, alert and breathing easy.
--- NOTE | 2021-09-24 16:31 | HO.PM.IMPN ---
Subjective Subjective Date of Service: 09/24/21 Interval History: Being followed for left foot cellulitis and left 2nd toe wound, patient noted to be confused agitated trying to climb out of bed this morning sitter at bedside unable to redirect patient therefore will give him IM Haldol 2.5 mg and hydro ox is seen 50 mg IM will reassess patient within an hour of restraint. Review of Systems Unable to obtain review of system due to underlying dementia and behavioral issues. Physical Exam Vital Signs: Vital Signs: Last Vital Signs Temp 97.7 F 09/24/21 15:33 Pulse 65 09/24/21 15:33 Resp 16 09/24/21 15:33 BP 135/74 09/24/21 15:33 Pulse Ox 95 09/24/21 15:33 Body Mass Index 25.0 General patient awake talking but not making sense does not appear to be in acute distress. Neck supple no JVD. CVS regular rate rhythm, Respiratory lungs clear to auscultation, no respiratory distress, no wheeze, no rhonchi. Gastrointestinal abdomen soft, nontender, bowel sounds audible Extremities no edema. Neuro moving all 4 extremity, speech clear. Left 2nd toe dressing in place underwent bedside debridement by General surgery. Psych unable to redirect patient, poor insight, confused Objective Data Active Medications Acetaminophen (Acetaminophen 325 Mg Tablet) 650 mg PO Q6H PRN PRN Reason: Pain, Mild (Pain Scale 1-3) Allopurinol (Allopurinol 300 Mg Tablet) 300 mg PO DAILY [facility] Last Admin: 09/24/21 08:07 Dose: 300 mg Documented by: ORLANDO Amiodarone HCl (Amiodarone Hcl 200 Mg Tablet) 200 mg PO DAILY [facility] Last Admin: 09/24/21 08:07 Dose: 200 mg Documented by: ORLANDO Amoxicillin/Clavulanate Potassium (Amoxicillin/Potassium Clav 875 Mg Tablet) 875 mg PO Q12H [facility] Last Admin: 09/24/21 13:59 Dose: Not Given Documented by: ORLANDO Non-Admin Reason: Patient Refused Apixaban (Apixaban 5 Mg Tablet) 5 mg PO BID [facility] Last Admin: 09/24/21 08:07 Dose: 5 mg Documented by: ORLANDO Atorvastatin Calcium (Atorvastatin Calcium 40 Mg Tablet) 40 mg PO BEDTIME [facility] Last Admin: 09/23/21 20:41 Dose: 40 mg Documented by: PILARRISNella Bupropion HCl (Bupropion Hcl Xl 300 Mg Tab.Er.24h) 300 mg PO DAILY [facility] Last Admin: 09/24/21 08:07 Dose: 300 mg Documented by: ORLANDO Dextrose (Dextrose 50 % 25 Gm/50 Ml Vial) 25 gm IVPUSH Q15M PRN; Protocol PRN Reason: per Hypoglycemia Standing Ord. Doxycycline Hyclate (Doxycycline Hyclate 100 Mg Tablet) 100 mg PO Q12H [facility] Last Admin: 09/24/21 13:59 Dose: Not Given Documented by: ORLANDO Non-Admin Reason: Patient Refused Escitalopram Oxalate (Escitalopram Oxalate 20 Mg Tablet) 20 mg PO DAILY [facility] Last Admin: 09/24/21 08:07 Dose: 20 mg Documented by: ORLANDO Glucose (Glucose Gel 15 Gm Gel..Gram.) 15 gm PO Q15M PRN; Protocol PRN Reason: per Hypoglycemia Standing Ord. Hydroxyzine HCl (Hydroxyzine Hcl 50 Mg Tablet) 50 mg PO Q6H PRN PRN Reason: anxiety Last Admin: 09/24/21 15:48 Dose: 50 mg Documented by: ORLANDO Insulin Human Lispro (Insulin Lispro 100 Unit/Ml 3 Ml Vial) 0 unit SUBCUT QIDACHS [facility]; Protocol Last Admin: 09/24/21 11:14 Dose: 2 unit Documented by: ORLANDO Melatonin (Melatonin 3 Mg Tablet) 6 mg PO BEDTIME PRN PRN Reason: Insomnia Metoprolol Succinate (Metoprolol Succinate Er 100 Mg Tab.Er.24h) 100 mg PO DAILY [facility]; Protocol Last Admin: 09/24/21 08:06 Dose: 100 mg Documented by: ORLANDO Pharmacy Consult (Consult Rx Vancomycin Dosing) 1 each MISCELLANE DAILY PRN PRN Reason: Consult order Pharmacy Consult (Consult Rx Perform Med Rec) 1 each MISCELLANE ONCE PRN PRN Reason: Consult order Pharmacy Consult (Consult Rx Vancomycin Dosing) 1 each MISCELLANE DAILY PRN PRN Reason: Consult order Quetiapine Fumarate (Quetiapine Fumarate 25 Mg Tablet) 25 mg PO TID [facility] Last Admin: 09/24/21 13:57 Dose: 25 mg Documented by: ORLANDO Sacubitril/Valsartan (Sacubitril/Valsartan 1 Tab Tablet) 1 tab PO BID [facility]; Protocol Last Admin: 09/24/21 08:07 Dose: 1 tab Documented by: ORLANDO Senna (Sennosides 8.6 Mg Tablet) 17.2 mg PO BEDTIME PRN PRN Reason: Constipation Sodium Chloride (0.9 % Sodium Chloride Flush 3 Ml Syringe) 3 ml IVFLUSH QSHIFT [facility] Last Admin: 09/24/21 15:50 Dose: Not Given Documented by: ORLANDO Non-Admin Reason: No Access Trazodone HCl (Trazodone Hcl 25 Mg Halftab) 25 mg PO TID PRN PRN Reason: agitation Last Admin: 09/24/21 08:07 Dose: 25 mg Documented by: ORLANDO Labs CBC & Chem 7: 09/21/21 05:27 09/22/21 05:09 Labs: Laboratory Results - last 24 hr 09/23/21 09/23/21 09/24/21 16:06 20:03 07:38 POC Glucose 165 H 140 H 129 H 09/24/21 11:09 POC Glucose 160 H Assessment and Plan (1) Dementia associated with other underlying disease without behavioral disturbance: Status: Acute (2) WILMER (acute kidney injury): Status: Acute (3) Cellulitis: Status: Acute (4) Osteomyelitis: Status: Acute (5) Acute on chronic systolic (congestive) heart failure: Status: Acute (6) Multiple falls: Status: Acute (7) Diabetes: Status: Acute Assessment and Plan: 66-year-old male with a past medical history of hypertension, hyperlipidemia, diabetes, CHF, AFib on Eliquis, anxiety, depression, history of gout; presented to the hospital with a chief complaint of left foot middle toes pain redness and swelling. Left foot diabetic foot ulcer/cellulitis and high likelihood of left 2nd toe osteomyelitis No pain, no fevers,elevated ESR and CRP suggestive of possible osteomyelitis, Foot x-ray showed no osteo.? Blood cultures x2 negative Patient unable to tolerate MRI foot despite 2 attempts, therefore case discussed with GI Dr. Griffith since patient is a poor candidate for IV antibiotic due to significant impulsivity high likelihood that he will pull the PICC line Therefore placed on Augmentin for 1 week and by mouth doxycycline for 6 weeks In regard to 2nd foot wound patient underwent bedside debridement by Dr. Almendarez, bone was exposed will continue daily Silver alginate dressing will arrange for VNA services at home Called Rebecca and informed her about suboptimal treatment of osteomyelitis since un able to treat with IV antibiotic, due to significant dementia behavioral issues unable to keep IV line recommended close surgical follow-up Diabetes type 2 Blood sugars stable today, will DC insulin sliding scale and placed on metformin WILMER:? Creatinine normalized During last hospitalization hydrochlorothiazide were discontinued,However noted hydrochlorothiazide on patient med list, also on Lasix, and Entresto Continue Entresto, will resume Lasix in DC hydrochlorothiazide. History of CHF with reduced EF No acute exacerbation, hold diuretics since appears euvolemic will resume Lasix upon discharge. History of AFib:? Rate controlled.? Continue home Eliquis and amiodarone.? History of anxiety/depression:? Continue home escitalopram, Seroquel and bupropion, noted to be very impulsive therefore placed sitter at room ,since patient tries to walk and fall. History of hypertension/hyperlipidemia:? Continue home metoprolol, Entresto and statin.? BP stable Unsteady gait and fall Seen by PT they recommend short-term rehab, however case discussed with patient she declined rehab facility since they have tried rehab in the past with no benefit, would like to take patient home with [facility] Patient on multiple medications that can contribute to dizziness, and low blood pressure including Seroquel , Wellbutrin, Lexapro and Lipitor lipid profile showed LDL 45 total cholesterol 98, dose of Lipitor lowered to 40, recommend outpatient psych medication adjustment. Evaluated during last hospitalization by Neurology and diagnosed to have severe chronic peripheral neuropathy unspecified. 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 DVT prophylaxis:?on Eliquis. Code status:? Full code Quality Stroke Does the patient have a stroke diagnosis?: No VTE Prior VTE?: No VTE Risk Level:: Medical - moderate - high VTE Device Contraindication: Treatment Not Indicated VTE Drug Contraindication: N/A - Med Ordered
[2021-09-24 16:41] LABS: Glucose, Whole Blood 102 mg/dL (60-115)
--- NOTE | 2021-09-24 18:09 | PC.NURSE ---
Pt restless, agitated, uncooperative, threatening staff intermittently throughout the shift. Continuously trying to climb oob. Refusing to follow direction. Dr Magaña in to evaluate pt several times. Attempted to contact family to sit with pt but unable to reach. Dressing to foot changed by Dr Almendarez. Sitter at bedside
[2021-09-24 19:42] VITALS: BP 153/78; PULSE 89; RESP 16; TEMP 36.3; O2SAT 99
[2021-09-24] MEDS: Atorvastatin Calcium 40 MG TABLET PO (20:04)
[2021-09-24 20:11] LABS: Glucose, Whole Blood 149 mg/dL (60-115)
[2021-09-24] MEDS: Melatonin 3 MG TABLET 6 MG PO (21:16)
[2021-09-25] VITALS: RESP 16
--- NOTE | 2021-09-25 | ECG_ITS ---
Test Reason : PROLONG QT Blood Pressure : / mmHG Vent. Rate : 055 BPM Atrial Rate : 055 BPM P-R Int : 144 ms QRS Dur : 096 ms QT Int : 528 ms P-R-T Axes : 035 044 045 degrees QTc Int : 505 ms Sinus bradycardia Prolonged QT Nonspecific T wave abnormality Abnormal ECG When compared with ECG of 24-SEP-2021 16:07, No significant change was found Referred By: Devon Magaña Electronically Signed By:CHI MARTINS MD
[2021-09-25 04:00] VITALS: RESP 16
[2021-09-25] MEDS: Amoxicillin/Potassium Clav 875 MG TABLET PO ×2 (05:45→15:23)
[2021-09-25 06:49] LABS: Anion Gap 11 (12-20); Blood Urea Nitrogen 20 mg/dL (9-16); Calcium 8.5 mg/dL (8.4-10.2); Carbon Dioxide 27 mmol/L (22-29); Chloride 105 mmol/L (96-108); Creatinine Clr Calc Pharmacy 77.9; Estimated Glomerular Filt Rate > 60; Glucose Random 121 mg/dL (60-115); Magnesium 1.7 mg/dL (1.6-2.6); Potassium 3.5 mmol/L (3.3-5.1); Sodium 139 mmol/L (135-145)
[2021-09-25 07:26] VITALS: BP 190/92; PULSE 63; RESP 16; TEMP 36.6; O2SAT 94
[2021-09-25 07:35] LABS: Glucose, Whole Blood 128 mg/dL (60-115)
[2021-09-25] MEDS: Apixaban 5 MG TABLET PO (07:55)
[2021-09-25] MEDS: Amiodarone HCL 200 MG TABLET PO (07:55)
[2021-09-25] MEDS: QUEtiapine Fumarate 25 MG TABLET PO ×2 (07:55→15:23)
[2021-09-25] MEDS: allopurinoL 300 MG TABLET PO (07:55)
[2021-09-25] MEDS: buPROPion HCl XL 300 MG TAB.ER.24H PO (07:56)
[2021-09-25] MEDS: Metoprolol Succinate ER 100 MG TAB.ER.24H PO (07:56)
[2021-09-25] MEDS: Sacubitril/Valsartan 24/26 1 TAB TABLET PO (07:56)
[2021-09-25] MEDS: Escitalopram Oxalate 20 MG TABLET PO (07:56)
--- NOTE | 2021-09-25 11:17 | PM.PNGS ---
Subjective Subjective Date of Service: 09/25/21 Interval history: Mental status the same Still confused Awake and does have verbal output Physical Exam Vital Signs: Vital Signs: Last Vital Signs Temp 98 F 09/25/21 07:26 Pulse 63 09/25/21 07:26 Resp 16 09/25/21 07:26 BP 190/92 H 09/25/21 07:26 Pulse Ox 94 09/25/21 07:26 Body Mass Index 25.0 Const: Other: Confused General: no acute distress Resp: Effort & Inspection: normal respiratory effort Cardio: Rate: regular rate GI: Palpation (GI): Soft to palpation and nontender Extrem: Other: Left 2nd toe - open wound clean, debrided yesterday sharply, some bone exposed; no pus, dressings changed Procedures Date of Service Date of Service: 09/25/21 Progress Note: A&P Assessment and plan (1) Osteomyelitis: Status: Acute Assessment and Plan: Likely osteomyelitis of the 2nd toe Open wound debrided yesterday sharply to remove eschar Now clean but bone of the phalanx appears exposed Dressings changed - dressings applied Okay to use silver alginate dressings daily Plan as per hospitalist service May require amputation down the line Fall Risk Details Current Medications: Current Medications Acetaminophen (Acetaminophen 325 Mg Tablet) 650 mg PO Q6H PRN PRN Reason: Pain, Mild (Pain Scale 1-3) Allopurinol (Allopurinol 300 Mg Tablet) 300 mg PO DAILY [facility] Last Admin: 09/25/21 07:55 Dose: 300 mg Documented by: Amiodarone HCl (Amiodarone Hcl 200 Mg Tablet) 200 mg PO DAILY [facility]S [facility] Last Admin: 09/25/21 07:55 Dose: 200 mg Documented by: Amoxicillin/Clavulanate Potassium (Amoxicillin/Potassium Clav 875 Mg Tablet) 875 mg PO Q12H [facility] 234 B[facility]S AT [facility] Last Admin: 09/25/21 05:45 Dose: 875 mg Documented by: Apixaban (Apixaban 5 Mg Tablet) 5 mg PO BID [facility] 234 [facility]S AT [facility] Last Admin: 09/25/21 07:55 Dose: 5 mg Documented by: Atorvastatin Calcium (Atorvastatin Calcium 40 Mg Tablet) 40 mg PO BEDTIME [facility] 234 [facility]S AT [facility] Last Admin: 09/24/21 20:04 Dose: 40 mg Documented by: Bupropion HCl (Bupropion Hcl Xl 300 Mg Tab.Er.24h) 300 mg PO DAILY [facility] 234 [facility]S [facility] Last Admin: 09/25/21 07:56 Dose: 300 mg Documented by: Dextrose (Dextrose 50 % 25 Gm/50 Ml Vial) 25 gm IVPUSH Q15M PRN; Protocol PRN Reason: per Hypoglycemia Standing Ord. Doxycycline Hyclate (Doxycycline Hyclate 100 Mg Tablet) 100 mg PO Q12H [facility] 234 [facility]S AT [facility] Last Admin: 09/25/21 05:45 Dose: 100 mg Documented by: Escitalopram Oxalate (Escitalopram Oxalate 20 Mg Tablet) 20 mg PO DAILY [facility] 234 [facility]S [facility] Last Admin: 09/25/21 07:56 Dose: 20 mg Documented by: Glucose (Glucose Gel 15 Gm Gel..Gram.) 15 gm PO Q15M PRN; Protocol PRN Reason: per Hypoglycemia Standing Ord. Melatonin (Melatonin 3 Mg Tablet) 6 mg PO BEDTIME PRN PRN Reason: Insomnia Last Admin: 09/24/21 21:16 Dose: 6 mg Documented by: Metoprolol Succinate (Metoprolol Succinate Er 100 Mg Tab.Er.24h) 100 mg PO DAILY [facility] 234 [facility]S [facility]; Protocol Last Admin: 09/25/21 07:56 Dose: 100 mg Documented by: Pharmacy Consult (Consult Rx Vancomycin Dosing) 1 each MISCELLANE DAILY PRN PRN Reason: Consult order Pharmacy Consult (Consult Rx Perform Med Rec) 1 each MISCELLANE ONCE PRN PRN Reason: Consult order Pharmacy Consult (Consult Rx Vancomycin Dosing) 1 each MISCELLANE DAILY PRN PRN Reason: Consult order Quetiapine Fumarate (Quetiapine Fumarate 25 Mg Tablet) 25 mg PO TID [facility] 234 [facility]S [facility] Last Admin: 09/25/21 07:55 Dose: 25 mg Documented by: Sacubitril/Valsartan (Sacubitril/Valsartan 1 Tab Tablet) 1 tab PO BID [facility] 234 [facility]S AT [facility]; Protocol Last Admin: 09/25/21 07:56 Dose: 1 tab Documented by: Senna (Sennosides 8.6 Mg Tablet) 17.2 mg PO BEDTIME PRN PRN Reason: Constipation Sodium Chloride (0.9 % Sodium Chloride Flush 3 Ml Syringe) 3 ml IVFLUSH QSHIFT [facility]S [facility] 234 BEDS AT [facility] Last Admin: 09/25/21 08:05 Dose: Not Given Documented by: Time Spent With Patient Time: Total time spent is greater than 50% in coordination of care (as documented) at patient's floor/unit and/or counseling patient: Time with patient: 15 - 24 minutes Quality Stroke Does the patient have a stroke diagnosis?: No VTE Prior VTE?: No VTE Risk Level:: Medical - moderate - high VTE Device Contraindication: Treatment Not Indicated VTE Drug Contraindication: N/A - Med Ordered
[2021-09-25 11:21] VITALS: BP 168/92; PULSE 54; RESP 16; TEMP 36.8; O2SAT 97
[2021-09-25 11:48] LABS: Glucose, Whole Blood 205 mg/dL (60-115)
--- NOTE | 2021-09-25 14:19 | PM.DS ---
DS: Providers Provider Date of Service: 09/25/21 Date of admission: 09/20/21 20:06 Primary care physician: Taz Malik MD Consults: 09/20/21 20:10 Consult to Infectious Diseases Routine Consulting Provider: Mignon Griffith Reason for consultation: DM foot ulcer/cellulitis 09/22/21 10:19 Consult to General Surgery Routine Consulting Provider: Artem Almendarez Reason for consultation: left toe wound Has provider been notified: No 09/24/21 16:44 Consult to Psychiatry Routine Consulting Provider: Robert Leavitt Reason for consultation: dementia with behaviral issues Has provider been notified: No DS: Diagnosis Discharge Diagnosis (1) Osteomyelitis: Status: Acute DS: Summary Hospital Course Hospital Course: History of presenting illness Chief Complaint: Left foot pain redness and swelling 66-year-old male with a past medical history of hypertension, hyperlipidemia, diabetes, CHF, AFib on Eliquis, anxiety, depression, history of gout; history of Lewy body dementia, history of recurrent falls, presented to the hospital with a chief complaint of left foot middle toes pain redness and swelling.? Also reports that he has noticed small ulcer.? Denies any discharge.? Denies any discoloration.? Mentioned that symptoms have been going on over the past few days. Patient's family at the bedside mentioned that patient has been having falls lately and has multiple scabs on his upper and lower extremities; right foot has been warm swollen and right foot 2nd toe has a scab; it has not been improving hence decided to go to the PCP who evaluated the patient was to go to the hospital for IV antibiotics. Denies any fevers and chills at home. Denies any cough or sputum production.? Denies any shortness of breath. Reports that he has been complaint with his home medications. Denies any nausea vomiting or diarrhea. Review of all other systems is negative except mentioned above ER course: Per ER team patient noted to have ulcer and redness around the 2nd 3rd and 4th toes of the left foot; x-ray showed no evidence of osteomyelitis but noted to have elevated ESR and CRP. Patient was given IV antibiotics.? Admitted to the hospital for further management. Hospital course 66-year-old male with a past medical history of hypertension, hyperlipidemia, diabetes, CHF, AFib on Eliquis, anxiety, depression, history of gout; presented to the hospital with a chief complaint of left foot middle toes pain redness and swelling, patient was diagnosed to have. Left foot diabetic foot ulcer/cellulitis and high likelihood of left 2nd toe osteomyelitis with elevated CRP and ESR, foot x-ray showed no osteomyelitis patient was on able to tolerate MRI, due to high likelihood of osteomyelitis patient is being discharged home on 6 weeks of by mouth doxycycline and 1 week of Augmentin, patient is a poor candidate for IV antibiotics due to significant a impulsivity and high likelihood of pulling PICC line, patient underwent debridement of 2nd toe left foot wound by Dr. Almendarez condom bone is exposed, surgery recommend daily Silver alginate dressing, patient is being discharged home with VNA services, spoke with patient's Shira Causey and informed her about suboptimal treatment with by mouth antibiotics and need for close outpatient surgical and primary care physician follow up, blood cultures x2 are negative. Also spoke with son Georgi and informed him about all medication adjustment and reiterated need for close outpatient follow-up with surgery and PCP. Diabetes type 2 patient has been restarted on metformin WILMER:? Patient on arrival was noted to have acute kidney injury therefore treated with IV fluids diuretics were held patient renal function normalized, upon discharge will discontinue hydrochlorothiazide and continue Lasix and Entresto History of CHF with reduced EF no acute cardiac decompensation noted patient remains euvolemic, continue Lasix dose reduced to 40 mg daily and Entresto. History of chronic/permanent AFib:? Rate controlled.? Continue home Eliquis and amiodarone.? History of dementia multifactorial likely vascular and Alzheimer with underlying anxiety/depression and behavioral issuess, patient noted to be combative agitated and difficult to redirect therefore required chemical restraint With Haldol and hydroxyzine, subsequently patient evaluated by psychiatrist Dr. Levy who recommend to decrease dose of escitalopram to 10 mg daily, he also recommend close outpatient follow-up with therapist to consider Discontinuing Wellbutrin, he recommend to use melatonin for sleep and to avoid Benadryl and hydroxyzine due to anticholinergic side effects . History of hypertension/hyperlipidemia:? Continue home metoprolol, Entresto and statin.? BP stable, dose of statin lowered to 40 mg daily since LDL noted to be 45 with a total cholesterol of 98. Unsteady gait and fall Seen by PT they recommend short-term rehab, however case discussed with patients she declined rehab facility since they have tried rehab in the past with no benefit, would like to take patient home with 18/06 care Time Spent with Patient Time attestation: Total time spent providing and/or coordinating discharge services: Discharge coordination time: Greater than 30 minutes Quality: Stroke Does the patient have a stroke diagnosis?: No Physical Exam Vital Signs: Vital Signs: Last Vital Signs Temp 98.3 F 09/25/21 11:21 Pulse 54 09/25/21 11:21 Resp 16 09/25/21 11:21 BP 168/92 H 09/25/21 11:21 Pulse Ox 97 09/25/21 11:21 Body Mass Index 25.0 General awake aler t,no acute distres s.? Neck supple, n o JVD. CVS? regula r rate rhythm, Res piratory lungs negar ar to auscultation , no respiratory d istress, no wheeze , no rhonchi. Price rointestinal abdom en soft, nontender , bowel sounds aud ible, no guarding , no rigidity. Ext remities right low er extremity no ed jose de jesus, left foot swe lling warmth and h yperemia dorsum of foot resolved, 2n d toe dressing in place, flexion def ormity of toes Darell ro nonfocal, patie nt moving all 4 ex tremity, speech cl ear. Skin no rash Psych appears calm , following comman ds, poor insight DS: Data Data Completed and Pending Completed studies during hospitalization [Text1]: Procedures Drainage of Right Pleural Cavity, Percutaneous Approach (06/21/21) Advent of Cardiac Rhythm, Single (06/04/21) Transfusion of Nonautologous Red Blood Cells into Peripheral Vein, Percutaneous Approach (07/20/21) Labs on day of discharge: Laboratory Results - last 24 hr 09/24/21 09/24/21 09/25/21 16:32 20:07 05:45 Sodium 139 Potassium 3.5 Chloride 105 Carbon Dioxide 27 Anion Gap 11 L BUN 20 H Creatinine 1.16 Estim Creat Clear Calc 77.9 Estimated GFR > 60 POC Glucose 102 149 H Random Glucose 121 H Calcium 8.5 Magnesium 1.7 09/25/21 09/25/21 07:25 11:19 Sodium Potassium Chloride Carbon Dioxide Anion Gap BUN Creatinine Estim Creat Clear Calc Estimated GFR POC Glucose 128 H 205 H Random Glucose Calcium Magnesium Preliminary micro results at discharge 09/20/21 17:39 Blood Culture - Preliminary Blood - Venous No growth after 48 hours. 09/20/21 17:39 Blood Culture - Preliminary Blood - Venous No growth after 48 hours. Discharge Plan Discharge Patient Disposition: Home Health Service Discharge Diagnosis: Left foot diabetic ulcer/osteomyelitis Left foot cellulitis Acute kidney injury Multifactorial dementia with behavioral issues Unsteady gait with recurrent falls Referrals: Taz Malik MD [Primary Care Provider] - 1 Week Discharge Medications: New doxycycline hyclate 100 mg Tablet 100 mg PO Q12H Qty: 82 RF: 0 amoxicillin-pot clavulanate 875-125 mg Tablet 875 mg PO Q12H Qty: 12 RF: 0 atorvastatin [Lipitor] 40 mg tablet 40 mg PO BEDTIME Qty: 30 RF: 0 escitalopram oxalate [Lexapro] 10 mg tablet 10 mg PO DAILY Qty: 30 RF: 0 melatonin 3 mg capsule 3 mg PO BEDTIME Qty: 30 RF: 0 Continued allopurinol 300 mg tablet 300 mg PO DAILY RF: 0 bupropion HCl 300 mg tablet extended release 24 hr 1 tab PO DAILY RF: 0 Eliquis 5 mg tablet 5 mg PO BID RF: 0 metoprolol succinate 100 mg Tablet Extended Release 24 Hr 100 mg PO DAILY 30 Days Qty: 30 RF: 0 amiodarone 200 mg tablet 200 mg PO DAILY Qty: 30 RF: 0 metformin 500 mg Tablet 500 mg PO BID RF: 0 magnesium oxide 400 mg magnesium Tablet 400 mg PO DAILY RF: 0 trazodone 50 mg tablet 25 mg PO TID PRN (Reason: agitation) Qty: 90 RF: 0 Entresto 24-26 mg tablet 1 tab PO BID RF: 0 quetiapine 25 mg tablet 25 mg PO TID RF: 0 Changed furosemide 40 mg Tablet 40 mg PO DAILY Qty: 60 RF: 0 Discontinued atorvastatin 80 mg tablet 80 mg PO BEDTIME RF: 0 escitalopram oxalate 20 mg tablet 20 mg PO DAILY RF: 0 hydrochlorothiazide 12.5 mg Tablet 12.5 mg PO DAILY RF: 0 Discharge Orders: Discharge Order (Routine); Ordered 09/25/21 Ordered By: Devon Magaña Diet: diabetic diet Activity on Discharge: As tolerated Stand Alone Forms: Patient Portal Discharge page Care Plan Goals: Left 2nd toe ulcer and possible osteomyelitis patient unable to tolerate MRI, therefore recommend Augmentin 1 tablet twice daily for 6 more days and take doxycycline 100 mg twice daily for 6 weeks, since patient has significant impulsivity and underlying dementia is high risk for pulling IV lines therefore difficult to treat with prolong IV antibiotic, Recommend close outpatient follow-up with General surgery and primary care physician for healing of left 2nd toe, continue daily dry dressing with silver alginate Patient is high risk for fall physical therapy recommended short-term rehab however family wishes to take him home with 18/06 care. Health Concerns: Diabetes mellitus/recurrent falls/congestive heart failure take all home medications as before dose of Lipitor reduced to 40 mg daily secondary to stable cholesterol, dose of Lexapro decreased to 10 mg by mouth daily since on multiple antidepressant, recommend close outpatient follow-up with therapist will adjust home medication Dose of Lasix reduced to 40 mg by mouth daily Give melatonin 3 mg at nighttime for sleep Plan of Treatment: Outpatient follow-up with General surgery Dr. Almendarez in 2 weeks, outpatient follow-up with primary care physician in next 1-2 weeks. Assessment: As above
--- NOTE | 2021-09-25 14:45 | PM.PSYCN ---
History of Present Illness Date of Service: 09/25/21 Chief Complaint: DM foot ulcer/cellulitis Reason for Consult: Behavioral disturbance w dementia Requesting physician: Devon Magaña Discussed with referring provider: Yes Sources of Information: patient interviewed and chart reviewed HPI Narrative: Pt is known to consult service. See consult of Jun 2021. Hx dementia (? LBD) early onset with behavioral disturbance . Also Hx depression. Now admitted with cellulitis. Remains confused, confabulating with sundowning. Noted for X psychotropics. Past Psychiatric History: Patient has history of depression. No IPLOC. Receives psychiatric medication from PCP office. Medical Evaluation Reviewed: Yes Personal & Social History: Lives with . 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 Noncompliance with medications NSVT (nonsustained ventricular tachycardia) PAF (paroxysmal atrial fibrillation) Peripheral neuropathy Vertebrobasilar dolichoectasia Narrative: Chart reviewd Social History: lives with and son Diagnostics Vital Signs (24Hr): Vital Signs - 24 hr 09/24/21 15:33 09/24/21 19:42 09/25/21 00:00 Temperature 97.7 F 97.3 F Pulse Rate 65 89 Respiratory Rate 16 16 16 Blood Pressure 135/74 153/78 H Pulse Oximetry 95 99 09/25/21 04:00 09/25/21 07:26 09/25/21 11:21 Temperature 98 F 98.3 F Pulse Rate 63 54 Respiratory Rate 16 16 16 Blood Pressure 190/92 H 168/92 H Pulse Oximetry 94 97 Body Mass Index 25.0 Labs Results: 09/21/21 05:27 09/25/21 05:45 Labs: Laboratory Results - last 48 hr 09/23/21 09/23/21 09/24/21 16:06 20:03 07:38 Sodium Potassium Chloride Carbon Dioxide Anion Gap BUN Creatinine Estim Creat Clear Calc Estimated GFR POC Glucose 165 H 140 H 129 H Random Glucose Calcium Magnesium 09/24/21 09/24/21 09/24/21 11:09 16:32 20:07 Sodium Potassium Chloride Carbon Dioxide Anion Gap BUN Creatinine Estim Creat Clear Calc Estimated GFR POC Glucose 160 H 102 149 H Random Glucose Calcium Magnesium 09/25/21 09/25/21 09/25/21 05:45 07:25 11:19 Sodium 139 Potassium 3.5 Chloride 105 Carbon Dioxide 27 Anion Gap 11 L BUN 20 H Creatinine 1.16 Estim Creat Clear Calc 77.9 Estimated GFR > 60 POC Glucose 128 H 205 H Random Glucose 121 H Calcium 8.5 Magnesium 1.7 Imaging Radiology Impressions: ITS Impressions Foot X-Ray 09/20/21 17:16 IMPRESSION: Normal left foot. Mental Status Exam Mental Status Exam Patient Appearance: Disheveled Patient Orientation: Person Level of Consciousness: Restless and Combative (at times) Patient Behavior: Confused (yes) and Sundowning Mood Description: Apathetic (perplexed) Affect Description: Anxious Patient Cognition Impaired: Yes Ability to Follow Directions: Poor Speech Pattern: Impoverished and Rambling Memory Description: Immediate Impaired, Longterm Impaired and Recent Impaired Hallucinations: Visual (History of VH) Delusions: Not Present Thought Process: Incoherent and Illogical Thought Content: positive for Disorganized Judgement: Poor Medications Medications Current Medications Acetaminophen (Acetaminophen 325 Mg Tablet) 650 mg PO Q6H PRN PRN Reason: Pain, Mild (Pain Scale 1-3) Allopurinol (Allopurinol 300 Mg Tablet) 300 mg PO DAILY [facility] Last Admin: 09/25/21 07:55 Dose: 300 mg Documented by: Amiodarone HCl (Amiodarone Hcl 200 Mg Tablet) 200 mg PO DAILY [facility] Last Admin: 09/25/21 07:55 Dose: 200 mg Documented by: Amoxicillin/Clavulanate Potassium (Amoxicillin/Potassium Clav 875 Mg Tablet) 875 mg PO Q12H [facility] Last Admin: 09/25/21 05:45 Dose: 875 mg Documented by: Apixaban (Apixaban 5 Mg Tablet) 5 mg PO BID [facility] Last Admin: 09/25/21 07:55 Dose: 5 mg Documented by: Atorvastatin Calcium (Atorvastatin Calcium 40 Mg Tablet) 40 mg PO BEDTIME [facility] Last Admin: 09/24/21 20:04 Dose: 40 mg Documented by: Bupropion HCl (Bupropion Hcl Xl 300 Mg Tab.Er.24h) 300 mg PO DAILY [facility] Last Admin: 09/25/21 07:56 Dose: 300 mg Documented by: Dextrose (Dextrose 50 % 25 Gm/50 Ml Vial) 25 gm IVPUSH Q15M PRN; Protocol PRN Reason: per Hypoglycemia Standing Ord. Doxycycline Hyclate (Doxycycline Hyclate 100 Mg Tablet) 100 mg PO Q12H [facility] Last Admin: 09/25/21 05:45 Dose: 100 mg Documented by: Escitalopram Oxalate (Escitalopram Oxalate 20 Mg Tablet) 20 mg PO DAILY [facility] Last Admin: 09/25/21 07:56 Dose: 20 mg Documented by: Glucose (Glucose Gel 15 Gm Gel..Gram.) 15 gm PO Q15M PRN; Protocol PRN Reason: per Hypoglycemia Standing Ord. Melatonin (Melatonin 3 Mg Tablet) 6 mg PO BEDTIME PRN PRN Reason: Insomnia Last Admin: 09/24/21 21:16 Dose: 6 mg Documented by: Metoprolol Succinate (Metoprolol Succinate Er 100 Mg Tab.Er.24h) 100 mg PO DAILY [facility]; Protocol Last Admin: 09/25/21 07:56 Dose: 100 mg Documented by: Pharmacy Consult (Consult Rx Vancomycin Dosing) 1 each MISCELLANE DAILY PRN PRN Reason: Consult order Pharmacy Consult (Consult Rx Perform Med Rec) 1 each MISCELLANE ONCE PRN PRN Reason: Consult order Pharmacy Consult (Consult Rx Vancomycin Dosing) 1 each MISCELLANE DAILY PRN PRN Reason: Consult order Quetiapine Fumarate (Quetiapine Fumarate 25 Mg Tablet) 25 mg PO TID [facility] Last Admin: 09/25/21 07:55 Dose: 25 mg Documented by: Sacubitril/Valsartan (Sacubitril/Valsartan 24/26 1 Tab Tablet) 1 tab PO BID [facility]; Protocol Last Admin: 09/25/21 07:56 Dose: 1 tab Documented by: Senna (Sennosides 8.6 Mg Tablet) 17.2 mg PO BEDTIME PRN PRN Reason: Constipation Sodium Chloride (0.9 % Sodium Chloride Flush 3 Ml Syringe) 3 ml IVFLUSH QSHIFT [facility] Last Admin: 09/25/21 08:05 Dose: Not Given Documented by: Allergies Allergies Allergy/AdvReac Type Severity Reaction Status Date / Time colchicine Allergy Rash Verified 07/20/21 15:56 lorazepam [From Ativan] AdvReac Severe paradoxical Verified 09/23/21 18:20 reaction; severe agitation Assessment & Plan Assessment & Plan (1) Cellulitis: Status: Acute Code(s): L03.90 - Cellulitis, unspecified (2) Dementia associated with other underlying disease with behavioral disturbance: Status: Acute Code(s): F02.81 - Dementia in other diseases classified elsewhere with behavioral disturbance Assessment and Plan: Dementia with behavioral changes. Currently non combative. Note X psych meds. I DW Dr Magaña to reduce polypharmacy and avoid benadryl and hydroxyzine PlAN: 1. rEDUCE lEXAPRO TO 10 MG GIVEN age and Hx prolonged QTc 2. PCP to review need for Wellbutrin. 3. Ct Seroquel. Could be increased as needed. 4. Use Haldol for acute behaviors. 5. I am unclear why Prozac was DCd and pt is back on Lexapro + Wellbutrin I spent minutes with the patient and/or on the patient floor today, greater than?50% of which was spent counseling/coordinating care.
--- NOTE | 2021-09-25 15:18 | MHC.CM.PN ---
DC HELD YESTERDAY. PT WILL DC HOME TODAY WITH [facility] UNABLE TO OFFER SERVICES FIVE REFERRALS PLACED TO SECURE SNF SERVICES FOR WOUND CARE AWAITING RESPONSES
--- NOTE | 2021-09-25 15:20 | W.MHC.F2F ---
Service Date Service Date: 09/25/21 Encounter Date of encounter: 09/25/21 Reasons for Services Signs and symptoms assessed: Left 2nd toe wound knee daily dressing, also recurrent falls with underlying dementia neuropathy Reason for snf: wound care and medication treatment Homebound: Leaving the home is medically contraindicated at this time without the asist of a device and/or another person due th the listed conditions above and below. Reason homebound: unsteady gait / fall risk Certification: Based on the above findings, I certify that this patient is confined to the home and needs intermittent snf care, physical therapy and/or speech therapy, or continues to need occupational therapy. The patient is under my care, and I have initiated the establishment of the plan of care. The patient will be followed by a physician who will periodically review the plan of care.
--- NOTE | 2021-09-25 15:47 | MHC.CM.PN ---
CM MET WITH PT AND SON RE DC PLAN THEY ARE AWARE A VNA HAS BEEN ORDERED HOWEVER NO ONE HAS ACCEPTED OF YET. TEN MORE REFERRALS WERE PLACED. CM WILL CALL PTS ONCE VNA IS SECURED TO PROVIDE NAME AND CONTACT INFO PTS SON WILL TRANSPORT
--- NOTE | 2021-09-27 11:31 | MHC.CM.PN ---
nurse home health care provider note POST DISCHARGE FROM THE HOSPITAL ON 09/25/21 ASKED BY CASE MANAGEMENT PERSONAL COMPUTER SPECIALIST TO MAKE REFERRAL TO THE [facility] CASE MANGER CO WORKERS WERE UNABLE TO SECUIURE VISITING NURSE VISITS FOR [facility] FOR WOUND CARE, SPOKE WITH PATHIENT THELMA BLANKENSHIP BY PHONE, SHE IS IN AGREEMENT WITH ME MAKING REFERRAL TO THE [facility], THIS REFERRAL WAS CALLED TO THEM, AND FAXED HISTORY/OPHYSICAL AND DISCHARGE SUMMARY, GEN SURGICAL NOTE, TO THEM AT FAX [phone]. CALLED BACK TO PATIENTS AND INFORMED HER I HAD MADE THE REFERRAL AND THE WOUND CLINIC WOULD BE CALLING HER TODAY OR TOMORROW WITH APPOINTMENT TIME, THELMA ALSO REPORTED TAHAT SHE HAS APPOINTMENT WITH DR HERNANDEZ SURGEON FOR 09/28/21 AT 08;45 FOR WOUND CHECK. CALLED TO SURGEONS OFFICE TO INFORM DR DARNELL NURSE THAT WE WERE NOT ABLE TO SECURE VNA FOR PATIENT AND HAD MADE REFERRAL TO THE [facility]. SHE WILL INFORM RAO.
== END 2021-09-25 15:53 | disposition home health service (06) | DRG 638 ==
LOC: HO.ED 20:02 → HO.EDOVER 20:18 → HO.S3 20:33
PROVIDERS: Admitting Provider Hospitalist; Emergency Provider Emergency Medicine Emergency Medical Services; PCP Internal Medicine; Visit Provider Hospitalist
DX: E11.69 Type 2 diabetes mellitus with other specified complication (principal); I50.22 Chronic systolic (congestive) heart failure; F02.81 Dementia in other diseases classified elsewhere, unspecified severity, with behavioral disturbance; L97.526 Non-pressure chronic ulcer of other part of left foot with bone involvement without evidence of necrosis; M86.9 Osteomyelitis, unspecified; E11.621 Type 2 diabetes mellitus with foot ulcer; I48.91 Unspecified atrial fibrillation; N17.9 Acute kidney failure, unspecified; R29.6 Repeated falls; Z91.81 History of falling; E78.5 Hyperlipidemia, unspecified; G31.83 Neurocognitive disorder with Lewy bodies; L03.032 Cellulitis of left toe; E11.42 Type 2 diabetes mellitus with diabetic polyneuropathy; G30.9 Alzheimer's disease, unspecified; F41.9 Anxiety disorder, unspecified; I11.0 Hypertensive heart disease with heart failure; F32.A Depression, unspecified; Z20.822 Contact with and (suspected) exposure to COVID-19; Z79.01 Long term (current) use of anticoagulants; Z79.84 Long term (current) use of oral hypoglycemic drugs; Z79.899 Other long term (current) drug therapy
CPT/HCPCS: 36415; 73630; 80048; 80061; 80202; 82947; 83605; 83735; 85025; 85652; 86140; 87040; 87071; 87077; 87186; 87205; 87635; 93005; 97162; 99285; J0696; J2060; J2543; J3370

== ENCOUNTER 2021-09-28 08:17 | Observation (INO) | payer MEDICARE, SELFPAY ==
--- NOTE | ~2021-09-28 | XR_ITS ---
EXAMINATION: XR CHEST CLINICAL INFORMATION: Fall, lightheaded COMPARISON: Chest radiographs 07/20/2021, 06/23/2021 TECHNIQUE: Supine AP view of the chest was obtained. FINDINGS: The lungs are clear. There is no airspace consolidation or effusion. The heart is normal in size. The vascularity is normal. No visible acute bony abnormality. XR/XR chest 1V IMPRESSION: Unremarkable examination.
--- NOTE | ~2021-09-28 | XR_ITS ---
EXAMINATION: XR HIP, LEFT CLINICAL INFORMATION: Fall with pain COMPARISON: July 20, 2021 TECHNIQUE: AP pelvis and 2 views of the left hip. FINDINGS: There is no evidence of acute fracture or diastases the pelvis. Hip joint spaces are maintained. Osteitis pubis is seen. Changes of enthesopathy noted. Sacroiliac joints unremarkable. Views of the left hip do not demonstrate any evidence of acute fracture or dislocation. Hip joint space is maintained. No destructive bony lesion identified. 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 XR/XR hip LT w PEL1V IMPRESSION: No significant abnormality of the pelvis or left hip identified.
--- NOTE | ~2021-09-28 | CT_ITS ---
EXAMINATION: CT CERVICAL SPINE WITHOUT CONTRAST CLINICAL INFORMATION: Fall with pain COMPARISON: None TECHNIQUE: CT cervical spine with coronal and sagittal reconstructions. This CT examination was performed using dose optimization techniques as appropriate, variously including the following: *Automated exposure control *Adjustment of mA and/or kV according to patient size (this includes techniques or standardized protocols for targeted exams where dose is matched to indication/reason for exam; i.e. extremities or head) *Use of iterative reconstruction technique DLP: 785.20 mGy-cm FINDINGS: No abnormal prevertebral soft tissue swelling is seen. Paraspinal muscle planes are intact. No acute cervical spine fracture is noted. No suspicious destructive bony lesion is identified. Visualized portions of the paranasal sinuses and mastoid air cells unremarkable. Pterygoid plates intact. No significant temporomandibular joint abnormality is noted. Vertebral, basilar, and carotid artery calcification present. There appears to be fusion of the left C2-C3 facets. There is facet arthropathy with spurring and irregularity C3-C5 on the left and C2-C4 on the right. There is disc space narrowing seen C4-T1 with marginal spurring. There is mild neural foraminal encroachment bilaterally at these levels. CT/CT cervical spine wo con IMPRESSION: No acute cervical spine fracture. Multilevel cervical spondylosis as described.
--- NOTE | ~2021-09-28 | CT_ITS ---
EXAMINATION: CT HEAD WITHOUT CONTRAST CLINICAL INFORMATION: Fall, trauma, pain COMPARISON: CT head noncontrast 07/20/2021, 06/21/2021 TECHNIQUE: Contiguous axial imaging was performed from the skull base to vertex without intravenous administration of contrast. Additional 2-D coronal and sagittal reformatted images are generated on the CT workstation and uploaded to PACS. This CT examination was performed using dose optimization techniques as appropriate, variously including the following: *Automated exposure control *Adjustment of mA and/or kV according to patient size (this includes techniques or standardized protocols for targeted exams where dose is matched to indication/reason for exam; i.e. extremities or head) *Use of iterative reconstruction technique DLP: 1028 mGy-cm FINDINGS: There is no intracranial hemorrhage, hematoma, or extra-axial fluid collection. The ventricles are normal in size. There is no hydrocephalus, edema, or mass effect. The de [place] tor[place]-white matter differentiation is similar to prior exams. Again, there is moderate bilateral periventricular white matter gliosis consistent with chronic small vessel ischemic changes. There is no visible acute territorial infarct or mass lesion. The calvarium appears intact. There is no pneumocephalus or orbital emphysema. The visualized sinuses and middle ears and mastoid air cells show no significant mucosal thickening. There are no air-fluid levels. CT/CT head/brain wo con IMPRESSION: No acute intracranial abnormality.
[2021-09-28 08:23] VITALS: BP 99/52; PULSE 55; RESP 20; TEMP 36.4; O2SAT 98; BMI 24.3
--- NOTE | 2021-09-28 08:55 | ECG_ITS ---
Test Reason : FALL Blood Pressure : / mmHG Vent. Rate : 050 BPM Atrial Rate : 050 BPM P-R Int : 144 ms QRS Dur : 090 ms QT Int : 632 ms P-R-T Axes : 048 055 051 degrees QTc Int : 576 ms Sinus bradycardia Prolonged QT Abnormal ECG No significant changes seen Referred By: Loulou Gonzalez Electronically Signed By:CHI MARTINS MD
--- NOTE | 2021-09-28 08:58 | ED_ITS ---
HPI - Fall General Chief Complaint: Fall Stated Complaint: multiple falls, back pain Time Seen by Provider: 09/28/21 08:40 Source: patient Mode of arrival: ambulatory History of Present Illness HPI Narrative: 66-year-old male with past medical history of hypertension, hyperlipidemia, DM, CHF, AFib on Eliquis, anxiety, depression, gout, Lewy body dementia, recurrent falls, recently discharged from our facility on 09/25 for left toe suspected osteomyelitis on outpatient Doxycycline and Augmentin presenting to the ED complaining of fall this morning at home. Per she was in the bathroom and when woke up patient on ground. Reports history of recurrent falls, patient states felt lightheaded/dizzy prior to fall, unknown head trauma or LOC. patient complaining of left hip/buttock pain and abdominal pain Denies headache, neck/back pain, CP/SOB, nausea, vomiting, diarrhea MD complaint: fall Onset (ago): hour(s) Related Data Home Medications Medication Instructions Recorded Confirmed allopurinol 300 mg tablet 300 mg PO DAILY 06/04/21 09/20/21 apixaban 5 mg tablet (Eliquis) 5 mg PO BID 06/04/21 09/20/21 bupropion HCl 300 mg 24 hr tablet, 1 tab PO DAILY 06/04/21 09/20/21 extended release magnesium oxide 400 mg PO DAILY 07/20/21 09/20/21 metformin 500 mg tablet 500 mg PO BID 07/20/21 09/20/21 quetiapine 25 mg tablet 25 mg PO TID 09/20/21 09/20/21 sacubitril 24 mg-valsartan 26 mg 1 tab PO BID 09/20/21 09/20/21 tablet (Entresto) Previous Rx's Medication Instructions Recorded amiodarone 200 mg tablet 200 mg PO DAILY #30 tab 06/24/21 metoprolol succinate 100 mg 100 mg PO DAILY 30 Days #30 tab 06/24/21 tablet,extended release 24 hr trazodone 50 mg tablet 25 mg PO TID PRN #90 tab 07/27/21 amoxicillin 875 mg-potassium 875 mg PO Q12H #12 tab 09/24/21 clavulanate 125 mg tablet atorvastatin 40 mg tablet (Lipitor) 40 mg PO BEDTIME #30 tab 09/24/21 doxycycline hyclate 100 mg tablet 100 mg PO Q12H #82 tab 09/24/21 escitalopram oxalate 10 mg tablet 10 mg PO DAILY #30 tab 09/25/21 (Lexapro) furosemide 40 mg tablet 40 mg PO DAILY #60 tab 09/25/21 melatonin 3 mg capsule 3 mg PO BEDTIME #30 cap 09/25/21 Allergies Allergy/AdvReac Type Severity Reaction Status Date / Time colchicine Allergy Rash Verified 07/20/21 15:56 lorazepam [From Ativan] AdvReac Severe paradoxical Verified 09/23/21 18:20 reaction; severe agitation Review of Systems Review of Systems: Constitutional: No Fever, No Fatigue, No Malaise ENT/Mouth: No Ear Pain, No sore throat Cardiovascular: No Chest Pain, No SOB Respiratory: No Cough, No Dyspnea Gastrointestinal: No Nausea, No Vomiting, No Diarrhea, No Constipation, + Abdominal pain Genitourinary: No Dysuria, No Hematuria, No Flank Pain Musculoskeletal: + joint pain, No Myalgias, No Joint Swelling Skin: + Skin Lesions, No rash Neuro: No Weakness, Unknown Loss of Consciousness, +lightheaded/ Dizziness, No Headache History limited 2nd to patient's baseline dementia Yes all other systems are reviewed and are negative Neurologic: Denies Abnormal speech present PMFSH Past Medical History Attestation statement: The following information was validated with the patient. 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 Noncompliance with medications NSVT (nonsustained ventricular tachycardia) PAF (paroxysmal atrial fibrillation) Peripheral neuropathy Vertebrobasilar dolichoectasia Family History Family History Father CAD (coronary artery disease) Social History Social History Household Members: Spouse Household Members Other:: and son Housing: House Do you presently have visiting nurse or other home services: No Alcohol intake: never Patient Tobacco Use Status: Never used Tobacco Second Hand Smoke Exposure: No Use of substances other than those prescribed or required for medical reasons: No Advance Directives: Yes Advance Directives on File: Yes Advance Directives Date on File: 06/21/21 service: No Current occupational status: retired Physical Exam Vital Signs: Vital Signs: Last Vital Signs Temp 98.1 F 09/28/21 16:48 Pulse 61 09/28/21 16:48 Resp 14 09/28/21 16:48 BP 112/44 L 09/28/21 16:48 Pulse Ox 99 09/28/21 16:48 Body Mass Index 24.3 Const: General: cooperative, healthy appearing, well developed, alert and awake Limitations: other limitations (Baseline dementia) HENMT: Head: Yes normal to inspection and Yes atraumatic Ears: hearing grossly normal bilaterally General nose exam: Normal external nose present Face and sinus: Yes normal facial exam Mouth: Normal oral and palatal mucosa present Throat: Yes posterior oropharynx normal Eyes: General: appearance normal, both eyes and all related structures Pupils: Equal, round and reactive pupils present EOM: EOMs intact bilaterally Neck: Other: No midline cervical spinous tenderness/step-off or deformity Neck: Yes normal visual inspection Chest: Chest palpation & inspection: normal inspection of the chest, no crepitus and no tenderness Resp: Effort & Inspection: normal respiratory effort Auscultation: clear to auscultation bilaterally, no rales, no rhonchi and no wheezes Cardio: Rate: regular rate Heart sounds: S1 normal heart sound present and S2 normal heart sound present GI: Inspection: Yes normal to inspection Palpation (GI): Soft to palpation, nontender, no guarding and not rigid Back/Spine/Pelvis: Other: No midline thoracic/lumbar spine tenderness/step-off or deformity Skin: Rashes: no rashes Wounds: no wounds Neuro: General: tone normal, moves all extremities, no focal motor deficits and CN's II-XI intact bilaterally Cranial nerves: Yes CN's II-XII intact bilaterally, Yes Equal, round and reactive pupils present and Yes Bilaterally intact EOM present Speech: No Abnormal speech present Gait exam (Neuro): Normal gait present Motor exam (neuro): 5/5 motor strength present throughout, Pronator motor function not present and no tremor noted Coordination: [id number] test normal Romberg Test: Negative Extrem: Other: Please refer to image above of left 2nd toe ulceration. Distal pulses intact. No warmth. No drainage/fluctuance or induration Left hip/buttock with tenderness to palpation. Pain with passive ROM Course Course Course Narrative: -1056--mild leukocytosis of 11.3. H&H at patient's baseline, ESR/CRP elevated however improved from prior -WILMER with creatinine 1.7, BUN of 23, BNP 394, troponin 9.3 >will obtain 3 over repeat -CXR unremarkable, head CT/C-spine without acute findings, left hip/pelvis XR without abnormality MDM - Fall MDM Narrative Medical decision making narrative: 66-year-old male with past medical history of hypertension, hyperlipidemia, DM, CHF, AFib on Eliquis, anxiety, depression, gout, Lewy body dementia, recurrent falls, recently discharged from our facility on 09/25 for left toe suspected osteomyelitis on outpatient Doxycycline and Augmentin presenting to the ED complaining of fall this morning at home. Mildly hypotensive, and ADD, nontoxic, physical exam as above, no focal neuro deficits, no midline spinous tenderness throughout, left hip/buttock tenderness elicited in pain with passive ROM. Concern for fracture vs ICH vs metabolic/infectious etiology vs ACS Plan: EKG, labs, CXR, UA, head/C-spine CT, IVF, re-evaluate Medical Records Attestation: I reviewed the patient's medical records. Lab Data Attestation: I reviewed the patient's lab results. Result diagrams: 09/28/21 09:58 09/28/21 09:58 Labs: Lab Results 09/28/21 09/28/21 09/28/21 Range/Units 09:53 09:58 09:58 WBC 11.3 H (4.8-10.8) X10*3/uL RBC 3.03 L (4.60-5.80) X10*6/uL Hgb 9.1 L (14.0-18.0) g/dl Hct 28.3 L (42.0-52.0) % MCV 93.4 (80.0-98.0) fL MCH 30.0 (27.0-33.0) pg MCHC 32.2 (31.0-36.0) g/dl RDW 15.4 (11.0-16.0) % Plt Count 368 (160-400) X10*3/uL MPV 9.6 (9.4-12.4) fL Immature Gran % (Auto) 1.4 H (0.0-0.4) % Neut % (Auto) 86.1 H (45-73) % Lymph % (Auto) 7.3 L (20-40) % [place] % (Auto) 4.1 (2-11) % Eos % (Auto) 0.8 (0-4) % Baso % (Auto) 0.3 (0-2) % Lymph # (Auto) 0.8 L (1.2-4.9) X10*3/uL [place] # (Auto) 0.5 (0.1-1.2) X10*3/uL Eos # (Auto) 0.1 (0.0-0.4) X10*3/uL Baso # (Auto) 0.0 (0.0-0.2) X10*3/uL Abs Immat Gran (auto) 0.16 H (0.00-0.03) X10*3/uL Absolute Neuts (auto) 9.75 H (2.0-8.3) x10*3/uL Absolute Nucleated RBC 0.000 (0.0-0.012) X10*3/uL Nucleated RBC % (auto) 0.0 (0.0-0.2) /100WBC ESR (0-15) MM/HR Sodium 138 (135-145) mmol/L Potassium 4.4 D (3.3-5.1) mmol/L Chloride 102 (96-108) mmol/L Carbon Dioxide 25 (22-29) mmol/L Anion Gap 15 (12-20) BUN 23 H (9-16) mg/dL Creatinine 1.70 H (0.5-1.4) mg/dL Estim Creat Clear Calc 51.7 Estimated GFR 41 Random Glucose 199 H D (60-115) mg/dL Calcium 9.1 D (8.4-10.2) mg/dL Magnesium 1.8 (1.6-2.6) mg/dL Total Bilirubin 0.6 (0.0-1.0) mg/dL Direct Bilirubin 0.3 (0.0-0.5) mg/dL AST 20 (5-37) U/L ALT 15 (0-40) U/L Alkaline Phosphatase 106 (39-117) U/L Total Creatine Kinase 182 H (38-174) U/L Troponin I High Sens (<3.5-35.0) ng/L C-Reactive Protein 0.90 H (< or = 0.50) mg/dL B-Natriuretic Peptide (<100) pg/mL Total Protein 6.5 (6.5-8.0) g/dL Albumin 3.6 (3.5-5.0) g/dL Lipase 5 L (8-78) U/L Urine Color Urine Appearance Urine pH (5.0-8.0) Ur Specific [place] (1.005-1.025) Urine Protein (NEG-TRACE) MG/DL Urine Glucose (UA) (NEG) MG/DL Urine Ketones (NEG) MG/DL Urine Blood (NEG) Urine Nitrite (NEG) Ur Leukocyte Esterase (NEG) COVID-19 ([facility]) Negative (Negative) COVID-19 Clin Com See Note 09/28/21 09/28/21 09/28/21 Range/Units 09:58 09:58 13:02 WBC (4.8-10.8) X10*3/uL RBC (4.60-5.80) X10*6/uL Hgb (14.0-18.0) g/dl Hct (42.0-52.0) % MCV (80.0-98.0) fL MCH (27.0-33.0) pg MCHC (31.0-36.0) g/dl RDW (11.0-16.0) % Plt Count (160-400) X10*3/uL MPV (9.4-12.4) fL Immature Gran % (Auto) (0.0-0.4) % Neut % (Auto) (45-73) % Lymph % (Auto) (20-40) % [place] % (Auto) (2-11) % Eos % (Auto) (0-4) % Baso % (Auto) (0-2) % Lymph # (Auto) (1.2-4.9) X10*3/uL [place] # (Auto) (0.1-1.2) X10*3/uL Eos # (Auto) (0.0-0.4) X10*3/uL Baso # (Auto) (0.0-0.2) X10*3/uL Abs Immat Gran (auto) (0.00-0.03) X10*3/uL Absolute Neuts (auto) (2.0-8.3) x10*3/uL Absolute Nucleated RBC (0.0-0.012) X10*3/uL Nucleated RBC % (auto) (0.0-0.2) /100WBC ESR 44 H (0-15) MM/HR Sodium (135-145) mmol/L Potassium (3.3-5.1) mmol/L Chloride (96-108) mmol/L Carbon Dioxide (22-29) mmol/L Anion Gap (12-20) BUN (9-16) mg/dL Creatinine (0.5-1.4) mg/dL Estim Creat Clear Calc Estimated GFR Random Glucose (60-115) mg/dL Calcium (8.4-10.2) mg/dL Magnesium (1.6-2.6) mg/dL Total Bilirubin (0.0-1.0) mg/dL Direct Bilirubin (0.0-0.5) mg/dL AST (5-37) U/L ALT (0-40) U/L Alkaline Phosphatase (39-117) U/L Total Creatine Kinase (38-174) U/L Troponin I High Sens 9.3 7.4 (<3.5-35.0) ng/L C-Reactive Protein (< or = 0.50) mg/dL B-Natriuretic Peptide 394 H (<100) pg/mL Total Protein (6.5-8.0) g/dL Albumin (3.5-5.0) g/dL Lipase (8-78) U/L Urine Color Urine Appearance Urine pH (5.0-8.0) Ur Specific [place] (1.005-1.025) Urine Protein (NEG-TRACE) MG/DL Urine Glucose (UA) (NEG) MG/DL Urine Ketones (NEG) MG/DL Urine Blood (NEG) Urine Nitrite (NEG) Ur Leukocyte Esterase (NEG) COVID-19 ([facility]) (Negative) COVID-19 Clin Com 09/28/21 Range/Units 13:02 WBC (4.8-10.8) X10*3/uL RBC (4.60-5.80) X10*6/uL Hgb (14.0-18.0) g/dl Hct (42.0-52.0) % MCV (80.0-98.0) fL MCH (27.0-33.0) pg MCHC (31.0-36.0) g/dl RDW (11.0-16.0) % Plt Count (160-400) X10*3/uL MPV (9.4-12.4) fL Immature Gran % (Auto) (0.0-0.4) % Neut % (Auto) (45-73) % Lymph % (Auto) (20-40) % [place] % (Auto) (2-11) % Eos % (Auto) (0-4) % Baso % (Auto) (0-2) % Lymph # (Auto) (1.2-4.9) X10*3/uL [place] # (Auto) (0.1-1.2) X10*3/uL Eos # (Auto) (0.0-0.4) X10*3/uL Baso # (Auto) (0.0-0.2) X10*3/uL Abs Immat Gran (auto) (0.00-0.03) X10*3/uL Absolute Neuts (auto) (2.0-8.3) x10*3/uL Absolute Nucleated RBC (0.0-0.012) X10*3/uL Nucleated RBC % (auto) (0.0-0.2) /100WBC ESR (0-15) MM/HR Sodium (135-145) mmol/L Potassium (3.3-5.1) mmol/L Chloride (96-108) mmol/L Carbon Dioxide (22-29) mmol/L Anion Gap (12-20) BUN (9-16) mg/dL Creatinine (0.5-1.4) mg/dL Estim Creat Clear Calc Estimated GFR Random Glucose (60-115) mg/dL Calcium (8.4-10.2) mg/dL Magnesium (1.6-2.6) mg/dL Total Bilirubin (0.0-1.0) mg/dL Direct Bilirubin (0.0-0.5) mg/dL AST (5-37) U/L ALT (0-40) U/L Alkaline Phosphatase (39-117) U/L Total Creatine Kinase (38-174) U/L Troponin I High Sens (<3.5-35.0) ng/L C-Reactive Protein (< or = 0.50) mg/dL B-Natriuretic Peptide (<100) pg/mL Total Protein (6.5-8.0) g/dL Albumin (3.5-5.0) g/dL Lipase (8-78) U/L Urine Color YELLOW Urine Appearance CLEAR Urine pH 6.0 (5.0-8.0) Ur Specific [place] 1.010 (1.005-1.025) Urine Protein NEG (NEG-TRACE) MG/DL Urine Glucose (UA) NEG (NEG) MG/DL Urine Ketones NEG (NEG) MG/DL Urine Blood NEG (NEG) Urine Nitrite NEG (NEG) Ur Leukocyte Esterase NEG (NEG) COVID-19 ([facility]) (Negative) COVID-19 Clin Com Discharge Plan Discharge Clinical Impression: WILMER (acute kidney injury), Multiple falls Patient Disposition: Admitted As Inpatient Prescriptions: No Action allopurinol 300 mg tablet 300 mg PO DAILY RF: 0 bupropion HCl 300 mg tablet extended release 24 hr 1 tab PO DAILY RF: 0 Eliquis 5 mg tablet 5 mg PO BID RF: 0 metoprolol succinate 100 mg Tablet Extended Release 24 Hr 100 mg PO DAILY 30 Days Qty: 30 RF: 0 amiodarone 200 mg tablet 200 mg PO DAILY Qty: 30 RF: 0 metformin 500 mg Tablet 500 mg PO BID RF: 0 magnesium oxide 400 mg magnesium Tablet 400 mg PO DAILY RF: 0 trazodone 50 mg tablet 25 mg PO TID PRN (Reason: agitation) Qty: 90 RF: 0 Entresto 24-26 mg tablet 1 tab PO BID RF: 0 quetiapine 25 mg tablet 25 mg PO TID RF: 0 doxycycline hyclate 100 mg Tablet 100 mg PO Q12H Qty: 82 RF: 0 amoxicillin-pot clavulanate 875-125 mg Tablet 875 mg PO Q12H Qty: 12 RF: 0 atorvastatin [Lipitor] 40 mg tablet 40 mg PO BEDTIME Qty: 30 RF: 0 escitalopram oxalate [Lexapro] 10 mg tablet 10 mg PO DAILY Qty: 30 RF: 0 melatonin 3 mg capsule 3 mg PO BEDTIME Qty: 30 RF: 0 furosemide 40 mg Tablet 40 mg PO DAILY Qty: 60 RF: 0
[2021-09-28] MEDS: 0.9 % Sodium Chloride 500 ML 999 ML IV ×2 (10:00→11:09)
[2021-09-28 10:04] LABS: MANUAL DIFF FLAG NO
[2021-09-28 10:07] LABS: Basophils Percent Auto 0.3 % (0-2); Eosinophils Absolute Auto 0.1 X10*3/uL (0.0-0.4); Eosinophils Percent Auto 0.8 % (0-4); Hematocrit 28.3 % (42.0-52.0); Hemoglobin 9.1 g/dl (14.0-18.0); Imm Gran Abs Auto 0.16 X10*3/uL (0.00-0.03); Imm Gran Pct Auto 1.4 % (0.0-0.4); Lymphocytes Absolute Auto 0.8 X10*3/uL (1.2-4.9); Lymphocytes Percent Auto 7.3 % (20-40); Mean Corpuscular HGB Conc 32.2 g/dl (31.0-36.0); Mean Corpuscular Volume 93.4 fL (80.0-98.0); Mean Platelet Volume 9.6 fL (9.4-12.4); Monocytes Absolute Auto 0.5 X10*3/uL (0.1-1.2); Monocytes Percent Auto 4.1 % (2-11); Neutrophils Absolute Auto 9.75 x10*3/uL (2.0-8.3); Neutrophils Percent Auto 86.1 % (45-73); Platelet Count 368 X10*3/uL (160-400); Red Blood Count 3.03 X10*6/uL (4.60-5.80); Red Cell Distribution Width 15.4 % (11.0-16.0); White Blood Count 11.3 X10*3/uL (4.8-10.8)
[2021-09-28 10:27] LABS: COVID-19 Test Negative (Negative); IDNOW Serial# 9DD0AD1C
[2021-09-28 10:32] LABS: Alanine Aminotransferase 15 U/L (0-40); Albumin Level 3.6 g/dL (3.5-5.0); Alkaline Phosphatase 106 U/L (39-117); Anion Gap 15 (12-20); Aspartate Amino Transferase 20 U/L (5-37); Bilirubin Direct 0.3 mg/dL (0.0-0.5); Bilirubin Total 0.6 mg/dL (0.0-1.0); Blood Urea Nitrogen 23 mg/dL (9-16); Calcium 9.1 mg/dL (8.4-10.2); Carbon Dioxide 25 mmol/L (22-29); Chloride 102 mmol/L (96-108); Creatinine Clr Calc Pharmacy 51.7; Estimated Glomerular Filt Rate 41; Glucose Random 199 mg/dL (60-115); Lipase 5 U/L (8-78); Magnesium 1.8 mg/dL (1.6-2.6); Potassium 4.4 mmol/L (3.3-5.1); Sodium 138 mmol/L (135-145); Total Protein 6.5 g/dL (6.5-8.0)
[2021-09-28 10:34] LABS: B Type Natriuretic Peptide 394 pg/mL (<100); Troponin-I High Sensitivity 9.3 ng/L (<3.5-35.0)
[2021-09-28 10:41] VITALS: BP 114/54; PULSE 51; RESP 14
[2021-09-28 10:41] LABS: Erythrocyte Sedimentation Rate 44 MM/HR (0-15)
[2021-09-28 13:30] LABS: Appearance Urine CLEAR; Color Urine YELLOW; Glucose Urine UA NEG (NEG); Leukocyte Esterase Urine NEG (NEG); Nitrite Urine NEG (NEG); Urine Blood NEG (NEG); Urine Ketones NEG (NEG); Urine Protein NEG (NEG-TRACE)
[2021-09-28 13:33] LABS: Troponin-I High Sensitivity 7.4 ng/L (<3.5-35.0)
[2021-09-28 16:48] VITALS: BP 112/44; PULSE 61; RESP 14; TEMP 36.7; O2SAT 99
--- NOTE | 2021-09-28 16:54 | PM.IMHP ---
History of Present Illness Date of Service: 09/28/21 Attending physician on admission: Devon Magaña 66-year-old male with a past medical history of hypertension, hyperlipidemia, diabetes, CHF, AFib on Eliquis, anxiety, depression, history of gout; history of Lewy body dementia, history of recurrent falls, recently discharged from [facility] on 09/25/21 after being treated for left 2nd toe diabetic ulcer with possible osteomyelitis and cellulitis patient was discharged home on oral antibiotic since felt not to be a candidate for IV antibiotic due to high risk for pulling IV lines with significant impulsivity with underlying dementia, patient underwent left 2nd toe debridement by General surgery and was recommended to have daily dressings, today patient was brought into [facility] since he was found on the floor complaining of left hip pain, patient sleeps on a hospital bed and sleeps on the couch went to use the bathroom when she returned patient was on the floor she was unable to lift him back to the bed therefore brought her to [facility] patient did complain of lightheadedness and dizziness prior to fall, as per he has been compliant on all home medications, he did not have any episodes of fever chills no new symptoms of shortness of breath cough, no urinary symptoms of urgency or frequency in the emergency room patient was noted to have be in acute renal failure with the creatinine 1.7 patient last creatinine was 1.16 prior to discharge 1 week ago, all workup in the ER including imaging studies of C CT head, C-spine, left hip and pelvic x-ray showed no acute fractures. Patient is now being admitted to [facility] due to recurrent falls and acute on chronic acute kidney injury. Review of Systems Review of Systems: Difficult to obtain detailed review of system due to underlying dementia however patient's and son assisted in obtaining General no headache,dizziness and lightheadedness prior to fall, no fever chills. CVS no chest pain, no palpitation. Respiratory no cough , no sob. 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 Noncompliance with medications NSVT (nonsustained ventricular tachycardia) PAF (paroxysmal atrial fibrillation) Peripheral neuropathy Vertebrobasilar dolichoectasia Family History Father CAD (coronary artery disease) Pertinent family history: no History of colon cancer Social History Household Members: Spouse Household Members Other:: and son Housing: House Alcohol intake: never Patient Tobacco Use Status: Never used Tobacco Second Hand Smoke Exposure: No Use of substances other than those prescribed or required for medical reasons: No Currently Displaying Signs/Symptoms of Drug Intoxication Withdrawal: No Have you been hit, kicked, punched, or otherwise hurt by someone within the past year? If so, by whom?: No Do you feel safe in your current relationship?: Yes Is there a partner from a previous relationship who is making you feel unsafe now?: No Are you made to feel afraid or neglected: No Advance Directives: Yes Advance Directives on File: Yes Advance Directives Date on File: 06/21/21 Do you have thoughts of harming others: None Do you have a plan to hurt others: No Plan Recently lost weight without trying: Unsure How much weight loss: Unsure Eating poorly because of decreased appetite: No Nutrition screen score: 4 Nutrition Risks: No Nutritional Risk Poor oral hygiene: No service: No Current occupational status: retired Meds Allergies Allergy/AdvReac Type Severity Reaction Status Date / Time colchicine Allergy Rash Verified 07/20/21 15:56 lorazepam [From Ativan] AdvReac Severe paradoxical Verified 09/23/21 18:20 reaction; severe agitation Active Medications: Current Medications Sodium Chloride (0.9 % Sodium Chloride Flush 3 Ml Syringe) 3 ml [facility] Medications Medication Instructions Recorded Confirmed Last Taken Type allopurinol 300 mg tablet 300 mg PO DAILY 06/04/21 09/28/21 09/27/21 History apixaban 5 mg tablet (Eliquis) 5 mg PO BID 06/04/21 09/28/21 09/27/21 History magnesium oxide 400 mg PO DAILY 07/20/21 09/28/21 09/27/21 History metformin 500 mg tablet 500 mg PO BID 07/20/21 09/28/21 09/27/21 History quetiapine 25 mg tablet 25 mg PO TID 09/20/21 09/28/21 09/27/21 History amiodarone 200 mg tablet 100 mg PO DAILY 09/28/21 09/28/21 09/27/21 History insulin glargine 100 unit/mL 15 unit SUBCUT BEDTIME 09/28/21 09/28/21 09/27/21 History subcutaneous solution (Lantus U-100 Insulin) Physical Exam Vital Signs and Narrative: Vital Signs: Last Vital Signs Temp 98.1 F 09/28/21 16:48 Pulse 61 09/28/21 16:48 Resp 14 09/28/21 16:48 BP 112/44 L 09/28/21 16:48 Pulse Ox 99 09/28/21 16:48 Body Mass Index 24.3 General awake alert, no acute distress. Neck supple no JVD. CVS regular rate rhythm, Respiratory lungs clear to auscultation, no respiratory distress, no wheeze, no rhonchi. Gastrointestinal abdomen soft, nontender, bowel sounds audible, no guarding , no rigidity. Extremities no edema. no CVA tenderness Neuro nonfocal, patient moving all 4 extremity, speech clear. Skin multiple scabs both knees left greater than right, right 2nd toe wound well healed with no drainage, no granulation tissue Musculoskeletal left hip, unable to internally rotate or do flexion due to pain, no bruising, no swelling noted Results Labs CBC and Chem 7: 09/28/21 09:58 09/29/21 05:52 Labs: Laboratory Results - last 24 hr 09/28/21 09/28/21 09/28/21 09:53 09:58 09:58 MCV 93.4 MCH 30.0 MCHC 32.2 RDW 15.4 Plt Count 368 MPV 9.6 Immature Gran % (Auto) 1.4 H Neut % (Auto) 86.1 H Lymph % (Auto) 7.3 L [place] % (Auto) 4.1 Eos % (Auto) 0.8 Baso % (Auto) 0.3 Lymph # (Auto) 0.8 L [place] # (Auto) 0.5 Eos # (Auto) 0.1 Baso # (Auto) 0.0 Abs Immat Gran (auto) 0.16 H Absolute Neuts (auto) 9.75 H Absolute Nucleated RBC 0.000 Nucleated RBC % (auto) 0.0 ESR Anion Gap 15 Estim Creat Clear Calc 51.7 Estimated GFR 41 Random Glucose 199 H D Calcium 9.1 D Magnesium 1.8 Total Bilirubin 0.6 Direct Bilirubin 0.3 AST 20 ALT 15 Alkaline Phosphatase 106 Total Creatine Kinase 182 H Troponin I High Sens C-Reactive Protein 0.90 H B-Natriuretic Peptide Total Protein 6.5 Albumin 3.6 Lipase 5 L Urine Color Urine Appearance Urine pH Ur Specific [place] Urine Protein Urine Glucose (UA) Urine Ketones Urine Blood Urine Nitrite Ur Leukocyte Esterase COVID-19 ([facility]) Negative COVID-19 Clin Com See Note 09/28/21 09/28/21 09/28/21 09:58 09:58 13:02 MCV MCH MCHC RDW Plt Count MPV Immature Gran % (Auto) Neut % (Auto) Lymph % (Auto) [place] % (Auto) Eos % (Auto) Baso % (Auto) Lymph # (Auto) [place] # (Auto) Eos # (Auto) Baso # (Auto) Abs Immat Gran (auto) Absolute Neuts (auto) Absolute Nucleated RBC Nucleated RBC % (auto) ESR 44 H Anion Gap Estim Creat Clear Calc Estimated GFR Random Glucose Calcium Magnesium Total Bilirubin Direct Bilirubin AST ALT Alkaline Phosphatase Total Creatine Kinase Troponin I High Sens 9.3 7.4 C-Reactive Protein B-Natriuretic Peptide 394 H Total Protein Albumin Lipase Urine Color Urine Appearance Urine pH Ur Specific [place] Urine Protein Urine Glucose (UA) Urine Ketones Urine Blood Urine Nitrite Ur Leukocyte Esterase COVID-19 ([facility]) COVID-19 Clin Com 09/28/21 13:02 MCV MCH MCHC RDW Plt Count MPV Immature Gran % (Auto) Neut % (Auto) Lymph % (Auto) [place] % (Auto) Eos % (Auto) Baso % (Auto) Lymph # (Auto) [place] # (Auto) Eos # (Auto) Baso # (Auto) Abs Immat Gran (auto) Absolute Neuts (auto) Absolute Nucleated RBC Nucleated RBC % (auto) ESR Anion Gap Estim Creat Clear Calc Estimated GFR Random Glucose Calcium Magnesium Total Bilirubin Direct Bilirubin AST ALT Alkaline Phosphatase Total Creatine Kinase Troponin I High Sens C-Reactive Protein B-Natriuretic Peptide Total Protein Albumin Lipase Urine Color YELLOW Urine Appearance CLEAR Urine pH 6.0 Ur Specific [place] 1.010 Urine Protein NEG Urine Glucose (UA) NEG Urine Ketones NEG Urine Blood NEG Urine Nitrite NEG Ur Leukocyte Esterase NEG COVID-19 ([facility]) COVID-19 Clin Com Imaging Radiologist's Impressions: Impressions Cervical Spine CT 09/28/21 08:55 IMPRESSION: No acute cervical spine fracture. Multilevel cervical spondylosis as described. Chest X-Ray 09/28/21 08:55 IMPRESSION: Unremarkable examination. Head CT 09/28/21 08:55 IMPRESSION: No acute intracranial abnormality. Hip/Pelvis X-Ray 09/28/21 08:55 IMPRESSION: No significant abnormality of the pelvis or left hip identified. Assessment and Plan (1) WILMER (acute kidney injury): Status: Acute (2) Multiple falls: Status: Acute (3) Diabetes: Status: Acute (4) Osteomyelitis: Status: Acute (5) Dementia associated with other underlying disease with behavioral disturbance: Status: Acute 66-year-old male with a past medical history of hypertension, hyperlipidemia, diabetes, CHF, AFib on Eliquis, anxiety, depression, history of gout; presented to the hospital with a chief complaint of left foot middle toes pain redness and swelling. Unsteady gait and fall History of unsteady gait and fall likely due to polypharmacy with lightheadedness dizziness and due to polyneuropathy. Patient seen by Physical therapy multiple times and recommended short-term rehab however family declined rehab and took patient home since at 20:47 care at home Family wishes physical therapy evaluation since patient was unable to get up today after a fall with left hip pain All imaging studies including left hip and pelvis x-ray showed no acute abnormality If patient continued to have left hip pain will obtain CT left hip and femur no head trauma, CT head and C-spine negative Left foot diabetic ulcer and high likelihood of left 2nd toe osteomyelitis Patient recently discharged home 09/25 on by mouth doxycycline for 6 weeks and Augmentin for 1 week Patient has high suspicion for osteomyelitis with elevated ESR and CRP, did not tolerate MRI study, blood cultures were negative No pain, no fevers,elevated ESR and CRP suggestive of possible osteomyelitis, Foot x-ray showed no osteo.? Blood cultures x2 negative patient underwent bedside debridement of left 2nd toe wound by Dr. Almendarez, and was recommended daily Silver alginate dressing and outpatient follow-up with General surgery Wound looks good today will consult Dr. Almendarez ,continue daily dressing as above Continue by mouth antibiotics as before Diabetes type 2 Blood sugars stable, hold metformin due to WILMER, placed on insulin sliding scale WILMER:? Likely pre renal received 1 L of fluid in ED, hold off on more IV fluid with history of CHF Creatinine bumped to 1.7 from a baseline of 1.1 Will hold Lasix and Entresto, follow BMP closely. History of CHF with reduced EF No acute exacerbation, hold diuretics since appears euvolemic , we will obtain cardiology consultation for medication adjustment. History of AFib:? Rate controlled.? Continue home Eliquis and amiodarone.? History of anxiety/depression:? Continue home escitalopram, Seroquel and bupropion, will reduce dose of bupropion likely contributing to fall. History of hypertension/hyperlipidemia:? Continue home metoprolol and statin.? 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 Case discussed with patient's and son at bedside discussed treatment plan and they agree with the above plan of care. DVT prophylaxis:?on Eliquis. Code status:? DNR/DNI Quality Stroke Does the patient have a stroke diagnosis?: No VTE Prior VTE?: No VTE Risk Level:: Medical - moderate - high VTE Device Contraindication: Treatment Not Indicated VTE Drug Contraindication: N/A - Med Ordered
--- NOTE | 2021-09-28 17:16 | PHA.MEDREC ---
Pharmacy Consult ? Medication Reconciliation Pharmacy has completed the medication reconciliation. Patient recently discharged. Patient's reports that patient Allopurinol, bupropion, Eliquis and Lantus however there is no record of these medication being filled recently at [facility] pharmacy. reports that all medications are filled at [facility] in [place]. Ana Umana, NayaD
--- NOTE | 2021-09-28 19:50 | PC.NURSE ---
RN assumed care at 1900. Pt alert and confused, hx dementia at baseline mental status at this time. Pt stating call my parents to have them pick me up . Pt educated multiple times that he will be admitted and staying overnight in the hospital. aware and states she does not want to him to be discharged to rehab. Pt denies pain. Pt noted to be climbing out of bed intermittently, re-oriented multiple times to stay in bed stating he is a fall risk. Pt laying in bed at this time, will continue to monitor.
[2021-09-28] MEDS: Amoxicillin/Potassium Clav 875 MG TABLET PO (20:11)
[2021-09-28] MEDS: Melatonin 3 MG TABLET PO (20:11)
[2021-09-28] MEDS: QUEtiapine Fumarate 25 MG TABLET PO (20:11)
[2021-09-28] MEDS: Apixaban 5 MG TABLET PO (20:11)
[2021-09-28] MEDS: Atorvastatin Calcium 40 MG TABLET PO (20:11)
[2021-09-28 21:15] LABS: Glucose, Whole Blood 197 mg/dL (60-115)
[2021-09-28] MEDS: traZODone HCL 25 MG HALFTAB PO (21:15)
[2021-09-28] MEDS: Insulin Glargine,Hum.rec.anlog 100 UNIT/ML 10 ML VIAL 15 UNIT SUBCUT (21:15)
[2021-09-28 21:42] VITALS: BP 127/61; PULSE 58; RESP 18; TEMP 36.7; O2SAT 99
--- NOTE | 2021-09-28 21:46 | PC.NURSE ---
Pt remains alert and confused at baseline mental status. Pt noted to try to climb out of bed after multiple attempts at educating patient to stay in bed and needing assistance due to being a high fall risk. Both side rails up and frequent q10 minutes checks being done on patient. Vitals remain stable. Pt calm at this time. Report given to MYRON Trevino.
[2021-09-28 23:51] VITALS: BP 132/66; PULSE 63; RESP 18; TEMP 36.7; O2SAT 100
[2021-09-29] VITALS (7 sets, daily range): BP systolic 118–135; BP diastolic 57–87; PULSE 62–68; RESP 17–20; TEMP 36.3–36.7; O2SAT 99–100
[2021-09-29 06:27] LABS: Anion Gap 11 (12-20); Blood Urea Nitrogen 27 mg/dL (9-16); Calcium 8.4 mg/dL (8.4-10.2); Carbon Dioxide 26 mmol/L (22-29); Chloride 104 mmol/L (96-108); Creatinine Clr Calc Pharmacy 67.1; Estimated Glomerular Filt Rate 55; Glucose Random 106 mg/dL (60-115); Potassium 3.3 mmol/L (3.3-5.1); Sodium 138 mmol/L (135-145)
[2021-09-29 07:39] LABS: Glucose, Whole Blood 113 mg/dL (60-115)
[2021-09-29] MEDS: buPROPion HCl XL 150 MG TAB.ER.24H PO (08:37)
[2021-09-29] MEDS: Magnesium Oxide 400 MG TABLET PO (08:38)
[2021-09-29] MEDS: Escitalopram Oxalate 10 MG TABLET PO (08:40)
[2021-09-29] MEDS: Amiodarone HCL 200 MG TABLET 100 MG PO (08:41)
[2021-09-29] MEDS: Metoprolol Succinate ER 50 MG TAB.ER.24H PO (08:42)
[2021-09-29] MEDS: allopurinoL 300 MG TABLET PO (08:43)
[2021-09-29] MEDS: QUEtiapine Fumarate 25 MG TABLET PO ×2 (08:43→15:26)
[2021-09-29] MEDS: Amoxicillin/Potassium Clav 875 MG TABLET PO (08:44)
[2021-09-29] MEDS: 0.9 % Sodium Chloride Flush 3 ML SYRINGE IVFLUSH ×2 (08:45→15:27)
[2021-09-29] MEDS: Apixaban 5 MG TABLET PO (08:45)
[2021-09-29] MEDS: Potassium Chloride Packet 20 MEQ PACKET 40 MEQ PO (08:46)
--- NOTE | 2021-09-29 11:01 | PM.CNCAR ---
History of Present Illness History of Present Illness Date of Service: 09/29/21 Requesting physician: Devon Magaña Chief complaint: Cardiovascular management Narrative: I was requested to see Terrence in cardiology consultation today to manages medications. He has had multiple hospitalization related to falls and dizziness. At several times he is noted to have different issues including this admission he has acute kidney injury. He presented with fall again. He does complain of dizziness all the time especially when is getting up or when he gets up from a stooping posture. He said he also has lack of balance and falls frequently. Not sure if there is any correlation between in feeling dizzy and falls. He has had prior history of orthostatic hypotension. He also has prior history of significant heart failure with markedly reduced LV ejection fraction which has gradually improved over time, was related with atrial fibrillation rapid ventricular response. Suspected to be tachycardia mediated. His atrial fibrillation has been suppressed with amiodarone. Overall his heart failure syndrome has got better. He is currently still on amiodarone, Eliquis, metoprolol. Metoprolol was reduced yesterday to 50 mg daily. He is Entresto and Lasix were held yesterday due to acute kidney injury. His renal function have improved. His orthostatic vitals performed this morning did not show any significant drop in orthostatic blood pressure. However he is noted to be significantly at risk for falls with significant imbalance. Cause for his imbalance is not clear could be polypharmacy related, could be related to his neuropathy or just deconditioning and weakening of his trunk muscles. He denies any shortness of breath, palpitations, orthopnea, PND, leg edema. Denies any chest pain. No actual loss of consciousness. No overt bleeding issues or neurologic events. He is very pleasant at my time of interview but has significant history of dementia and has had lot of cognitive issues as well as behavioral issues. Review of Systems Constitutional: Constitutional: Denies chills, Denies fever(s), Reports frequent falls and Reports weakness Eyes: Eyes: Reports no additional eye complaints ENT: Reports dizziness Cardiovascular: Cardiovascular: Reports no additional cardiovascular complaints Respiratory: Respiratory: Reports no additional respiratory complaints Gastrointestinal: Gastrointestinal: Reports no additional gastrointestinal complaints Musculoskeletal: Musculoskeletal: Reports abnormal gait Neurologic: Reports abnormal gait, Reports dizziness, Reports frequent falls and Reports weakness Psychiatric: Psychiatric: Reports no additional psychiatric complaints Endocrine: Endocrine: Reports no additional endocrine complaints PMFSH Past Medical History 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 Noncompliance with medications NSVT (nonsustained ventricular tachycardia) PAF (paroxysmal atrial fibrillation) Peripheral neuropathy Vertebrobasilar dolichoectasia Family History Family History Father CAD (coronary artery disease) Social History Social History Household Members: Spouse Household Members Other:: and son Housing: House Alcohol intake: never Patient Tobacco Use Status: Never used Tobacco Second Hand Smoke Exposure: No Use of substances other than those prescribed or required for medical reasons: No Currently Displaying Signs/Symptoms of Drug Intoxication Withdrawal: No Have you been hit, kicked, punched, or otherwise hurt by someone within the past year? If so, by whom?: No Do you feel safe in your current relationship?: Yes Is there a partner from a previous relationship who is making you feel unsafe now?: No Are you made to feel afraid or neglected: No Advance Directives: Yes Advance Directives on File: Yes Advance Directives Date on File: 06/21/21 Do you have thoughts of harming others: None Do you have a plan to hurt others: No Plan Recently lost weight without trying: Unsure How much weight loss: Unsure Eating poorly because of decreased appetite: No Nutrition screen score: 4 Nutrition Risks: No Nutritional Risk Poor oral hygiene: No service: No Current occupational status: retired Meds Allergies Allergy/AdvReac Type Severity Reaction Status Date / Time colchicine Allergy Rash Verified 07/20/21 15:56 lorazepam [From Ativan] AdvReac Severe paradoxical Verified 09/23/21 18:20 reaction; severe agitation Active Medications: Current Medications Allopurinol (Allopurinol 300 Mg Tablet) 300 mg PO DAILY [facility] Last Admin: 09/29/21 08:43 Dose: 300 mg Documented by: Amiodarone HCl (Amiodarone Hcl 200 Mg Tablet) 100 mg PO DAILY [facility] Last Admin: 09/29/21 08:41 Dose: 100 mg Documented by: Amoxicillin/Clavulanate Potassium (Amoxicillin/Potassium Clav 875 Mg Tablet) 875 mg PO BID [facility] Last Admin: 09/29/21 08:44 Dose: 875 mg Documented by: Apixaban (Apixaban 5 Mg Tablet) 5 mg PO BID [facility] Last Admin: 09/29/21 08:45 Dose: 5 mg Documented by: Atorvastatin Calcium (Atorvastatin Calcium 40 Mg Tablet) 40 mg PO BEDTIME [facility] Last Admin: 09/28/21 20:11 Dose: 40 mg Documented by: Bupropion HCl (Bupropion Hcl Xl 150 Mg Tab.Er.24h) 150 mg PO DAILY [facility] Last Admin: 09/29/21 08:37 Dose: 150 mg Documented by: Doxycycline Hyclate (Doxycycline Hyclate 100 Mg Tablet) 100 mg PO BID [facility] Last Admin: 09/29/21 08:43 Dose: 100 mg Documented by: Escitalopram Oxalate (Escitalopram Oxalate 10 Mg Tablet) 10 mg PO DAILY [facility] Last Admin: 09/29/21 08:40 Dose: 10 mg Documented by: Insulin Glargine (Insulin Glargine,Hum.Rec.Anlog 100 Unit/Ml 10 Ml Vial) 15 unit SUBCUT BEDTIME [facility] Last Admin: 09/28/21 21:15 Dose: 15 unit Documented by: Magnesium Oxide (Magnesium Oxide 400 Mg Tablet) 400 mg PO DAILY [facility] Last Admin: 09/29/21 08:38 Dose: 400 mg Documented by: Melatonin (Melatonin 3 Mg Tablet) 3 mg PO BEDTIME [facility] Last Admin: 09/28/21 20:11 Dose: 3 mg Documented by: Metoprolol Succinate (Metoprolol Succinate Er 50 Mg Tab.Er.24h) 50 mg PO DAILY [facility]; Protocol Last Admin: 09/29/21 08:42 Dose: 50 mg Documented by: Pharmacy Consult (Consult Rx Perform Med Rec) 1 each MISCELLANE ONCE PRN PRN Reason: Consult order Quetiapine Fumarate (Quetiapine Fumarate 25 Mg Tablet) 25 mg PO TID [facility] Last Admin: 09/29/21 08:43 Dose: 25 mg Documented by: Sodium Chloride (0.9 % Sodium Chloride Flush 3 Ml Syringe) 3 ml IVFLUSH QSHIFT [facility] Last Admin: 09/29/21 08:45 Dose: 3 ml Documented by: Trazodone HCl (Trazodone Hcl 25 Mg Halftab) 25 mg PO TID PRN PRN Reason: agitation Last Admin: 09/28/21 21:15 Dose: 25 mg Documented by: Home Medications Medication Instructions Recorded Confirmed Last Taken Type allopurinol 300 mg tablet 300 mg PO DAILY 06/04/21 09/28/21 09/27/21 History apixaban 5 mg tablet (Eliquis) 5 mg PO BID 06/04/21 09/28/21 09/27/21 History bupropion HCl 300 mg 24 hr tablet, 1 tab PO DAILY 06/04/21 09/28/21 09/27/21 History extended release magnesium oxide 400 mg PO DAILY 07/20/21 09/28/21 09/27/21 History metformin 500 mg tablet 500 mg PO BID 07/20/21 09/28/21 09/27/21 History quetiapine 25 mg tablet 25 mg PO TID 09/20/21 09/28/21 09/27/21 History sacubitril 24 mg-valsartan 26 mg 1 tab PO BID 09/20/21 09/28/21 09/27/21 History tablet (Entresto) amiodarone 200 mg tablet 100 mg PO DAILY 09/28/21 09/28/21 09/27/21 History insulin glargine 100 unit/mL 15 unit SUBCUT BEDTIME 09/28/21 09/28/21 09/27/21 History subcutaneous solution (Lantus U-100 Insulin) Physical Exam Vital Signs: Vital Signs: Last Vital Signs Temp 98.0 F 09/29/21 07:18 Pulse 68 09/29/21 09:39 Resp 20 09/29/21 07:18 BP 128/87 09/29/21 09:39 Pulse Ox 99 09/29/21 07:18 Body Mass Index 24.3 Const: General: cooperative, comfortable, no acute distress, alert and awake Nutritional Appearance: average body habitus Orientation/consciousness: oriented to person and oriented to place HENMT: Head: Yes normocephalic and Yes atraumatic Neck: Neck: Yes trachea midline, Yes supple and Yes no JVD Chest: Chest palpation & inspection: normal inspection of the chest Resp: Effort & Inspection: normal respiratory effort Auscultation: clear to auscultation bilaterally Cardio: Jugular venous distension: no JVD Palpation: normal PMI Rate: regular rate Rhythm: regular rhythm Heart sounds: S1 normal heart sound present, S2 normal heart sound present, no click, no gallops, no murmurs and no rubs GI: Auscultation: normal bowel sounds Skin: General skin exam: no rashes or lesions noted and no ecchymosis Neuro: General: oriented to person, oriented to place and no focal motor deficits Extrem: General: No clubbing, No cyanosis and No edema Results Labs and Meds Result diagrams: 09/28/21 09:58 09/29/21 05:52 Lab results: Laboratory Results - last 24 hr 09/28/21 09/28/21 09/28/21 13:02 13:02 21:11 Sodium Potassium Chloride Carbon Dioxide Anion Gap BUN Creatinine Estim Creat Clear Calc Estimated GFR POC Glucose 197 H Random Glucose Calcium Troponin I High Sens 7.4 Urine Color YELLOW Urine Appearance CLEAR Urine pH 6.0 Ur Specific [place] 1.010 Urine Protein NEG Urine Glucose (UA) NEG Urine Ketones NEG Urine Blood NEG Urine Nitrite NEG Ur Leukocyte Esterase NEG 09/29/21 09/29/21 05:52 07:23 Sodium 138 Potassium 3.3 D Chloride 104 Carbon Dioxide 26 Anion Gap 11 L BUN 27 H Creatinine 1.31 Estim Creat Clear Calc 67.1 Estimated GFR 55 POC Glucose 113 Random Glucose 106 D Calcium 8.4 D Troponin I High Sens Urine Color Urine Appearance Urine pH Ur Specific [place] Urine Protein Urine Glucose (UA) Urine Ketones Urine Blood Urine Nitrite Ur Leukocyte Esterase EKG shows normal sinus rhythm with prolonged QT, also noted prominent U wave which may be contributing to it as well. Assessment and Plan (1) History of congestive heart failure: Status: Acute Patient today appears to be clinically euvolemic and well compensated. Not sure if he has now any more active congestive heart failure syndrome. This may be in remission currently with control of his atrial fibrillation and with normalization of his LV systolic function. This needs to be pursued. See below. Currently does not require any Lasix therapy. Can be withheld. Monitor for heart failure symptoms outpatient. The patient's needs to be educated about the same as well. (2) Cardiomyopathy: Status: Acute Prior history of significant cardiomyopathy in the setting of atrial fibrillation. This LV systolic function gradually improved over time with maintenance of rhythm. I suspect that there is component of tachycardia mediated cardiomyopathy. Repeat limited echocardiogram today to assess for LV systolic function. If LV systolic function is normalized, can withhold Entresto therapy and start him on low-dose Diovan therapy. Continue metoprolol therapy for neurohormonal modulation. Continue rhythm control approach. (3) Paroxysmal atrial fibrillation: Status: Acute Paroxysmal atrial fibrillation which has remained suppressed on amiodarone therapy. On today's EKG noted to have QT prolongation, partly explained by prominent U wave. However there is also hypokalemia noted and hypermagnesemia was recorded in the past. Check magnesium level. Replace potassium to greater than 4 and magnesium to greater than 2. Avoid diuretic therapy as above. Continue metoprolol therapy. Avoidance of alcohol was discussed. Frequent falls is a concern and may be related to his neurologic/musculoskeletal issues. Consider PT consultation. There is no evidence of orthostasis today. Avoid polypharmacy. Will follow with the patient as outpatient. Procedures Date of Service Date of Service: 09/29/21
[2021-09-29 11:36] LABS: Glucose, Whole Blood 178 mg/dL (60-115)
--- NOTE | 2021-09-29 11:40 | MHC.CM.PN ---
Addendum entered by Malissa Billings 09/29/21 13:09: CORRECTION; PATIENT IS NOT ACTIVE WITH [facility]. Addendum entered by Malissa Billings 09/29/21 11:42: HCP ON FILE AND VERIFIED Original Note: PATIENT IS A RE-ADMIT HE IS FROM HOME WITH A WALKER, CANE, AND WHEELCHAIR IN THE HOME. ACTIVE WITH [facility]. REFERRAL PLACED FOR AGENCY TO FOLLOW FOR RESUMPTION OF SERVICES. PLAN IS LIKELY FOR PATIENT TO RETURN HOME THIS AFTERNOON IMM 09/29 IN CHART.
--- NOTE | 2021-09-29 12:26 | PM.CNGS ---
History of Present Illness Consult details Consult date: 09/29/21 Narrative: 66-year-old male who is well known to me, referred because of a left toe ulcer. I had actually seen him in the hospital last week because of the left toe ulcer. It appears that he has osteomyelitis clinically. He had been discharged on oral antibiotics as he was not need to be a candidate for PICC line in view of his dementia. He tends to pull lines off of his body. He was admitted last night after he apparently had fallen at home. He was found on the floor by his . He had complained of hip pain. He was referred back to me because of his left toe ulcer. In view of his dementia, he does not provide details of his history. Review of Systems Review of Systems: Review of systems as per medical records. The patient is unable to provide any details Constitutional: Constitutional: Denies chills and Denies fever(s) Cardiovascular: Cardiovascular: Denies Abdominal Distension Respiratory: Respiratory: Denies no additional respiratory complaints Gastrointestinal: Gastrointestinal: Denies abdominal pain Musculoskeletal: Comments: Complains of left hip pain Neurologic: Reports memory loss Psychiatric: Psychiatric: Reports memory loss [facility] Past Medical History 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 Noncompliance with medications NSVT (nonsustained ventricular tachycardia) PAF (paroxysmal atrial fibrillation) Peripheral neuropathy Vertebrobasilar dolichoectasia Family History Family History Father CAD (coronary artery disease) Social History Social History Household Members: Spouse Household Members Other:: and son Housing: House Alcohol intake: never Patient Tobacco Use Status: Never used Tobacco Second Hand Smoke Exposure: No Use of substances other than those prescribed or required for medical reasons: No Currently Displaying Signs/Symptoms of Drug Intoxication Withdrawal: No Have you been hit, kicked, punched, or otherwise hurt by someone within the past year? If so, by whom?: No Do you feel safe in your current relationship?: Yes Is there a partner from a previous relationship who is making you feel unsafe now?: No Are you made to feel afraid or neglected: No Advance Directives: Yes Advance Directives on File: Yes Advance Directives Date on File: 06/21/21 Do you have thoughts of harming others: None Do you have a plan to hurt others: No Plan Recently lost weight without trying: Unsure How much weight loss: Unsure Eating poorly because of decreased appetite: No Nutrition screen score: 4 Nutrition Risks: No Nutritional Risk Poor oral hygiene: No service: No Current occupational status: retired [employer] Allergies Allergy/AdvReac Type Severity Reaction Status Date / Time colchicine Allergy Rash Verified 07/20/21 15:56 lorazepam [From Ativan] AdvReac Severe paradoxical Verified 09/23/21 18:20 reaction; severe agitation Active Medications: Current Medications Allopurinol (Allopurinol 300 Mg Tablet) 300 mg PO DAILY [facility] Last Admin: 09/29/21 08:43 Dose: 300 mg Documented by: Amiodarone HCl (Amiodarone Hcl 200 Mg Tablet) 100 mg PO DAILY [facility] Last Admin: 09/29/21 08:41 Dose: 100 mg Documented by: Amoxicillin/Clavulanate Potassium (Amoxicillin/Potassium Clav 875 Mg Tablet) 875 mg PO BID [facility] Last Admin: 09/29/21 08:44 Dose: 875 mg Documented by: Apixaban (Apixaban 5 Mg Tablet) 5 mg PO BID [facility] Last Admin: 09/29/21 08:45 Dose: 5 mg Documented by: Atorvastatin Calcium (Atorvastatin Calcium 40 Mg Tablet) 40 mg PO BEDTIME [facility] Last Admin: 09/28/21 20:11 Dose: 40 mg Documented by: Bupropion HCl (Bupropion Hcl Xl 150 Mg Tab.Er.24h) 150 mg PO DAILY [facility] Last Admin: 09/29/21 08:37 Dose: 150 mg Documented by: Doxycycline Hyclate (Doxycycline Hyclate 100 Mg Tablet) 100 mg PO BID [facility] Last Admin: 09/29/21 08:43 Dose: 100 mg Documented by: Escitalopram Oxalate (Escitalopram Oxalate 10 Mg Tablet) 10 mg PO DAILY [facility] Last Admin: 09/29/21 08:40 Dose: 10 mg Documented by: Insulin Glargine (Insulin Glargine,Hum.Rec.Anlog 100 Unit/Ml 10 Ml Vial) 15 unit SUBCUT BEDTIME [facility] Last Admin: 09/28/21 21:15 Dose: 15 unit Documented by: Magnesium Oxide (Magnesium Oxide 400 Mg Tablet) 400 mg PO DAILY [facility] Last Admin: 09/29/21 08:38 Dose: 400 mg Documented by: Melatonin (Melatonin 3 Mg Tablet) 3 mg PO BEDTIME [facility] Last Admin: 09/28/21 20:11 Dose: 3 mg Documented by: Metoprolol Succinate (Metoprolol Succinate Er 50 Mg Tab.Er.24h) 50 mg PO DAILY [facility]; Protocol Last Admin: 09/29/21 08:42 Dose: 50 mg Documented by: Pharmacy Consult (Consult Rx Perform Med Rec) 1 each MISCELLANE ONCE PRN PRN Reason: Consult order Quetiapine Fumarate (Quetiapine Fumarate 25 Mg Tablet) 25 mg PO TID [facility] Last Admin: 09/29/21 08:43 Dose: 25 mg Documented by: Sodium Chloride (0.9 % Sodium Chloride Flush 3 Ml Syringe) 3 ml IVFLUSH QSHIFT [facility] Last Admin: 09/29/21 08:45 Dose: 3 ml Documented by: Trazodone HCl (Trazodone Hcl 25 Mg Halftab) 25 mg PO TID PRN PRN Reason: agitation Last Admin: 09/28/21 21:15 Dose: 25 mg Documented by: Home Medications Medication Instructions Recorded Confirmed Last Taken Type allopurinol 300 mg tablet 300 mg PO DAILY 06/04/21 09/28/21 09/27/21 History apixaban 5 mg tablet (Eliquis) 5 mg PO BID 06/04/21 09/28/21 09/27/21 History bupropion HCl 300 mg 24 hr tablet, 1 tab PO DAILY 06/04/21 09/28/21 09/27/21 History extended release magnesium oxide 400 mg PO DAILY 07/20/21 09/28/21 09/27/21 History metformin 500 mg tablet 500 mg PO BID 07/20/21 09/28/21 09/27/21 History quetiapine 25 mg tablet 25 mg PO TID 09/20/21 09/28/21 09/27/21 History sacubitril 24 mg-valsartan 26 mg 1 tab PO BID 09/20/21 09/28/21 09/27/21 History tablet (Entresto) amiodarone 200 mg tablet 100 mg PO DAILY 09/28/21 09/28/21 09/27/21 History insulin glargine 100 unit/mL 15 unit SUBCUT BEDTIME 09/28/21 09/28/21 09/27/21 History subcutaneous solution (Lantus U-100 Insulin) Physical Exam Vital Signs: Vital Signs: Last Vital Signs Temp 97.6 F 09/29/21 11:09 Pulse 64 09/29/21 11:09 Resp 18 09/29/21 11:09 BP 135/80 09/29/21 11:09 Pulse Ox 100 09/29/21 11:09 Body Mass Index 24.3 Const: Other: Awake, but not oriented, answers simple questions however Resp: Effort & Inspection: normal respiratory effort Cardio: Rate: regular rate GI: Inspection: No distended Palpation (GI): Soft to palpation and nontender Extrem: Other: Ulcer on the left 2nd toe appears clean, about 2 cm in diameter minimal cellulitic changes, no pus, no drainage Results Labs Result diagrams: 09/28/21 09:58 09/29/21 05:52 Labs: Abnormal lab results 09/28/21 09/29/21 09/29/21 Range/Units 21:11 05:52 11:08 Anion Gap 11 L (12-20) BUN 27 H (9-16) mg/dL POC Glucose 197 H 178 H (60-115) mg/dL BMP 09/29/21 05:52 Sodium 138 Potassium 3.3 D Chloride 104 Carbon Dioxide 26 BUN 27 H Creatinine 1.31 Calcium 8.4 D Urine 09/28/21 Range/Units 13:02 Urine Color YELLOW Urine Appearance CLEAR Urine pH 6.0 (5.0-8.0) Ur Specific [place] 1.010 (1.005-1.025) Urine Protein NEG (NEG-TRACE) MG/DL Urine Glucose (UA) NEG (NEG) MG/DL All other labs normal. Assessment and Plan (1) Osteomyelitis: Status: Acute He has a toe ulcer on the 2nd toe on the left at the dorsum, with signs of osteomyelitis. However current exam shows this to be clean and does not have any pus. Furthermore, there is minimal redness surrounding the area. I would therefore continue with current wound care. I had discussed with him the option of doing amputation of the toe and he says that he does not want this at this time. Had discussed the above with the hospitalist service. I can see him in the office on a follow-up once he is discharged. Procedures Date of Service Date of Service: 09/29/21
--- NOTE | 2021-09-29 13:00 | CA_ITS ---
Transthoracic Echocardiogram Patient (Last, First, Middle): Terrence Causey V Gender: Male Date of : 1955 Age: 66 Procedure Date: 09/29/2021 Procedure Type: Transthoracic Echocardiogram Location: [facility] [place] Height: 190.5 cm Weight: 88.45 kg BSA: 2.17 m2 Heart Rate: bpm BP: 135 / 80 mmHg Falsework Builder: CARLOS ALBERTO Dorantes MD: Devon Magaña MD Restaurant Associate: Gurdeep Kumar MD Symptoms: asses left ventricular function Study Quality: Good ECG Rhythm: Sinus Conclusions: - Normal LV systolic function with impaired relaxation filling pattern Findings Left Ventricle Normal left ventricular size, thickness, and systolic function. The visually estimated ejection fraction is between 60-65%. Regional wall motion abnormalities can not be excluded due to suboptimal endocardial definition. Spectral Doppler is indicative of an impaired relaxation filling pattern. E/E prime ratio is <8, consistent with normal filling pressures. Evidence suggests grade I (mild) diastolic dysfunction. Pericardium/Pleural There is no evidence of pericardial effusion. Prior Study Comparison Significant changes compared to prior study dated: 06/08/2021. LV systolic function has normalized Measurements 2D Linear Measurements IVSd: 0.94 0.6-0.9/0.6-1.0 cm LVIDd: 4.45 3.9-5.3/4.2-5.9 cm LVIDd Index: 2.05 2.4-3.2/2.2-3.1 cm/m2 LVIDs: 2.79 2.0-3.6 cm LVPWd: 1.02 0.7-1.1 cm LV Mass: 181.62 67-162/88-224 g LV Mass Index: 83.70 43-95/49-115 g/m2 2D Systolic Function EF 4C: 68.00 >55% EF 2C: 53.60 >55% EF BiP: 60.90 >55% Mitral Valve MV Pk E: 0.82 MV PK A: 0.88 MV Decel Time: 275.00 E/A: 0.90 E'Lateral: 9.79 E'Medial: 5.55 E/E' Med: 14.80 E/E' Lat: 8.40 PHT: 80.00 MVA PHT: 2.75 Decel Irion: 2.99 Diastolic Function MV Pk E: 0.82 MV Pk A: 0.88 E/A: 0.90 E'Medial: 5.55 E/E' Med: 14.80 E' Laterial: 9.79 E/E' Lat: 8.40 Updated in Other Vendor System with Status of Final Gurdeep Kumar MD electronically signed on 09/29/2021 3:07:45 PM with status of Final
--- NOTE | 2021-09-29 14:11 | MHC.CM.PN ---
[facility] ([phone]) BELIEVES THAT PATIENT IS ACTIVE WITH [facility]. REFERRAL PLACED TO INQUIRE. CASE MANAGEMENT FOLLOWING FOR POSSIBLE DISCHARGE PLAN.
--- NOTE | 2021-09-29 15:58 | MHC.CM.PN ---
HOSPITALIST IS DISCHARGING PATIENT. THE[facility]MA ([phone]) AWARE OF PLAN AND WILL BE HERE AT APPROX. FOR 1700. RN AWARE OF PLAN. BOWEN GROSS ALSO AWARE
--- NOTE | 2021-09-29 16:09 | PM.DS ---
DS: Providers Provider Date of Service: 09/29/21 Date of admission: 09/28/21 16:49 Primary care physician: Leighann Aguilar MD Consults: 09/28/21 16:53 Consult to General Surgery Routine Consulting Provider: Artem Almendarez Reason for consultation: left 2nd toe wound 09/29/21 07:58 Consult to Cardiology Routine Consulting Provider: Gurdeep Kumar Reason for consultation: med adjustment hx of chronic atrial fib Has provider been notified: No DS: Diagnosis Discharge Diagnosis (1) WILMER (acute kidney injury): Status: Acute (2) Multiple falls: Status: Acute (3) Diabetes: Status: Acute (4) Osteomyelitis: Status: Acute (5) Dementia associated with other underlying disease with behavioral disturbance: Status: Acute DS: Summary Hospital Course Hospital Course: History of present illness 66-year-old male with a past medical history of hypertension, hyperlipidemia, diabetes, CHF, AFib on Eliquis, anxiety, depression, history of gout; history of Lewy body dementia, history of recurrent falls, recently discharged from [facility] on 09/25/21 after being treated for left 2nd toe diabetic ulcer with possible osteomyelitis and cellulitis patient was discharged home on oral antibiotic since felt not to be a candidate for IV antibiotic due to high risk for pulling IV lines with significant impulsivity with underlying dementia, patient underwent left 2nd toe debridement by General surgery and was recommended to have daily dressings, today patient was brought into [facility] since he was found on the floor complaining of left hip pain, patient sleeps on a hospital bed and sleeps on the couch went to use the bathroom when she returned patient was on the floor she was unable to lift him back to the bed therefore brought her to [place] [facility] patient did complain of lightheadedness and dizziness prior to fall, as per he has been compliant on all home medications, he did not have any episodes of fever chills no new symptoms of shortness of breath cough, no urinary symptoms of urgency or frequency in the emergency room patient was noted to have be in acute renal failure with the creatinine 1.7 patient last creatinine was 1.16 prior to discharge 1 week ago, all workup in the ER including imaging studies of C CT head, C-spine, left hip and pelvic x-ray showed no acute fractures. Patient is now being admitted to [facility] due to recurrent falls and acute on chronic acute kidney injury. Hospital course 66-year-old gentleman with past medical history as above who was brought into [facility] since he was found on the floor and had difficulty getting up due to left hip pain, workup in the ER including head CT C-spine left hip x-ray showed no acute fractures or abnormalities patient noted to be in acute renal failure with a creatinine 1.7 he received IV fluids kidney function has normalized this morning patient is moving his left hip without any difficulty due to recurrent falls, unsteady gait and borderline low blood pressure, and bradycardia, limited echocardiogram was obtained that showed normal EF, and mild diastolic dysfunction, his medications has been adjusted dose of metoprolol has been reduced to 50 mg daily, dose of Wellbutrin has been reduced from 300 daily to 50 mg daily, Lasix and entresto have been discontinued, and he has been placed on low-dose losartan 20 mg daily, Patient blood pressure and ventricular rate seems to be stable, therefore he is being discharged home with VNA services. In regard to his left 2nd toe diabetic ulcer he was seen by Dr. Almendarez and recommended to continue current dressing and to have outpatient follow-up with him in 1 week. Time Spent with Patient Time attestation: Total time spent providing and/or coordinating discharge services: Discharge coordination time: Greater than 30 minutes Quality: Stroke Does the patient have a stroke diagnosis?: No Physical Exam Vital Signs: Vital Signs: Last Vital Signs Temp 97.3 F 09/29/21 15:58 Pulse 62 09/29/21 15:58 Resp 17 09/29/21 15:58 BP 125/58 L 09/29/21 15:58 Pulse Ox 99 09/29/21 15:58 Body Mass Index 24.3 General awake aler t, no acute distre ss.? Neck supple n o JVD. CVS? regula r rate rhythm, Res piratory lungs negar ar to auscultation , no respiratory d istress, no wheeze , no rhonchi. Price rointestinal abdom en soft, nontender , bowel sounds aud ible, no guarding , no rigidity. Ext remities no edema. no CVA tendern ess Neuro nonfocal , patient moving a ll 4 extremity, sp eech clear. Skin m ultiple scabs both knees , right 2nd toe wound well he aled with no drain age, no granulatio n tissue Musculosk eletal left hip, a ble to internally rotate and flex th e left hip without difficulty, noted to have a bruise on left hip ? DS: Data Data Completed and Pending Completed studies during hospitalization [Text1]: Procedures Drainage of Right Pleural Cavity, Percutaneous Approach (06/21/21) Excision of Left Foot Skin, External Approach (09/20/21) Evangelical of Cardiac Rhythm, Single (06/04/21) Transfusion of Nonautologous Red Blood Cells into Peripheral Vein, Percutaneous Approach (07/20/21) Labs on day of discharge: Laboratory Results - last 24 hr 09/28/21 09/29/21 09/29/21 21:11 05:52 07:23 Sodium 138 Potassium 3.3 D Chloride 104 Carbon Dioxide 26 Anion Gap 11 L BUN 27 H Creatinine 1.31 Estim Creat Clear Calc 67.1 Estimated GFR 55 POC Glucose 197 H 113 Random Glucose 106 D Calcium 8.4 D 09/29/21 11:08 Sodium Potassium Chloride Carbon Dioxide Anion Gap BUN Creatinine Estim Creat Clear Calc Estimated GFR POC Glucose 178 H Random Glucose Calcium Discharge Plan Discharge Patient Disposition: Home Health Service Discharge Diagnosis: Acute renal failure Unsteady gait and fall Left 2nd toe diabetic ulcers/osteomyelitis Referrals: [facility] [Outside] - 1 Week Leighann Aguilar MD [Primary Care Provider] - 1 Week Discharge Medications: New metoprolol succinate 50 mg Tablet Extended Release 24 Hr 50 mg PO DAILY Qty: 30 RF: 0 bupropion HCl 150 mg Tablet Extended Release 24 Hr 150 mg PO DAILY Qty: 30 RF: 0 valsartan 40 mg tablet 20 mg PO DAILY Qty: 30 RF: 0 Continued allopurinol 300 mg tablet 300 mg PO DAILY RF: 0 Eliquis 5 mg tablet 5 mg PO BID RF: 0 metformin 500 mg Tablet 500 mg PO BID RF: 0 magnesium oxide 400 mg magnesium Tablet 400 mg PO DAILY RF: 0 trazodone 50 mg tablet 25 mg PO TID PRN (Reason: agitation) Qty: 90 RF: 0 quetiapine 25 mg tablet 25 mg PO TID RF: 0 doxycycline hyclate 100 mg Tablet 100 mg PO Q12H Qty: 82 RF: 0 amoxicillin-pot clavulanate 875-125 mg Tablet 875 mg PO Q12H Qty: 12 RF: 0 atorvastatin [Lipitor] 40 mg tablet 40 mg PO BEDTIME Qty: 30 RF: 0 escitalopram oxalate [Lexapro] 10 mg tablet 10 mg PO DAILY Qty: 30 RF: 0 melatonin 3 mg capsule 3 mg PO BEDTIME Qty: 30 RF: 0 Lantus U-100 Insulin 100 unit/mL Solution 15 unit SUBCUT BEDTIME RF: 0 amiodarone 200 mg tablet 100 mg PO DAILY RF: 0 Changed trazodone 50 mg tablet 25 mg PO BID PRN (Reason: agitation) Qty: 90 RF: 0 Discontinued bupropion HCl 300 mg tablet extended release 24 hr 1 tab PO DAILY RF: 0 metoprolol succinate 100 mg Tablet Extended Release 24 Hr 100 mg PO DAILY 30 Days Qty: 30 RF: 0 Entresto 24-26 mg tablet 1 tab PO BID RF: 0 furosemide 40 mg Tablet 40 mg PO DAILY Qty: 60 RF: 0 Discharge Orders: Discharge Order (Routine); Ordered 09/29/21 Ordered By: Devon Magaña Diet: diabetic diet Activity on Discharge: As tolerated Stand Alone Forms: Patient Portal Discharge page Care Plan Goals: History of recurrent falls being discharged home with VNA services, obtain PT services at home, medications has been adjusted to avoid hypotension Limited echo showed normalization of left ventricular function Health Concerns: Dose of metoprolol decreased to 50 mg daily, dose of Wellbutrin reduced to 150 mg daily, Lasix discontinued, Entresto discontinued, it is started on low-dose losartan 20 mg daily reduce use of trazodone to 25 mg twice daily as needed for agitation. Continue daily dressing to left 2nd toe with silver alginate and dry dressing as before Continue by mouth antibiotic doxycycline and Augmentin as previously prescribed Plan of Treatment: Outpatient follow-up at Dr. Almendarez in 1 week with, outpatient follow-up with primary care physician in next 7-10 days Assessment: As above
== END 2021-09-29 17:25 | disposition home health service (06) ==
LOC: HO.ED 17:05 → HO.S3 09-29 08:22 → HO.EDOVER 09-29 16:27
PROVIDERS: Physician Assistant; Admitting Provider Hospitalist; Emergency Provider Emergency Medicine; PCP Internal Medicine; Visit Provider Hospitalist
DX: N17.9 Acute kidney failure, unspecified (principal); E11.9 Type 2 diabetes mellitus without complications; R29.6 Repeated falls; M86.672 Other chronic osteomyelitis, left ankle and foot; M25.559 Pain in unspecified hip; I42.9 Cardiomyopathy, unspecified; I48.0 Paroxysmal atrial fibrillation; I50.9 Heart failure, unspecified; F02.81 Dementia in other diseases classified elsewhere, unspecified severity, with behavioral disturbance; Q74.3 Arthrogryposis multiplex congenita; Q87.43 Marfan syndrome with skeletal manifestation; G45.0 Vertebro-basilar artery syndrome; Z86.79 Personal history of other diseases of the circulatory system; Z91.14 Patient's other noncompliance with medication regimen; Z88.8 Allergy status to other drugs, medicaments and biological substances; Z79.4 Long term (current) use of insulin; Z79.899 Other long term (current) drug therapy
CPT/HCPCS: 36415; 70450; 71045; 72125; 73502; 80048; 80076; 81003; 82550; 82947; 83690; 83735; 83880; 84484; 85025; 85652; 86140; 87635; 93005; 93308; 99218; 99285

== ENCOUNTER 2021-10-10 14:37 | Emergency (ER) | payer MEDICARE, SELFPAY ==
--- NOTE | ~2021-10-10 | XR_ITS ---
EXAMINATION: XR FOOT, LEFT CLINICAL INFORMATION: Foot infection. COMPARISON: Left foot radiographs dated 09/20/2021. TECHNIQUE: AP, lateral, and oblique views of the left foot. FINDINGS: No acute fracture or dislocation. Chronic contracture of the toes, unchanged. No osseous erosion or periosteal reaction. No abnormal soft tissue calcification. XR/XR foot LT min 3V IMPRESSION: No acute osseous abnormality.
[2021-10-10 15:34] VITALS: BP 154/64; PULSE 51; RESP 18; TEMP 36.9; O2SAT 98; BMI 25.6
--- NOTE | 2021-10-10 20:18 | ED.SKABFB ---
HPI - Skin/Abscess/Foreign Bdy General Chief complaint: General Medical Stated complaint: lt foot infection Time Seen by Provider: 10/10/21 20:17 Source: patient Mode of arrival: ambulatory Limitations: no limitations History of Present Illness complaint: lesion and other (toe infection 2nd) Onset (ago): week(s) (month but worse this past week) Location: LLE (2nd toe) Severity: mild Quality: dull Relieving factors: other (was on augmentin) Exacerbating factors: none Context: other (chronic wound seems to be worsening told to come by PCP) Associated symptoms: other (wound drainage) Treatments prior to arrival: bandages Related Data Home Medications Medication Instructions Recorded Confirmed allopurinol 300 mg tablet 300 mg PO DAILY 06/04/21 10/10/21 magnesium oxide 400 mg PO DAILY 07/20/21 10/10/21 metformin 500 mg tablet 500 mg PO BID 07/20/21 10/10/21 quetiapine 25 mg tablet 25 mg PO TID 09/20/21 10/10/21 losartan 25 mg tablet 1 tab PO DAILY 10/10/21 10/10/21 sacubitril 24 mg-valsartan 26 mg 1 tab PO BID 10/10/21 10/10/21 tablet (Entresto) Previous Rx's Medication Instructions Recorded atorvastatin 40 mg tablet (Lipitor) 40 mg PO BEDTIME #30 tab 09/24/21 escitalopram oxalate 10 mg tablet 10 mg PO DAILY #30 tab 09/25/21 (Lexapro) melatonin 3 mg capsule 3 mg PO BEDTIME #30 cap 09/25/21 bupropion HCl 150 mg 24 hr tablet, 150 mg PO DAILY #30 tab 09/29/21 extended release metoprolol succinate 50 mg 50 mg PO DAILY #30 tab 09/29/21 tablet,extended release 24 hr trazodone 50 mg tablet 25 mg PO BID PRN #90 tab 09/29/21 valsartan 40 mg tablet 20 mg PO DAILY #30 tab 09/29/21 doxycycline hyclate 100 mg capsule 100 mg PO BID 7 Days #14 cap 10/10/21 Allergies Allergy/AdvReac Type Severity Reaction Status Date / Time colchicine Allergy Rash Verified 10/10/21 15:33 lorazepam [From Ativan] AdvReac Severe paradoxical Verified 10/10/21 15:33 reaction; severe agitation Review of Systems Review of Systems: Constitutional : No Fever, No Chills ENT/Mouth : No sore throat, No Rhinorrhea Eyes: No Eye Pain, No Swelling, No Redness Cardiovascular : No Chest Pain, No SOB Respiratory : No Cough, No Sputum Gastrointestinal : No Nausea, No Vomiting, No Diarrhea, No abdominal Pain Genitourinary : No Dysuria, No Hematuria Musculoskeletal : No joint pain, No Myalgias, No Joint Swelling Skin : No Skin Lesions, positive skin rash Neuro : No Weakness, No Numbness, No Headache Psych : No Anxiety, No Depression Heme/Lymph: No Bruising, No Bleeding,No Lymphadenopathy Endocrine : No Polyuria, No Polydipsia All other systems reviewed and are negative [facility] Past Medical History Attestation statement: The following information was validated with the patient. 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 Noncompliance with medications NSVT (nonsustained ventricular tachycardia) PAF (paroxysmal atrial fibrillation) Paroxysmal atrial fibrillation Peripheral neuropathy Vertebrobasilar dolichoectasia Family History Family History Father CAD (coronary artery disease) Social History Social History Household Members: Spouse Household Members Other:: and son Housing: House Alcohol intake: never Patient Tobacco Use Status: Never used Tobacco Second Hand Smoke Exposure: No Use of substances other than those prescribed or required for medical reasons: No Advance Directives: Yes Advance Directives on File: Yes Advance Directives Date on File: 06/21/21 service: No Current occupational status: retired Physical Exam Vital Signs: Vital Signs: Last Vital Signs Temp 98.4 F 10/10/21 15:34 Pulse 55 10/10/21 23:07 Resp 18 10/10/21 23:07 BP 171/90 H 10/10/21 23:07 Pulse Ox 99 10/10/21 23:07 Body Mass Index 25.6 Appearance: Alert. Oriented X3. No acute distress. Eyes: Pupils equal, round and reactive to light. ENT: Pharynx normal. Neck: Normal inspection. Neck supple. CVS: Normal heart rate and rhythm. Pulses normal. Respiratory: No respiratory distress. Breath sounds normal. Abdomen: Soft and nontender. Skin: Skin warm and dry. Normal skin color. Normal skin turgor. Extremities: L foot mildly swollen on dorsum with mild erythema and no warmth L 2nd toe on dorsum of toe wet area with mild erythema scant yellowish drainage noted over joint on the phalanx Neuro: Oriented X 3. No motor deficit. No sensory deficit. Course Course Course Narrative: given appearance of toe just failed abx and he reports hi thinks the wound is worse will discuss with hospitalist for possible admit though overall his labs are stable and he is not having fevers hospitalist reviewed chart and saw the patient - the patient actually told her that his wound is not really changed and it is not more red from baseline and it is always swollen. He was just told to come here by his PCP. Given lack of fevers, no change in what the patient now states is his baseline as well as lack of WBC and a downtrending CRP. He can be DC to home and follow up with Dr. Almendarez MDM - Skin/Abscess/Foreign Bdy MDM Narrative Medical decision making narrative: 66 yo male with hx of osteo, afib, toe infection was just on augmentin and doxy comes back because wound has worsened per his reports though overall doesn't appear terriblly cellulitic will obtain xrays, labs and possibly start on IV abx and admit. Lab Data Result diagrams: 10/10/21 21:20 10/10/21 21:20 Labs: Lab Results 10/10/21 10/10/21 10/10/21 Range/Units 21:20 21:20 21:20 WBC 6.7 (4.8-10.8) X10*3/uL RBC 3.09 L (4.60-5.80) X10*6/uL Hgb 9.4 L (14.0-18.0) g/dl Hct 29.5 L (42.0-52.0) % MCV 95.5 (80.0-98.0) fL MCH 30.4 (27.0-33.0) pg MCHC 31.9 (31.0-36.0) g/dl RDW 15.3 (11.0-16.0) % Plt Count 301 (160-400) X10*3/uL MPV 9.2 L (9.4-12.4) fL Immature Gran % (Auto) 0.6 H (0.0-0.4) % Neut % (Auto) 76.4 H (45-73) % Lymph % (Auto) 14.2 L (20-40) % Warren % (Auto) 6.4 (2-11) % Eos % (Auto) 2.1 (0-4) % Baso % (Auto) 0.3 (0-2) % Lymph # (Auto) 1.0 L (1.2-4.9) X10*3/uL Warren # (Auto) 0.4 (0.1-1.2) X10*3/uL Eos # (Auto) 0.1 (0.0-0.4) X10*3/uL Baso # (Auto) 0.0 (0.0-0.2) X10*3/uL Abs Immat Gran (auto) 0.04 H (0.00-0.03) X10*3/uL Absolute Neuts (auto) 5.1 (2.0-8.3) x10*3/uL Absolute Nucleated RBC 0.000 (0.0-0.012) X10*3/uL Nucleated RBC % (auto) 0.0 (0.0-0.2) /100WBC ESR 60 H (0-15) MM/HR Sodium 135 (135-145) mmol/L Potassium 4.8 D (3.3-5.1) mmol/L Chloride 103 (96-108) mmol/L Carbon Dioxide 24 (22-29) mmol/L Anion Gap 13 (12-20) BUN 20 H (9-16) mg/dL Creatinine 0.89 (0.5-1.4) mg/dL Estim Creat Clear Calc 98.8 Estimated GFR > 60 Random Glucose 123 H (60-115) mg/dL Lactic Acid (0.5-2.0) mmol/L Calcium 9.0 D (8.4-10.2) mg/dL Magnesium 1.8 (1.6-2.6) mg/dL Total Bilirubin 0.9 (0.0-1.0) mg/dL Direct Bilirubin 0.3 (0.0-0.5) mg/dL AST 21 (5-37) U/L ALT 10 (0-40) U/L Alkaline Phosphatase 132 H D (39-117) U/L C-Reactive Protein 0.54 H (< or = 0.50) mg/dL Total Protein 6.8 (6.5-8.0) g/dL Albumin 3.5 (3.5-5.0) g/dL COVID-19 ([facility]) (Negative) COVID-19 Clin Com 10/10/21 10/10/21 Range/Units 21:20 21:21 WBC (4.8-10.8) X10*3/uL RBC (4.60-5.80) X10*6/uL Hgb (14.0-18.0) g/dl Hct (42.0-52.0) % MCV (80.0-98.0) fL MCH (27.0-33.0) pg MCHC (31.0-36.0) g/dl RDW (11.0-16.0) % Plt Count (160-400) X10*3/uL MPV (9.4-12.4) fL Immature Gran % (Auto) (0.0-0.4) % Neut % (Auto) (45-73) % Lymph % (Auto) (20-40) % Warren % (Auto) (2-11) % Eos % (Auto) (0-4) % Baso % (Auto) (0-2) % Lymph # (Auto) (1.2-4.9) X10*3/uL Warren # (Auto) (0.1-1.2) X10*3/uL Eos # (Auto) (0.0-0.4) X10*3/uL Baso # (Auto) (0.0-0.2) X10*3/uL Abs Immat Gran (auto) (0.00-0.03) X10*3/uL Absolute Neuts (auto) (2.0-8.3) x10*3/uL Absolute Nucleated RBC (0.0-0.012) X10*3/uL Nucleated RBC % (auto) (0.0-0.2) /100WBC ESR (0-15) MM/HR Sodium (135-145) mmol/L Potassium (3.3-5.1) mmol/L Chloride (96-108) mmol/L Carbon Dioxide (22-29) mmol/L Anion Gap (12-20) BUN (9-16) mg/dL Creatinine (0.5-1.4) mg/dL Estim Creat Clear Calc Estimated GFR Random Glucose (60-115) mg/dL Lactic Acid 1.0 (0.5-2.0) mmol/L Calcium (8.4-10.2) mg/dL Magnesium (1.6-2.6) mg/dL Total Bilirubin (0.0-1.0) mg/dL Direct Bilirubin (0.0-0.5) mg/dL AST (5-37) U/L ALT (0-40) U/L Alkaline Phosphatase (39-117) U/L C-Reactive Protein (< or = 0.50) mg/dL Total Protein (6.5-8.0) g/dL Albumin (3.5-5.0) g/dL COVID-19 ([facility]) Negative (Negative) COVID-19 Clin Com See Note Discharge Plan Discharge Clinical Impression: Diabetic ulcer of toe Qualifiers: Diabetes mellitus type: type 2 Laterality: left Non-pressure ulcer stage: with fat layer exposed Qualified Code(s): E11.621 - Type 2 diabetes mellitus with foot ulcer Cellulitis Qualifiers: Site of cellulitis: extremity Site of cellulitis of extremity: lower extremity Laterality: left Qualified Code(s): L03.116 - Cellulitis of left lower limb Patient Disposition: Home, Self-Care Instructions: Cellulitis (ED), Diabetic Foot Ulcers (ED), Chronic Wounds (ED) Additional Instructions: return to ED for any worsening symptoms or concerns Prescriptions: New doxycycline hyclate 100 mg capsule 100 mg PO BID 7 Days Qty: 14 RF: 0 No Action allopurinol 300 mg tablet 300 mg PO DAILY RF: 0 metformin 500 mg Tablet 500 mg PO BID RF: 0 magnesium oxide 400 mg magnesium Tablet 400 mg PO DAILY RF: 0 losartan 25 mg tablet 1 tab PO DAILY RF: 0 Entresto 24-26 mg tablet 1 tab PO BID RF: 0 quetiapine 25 mg tablet 25 mg PO TID RF: 0 atorvastatin [Lipitor] 40 mg tablet 40 mg PO BEDTIME Qty: 30 RF: 0 escitalopram oxalate [Lexapro] 10 mg tablet 10 mg PO DAILY Qty: 30 RF: 0 melatonin 3 mg capsule 3 mg PO BEDTIME Qty: 30 RF: 0 metoprolol succinate 50 mg Tablet Extended Release 24 Hr 50 mg PO DAILY Qty: 30 RF: 0 trazodone 50 mg tablet 25 mg PO BID PRN (Reason: agitation) Qty: 90 RF: 0 bupropion HCl 150 mg Tablet Extended Release 24 Hr 150 mg PO DAILY Qty: 30 RF: 0 valsartan 40 mg tablet 20 mg PO DAILY Qty: 30 RF: 0 Referrals: Artem Almendarez MD [Physician] - 5 days
--- NOTE | 2021-10-10 20:25 | PC.NURSE ---
pt a&o, no sob or chest pain, pt change into hospital attire. Provider in to assess left foot and leg. Positive CMS
--- NOTE | 2021-10-10 21:00 | PHA.MEDREC ---
Pharmacy Consult ? Medication Reconciliation Pharmacy has completed the medication reconciliation.
[2021-10-10] MEDS: Piperacillin Sodium/Tazobactam 3.375 GM in 0.9 % Sodium Chloride 50 ML IV (21:25)
[2021-10-10 21:26] LABS: MANUAL DIFF FLAG NO
--- NOTE | 2021-10-10 21:28 | PC.NURSE ---
pt a difficult Iv and lab stick, Iv placed. labs collected and sent. medicated per Jan.
[2021-10-10 21:29] LABS: Basophils Percent Auto 0.3 % (0-2); Eosinophils Absolute Auto 0.1 X10*3/uL (0.0-0.4); Eosinophils Percent Auto 2.1 % (0-4); Hematocrit 29.5 % (42.0-52.0); Hemoglobin 9.4 g/dl (14.0-18.0); Imm Gran Abs Auto 0.04 X10*3/uL (0.00-0.03); Imm Gran Pct Auto 0.6 % (0.0-0.4); Lymphocytes Percent Auto 14.2 % (20-40); Mean Corpuscular HGB Conc 31.9 g/dl (31.0-36.0); Mean Corpuscular Hemoglobin 30.4 pg (27.0-33.0); Mean Corpuscular Volume 95.5 fL (80.0-98.0); Mean Platelet Volume 9.2 fL (9.4-12.4); Monocytes Absolute Auto 0.4 X10*3/uL (0.1-1.2); Monocytes Percent Auto 6.4 % (2-11); Neutrophils Absolute Auto 5.1 x10*3/uL (2.0-8.3); Neutrophils Percent Auto 76.4 % (45-73); Platelet Count 301 X10*3/uL (160-400); Red Blood Count 3.09 X10*6/uL (4.60-5.80); Red Cell Distribution Width 15.3 % (11.0-16.0); White Blood Count 6.7 X10*3/uL (4.8-10.8)
[2021-10-10 21:44] LABS: COVID-19 Test Negative (Negative)
[2021-10-10 21:48] LABS: Alanine Aminotransferase 10 U/L (0-40); Albumin Level 3.5 g/dL (3.5-5.0); Alkaline Phosphatase 132 U/L (39-117); Anion Gap 13 (12-20); Aspartate Amino Transferase 21 U/L (5-37); Bilirubin Direct 0.3 mg/dL (0.0-0.5); Bilirubin Total 0.9 mg/dL (0.0-1.0); Blood Urea Nitrogen 20 mg/dL (9-16); C Reactive Protein 0.54 mg/dL (< or = 0.50); Carbon Dioxide 24 mmol/L (22-29); Chloride 103 mmol/L (96-108); Creatinine Clr Calc Pharmacy 98.8; Estimated Glomerular Filt Rate > 60; Glucose Random 123 mg/dL (60-115); Magnesium 1.8 mg/dL (1.6-2.6); Potassium 4.8 mmol/L (3.3-5.1); Sodium 135 mmol/L (135-145); Total Protein 6.8 g/dL (6.5-8.0)
[2021-10-10] MEDS: vancomycin HCL 1,250 MG in 0.9 % Sodium Chloride 250 ML 166.67 MG IV (21:53)
--- NOTE | 2021-10-10 21:59 | PC.NURSE ---
medicated per Mar.
[2021-10-10 22:12] VITALS: BP 185/92; PULSE 55; RESP 16
[2021-10-10 22:14] LABS: Erythrocyte Sedimentation Rate 60 MM/HR (0-15)
--- NOTE | 2021-10-10 22:41 | PC.NURSE ---
attempted to call and son to get pt ride home. just got voice mail.
--- NOTE | 2021-10-10 22:57 | PC.NURSE ---
Was able to get a hold of son who will being picking him up.
[2021-10-10 23:07] VITALS: BP 171/90; PULSE 55; RESP 18; O2SAT 99
== END 2021-10-10 23:50 | disposition home or self-care (01) ==
PROVIDERS: Emergency Provider Emergency Medicine; PCP Internal Medicine
DX: E11.621 Type 2 diabetes mellitus with foot ulcer (principal); L97.529 Non-pressure chronic ulcer of other part of left foot with unspecified severity; I11.0 Hypertensive heart disease with heart failure; I50.9 Heart failure, unspecified; I48.0 Paroxysmal atrial fibrillation; F03.90 Unspecified dementia, unspecified severity, without behavioral disturbance, psychotic disturbance, mood disturbance, and anxiety; Z79.84 Long term (current) use of oral hypoglycemic drugs; Z79.899 Other long term (current) drug therapy; Z20.822 Contact with and (suspected) exposure to COVID-19
CPT/HCPCS: 36415; 73630; 80048; 80076; 83605; 83735; 85025; 85652; 86140; 87040; 87635; 96365; 96367; 99284; J2543; J3370

== ENCOUNTER → 2021-10-17 14:51 | Outpatient (BNVA) | payer MEDICARE, SELFPAY | PROVIDERS: PCP Internal Medicine; Visit Provider Surgery | DX: E11.621 Type 2 diabetes mellitus with foot ulcer (principal); L97.529 Non-pressure chronic ulcer of other part of left foot with unspecified severity | CPT/HCPCS: 99212 ==

== ENCOUNTER 2021-10-18 13:32 | Outpatient (RCR) | payer MEDICARE, SELFPAY ==
--- NOTE | ~2021-10-18 | XR_ITS ---
EXAMINATION: XR TOES, RIGHT CLINICAL INFORMATION: Nonhealing right foot wound. COMPARISON: None TECHNIQUE: 3 views of the right toes were obtained. FINDINGS: There is hallux valgus deformity first MTP joint. No visible acute fracture, dislocation or subluxation seen. The ankle mortise and subtalar joints are normal. There is a small retrocalcaneal enthesophyte. The soft tissues are normal. XR/XR toe RT min 2V IMPRESSION: Mild hallux valgus deformity first MTP joint. Otherwise unremarkable right foot exam.
== END 2022-03-29 10:17 | disposition home or self-care (01) ==
LOC: HO.WCC 13:32
PROVIDERS: PCP Internal Medicine; Visit Provider Physician Assistant
DX: E11.621 Type 2 diabetes mellitus with foot ulcer (principal); L97.522 Non-pressure chronic ulcer of other part of left foot with fat layer exposed; L97.519 Non-pressure chronic ulcer of other part of right foot with unspecified severity; E11.69 Type 2 diabetes mellitus with other specified complication; M00.9 Pyogenic arthritis, unspecified; I10 Essential (primary) hypertension; Z79.2 Long term (current) use of antibiotics
CPT/HCPCS: 11042; 11055; 15275; 73660; 99212; 99213; 99214; Q4160

== ENCOUNTER → 2021-11-07 13:39 | Outpatient (BNVA) | payer MEDICARE, SELFPAY | PROVIDERS: PCP Internal Medicine; Visit Provider Surgery | DX: E11.621 Type 2 diabetes mellitus with foot ulcer (principal); L97.529 Non-pressure chronic ulcer of other part of left foot with unspecified severity; L84 Corns and callosities | CPT/HCPCS: 99212 ==

== ENCOUNTER 2021-12-06 13:00 | Outpatient (REF) | payer MEDICARE, SELFPAY ==
[2021-12-06 13:18] LABS: MANUAL DIFF FLAG NO
[2021-12-06 13:39] LABS: Basophils Percent Auto 0.6 % (0-2); Eosinophils Absolute Auto 0.3 X10*3/uL (0.0-0.4); Eosinophils Percent Auto 5.2 % (0-4); Hematocrit 39.9 % (42.0-52.0); Hemoglobin 12.5 g/dl (14.0-18.0); Imm Gran Abs Auto 0.02 X10*3/uL (0.00-0.03); Imm Gran Pct Auto 0.4 % (0.0-0.4); Lymphocytes Absolute Auto 1.2 X10*3/uL (1.2-4.9); Lymphocytes Percent Auto 21.6 % (20-40); Mean Corpuscular HGB Conc 31.3 g/dl (31.0-36.0); Mean Corpuscular Hemoglobin 28.2 pg (27.0-33.0); Mean Corpuscular Volume 90.1 fL (80.0-98.0); Mean Platelet Volume 10.2 fL (9.4-12.4); Monocytes Absolute Auto 0.3 X10*3/uL (0.1-1.2); Monocytes Percent Auto 6.3 % (2-11); Neutrophils Absolute Auto 3.6 x10*3/uL (2.0-8.3); Neutrophils Percent Auto 65.9 % (45-73); Platelet Count 238 X10*3/uL (160-400); Red Blood Count 4.43 X10*6/uL (4.60-5.80); Red Cell Distribution Width 14.4 % (11.0-16.0); White Blood Count 5.4 X10*3/uL (4.8-10.8)
[2021-12-06 13:46] LABS: Estimated Average Glucose 143 mg/dL; Hemoglobin A1c % 6.6 %
[2021-12-06 13:59] LABS: Anion Gap 8 (12-20); Blood Urea Nitrogen 20 mg/dL (9-16); C Reactive Protein 0.07 mg/dL (< or = 0.50); Calcium 9.5 mg/dL (8.4-10.2); Carbon Dioxide 31 mmol/L (22-29); Chloride 103 mmol/L (96-108); Estimated Glomerular Filt Rate > 60; Glucose Random 219 mg/dL (60-115); Potassium 4.2 mmol/L (3.3-5.1); Sodium 138 mmol/L (135-145)
[2021-12-06 14:23] LABS: Erythrocyte Sedimentation Rate 12 MM/HR (0-15)
== END 2021-12-06 13:01 | disposition home or self-care (01) ==
LOC: HO.LAB 13:00
PROVIDERS: PCP Physician Assistant; Visit Provider Internal Medicine
DX: L97.529 Non-pressure chronic ulcer of other part of left foot with unspecified severity (principal)
CPT/HCPCS: 36415; 80048; 83036; 84134; 85025; 85652; 86140

== ENCOUNTER 2021-12-14 14:53 | Outpatient (REF) | payer MEDICARE, SELFPAY ==
--- NOTE | ~2021-12-14 | MR_ITS ---
EXAMINATION: MRI FOOT WITHOUT AND WITH CONTRAST, LEFT CLINICAL INFORMATION: Nonhealing anterior 2nd toe wound. Evaluate for osteomyelitis. COMPARISON: Most recent left foot radiographs dated 10/10/2021. TECHNIQUE: Multisequence MR imaging of the left foot was obtained before and after the administration of 10 mL IV Gadavist contrast on a high-field strength scanner. FINDINGS: There is soft tissue ulceration along the dorsal aspect of the 2nd toe at the level of the proximal interphalangeal joint with prominent subcutaneous edema and postcontrast enhancement, consistent with cellulitis. No organized fluid collection or abscess formation. There is erosion of the 2nd proximal phalangeal head and which is attenuated with decreased T1 and increased T2 marrow signal. Similar signal findings are seen throughout the 2nd middle phalanx, consistent with acute osteomyelitis. There is mildly increased T2 marrow signal with normal T1 marrow signal within the 2nd distal phalanx, consistent with reactive marrow edema. There is a small 2nd proximal interphalangeal joint effusion, which could indicate septic arthritis. No additional abnormal marrow signal. No stress reaction or fracture. Prominent dorsal subcutaneous edema. Edema within the intrinsic musculature of the foot, which can be seen in diabetic patients. The visualized flexor and sensor tendons are intact. The Lisfranc ligament is intact. MR/MR foot LT wo/w con IMPRESSION: Soft tissue ulceration and cellulitis along the dorsal aspect of the 2nd toe at the level of the proximal interphalangeal joint. No evidence of abscess formation. Attenuation of the 2nd proximal phalangeal head with acute osteomyelitis involving the proximal and middle phalanges. Small proximal interphalangeal joint effusion, which could indicate septic arthritis. Mild reactive marrow edema within the 2nd distal phalanx.
== END 2021-12-14 14:54 | disposition home or self-care (01) ==
LOC: HO.MRI 14:53
PROVIDERS: Visit Provider Physician Assistant
DX: E11.621 Type 2 diabetes mellitus with foot ulcer (principal); L97.522 Non-pressure chronic ulcer of other part of left foot with fat layer exposed
CPT/HCPCS: 73720; A9585

== ENCOUNTER → 2022-01-04 14:43 | Outpatient (BNVA) | payer MEDICARE, SELFPAY | PROVIDERS: Visit Provider Internal Medicine | DX: L97.509 Non-pressure chronic ulcer of other part of unspecified foot with unspecified severity (principal); M86.9 Osteomyelitis, unspecified | CPT/HCPCS: 99202 ==

== ENCOUNTER → 2022-01-23 14:11 | Outpatient (BNVA) | payer MEDICARE, SELFPAY | PROVIDERS: Visit Provider Internal Medicine | DX: M86.9 Osteomyelitis, unspecified (principal); L97.529 Non-pressure chronic ulcer of other part of left foot with unspecified severity | CPT/HCPCS: 99212 ==

== ENCOUNTER 2022-01-26 13:52 | Outpatient (REF) | payer MEDICARE, SELFPAY ==
--- NOTE | ~2022-01-26 | US_ITS ---
EXAMINATION: NONINVASIVE ASSESSMENT OF THE ARTERIES OF BOTH LOWER EXTREMITIES INCLUDING PVR EXAM AND BILATERAL LOWER EXTREMITY DUPLEX. CLINICAL INFORMATION: Nonhealing wounds COMPARISON: None TECHNIQUE: Ankle pulse volume recordings, ankle pressure measurements and ankle brachial indices were obtained of the lower extremity arterial system bilaterally in addition to duplex Doppler techniques with wave form analysis and measurement of velocities in the common femoral, profunda femoral, superficial femoral, popliteal, tibial and peroneal arteries. The study was performed only at rest. FINDINGS: RIGHT LEG 1. THE RIGHT ANKLE-BRACHIAL INDEX IS: 1.11 >0.97-1.25 = normal - no significant arterial disease 0.75-0.96 = mild peripheral arterial disease 0.5-0.74 = moderate peripheral arterial disease <0.50 = severe peripheral arterial disease <0.30 = critical arterial disease 2. SEGMENTAL PRESSURES (mmHg): Ankle: PT 91, DP 120 3. PVR WAVEFORMS: Ankle: normal 4. DIRECT DUPLEX: Common femoral artery: 121 cm/s, Multiphasic Profunda femoris artery: 57 cm/s, Multiphasic Superficial femoral artery (proximal): 98 cm/s, Multiphasic Superficial femoral artery (mid): 78 cm/s, Multiphasic Superficial femoral artery (distal): 54 cm/s, Multiphasic Proximal Popliteal artery: 53 cm/s, Multiphasic Mid posterior tibial artery: 191 cm/s, Multiphasic LEFT LE. THE LEFT ANKLE-BRACHIAL INDEX IS: 1.07 (higher of the DP/PT) >0.97-1.25 = normal - no significant arterial disease 0.75-0.96 = mild peripheral arterial disease 0.5-0.74 = moderate peripheral arterial disease <0.50 = severe peripheral arterial disease <0.30 = critical arterial disease 2. SEGMENTAL PRESSURES: Ankle: PT 116, DP 100 3. PVR WAVEFORMS: Ankle: normal 4. DIRECT DUPLEX: Common femoral artery: 78 cm/s, Multiphasic Profunda femoris artery: 56 cm/s, Multiphasic Superficial femoral artery (proximal): 75 cm/s, Multiphasic Superficial femoral artery (mid): 78 cm/s, Multiphasic Superficial femoral artery (distal): 52 cm/s, Multiphasic Proximal Popliteal artery: 60 cm/s, Multiphasic Mid posterior tibial artery: 84 cm/s, Multiphasic US/US EH complete IMPRESSION: 1. Bilateral normal PVR waveforms. 2. Moderate stenosis of the right posterior tibial artery.
--- NOTE | ~2022-01-26 | US_ITS ---
EXAMINATION: NONINVASIVE ASSESSMENT OF THE ARTERIES OF BOTH LOWER EXTREMITIES INCLUDING PVR EXAM AND BILATERAL LOWER EXTREMITY DUPLEX. CLINICAL INFORMATION: Nonhealing wounds COMPARISON: None TECHNIQUE: Ankle pulse volume recordings, ankle pressure measurements and ankle brachial indices were obtained of the lower extremity arterial system bilaterally in addition to duplex Doppler techniques with wave form analysis and measurement of velocities in the common femoral, profunda femoral, superficial femoral, popliteal, tibial and peroneal arteries. The study was performed only at rest. FINDINGS: RIGHT LEG 1. THE RIGHT ANKLE-BRACHIAL INDEX IS: 1.11 >0.97-1.25 = normal - no significant arterial disease 0.75-0.96 = mild peripheral arterial disease 0.5-0.74 = moderate peripheral arterial disease <0.50 = severe peripheral arterial disease <0.30 = critical arterial disease 2. SEGMENTAL PRESSURES (mmHg): Ankle: PT 91, DP 120 3. PVR WAVEFORMS: Ankle: normal 4. DIRECT DUPLEX: Common femoral artery: 121 cm/s, Multiphasic Profunda femoris artery: 57 cm/s, Multiphasic Superficial femoral artery (proximal): 98 cm/s, Multiphasic Superficial femoral artery (mid): 78 cm/s, Multiphasic Superficial femoral artery (distal): 54 cm/s, Multiphasic Proximal Popliteal artery: 53 cm/s, Multiphasic Mid posterior tibial artery: 191 cm/s, Multiphasic LEFT LE. THE LEFT ANKLE-BRACHIAL INDEX IS: 1.07 (higher of the DP/PT) >0.97-1.25 = normal - no significant arterial disease 0.75-0.96 = mild peripheral arterial disease 0.5-0.74 = moderate peripheral arterial disease <0.50 = severe peripheral arterial disease <0.30 = critical arterial disease 2. SEGMENTAL PRESSURES: Ankle: PT 116, DP 100 3. PVR WAVEFORMS: Ankle: normal 4. DIRECT DUPLEX: Common femoral artery: 78 cm/s, Multiphasic Profunda femoris artery: 56 cm/s, Multiphasic Superficial femoral artery (proximal): 75 cm/s, Multiphasic Superficial femoral artery (mid): 78 cm/s, Multiphasic Superficial femoral artery (distal): 52 cm/s, Multiphasic Proximal Popliteal artery: 60 cm/s, Multiphasic Mid posterior tibial artery: 84 cm/s, Multiphasic US/US arterial duplex LE BI IMPRESSION: 1. Bilateral normal PVR waveforms. 2. Moderate stenosis of the right posterior tibial artery.
== END 2022-01-26 13:53 | disposition home or self-care (01) ==
LOC: HO.US 13:52
PROVIDERS: Visit Provider Physician Assistant
DX: I87.2 Venous insufficiency (chronic) (peripheral) (principal)
CPT/HCPCS: 93923; 93925

== ENCOUNTER 2022-12-14 13:52 | Outpatient (REF) | payer MEDICARE, SELFPAY ==
[2022-12-15 11:52] LABS: Influenza A PCR NEGATIVE (Negative); Influenza B PCR NEGATIVE (Negative); Resp Syncy Virus RNA Qual PCR NEGATIVE (Negative); SARS COV2 PCR INHOUSE NEGATIVE (Negative)
== END 2022-12-14 13:53 | disposition home or self-care (01) ==
LOC: HO.LAB 13:52
PROVIDERS: Visit Provider Nurse Practitioner Family
DX: Z20.822 Contact with and (suspected) exposure to COVID-19 (principal)
CPT/HCPCS: 0241U

== ENCOUNTER 2023-01-02 14:24 | Outpatient (REF) | payer MEDICARE, SELFPAY ==
--- NOTE | ~2023-01-02 | XR_ITS ---
EXAMINATION: XR THORACIC SPINE XR LUMBAR SPINE CLINICAL INFORMATION: Low back pain COMPARISON: CT abdomen pelvis dated 07/20/2020. CT chest dated 06/08/2021. TECHNIQUE: AP, lateral, and swimmer's views of the thoracic spine and AP and lateral views of the lumbar spine and lateral view of the lumbosacral junction. FINDINGS: THORACIC: There is subtle loss of anterior vertebral body height at the T8 vertebral body which is unchanged and likely chronic or developmental. There is xcpi-ps-[id number] multilevel degenerative disc disease in the thoracic spine with prominent endplate osteophytes and more mild loss of intervertebral disc height. No fractures are identified. No acute soft tissue findings. Calcific atherosclerosis in the thoracic aorta and coronary arteries. LUMBAR: Mild left convex lumbar curvature centered at L4. There is sfngpsbh-rg-[id number] degenerative disc disease at L5-S1 with marked associated facet arthropathy as well as mild grade 1 anterolisthesis of L5 on S1. More minimal degenerative disc disease in the remainder of the lumbar spine characterized by endplate osteophytes primarily. Moderate facet arthropathy at L4-L5. No acute fractures. Mild osteoarthritis in the SI joints. No acute soft tissue findings. XR/XR thoracic spine 2V IMPRESSION: 1. Zoowuhlv-fv-jspkcz degenerative disc disease at L5-S1 with associated facet arthropathy and grade 1 anterolisthesis. More minimal degenerative disc disease in the remainder of the lumbar spine. 2. Lfmd-wf-wmchbjvt multilevel degenerative disc disease in the thoracic spine. 3. No acute fracture or malalignment in the lumbar spine. Mild left convex lumbar curvature.
--- NOTE | ~2023-01-02 | XR_ITS ---
EXAMINATION: XR CHEST, 2 VIEWS CLINICAL INFORMATION: Cough COMPARISON: 09/28/2021 TECHNIQUE: PA and lateral views of the chest were obtained. FINDINGS: Lungs are clear. No consolidation, pneumothorax, or pleural effusion. Cardiac and mediastinal contours are normal. Pulmonary vasculature is unremarkable. Trachea is midline. Minimal degenerative disc disease in the thoracic spine. Coronary artery stent. XR/XR chest 2V IMPRESSION: No acute cardiopulmonary findings.
--- NOTE | ~2023-01-02 | XR_ITS ---
EXAMINATION: XR THORACIC SPINE XR LUMBAR SPINE CLINICAL INFORMATION: Low back pain COMPARISON: CT abdomen pelvis dated 07/20/2020. CT chest dated 06/08/2021. TECHNIQUE: AP, lateral, and swimmer's views of the thoracic spine and AP and lateral views of the lumbar spine and lateral view of the lumbosacral junction. FINDINGS: THORACIC: There is subtle loss of anterior vertebral body height at the T8 vertebral body which is unchanged and likely chronic or developmental. There is qnfw-om-llaghfqq multilevel degenerative disc disease in the thoracic spine with prominent endplate osteophytes and more mild loss of intervertebral disc height. No fractures are identified. No acute soft tissue findings. Calcific atherosclerosis in the thoracic aorta and coronary arteries. LUMBAR: Mild left convex lumbar curvature centered at L4. There is vouosnvy-mw-qigufy degenerative disc disease at L5-S1 with marked associated facet arthropathy as well as mild grade 1 anterolisthesis of L5 on S1. More minimal degenerative disc disease in the remainder of the lumbar spine characterized by endplate osteophytes primarily. Moderate facet arthropathy at L4-L5. No acute fractures. Mild osteoarthritis in the SI joints. No acute soft tissue findings. XR/XR lumbar spine 2-3V IMPRESSION: 1. Bdlgqwwo-of-mbtubd degenerative disc disease at L5-S1 with associated facet arthropathy and grade 1 anterolisthesis. More minimal degenerative disc disease in the remainder of the lumbar spine. 2. Ofbw-yq-gfvjaogi multilevel degenerative disc disease in the thoracic spine. 3. No acute fracture or malalignment in the lumbar spine. Mild left convex lumbar curvature.
== END 2023-01-02 14:25 | disposition home or self-care (01) ==
LOC: HO.XRAY 14:24
PROVIDERS: PCP Family Medicine; Visit Provider Family Medicine
DX: R05.9 Cough, unspecified (principal); M54.50 Low back pain, unspecified
CPT/HCPCS: 71046; 72070; 72100

== ENCOUNTER 2023-03-19 12:04 | Outpatient (REF) | payer MEDICARE, SELFPAY ==
[2023-03-19 14:37] LABS: Hematocrit 43.5 % (42.0-52.0); Hemoglobin 14.1 g/dl (14.0-18.0); Mean Corpuscular HGB Conc 32.4 g/dl (31.0-36.0); Mean Corpuscular Hemoglobin 28.6 pg (27.0-33.0); Mean Corpuscular Volume 88.2 fL (80.0-98.0); Mean Platelet Volume 10.1 fL (9.4-12.4); Platelet Count 243 X10*3/uL (160-400); Red Blood Count 4.93 X10*6/uL (4.60-5.80); Red Cell Distribution Width 13.3 % (11.0-16.0); White Blood Count 6.8 X10*3/uL (4.8-10.8)
[2023-03-20 12:48] LABS: Alpha 1 Anti-trypsin 135 mg/dL (83-199)
== END 2023-03-19 12:05 | disposition home or self-care (01) ==
LOC: HO.WFDLDS 12:04
PROVIDERS: Visit Provider Nurse Practitioner Family
DX: R05.3 Chronic cough (principal); I10 Essential (primary) hypertension
CPT/HCPCS: 36415; 82103; 85027